=== PATIENT | male | born 1960 | race Caucasian/White ===

== ENCOUNTER 2017-02-02 09:14 | Emergency (ER) | payer OTHER ==
[2017-02-02 09:19] VITALS: BP 165/78; PULSE 77; RESP 20; TEMP 98.1
[2017-02-02] MEDS ORDERED: CIPROFLOXACIN HCL 500 MG TAB PO STA (09:43)
--- NOTE | 2017-02-02 09:44 | ED ---
General Adult HPI - General Chief complaint: Wound/Laceration Stated complaint: Stepped on nail left foot/diabetic Time Seen by Provider: 02/02/17 09:22 Source: patient, RN notes reviewed Mode of arrival: ambulatory Limitations: no limitations - History of Present Illness Initial comments: Patient 56-year-old male significant past medical history for diabetes, who presents emergency room today with a chief complaint of puncture wound to left foot 2 weeks. He does admit that he had his boots on stepped on a nail through states he was able pull it out himself. He states it's been 2 weeks to having some pains nose some local redness to the top of his foot. He did go to [facility] and advised to come here the emergency room. He states is not been on any antibiotics. He states that 2 weeks ago he followed up did have x- rays which were negative. Patient denies any other complaints or symptoms. - Related Data Home Medications Medication Instructions Recorded Confirmed Insulin Aspart [NovoLOG] See Protocol SQ PC-TID PRN 02/25/16 02/25/16 Insulin Glargine [Lantus] 40 unit SQ HS 02/25/16 02/25/16 Previous Rx's Medication Instructions Recorded Ciprofloxacin HCl [Cipro] 500 mg PO Q12HR #6 tablet 02/25/16 Ciprofloxacin HCl [Cipro] 500 mg PO Q12HR #20 day 02/02/17 Allergies Allergy/AdvReac Type Severity Reaction Status Date / Time Penicillins Allergy Unknown Verified 02/02/17 09:19 Childhood Review of Systems ROS Statement: Those systems with pertinent positive or pertinent negative responses have been documented in the HPI. ROS Other: All systems not noted in ROS Statement are negative. Past Medical History Past Medical History: Diabetes Mellitus History of Any Multi-Drug Resistant Organisms: None Reported Past Surgical History: Back Surgery Additional Past Surgical History / Comment(s): x2 hand surgeries Past Psychological History: No Psychological Hx Reported Smoking Status: Current every day smoker Past Alcohol Use History: Occasional Past Drug Use History: None Reported General Exam - General Exam Comments Initial Comments: General: The patient is awake and alert, in no distress, and does not appear acutely ill. Neck: The neck is supple, there is no tenderness or JVD. Cardiovascular: There is a regular rate and rhythm. No murmur, rub or gallop is appreciated. Respiratory: Lungs are clear to auscultation, respirations are non-labored, breath sounds are equal. No wheezes, stridor, rales, or rhonchi. Musculoskeletal: Full range motion. Sensation intact with pulses equal bilaterally 2+ prescribed by/5. Neurological: A&O x 3. CN II-XII intact, There are no obvious motor or sensory deficits. Coordination appears grossly intact. Speech is normal. Skin: She does have some mild faint redness to the dorsal aspect between the digits 2 through 4. There is a puncture wound appreciated all of the foot. There is no redness swelling locally. Psychiatric: Normal mood and affect. Limitations: no limitations Course Vital Signs 02/02/17 09:17 Temperature 98.1 F Pulse Rate 77 Respiratory 20 Rate Blood Pressure 165/78 O2 Sat by Pulse 99 Oximetry Medical Decision Making - Medical Decision Making Patient's tetanus is up-to-date. A be started on antibiotics here in emergency room. Symptoms of return and need for admission were discussed with patient. Patient states understanding. Disposition Clinical Impression: Puncture wound Disposition: HOME SELF-CARE Condition: Good Instructions: Puncture Wound (ED) Additional Instructions: Please use medication as discussed. Please follow-up with family doctor in the next 2 days of symptoms have not improved. Please return to emergency room if the symptoms increase or worsen or for any other concerns. Prescriptions: Ciprofloxacin HCl [Cipro] 500 mg PO Q12HR #20 day Referrals: Joseph Jacobsen DO [Primary Care Provider] - 1-2 days Time of Disposition: 09:42
== END 2017-02-02 09:57 | disposition home or self-care (01) ==
LOC: EC 09:14
DX: S91.332A Puncture wound without foreign body, left foot, initial encounter (principal); E11.9 Type 2 diabetes mellitus without complications; F17.200 Nicotine dependence, unspecified, uncomplicated; Z79.4 Long term (current) use of insulin; Z88.0 Allergy status to penicillin; W45.0XXA Nail entering through skin, initial encounter
CPT/HCPCS: 99283

== ENCOUNTER 2017-03-30 11:05 | Inpatient (IN) | payer OTHER ==
[2017-03-30] MEDS ORDERED: NITROGLYCERIN SL TABS 0.4 MG TAB SUBLINGUAL STA ×3 (11:25)
[2017-03-30] MEDS ORDERED: ASPIRIN 81 MG PO STA (11:25)
[2017-03-30 11:26] LABS: Glucose,Whole Blood 138 mg/dL (75-99)
--- NOTE | 2017-03-30 11:28 | ED ---
General Adult HPI - General Chief complaint: Chest Pain Stated complaint: Chest Pain Time Seen by Provider: 03/30/17 11:22 Source: patient, family, RN notes reviewed Mode of arrival: wheelchair Limitations: no limitations - History of Present Illness Initial comments: Patient is a pleasant 56-year-old male presenting to the emergency Department with chest discomfort. Onset of symptoms was a couple hours ago prior to arrival. Discomfort feels like pressure and tightness in the chest. No radiation. Patient earlier felt a little bit short of breath and nauseated and was sweaty. Symptoms were severe however now are moderate 5/10. Patient did have similar symptoms a week ago that just lasted for a couple minutes however was not seen by at that time. - Related Data Home Medications Medication Instructions Recorded Confirmed Insulin Glargine [Lantus] 35 unit SQ DAILY 02/25/16 03/30/17 Insulin Aspart [NovoLOG] See Protocol SQ AC-TID 03/30/17 03/30/17 Allergies Allergy/AdvReac Type Severity Reaction Status Date / Time Penicillins Allergy Unknown Verified 03/30/17 11:51 Childhood Review of Systems ROS Statement: Those systems with pertinent positive or pertinent negative responses have been documented in the HPI. ROS Other: All systems not noted in ROS Statement are negative. Constitutional: Denies: fever Eyes: Denies: eye pain ENT: Denies: ear pain Respiratory: Denies: cough Cardiovascular: Reports: chest pain Endocrine: Denies: fatigue Gastrointestinal: Denies: abdominal pain Genitourinary: Denies: dysuria Musculoskeletal: Denies: back pain Skin: Denies: rash Neurological: Denies: weakness Past Medical History Past Medical History: Diabetes Mellitus History of Any Multi-Drug Resistant Organisms: None Reported Past Surgical History: Back Surgery, Orthopedic Surgery Additional Past Surgical History / Comment(s): x2 hand surgeries Past Psychological History: No Psychological Hx Reported Smoking Status: Current every day smoker Past Alcohol Use History: Occasional Past Drug Use History: None Reported General Exam Limitations: no limitations General appearance: alert, in no apparent distress Head exam: Present: atraumatic Eye exam: Present: normal appearance, PERRL ENT exam: Present: normal oropharynx Neck exam: Present: normal inspection Respiratory exam: Present: normal lung sounds bilaterally. Absent: chest wall tenderness Cardiovascular Exam: Present: regular rate, normal rhythm Expanded Peripheral pulses: 2+: Radial (R), Radial (L), Dorsalis Pedis (R), Dorsalis Pedis (L) GI/Abdominal exam: Present: soft. Absent: tenderness Extremities exam: Present: normal inspection. Absent: pedal edema, calf tenderness Neurological exam: Present: alert Psychiatric exam: Present: normal affect, normal mood Skin exam: Present: normal color Course Vital Signs 03/30/17 03/30/17 03/30/17 11:08 11:41 11:46 Temperature 97.0 F L Pulse Rate 70 64 66 Respiratory 16 20 20 Rate Blood Pressure 142/83 147/83 128/74 O2 Sat by Pulse 99 99 99 Oximetry 03/30/17 03/30/17 03/30/17 11:52 11:56 12:12 Temperature Pulse Rate 67 66 58 L Respiratory 20 20 18 Rate Blood Pressure 133/76 135/72 149/77 O2 Sat by Pulse 100 99 100 Oximetry EKG Findings - EKG Comments: EKG Findings:: Atrial rhythm at 67. IA 156. QRS 86. QT 422. QTC 445. Normal axis. Normal QRS. T wave inversion with some ST depression leads V3 through V6. No old EKG available. Medical Decision Making - Medical Decision Making Patient does have somewhat elevated troponin. Patient reexamined and resting comfortably in bed. Patient was updated. Patient has arty been started on heparin secondary to symptoms and EKG changes. Case was discussed in detail with Dr. Heart, who will admit for Dr. Mckeon. Case was also discussed with practitioner angie, who will consult with Dr. Colón. - Lab Data Result diagrams: 03/30/17 11:20 03/30/17 11:20 Lab Results 03/30/17 03/30/17 03/30/17 Range/Units 11:20 11:20 11:20 WBC 7.2 (3.8-10.6) k/uL RBC 4.76 (4.30-5.90) m/uL Hgb 14.7 (13.0-17.5) gm/dL Hct 44.6 (39.0-53.0) % MCV 93.7 (80.0-100.0) fL MCH 30.9 (25.0-35.0) pg MCHC 33.0 (31.0-37.0) g/dL RDW 15.7 H (11.5-15.5) % Plt Count 194 (150-450) k/uL Neutrophils % 60 % Lymphocytes % 27 % Monocytes % 8 % Eosinophils % 4 % Basophils % 1 % Neutrophils # 4.3 (1.3-7.7) k/uL Lymphocytes # 1.9 (1.0-4.8) k/uL Monocytes # 0.6 (0-1.0) k/uL Eosinophils # 0.3 (0-0.7) k/uL Basophils # 0.1 (0-0.2) k/uL PT (9.0-12.0) sec INR (<1.2) APTT (22.0-30.0) sec D-Dimer (<0.60) mg/L FEU Sodium 134 L (137-145) mmol/L Potassium 4.4 (3.5-5.1) mmol/L Chloride 101 (98-107) mmol/L Carbon Dioxide 24 (22-30) mmol/L Anion Gap 9 mmol/L BUN 9 (9-20) mg/dL Creatinine 0.65 L (0.66-1.25) mg/dL Est GFR (MDRD) Af Amer >60 (>60 ml/min/1.73 sqM) Est GFR (MDRD) Non-Af >60 (>60 ml/min/1.73 sqM) Glucose 146 H (74-99) mg/dL POC Glucose (mg/dL) (75-99) mg/dL POC Glu Technical Business Analyst ID Calcium 9.2 (8.4-10.2) mg/dL Magnesium 2.0 (1.6-2.3) mg/dL Total Bilirubin 0.4 (0.2-1.3) mg/dL AST 28 (17-59) U/L ALT 27 (21-72) U/L Alkaline Phosphatase 49 (38-126) U/L Total Creatine Kinase 241 H (55-170) U/L CK-MB (CK-2) 2.1 (0.0-2.4) ng/mL CK-MB (CK-2) Rel Index 0.9 Troponin I 0.108 H* (0.000-0.034) ng/mL Total Protein 7.3 (6.3-8.2) g/dL Albumin 4.3 (3.5-5.0) g/dL 03/30/17 03/30/17 Range/Units 11:20 11:22 WBC (3.8-10.6) k/uL RBC (4.30-5.90) m/uL Hgb (13.0-17.5) gm/dL Hct (39.0-53.0) % MCV (80.0-100.0) fL MCH (25.0-35.0) pg MCHC (31.0-37.0) g/dL RDW (11.5-15.5) % Plt Count (150-450) k/uL Neutrophils % % Lymphocytes % % Monocytes % % Eosinophils % % Basophils % % Neutrophils # (1.3-7.7) k/uL Lymphocytes # (1.0-4.8) k/uL Monocytes # (0-1.0) k/uL Eosinophils # (0-0.7) k/uL Basophils # (0-0.2) k/uL PT 10.6 (9.0-12.0) sec INR 1.1 (<1.2) APTT 27.9 (22.0-30.0) sec D-Dimer 0.34 (<0.60) mg/L FEU Sodium (137-145) mmol/L Potassium (3.5-5.1) mmol/L Chloride (98-107) mmol/L Carbon Dioxide (22-30) mmol/L Anion Gap mmol/L BUN (9-20) mg/dL Creatinine (0.66-1.25) mg/dL Est GFR (MDRD) Af Amer (>60 ml/min/1.73 sqM) Est GFR (MDRD) Non-Af (>60 ml/min/1.73 sqM) Glucose (74-99) mg/dL POC Glucose (mg/dL) 138 H (75-99) mg/dL POC Glu Technical Business Analyst ID Carlos Dejesus Calcium (8.4-10.2) mg/dL Magnesium (1.6-2.3) mg/dL Total Bilirubin (0.2-1.3) mg/dL AST (17-59) U/L ALT (21-72) U/L Alkaline Phosphatase (38-126) U/L Total Creatine Kinase (55-170) U/L CK-MB (CK-2) (0.0-2.4) ng/mL CK-MB (CK-2) Rel Index Troponin I (0.000-0.034) ng/mL Total Protein (6.3-8.2) g/dL Albumin (3.5-5.0) g/dL - Radiology Data Radiology results: image reviewed (Chest x-ray shows chronic changes. Nodular density right peripheral) Critical Care Time Critical Care Time: Yes Total Critical Care Time: 36 Disposition Clinical Impression: NSTEMI (non-ST elevated myocardial infarction) Disposition: ADMITTED IP TO THIS HOSP Condition: Serious Referrals: Joseph Jacobsen DO [Primary Care Provider] - 1-2 days Decision Time: 12:58
--- NOTE | 2017-03-30 11:51 | XR ---
EXAMINATION TYPE: XR chest 2V DATE OF EXAM: 03/30/2017 COMPARISON: None HISTORY: 56-year-old male with chest pain TECHNIQUE: PA and lateral views FINDINGS: The cardiomediastinal silhouette, aorta, and pulmonary vasculature are within normal limits. Mild int erstitial prominence has a chronic appearance. Nodular density peripheral right lower lung likely nip ple shadow. Otherwise, lungs and pleural spaces are clear. IMPRESSION: Chronic appearing changes, possible bronchitis or chronic asthma. Nodular density at the peripheral r ight lower lung likely nipple shadow. Recommend 4-6 week follow-up with nipple markers to reassess.
[2017-03-30] MEDS ORDERED: HEPARIN SODIUM,PORCINE 5,000 UNIT/ML 1 ML VIAL IV ONE (11:54)
[2017-03-30 11:55] LABS: Basophils # (A) 0.1 k/uL (0-0.2); Basophils % (A) 1 %; CH 31.2; CHCM 33.5; Eosinophils # (A) 0.3 k/uL (0-0.7); Eosinophils % (A) 4 %; HCT 44.6 % (39.0-53.0); HDW 2.36; HGB 14.7 gm/dL (13.0-17.5); Luc # (Auto) 0.09; Luc % (Auto) 1; Lymphocytes # (A) 1.9 k/uL (1.0-4.8); Lymphocytes % (A) 27 %; MCH 30.9 pg (25.0-35.0); MCV 93.7 fL (80.0-100.0); Monocytes # (A) 0.6 k/uL (0-1.0); Monocytes % (A) 8 %; Neutrophils # (A) 4.3 k/uL (1.3-7.7); Neutrophils % (A) 60 %; RBC 4.76 m/uL (4.30-5.90); RDW 15.7 % (11.5-15.5); WBC 7.2 k/uL (3.8-10.6); WBC (Perox) 7.31
[2017-03-30] MEDS ORDERED: SODIUM CHLORIDE 0.9% 500 ML IV SCH (12:00)
[2017-03-30 12:09] LABS: ALT 27 U/L (21-72); AST 28 U/L (17-59); Alkaline Phosphatase 49 U/L (38-126); Anion Gap 9 mmol/L; Blood Urea Nitrogen 9 mg/dL (9-20); Calcium 9.2 mg/dL (8.4-10.2); Carbon Dioxide 24 mmol/L (22-30); Chloride 101 mmol/L (98-107); Glucose 146 mg/dL (74-99); Non-African American GFR(MDRD) >60 (>60 ml/min/1.73 sqM); Potassium 4.4 mmol/L (3.5-5.1); Sodium 134 mmol/L (137-145); Total Bilirubin 0.4 mg/dL (0.2-1.3); Total Protein 7.3 g/dL (6.3-8.2)
[2017-03-30] MEDS: HEPARIN SODIUM,PORCINE/D5W PMX 25,000 UNIT in DEXTROSE/WATER 1 500ML.BAG IV SCH (12:14)
[2017-03-30 12:32] LABS: INR 1.1 (<1.2); Partial Thromboplastin Time 27.9 sec (22.0-30.0); Prothrombin Time 10.6 sec (9.0-12.0)
[2017-03-30 12:34] LABS: Creatine Kinase MB 2.1 ng/mL (0.0-2.4)
[2017-03-30 12:41] LABS: Troponin I 0.108 ng/mL (0.000-0.034)
[2017-03-30] MEDS ORDERED: NITROGLYCERIN SL TABS 0.4 MG TAB SUBLINGUAL PRN (12:58)
[2017-03-30] MEDS ORDERED: NITROGLYCERIN OINT 1 INCH/GM PACKET TOPICAL SCH (13:00)
--- NOTE | 2017-03-30 13:22 | P.CRDCN ---
History of Present Illness Consult date: 03/30/17 Chief complaint: chest pain History of present illness: This is a pleasant 56-year-old gentleman who is diabetic for the last 30 years and a smoker as well presented to the emergency room complaining of chest discomfort. He had an episode of chest discomfort last week but he did not seek any medical attention at that point. This morning he was in his usual state of health until earlier today when he started experiencing chest discomfort, as a pressure/burning sensation in the mid of the chest, without any radiation to the arm or neck or shoulders but it was associated with shortness of breath as well as a sweating. The discomfort lasted for about half an hour until the patient arrived to the emergency room and as a matter of fact he still have a very mild chest discomfort at this point. 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 The first set of cardiac enzyme came in to be slightly abnormal but the EKG showed extensive ST and T wave abnormalities in the anterolateral leads quite concerning for ischemia. The chest x-ray did not show any acute abnormalities. The rest of the blood work came in to be unremarkable. Past Medical History Past Medical History: Diabetes Mellitus History of Any Multi-Drug Resistant Organisms: None Reported Past Surgical History: Back Surgery, Orthopedic Surgery Additional Past Surgical History / Comment(s): x2 hand surgeries Past Psychological History: No Psychological Hx Reported Smoking Status: Current every day smoker Past Alcohol Use History: Occasional Past Drug Use History: None Reported Medications and Allergies Home Medications Medication Instructions Recorded Confirmed Type Insulin Glargine [Lantus] 35 unit SQ DAILY 02/25/16 03/30/17 History Insulin Aspart [NovoLOG] See Protocol SQ AC-TID 03/30/17 03/30/17 History Allergies Allergy/AdvReac Type Severity Reaction Status Date / Time Penicillins Allergy Unknown Verified 03/30/17 11:51 Childhood Physical Exam Vitals: Vital Signs Temp Pulse Resp BP Pulse Ox 03/30/17 12:12 58 L 18 149/77 100 03/30/17 11:56 66 20 135/72 99 03/30/17 11:52 67 20 133/76 100 03/30/17 11:46 66 20 128/74 99 03/30/17 11:41 64 20 147/83 99 03/30/17 11:08 97.0 F L 70 16 142/83 99 Intake and Output 03/29/17 03/30/17 03/30/17 22:59 06:59 14:59 Other: Weight 70.307 kg Patient Weight 03/31/17 06:59 Weight 70.307 kg - Constitutional General appearance: no acute distress - Respiratory Respiratory: bilateral: CTA - Cardiovascular Rhythm: regular Heart sounds: normal: S1, S2 Results 03/30/17 11:20 03/30/17 11:20 Cardiac Enzymes 03/30/17 03/30/17 Range/Units 11:20 11:20 AST 28 (17-59) U/L CK-MB (CK-2) 2.1 (0.0-2.4) ng/mL Troponin I 0.108 H* (0.000-0.034) ng/mL Coagulation 03/30/17 Range/Units 11:20 PT 10.6 (9.0-12.0) sec APTT 27.9 (22.0-30.0) sec CBC 03/30/17 Range/Units 11:20 WBC 7.2 (3.8-10.6) k/uL RBC 4.76 (4.30-5.90) m/uL Hgb 14.7 (13.0-17.5) gm/dL Hct 44.6 (39.0-53.0) % Plt Count 194 (150-450) k/uL Comprehensive Metabolic Panel 03/30/17 Range/Units 11:20 Sodium 134 L (137-145) mmol/L Potassium 4.4 (3.5-5.1) mmol/L Chloride 101 (98-107) mmol/L Carbon Dioxide 24 (22-30) mmol/L BUN 9 (9-20) mg/dL Creatinine 0.65 L (0.66-1.25) mg/dL Glucose 146 H (74-99) mg/dL Calcium 9.2 (8.4-10.2) mg/dL AST 28 (17-59) U/L ALT 27 (21-72) U/L Alkaline Phosphatase 49 (38-126) U/L Total Protein 7.3 (6.3-8.2) g/dL Albumin 4.3 (3.5-5.0) g/dL Current Medications Generic Name Dose Route Start Last Admin Trade Name Freq PRN Reason Stop Dose Admin Aspirin 325 mg 03/31/17 09:00 Aspirin PO DAILY [facility] Heparin Sodium (Porcine) 0 unit 03/30/17 11:54 Heparin IV PER PROTOCOL PRN Low PTT Protocol Heparin Sodium/Dextrose 25,000 500 mls @ 16.87 mls/hr 03/30/17 12:00 12:14 unit/ IV Solution IV 12 units/kg/hr .Q24H JOSHUA 16.87 mls/hr Protocol Administration 12 UNITS/KG/HR Sodium Chloride 500 mls @ 20 mls/hr 03/30/17 12:00 03/30/17 12:16 Saline 0.9% IV 20 mls/hr .Q24H JOSHUA Administration Nitroglycerin 1 inch 03/30/17 13:00 Nitro-Bid Oint TOPICAL Q6HR [facility] Nitroglycerin 0.4 mg 03/30/17 12:58 Nitrostat SUBLINGUAL Q5M PRN Chest Pain Intake and Output 03/29/17 03/30/17 03/30/17 22:59 06:59 14:59 Other: Weight 70.307 kg Patient Weight 03/31/17 06:59 Weight 70.307 kg 03/30/17 11:20 03/30/17 11:20 Assessment and Plan Assessment: This is a pleasant 56-year-old gentleman who is diabetic and smoker and with family history of coronary artery disease who presented to the emergency room was chest discomfort and ruled in for acute non-STEMI with abnormal cardiac enzymes and abnormal EKG as well. I recommended proceeding with a heart catheterization. I discussed the procedure in details with him in the room as well as with his . I will continue the aspirin and heparin for now. Further recommendation to follow the heart catheterization.
[2017-03-30] MEDS: NITROGLYCERIN-D5W PMX 50 MG in DEXTROSE/WATER 1 250ML.BAG IV SCH (14:47)
[2017-03-30 16:38] LABS: Glucose,Whole Blood 130 mg/dL (75-99)
[2017-03-30] MEDS: INSULIN LISPRO (humaLOG) 300 UNIT/3 ML VIAL SQ SCH ×2 (16:55→21:20)
[2017-03-30 18:25] LABS: Creatine Kinase MB 1.9 ng/mL (0.0-2.4)
[2017-03-30 18:28] LABS: Troponin I 0.131 ng/mL (0.000-0.034)
[2017-03-30 20:50] LABS: Glucose,Whole Blood 194 mg/dL (75-99)
[2017-03-30] MEDS: HEPARIN SODIUM,PORCINE 5,000 UNIT/ML 1 ML VIAL IV PRN (21:21)
--- NOTE | 2017-03-30 23:55 | P.HPIM ---
History of Present Illness H&P Date: 03/30/17 Chief Complaint: Chest pain Patient is a 56-year-old male with a history of diabetes type 1 and family history of coronary disease in his father presented to ER with complaints of chest pain. Pain is mainly retrosternal associated with nausea and vomiting and diaphoresis. Pain is mainly pressure-like sensation. Denied any radiation to the neck shoulder or to the back. Also short of breath and chest pain lasted for about 30-40 minutes. Patient had similar pain about a week back but he did not seek medical attention at the time. Patient says that pain improved with nitro tablets in the ER. Chest x-ray showed no acute abnormality EKG showed normal sinus rhythm with ST depression in the anterolateral leads Review of Systems Constitutional: Patient denies any fever or chills . No generalized weakness or weight loss. Abdomen: Patient denied nausea vomiting and diarrhea and abdominal pain. Cardiovascular: Patient denies any chest pain or short of breath no palpitations. Respiratory: patient denied any cough is from production. No shortness of breath Neurologic: Patient denied any numbness or tingling headache. Musculoskeletal: Patient denies any complaints of joint swelling or deformity. Skin: Negative Psychiatric: Negative Endocrine: No heat or cold intolerance. No recent weight gain. Genitourinary: No dysuria or hematuria. All other 14 point ROS negative except the above Past Medical History Past Medical History: Diabetes Mellitus Additional Past Medical History / Comment(s): IDDM type II, gammaglobulinemia as infant. History of Any Multi-Drug Resistant Organisms: None Reported Past Surgical History: Back Surgery, Orthopedic Surgery Additional Past Surgical History / Comment(s): L5-S1 back surgery, bilateral hand trigger finger repairs. Past Anesthesia/Blood Transfusion Reactions: No Reported Reaction Smoking Status: Current every day smoker - Past Family History Father Family Medical History: Myocardial Infarction (MA) Additional Family Medical History / Comment(s): Father has had 5 MIs with the first one happening at the age of 55yrs. Mother Additional Family Medical History / Comment(s): Hypoglycemia. Medications and Allergies Home Medications Medication Instructions Recorded Confirmed Type Insulin Glargine [Lantus] 35 unit SQ DAILY 02/25/16 03/30/17 History Insulin Aspart [NovoLOG] See Protocol SQ AC-TID 03/30/17 03/30/17 History Allergies Allergy/AdvReac Type Severity Reaction Status Date / Time Penicillins Allergy Unknown Verified 03/30/17 11:51 Childhood Physical Exam Vitals: Vital Signs Temp Pulse Resp BP Pulse Ox 03/30/17 14:18 60 18 136/77 99 03/30/17 13:57 97.9 F 64 18 162/100 100 03/30/17 12:12 58 L 18 149/77 100 03/30/17 11:56 66 20 135/72 99 03/30/17 11:52 67 20 133/76 100 03/30/17 11:46 66 20 128/74 99 03/30/17 11:41 64 20 147/83 99 03/30/17 11:08 97.0 F L 70 16 142/83 99 Intake and Output 03/30/17 03/30/17 03/30/17 06:59 14:59 22:59 Intake Total 222 Output Total 300 Balance -300 222 Intake: Oral 222 Output: Urine 300 Other: Weight 70.307 kg Patient Weight 03/31/17 06:59 Weight 70.307 kg PHYSICAL EXAMINATION: Patient is lying in the bed comfortably, no acute distress, awake alert and oriented.. HEENT: Normocephalic. Neck is supple. Pupils reactive. Nostrils clear. Oral cavity is moist. Ears reveal no drainage. Neck reveals no JVD, carotid bruits, or thyromegaly. CHEST EXAMINATION: Trachea is central. Symmetrical expansion. Lung herron clear to auscultation and percussion. CARDIAC: Normal S1, S2 with no gallops. No murmurs ABDOMEN: Soft. Bowel sounds normal. No organomegaly. No abdominal bruits. Extremities: reveal no edema. No clubbing or cyanosis Neurologically awake, alert, oriented x3 with well-coordinated movements. No focal deficits noted Skin: No rash or skin lesions. Psychiatric: Operative. Nonsuicidal Musculoskeletal: No joint swelling or deformity. Normal range of motion. Results CBC & Chem 7: 03/30/17 11:20 03/30/17 11:20 Labs: Abnormal Lab Results - Last 24 Hours (Table) 03/30/17 03/30/17 03/30/17 Range/Units 11:20 11:20 11:20 RDW 15.7 H (11.5-15.5) % APTT (22.0-30.0) sec Sodium 134 L (137-145) mmol/L Creatinine 0.65 L (0.66-1.25) mg/dL Glucose 146 H (74-99) mg/dL POC Glucose (mg/dL) (75-99) mg/dL Total Creatine Kinase 241 H (55-170) U/L Troponin I 0.108 H* (0.000-0.034) ng/mL 03/30/17 03/30/17 03/30/17 Range/Units 11:22 16:26 17:37 RDW (11.5-15.5) % APTT (22.0-30.0) sec Sodium (137-145) mmol/L Creatinine (0.66-1.25) mg/dL Glucose (74-99) mg/dL POC Glucose (mg/dL) 138 H 130 H (75-99) mg/dL Total Creatine Kinase 188 H (55-170) U/L Troponin I 0.131 H* (0.000-0.034) ng/mL 03/30/17 03/30/17 Range/Units 17:37 20:49 RDW (11.5-15.5) % APTT 37.0 H (22.0-30.0) sec Sodium (137-145) mmol/L Creatinine (0.66-1.25) mg/dL Glucose (74-99) mg/dL POC Glucose (mg/dL) 194 H (75-99) mg/dL Total Creatine Kinase (55-170) U/L Troponin I (0.000-0.034) ng/mL Thrombosis Risk Factor Assmnt - Choose All That Apply Any of the Below Risk Factors Present?: Yes Each Factor Represents 1 point: Age 41-60 years Other Risk Factors: No Other congenital or acquired thrombophilia - If yes, enter type in comment: No Thrombosis Risk Factor Assessment Total Risk Factor Score: 1 Thrombosis Risk Factor Assessment Level: Low Risk Assessment and Plan Assessment: 1 chest pain due to NSTEMI with elevated troponin level #2 diabetes type 1 #3 every day smoker #4 family history of significant coronary artery disease Plan: Patient will continue on telemetry monitoring. Continue the serial troponin trending. Continue the heparin IV. Possible cardiac catheterization by cardiology. We will continue the current management and blood sugar control. Counseled for smoking cessation. Further recommendations based on the clinical course. Prognosis is guarded. Time with Patient: Greater than 30
[2017-03-31 00:31] LABS: Creatine Kinase MB 1.8 ng/mL (0.0-2.4)
[2017-03-31 00:39] LABS: Troponin I 0.099 ng/mL (0.000-0.034)
[2017-03-31 04:53] LABS: Basophils % (A) 0 %; CH 30.8; CHCM 32.9; Eosinophils # (A) 0.4 k/uL (0-0.7); Eosinophils % (A) 6 %; HCT 44.8 % (39.0-53.0); HDW 2.33; HGB 14.8 gm/dL (13.0-17.5); Luc # (Auto) 0.11; Luc % (Auto) 1; Lymphocytes # (A) 1.9 k/uL (1.0-4.8); Lymphocytes % (A) 25 %; MCH 31.2 pg (25.0-35.0); MCHC 33.1 g/dL (31.0-37.0); MCV 94.3 fL (80.0-100.0); Mean Platelet Volume 8.1; Monocytes # (A) 0.6 k/uL (0-1.0); Monocytes % (A) 8 %; Neutrophils # (A) 4.6 k/uL (1.3-7.7); Neutrophils % (A) 60 %; RBC 4.75 m/uL (4.30-5.90); RDW 15.3 % (11.5-15.5); WBC 7.7 k/uL (3.8-10.6); WBC (Perox) 7.65
[2017-03-31 05:06] LABS: Cholesterol 169 mg/dL (<200); HDL Cholesterol 70 mg/dL (40-60)
[2017-03-31 05:50] LABS: Glucose,Whole Blood 148 mg/dL (75-99)
[2017-03-31] MEDS: INSULIN LISPRO (humaLOG) 300 UNIT/3 ML VIAL SQ SCH ×2 (06:22→14:46)
[2017-03-31] MEDS: ASPIRIN 325 MG TAB PO SCH (06:22)
[2017-03-31] MEDS ORDERED: IV FLUID CONTINUATION 950 ML IV ONE (08:45)
[2017-03-31] MEDS ORDERED: MIDAZOLAM 2 MG/2 ML VIAL IV ONE ×4 (09:13→12:24)
[2017-03-31] MEDS ORDERED: LIDOCAINE 2% INJ 20 MG/ML SQ ONE ×2 (09:24→12:31)
[2017-03-31] MEDS: VERAPAMIL SYRINGE (5 MG/10 ML) INTRAARTER ONE ×2 (09:25→09:33)
[2017-03-31] MEDS ORDERED: HEPARIN SODIUM 1,000 UN/ML (10ML VL) IV ONE (09:29)
[2017-03-31] MEDS ORDERED: IOHEXOL 350 MG/ML 125ML BOTTLE INJ ONE (09:33)
[2017-03-31] MEDS ORDERED: RX INFO: IV CONTRAST WAS GIVEN 1 EACH MISC MISCELLANE PRN (09:50)
[2017-03-31] MEDS ORDERED: SODIUM CHLORIDE 0.9% 1,000 ML IV SCH (10:00)
[2017-03-31 10:33] LABS: Glucose,Whole Blood 110 mg/dL (75-99)
[2017-03-31] MEDS ORDERED: MD COMMUNICATION TO PHARMACY 1 EACH MISC PO ONE ×4 (10:36)
--- NOTE | 2017-03-31 10:56 | CC ---
CARDIAC CATHETERIZATION REPORT DATE OF SERVICE: 03/31/2017 PERFORMING PHYSICIAN: Ronald Colón MD, Frame Table Operator. PROCEDURE PERFORMED: Selective right and left coronary angiogram. INDICATION: This is a pleasant 56-year-old gentleman who is diabetic and a smoker who presented to the emergency room with a chest discomfort and was ruled in for acute non-STEMI. The heart catheterization was recommended. APPROACH: Right radial artery. COMPLICATION: None. LEVEL OF SEDATION: Moderate with sedation length of 16 minutes. PROCEDURE DESCRIPTION: After obtaining an informed consent, the patient was brought to the [facility]. The right radial artery was cannulated using micropuncture technique, the micropuncture wire passed easily, then I placed a 6-Danish sheath in the right radial artery and subsequently I did selective right and left coronary angiogram using JR4 and JL3.5 catheters. The procedure was completed without any complication. SELECTIVE CORONARY ANGIOGRAM: 1. The right coronary artery is a large caliber vessel and it is a dominant vessel. The RCA in the proximal to midportion in that long tubular lesion appeared to be diseased up to about 70%. The RCA in the mid to distal portion appeared to have mild disease only and distally bifurcates into PDA and PLV branches both have mild disease only. The RCA gives collateral to the LAD. 2. The left main has distal lesion, appeared to be in the range of 90% to 95% with possible thrombus. The left main bifurcates into the left circumflex and left anterior descending artery. 3. The proximal left circumflex appeared to have mild disease only. The mid left circumflex is chronically occluded in the midportion just after the bifurcation of the first obtuse marginal branch which is a moderate caliber vessel with mild diffuse disease only. 4. The left anterior descending artery: The proximal LAD appears to have intermediate disease only. It gives rise into a small diagonal branch. The mid LAD appeared to have mild disease only and the LAD distally appeared to be angiographically normal. CONCLUSION: 1. Heavily calcified right and left coronary system. 2. Severe disease involving the proximal to mid left anterior descending artery in a long tubular lesion. 3. Critical distal left main disease. 4. Chronic total occlusion of the mid left circumflex. 5. Mild disease involving the left anterior descending artery. POSTPROCEDURE MANAGEMENT: 1. Consult surgeon for the evaluation of coronary artery bypass grafting as soon as possible. 2. Restart the patient back on heparin drip and nitro drip. 3. Follow up with the echocardiogram. 4. Follow up with the patient. GERMAN / IJN: [id number] /
--- NOTE | 2017-03-31 11:16 | P.GSCN ---
History of Present Illness Consult date: 03/31/17 Reason for Consult: Severe symptomatic triple-vessel coronary artery disease with left main disease , recommendations for surgical revascularization. Requesting physician: Ronald Colón History of present illness: This 56-year-old gentleman with a past medical history of diabetes, tobacco dependence, and family history of coronary artery disease with myocardial infarction at an early age presented to the emergency department yesterday with complaints of retrosternal chest pain which was associated with nausea, vomiting , and diaphoresis and was without radiation or shortness of breath. His chest pain did improve with nitroglycerin. Apparently he had a similar episode about a week ago but chose not to report to the emergency room. His EKG in the emergency room demonstrated ST changes in the anterior lateral leads. His chest x-ray did not demonstrate any acute process. He was admitted to [address] [place] [address] and was taken for heart catheterization this morning which demonstrated left main disease with 95% stenosis, right coronary artery with 70 % stenosis, circumflex artery with 100% stenosis, proximal LAD with 50% stenosis as well as the mid LAD with 20% stenosis. Of note he has a clot in the left main per Dr. Colón. Echocardiogram was completed demonstrating an ejection fraction of 30-35% and no significant valvular disorders. Dr. Dawkins was consulted for surgical recommendations regarding revascularization. Review of Systems 14 point review systems was completed and was negative except as noted. - Cardiovascular Reports as per HPI, Reports chest pain - Gastrointestinal Reports nausea, Reports vomiting Past Medical History Past Medical History: Chest Pain / Angina, Diabetes Mellitus Additional Past Medical History / Comment(s): IDDM type II, gammaglobulinemia as infant. History of Any Multi-Drug Resistant Organisms: None Reported Past Surgical History: Back Surgery, Orthopedic Surgery Additional Past Surgical History / Comment(s): L5-S1 back surgery, bilateral hand trigger finger repairs. Past Anesthesia/Blood Transfusion Reactions: No Reported Reaction Past Psychological History: No Psychological Hx Reported Smoking Status: Current every day smoker Past Alcohol Use History: Occasional Past Drug Use History: None Reported - Past Family History Father Family Medical History: Coronary Artery Disease (CAD), Myocardial Infarction ([place] ) Additional Family Medical History / Comment(s): Father has had 5 MIs with the first one happening at the age of 55yrs. Mother Additional Family Medical History / Comment(s): Hypoglycemia. There is coronary artery disease on the mother's family but not in the patient's mother Medications and Allergies Home Medications Medication Instructions Recorded Confirmed Type Insulin Glargine [Lantus] 35 unit SQ DAILY 02/25/16 03/30/17 History Insulin Aspart [NovoLOG] See Protocol SQ AC-TID 03/30/17 03/30/17 History Allergies Allergy/AdvReac Type Severity Reaction Status Date / Time Penicillins Allergy Unknown Verified 03/30/17 11:51 Childhood Surgical - Exam Vital Signs Temp Pulse Resp BP Pulse Ox 97.0 F L 70 16 142/83 99 03/30/17 11:08 03/30/17 11:08 03/30/17 11:08 03/30/17 11:08 03/30/17 11:08 - General well developed, well nourished, no distress, no pain - Eyes PERRL, normal ocular movement - ENT no hearing loss - Neck no masses, no bruits, trachea midline - Respiratory Lungs sounds diminished bilaterally. Respirations even, nonlabored. Currently on room air with oxygen saturation 95%. - Cardiovascular S1, S2 present. Regular rate and rhythm, normal sinus rhythm on telemetry. Palpable radial, DP, PT pulses bilaterally. No edema present. No varicosities noted to bilateral lower extremities. - Abdomen Abdomen: soft, non tender, bowel sounds - Genitourinary Deferred - Rectum Deferred - Integumentary Right radial heart catheterization site with T band present. no rash, no growths - Neurologic normal coordination, normal sensation - Psychiatric oriented to time, oriented to person, oriented to place, speech is normal, memory intact Results - Labs 03/31/17 04:13 03/30/17 11:20 Abnormal Lab Results - Last 24 Hours (Table) 03/30/17 03/30/17 03/30/17 Range/Units 11:20 11:20 11:20 RDW 15.7 H (11.5-15.5) % APTT (22.0-30.0) sec Sodium 134 L (137-145) mmol/L Creatinine 0.65 L (0.66-1.25) mg/dL Glucose 146 H (74-99) mg/dL POC Glucose (mg/dL) (75-99) mg/dL Total Creatine Kinase 241 H (55-170) U/L Troponin I 0.108 H* (0.000-0.034) ng/mL HDL Cholesterol (40-60) mg/dL 03/30/17 03/30/17 03/30/17 Range/Units 11:22 16:26 17:37 RDW (11.5-15.5) % APTT (22.0-30.0) sec Sodium (137-145) mmol/L Creatinine (0.66-1.25) mg/dL Glucose (74-99) mg/dL POC Glucose (mg/dL) 138 H 130 H (75-99) mg/dL Total Creatine Kinase 188 H (55-170) U/L Troponin I 0.131 H* (0.000-0.034) ng/mL HDL Cholesterol (40-60) mg/dL 03/30/17 03/30/17 03/30/17 Range/Units 17:37 20:49 23:25 RDW (11.5-15.5) % APTT 37.0 H (22.0-30.0) sec Sodium (137-145) mmol/L Creatinine (0.66-1.25) mg/dL Glucose (74-99) mg/dL POC Glucose (mg/dL) 194 H (75-99) mg/dL Total Creatine Kinase (55-170) U/L Troponin I 0.099 H* (0.000-0.034) ng/mL HDL Cholesterol (40-60) mg/dL 03/31/17 03/31/17 03/31/17 Range/Units 04:13 04:13 05:48 RDW (11.5-15.5) % APTT 40.1 H (22.0-30.0) sec Sodium (137-145) mmol/L Creatinine (0.66-1.25) mg/dL Glucose (74-99) mg/dL POC Glucose (mg/dL) 148 H (75-99) mg/dL Total Creatine Kinase (55-170) U/L Troponin I (0.000-0.034) ng/mL HDL Cholesterol 70 H (40-60) mg/dL 03/31/17 Range/Units 10:30 RDW (11.5-15.5) % APTT (22.0-30.0) sec Sodium (137-145) mmol/L Creatinine (0.66-1.25) mg/dL Glucose (74-99) mg/dL POC Glucose (mg/dL) 110 H (75-99) mg/dL Total Creatine Kinase (55-170) U/L Troponin I (0.000-0.034) ng/mL HDL Cholesterol (40-60) mg/dL Diabetes panel 03/30/17 03/31/17 Range/Units 11:20 04:13 Sodium 134 L (137-145) mmol/L Potassium 4.4 (3.5-5.1) mmol/L Chloride 101 (98-107) mmol/L Carbon Dioxide 24 (22-30) mmol/L BUN 9 (9-20) mg/dL Creatinine 0.65 L (0.66-1.25) mg/dL Glucose 146 H (74-99) mg/dL Calcium 9.2 (8.4-10.2) mg/dL AST 28 (17-59) U/L ALT 27 (21-72) U/L Alkaline Phosphatase 49 (38-126) U/L Total Protein 7.3 (6.3-8.2) g/dL Albumin 4.3 (3.5-5.0) g/dL Triglycerides 75 (<150) mg/dL HDL Cholesterol 70 H (40-60) mg/dL Calcium panel 03/30/17 Range/Units 11:20 Calcium 9.2 (8.4-10.2) mg/dL Albumin 4.3 (3.5-5.0) g/dL Pituitary panel 03/30/17 Range/Units 11:20 Sodium 134 L (137-145) mmol/L Potassium 4.4 (3.5-5.1) mmol/L Chloride 101 (98-107) mmol/L Carbon Dioxide 24 (22-30) mmol/L BUN 9 (9-20) mg/dL Creatinine 0.65 L (0.66-1.25) mg/dL Glucose 146 H (74-99) mg/dL Calcium 9.2 (8.4-10.2) mg/dL Adrenal panel 03/30/17 Range/Units 11:20 Sodium 134 L (137-145) mmol/L Potassium 4.4 (3.5-5.1) mmol/L Chloride 101 (98-107) mmol/L Carbon Dioxide 24 (22-30) mmol/L BUN 9 (9-20) mg/dL Creatinine 0.65 L (0.66-1.25) mg/dL Glucose 146 H (74-99) mg/dL Calcium 9.2 (8.4-10.2) mg/dL Total Bilirubin 0.4 (0.2-1.3) mg/dL AST 28 (17-59) U/L ALT 27 (21-72) U/L Alkaline Phosphatase 49 (38-126) U/L Total Protein 7.3 (6.3-8.2) g/dL Albumin 4.3 (3.5-5.0) g/dL - Imaging Chest x-ray: report reviewed, image reviewed EKG: image reviewed Assessment and Plan (1) Tobacco dependence Current Visit: Yes Status: Chronic Code(s): F17.200 - NICOTINE DEPENDENCE, UNSPECIFIED, UNCOMPLICATED SNOMED Code(s): 65336627 (2) Insulin dependent diabetes mellitus Current Visit: Yes Status: Chronic Code(s): E11.9 - TYPE 2 DIABETES MELLITUS WITHOUT COMPLICATIONS; Z79.4 - 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) USE OF INSULIN SNOMED Code(s): 14189470 (3) Family history of early CAD Current Visit: Yes Status: Chronic Code(s): Z82.49 - FAMILY HX OF ISCHEM HEART DIS AND OTH DIS OF THE CIRC SYS SNOMED Code(s): 741293638 (4) Hypoglycemia associated with type 2 diabetes mellitus Current Visit: Yes Status: Chronic Code(s): E11.649 - TYPE 2 DIABETES MELLITUS WITH HYPOGLYCEMIA WITHOUT COMA SNOMED Code(s): 123656457 (5) NSTEMI (non-ST elevated myocardial infarction) Current Visit: Yes Status: Acute Code(s): I21.4 - NON-ST ELEVATION (NSTEMI) MYOCARDIAL INFARCTION SNOMED Code(s): 550471342 Plan: The patient was seen and examined at the bedside. Chart/diagnostics were reviewed. Preoperative teaching was initiated with the patient and family. Preoperative testing was ordered. Extensive discussion was had with the patient and family regarding open-heart surgery, what that entailed, and they are agreeable to surgery. Case was discussed with Dr. Dawkins. Patient is to have intra-aortic balloon pump placed. Patient is currently asymptomatic, denies any chest pain, currently on IV nitroglycerin. Recommend maximizing patient on aspirin, statin, beta nikolas therapy. Further recommendations to follow regarding timing of surgical revascularization. Thank you Dr. Colón for this consult. We look forward to working with you in the care of your patients. Time with Patient: Greater than 30
[2017-03-31] MEDS ORDERED: IV FLUID CONTINUATION 1,000 ML IV ONE (12:02)
[2017-03-31] MEDS: HEPARIN SODIUM,PORCINE/D5W PMX 25,000 UNIT in DEXTROSE/WATER 1 500ML.BAG IV SCH ×2 (12:17→15:20)
[2017-03-31 12:21] LABS: Appearance,Urine Clear (Clear); Bilirubin,Urine Negative (Negative); Glucose,Urine (UA) Negative (Negative); Ketones,Urine 1+ (Negative); Leukocyte Esterase,Urine Negative (Negative); Nitrite,Urine Negative (Negative); PH, Urine 7.5 (5.0-8.0); Protein,Urine Negative (Negative); Specific Gravity,Urine 1.011 (1.001-1.035); UA Billing (MACRO vs. MICRO) CHEM; Urobilinogen,Urine <2.0 mg/dL (<2.0)
--- NOTE | 2017-03-31 12:28 | P.CNPUL ---
History of Present Illness Consult date: 03/31/17 Requesting physician: Greg Heart Reason for consult: other (Ventilator/critical care management) Chief complaint: Chest pain History of present illness: This is a very pleasant 56-year-old gentleman who follows with Dr. Jacobsen as his primary care physician. He has a history of insulin-dependent diabetes mellitus, chronic and ongoing tobacco dependence. No pulmonary history. No inhalers at home. He does have a family history of coronary artery disease with his father having 5 myocardial infarction suffered first one at age 55. The patient had presented here yesterday to the emergency room with complaints of chest pain. He described this as a pressure/burning sensation in the middle of his chest without any significant radiation. He did have shortness of breath and some diaphoresis. It lasted approximately half hour prior to his arrival to the emergency room. He had a similar episode about a week ago but did not seek any attention at that time. His EKG revealed extensive ST and T-wave abnormalities in the anterolateral leads. He ruled in for an acute non-ST segment elevation myocardial infarction. Today he had undergone cardiac catheterization with Dr. Colón and was found to have heavily calcified right and left coronary systems. There was severe disease involving the proximal to mid LAD and a long tubular lesion. 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 The patient will be receiving a balloon pump insertion. Recommendations for urgent coronary artery bypass grafting have been made. We are consulted for critical care management. The patient is seen in the intensive care unit. He is awake and alert in no acute distress. He is maintaining good O2 saturations in the mid 90s on room air. Chest x-ray revealed chronic changes but no acute cardiopulmonary process. There is a nodular density in the peripheral right lower lung most likely representing a nipple shadow. He's been hemodynamically stable. He has been maintained on a heparin drip. He is also on nitroglycerin at 5 mcg/m. He has a 0.9 normal saline at 100 mL per hour. His been initiated on aspirin statins and beta blockers. No leukocytosis. Hemoglobin 14.8. Platelet count 183,000. Troponin 0.099. Review of Systems 14 point review of systems was conducted. All negative other than as mentioned in the HPI, that mainly being complaints of chest pain. Past Medical History Past Medical History: Chest Pain / Angina, Diabetes Mellitus Additional Past Medical History / Comment(s): IDDM type II, gammaglobulinemia as . History of Any Multi-Drug Resistant Organisms: None Reported Past Surgical History: Back Surgery, Orthopedic Surgery Additional Past Surgical History / Comment(s): L5-S1 back surgery, bilateral hand trigger finger repairs. Past Anesthesia/Blood Transfusion Reactions: No Reported Reaction Past Psychological History: No Psychological Hx Reported Smoking Status: Current every day smoker Past Alcohol Use History: Occasional Past Drug Use History: None Reported - Past Family History Father Family Medical History: Coronary Artery Disease (CAD), Myocardial Infarction ([place] ) Additional Family Medical History / Comment(s): Father has had 5 MIs with the first one happening at the age of 55yrs. Mother Additional Family Medical History / Comment(s): Hypoglycemia. There is coronary artery disease on the mother's family but not in the patient's mother Medications and Allergies Home Medications Medication Instructions Recorded Confirmed Type Insulin Glargine [Lantus] 35 unit SQ DAILY 02/25/16 03/30/17 History Insulin Aspart [NovoLOG] See Protocol SQ AC-TID 03/30/17 03/30/17 History Allergies Allergy/AdvReac Type Severity Reaction Status Date / Time Penicillins Allergy Unknown Verified 03/30/17 11:51 Childhood Physical Exam Vitals: Vital Signs Temp Pulse Pulse Resp BP BP Pulse Ox 03/31/17 11:30 64 18 140/80 95 03/31/17 11:15 62 18 132/75 95 03/31/17 11:05 62 18 132/75 95 03/31/17 11:00 64 16 145/81 95 03/31/17 10:45 65 21 145/81 95 03/31/17 10:35 64 12 145/81 95 03/31/17 10:30 69 03/31/17 10:20 97.7 F 65 18 145/81 95 03/31/17 10:05 65 16 130/69 95 03/31/17 09:50 64 16 138/73 97 03/31/17 07:41 97.7 F 64 16 136/73 95 03/31/17 05:35 96.7 F L 69 18 119/60 95 03/31/17 04:00 96.7 F L 69 18 119/60 95 03/31/17 00:00 63 18 126/71 98 03/30/17 20:00 97.0 F L 60 18 145/78 98 03/30/17 14:18 60 18 136/77 99 03/30/17 13:57 97.9 F 64 18 162/100 100 03/30/17 12:12 58 L 18 149/77 100 Intake and Output 03/30/17 03/31/17 03/31/17 22:59 06:59 14:59 Intake Total 372.987 340.8 150 Balance 372.987 340.8 150 Intake: IV 340.8 150 Heparin Sodium,Porcine/ 168.8 D5w Pmx 25,000 unit In Dextrose/Water 1 500ml. bag @ 12 UNITS/KG/HR 16. 87 mls/hr IV .Q24H [facility] Rx #:[id number] Nitroglycerin-D5w Pmx 50 12 mg In Dextrose/Water 1 250ml.bag @ 5 MCG/MIN 1.5 mls/hr IV .Q24H [facility] Rx#: [id number] Sodium Chloride 0.9% 500 160 ml @ 20 mls/hr IV .Q24H [facility] Rx#:[id number] Intake, IV Titration 150.987 Amount Heparin Sodium,Porcine/ 150.987 D5w Pmx 25,000 unit In Dextrose/Water 1 500ml. bag @ 12 UNITS/KG/HR 16. 87 mls/hr IV .Q24H [facility] Rx #:[id number] Oral 222 Other: Voiding Method Urinal Urinal Urinal # Voids 0 Weight 70.4 kg GENERAL EXAM: Alert, currently comfortable in no apparent distress. HEAD: Normocephalic. EYES: Normal reaction of pupils, equal size. NOSE: Clear with pink turbinates. THROAT: No erythema or exudates. NECK: No masses, no JVD. CHEST: No chest wall deformity. LUNGS: Equal air entry with no crackles, wheeze, rhonchi or dullness. CVS: S1 and S2 normal with no audible murmur, regular rhythm. ABDOMEN: No hepatosplenomegaly, normal bowel sounds, no guarding or rigidity. SPINE: No scoliosis or deformity SKIN: No rashes CENTRAL NERVOUS SYSTEM: No focal deficits, tone is normal in all 4 extremities. EXTREMITIES: There is no peripheral edema. No clubbing, no cyanosis. Peripheral pulses are intact. Results - Laboratory Findings CBC and BMP: 03/31/17 04:13 03/30/17 11:20 PT/INR, D-dimer PT 10.6 sec (9.0-12.0) 03/30/17 11:20 INR 1.1 (<1.2) 03/30/17 11:20 D-Dimer 0.34 mg/L FEU (<0.60) 03/30/17 11:20 Abnormal lab findings: Abnormal Labs 03/30/17 03/30/17 03/30/17 11:20 11:20 11:20 RDW 15.7 H APTT Sodium 134 L Creatinine 0.65 L Glucose 146 H POC Glucose (mg/dL) Total Creatine Kinase 241 H Troponin I 0.108 H* HDL Cholesterol 03/30/17 03/30/17 03/30/17 11:22 16:26 17:37 RDW APTT Sodium Creatinine Glucose POC Glucose (mg/dL) 138 H 130 H Total Creatine Kinase 188 H Troponin I 0.131 H* HDL Cholesterol 03/30/17 03/30/17 03/30/17 17:37 20:49 23:25 RDW APTT 37.0 H Sodium Creatinine Glucose POC Glucose (mg/dL) 194 H Total Creatine Kinase Troponin I 0.099 H* HDL Cholesterol 03/31/17 03/31/17 03/31/17 04:13 04:13 05:48 RDW APTT 40.1 H Sodium Creatinine Glucose POC Glucose (mg/dL) 148 H Total Creatine Kinase Troponin I HDL Cholesterol 70 H 03/31/17 10:30 RDW APTT Sodium Creatinine Glucose POC Glucose (mg/dL) 110 H Total Creatine Kinase Troponin I HDL Cholesterol - Diagnostic Findings Chest x-ray: image reviewed Assessment and Plan Assessment: Impression: #1 Chest pain in a patient found to have an acute non-ST segment myocardial infarction. #2 Significant coronary artery disease with heavily calcified right and left coronary systems. 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 The patient is currently on heparin and nitro drips. Intra- aortic balloon pump to be placed. Urgent coronary artery bypass grafting recommended. #3 Insulin-dependent diabetes mellitus. #4 Chronic and ongoing tobacco dependence. Plan: The patient was seen and evaluated by Dr. Mcgee. His chest x-ray and labs were reviewed. The patient does have significant ongoing tobacco dependence. Will await bedside spirometry to evaluate his FEV1 value. In the interim we will initiate bronchodilators. He is educated regarding the importance of complete smoking cessation. A NicoDerm patch will he offered. He'll be educated regarding the use of the incentive spirometer and importance of cough and deep breathing exercises. We will monitor him closely here in the intensive care unit. The plan is for surgical intervention either later today or tomorrow morning. Time with Patient: Greater than 30
--- NOTE | 2017-03-31 12:50 | US ---
EXAMINATION TYPE: US carotid duplex BILAT DATE OF EXAM: 03/31/2017 COMPARISON: NONE CLINICAL HISTORY: preop cabg. EXAM MEASUREMENTS: RIGHT: Peak Systolic Velocity (PSV) cm/sec ----- Right CCA: 123.1 ----- Right ICA: 95.6 ----- Right ECA: 97.7 ICA/CCA ratio: 0.8 RIGHT: End Diastole cm/sec ----- Right CCA: 32.0 ----- Right ICA: 29.9 ----- Right ECA: 10.8 LEFT: Peak Systolic Velocity (PSV) cm/sec ----- Left CCA: 71.5 ----- Left ICA: 77.1 ----- Left ECA: 111.1 ICA/CCA ratio: 1.1 LEFT: End Diastole cm/sec ----- Left CCA: 21.2 ----- Left ICA: 27.8 ----- Left ECA: 16.7 VERTEBRALS (direction of flow): Right Vertebral: Antegrade Left Vertebral: Antegrade Rhythm: Arrhythmia Mild to moderate plaque, no significant velocity elevations. IMPRESSION: No hemodynamically significant stenosis within either carotid arterial system.
[2017-03-31 13:08] LABS: INR 1.1 (<1.2); Partial Thromboplastin Time 40.9 sec (22.0-30.0); Prothrombin Time 11.1 sec (9.0-12.0)
[2017-03-31 13:09] LABS: ALT 29 U/L (21-72); AST 21 U/L (17-59); Alkaline Phosphatase 47 U/L (38-126); Anion Gap 7 mmol/L; Blood Urea Nitrogen 6 mg/dL (9-20); Calcium 8.4 mg/dL (8.4-10.2); Carbon Dioxide 22 mmol/L (22-30); Chloride 106 mmol/L (98-107); Glucose 121 mg/dL (74-99); Non-African American GFR(MDRD) >60 (>60 ml/min/1.73 sqM); Potassium 4.2 mmol/L (3.5-5.1); Sodium 135 mmol/L (137-145); Total Bilirubin 0.6 mg/dL (0.2-1.3); Total Protein 6.4 g/dL (6.3-8.2)
--- NOTE | 2017-03-31 13:18 | ECHOF ---
Referral Reason:chest pain MEASUREMENTS -------- HEIGHT: 172.7 cm WEIGHT: 6.8 kg BP: IVSd: 1.1 cm (0.6 - 1.1) LVIDd: 5.4 cm (3.9 - 5.3) LVPWd: 1.2 cm (0.6 - 1.1) IVSs: 1.3 cm LVIDs: 4.5 cm LVPWs: 1.3 cm LA Diam: 3.6 cm (2.7 - 3.8) LAESV Index (A-L): 84.10 ml/m Ao Diam: 3.1 cm (2.0 - 3.7) AV Cusp: 1.7 cm (1.5 - 2.6) LA Diam: 3.9 cm (2.7 - 3.8) MV EXCURSION: 22.616 mm (> 18.000) MV EF SLOPE: 68 mm/s (70 - 150) EPSS: 2.1 cm MV E Felix: 0.88 m/s MV DecT: 207 ms MV A Felix: 0.52 m/s MV E/A Ratio: 1.70 RAP: 5.00 mmHg RVSP: 14.63 mmHg FINDINGS -------- Sinus rhythm. This was a technically adequate study. The left ventricular size is normal. There is mild concentric left ventricular hypertrophy. Overa ll left ventricular systolic function is moderate-severely impaired with, an EF between 30 - 35 %. Mid anterior LV wall motion is hypokinetic. Mid lateral LV wall motion is hypokinetic. Apical a nterior LV wall motion is hypokinetic. Apical lateral LV wall motion is hypokinetic. Apical sep milka LV wall motion is hypokinetic. Anterseptal Hypokinesis Septal Hypokinesis [place] Hypokinesis . The right ventricular wall thickness is normal measuring < 5mm. LA is severely dilated >40 ml/m2 The right atrium is normal in size. RA appears enlarged. The aortic valve is trileaflet, and appears structurally normal. No aortic stenosis or regurgitation. The mitral valve is normal. Mild mitral regurgitation is present. Mild tricuspid regurgitation present. There is no evidence of pulmonary hypertension. The right v entricular systolic pressure, as measured by Doppler, is 14.63mmHg. There is no pulmonic regurgitation present. The aortic root size is normal. There is no pericardial effusion. CONCLUSIONS -------- 1. Sinus rhythm. 2. There is mild concentric left ventricular hypertrophy. 3. Overall left ventricular systolic function is moderate-severely impaired with, an EF between 30 - 35 %. 4. Mid anterior LV wall motion is hypokinetic. 5. Mid lateral LV wall motion is hypokinetic. 6. Apical anterior LV wall motion is hypokinetic. 7. Apical lateral LV wall motion is hypokinetic. 8. Apical septum LV wall motion is hypokinetic. 9. Anterseptal Hypokinesis 10. Septal Hypokinesis 11. [place] Hypokinesis. 12. LA is severely dilated >40 ml/m2 13. The aortic valve is trileaflet, and appears structurally normal. No aortic stenosis or regurgitat ion. 14. Mild mitral regurgitation is present. 15. Mild tricuspid regurgitation present. 16. There is no evidence of pulmonary hypertension. 17. There is no pulmonic regurgitation present. 18. The aortic root size is normal. 19. There is no pericardial effusion. ROLE PLAYER: Brittney Lanza RDCS
[2017-03-31] MEDS ORDERED: METOPROLOL TARTRATE 12.5 MG TAB PO STA (13:53)
--- NOTE | 2017-03-31 14:02 | ECG ---
ELECTROCARDIOGRAPH REPORT DATE OF SERVICE: 03/31/2017 PERFORMING PHYSICIAN: Ronald Colón MD, Case Coordinator. PROCEDURE PERFORMED: Successful placement of intra-aortic balloon pump. INDICATION: This is a pleasant 56-year-old gentleman who is diabetic and smoker who presented to the hospital with chest discomfort and underwent heart catheterization which revealed critical distal left main disease. The patient is scheduled to be seen by a surgeon later on today for the evaluation of coronary artery bypass grafting. We recommended proceeding with the balloon pump until the patient had the surgery. COMPLICATION: None. LEVEL OF SEDATION: Moderate with sedation length of 12 minutes. PROCEDURE DESCRIPTION: After obtaining an informed consent, the patient was brought to the Cardiac Carburetor Repairer. The right common femoral artery was cannulated using micropuncture technique, the micropuncture wire passed easily. Then I placed the balloon pump sheath over the wire. Subsequently I did advance the balloon pump through the sheath all the way to the distal left subclavian. Everything was performed under fluoroscopy guidance. The balloon pump was connected and placed at 1:1 ratio. The procedure was completed without any complication. POSTPROCEDURE MANAGEMENT: 1. Heparin IV. 2. Waiting for the patient to be seen and evaluated by the Cardiothoracic Surgeon. MMODL / IJN: [id number] /
[2017-03-31] MEDS: MUPIROCIN 2% OINT 22 GM TUBE NASAL SCH ×2 (14:45→22:04)
[2017-03-31] MEDS ORDERED: SODIUM BICARB 8.4% 50 ML SYR (1 MEQ/ML) IV ONE (15:20)
[2017-03-31] MEDS: NITROGLYCERIN-D5W PMX 50 MG in DEXTROSE/WATER 1 250ML.BAG IV SCH (15:49)
[2017-03-31] MEDS ORDERED: HYDROmorphone 1 MG/ML 1 ML SYRINGE IVP PRN (16:31)
[2017-03-31] MEDS: HYDROmorphone 1 MG/ML 1 ML SYRINGE IVP PRN ×2 (17:05→21:00)
[2017-03-31 17:09] LABS: Glucose,Whole Blood 118 mg/dL (75-99)
[2017-03-31] MEDS: INSULIN ASPART 100 UNIT/ML 1 ML 10 ML VIAL SQ SCH ×2 (17:25→22:04)
[2017-03-31] MEDS ORDERED: ATORVASTATIN 80 MG TAB PO SCH (21:00)
[2017-03-31 21:08] LABS: Glucose,Whole Blood 178 mg/dL (75-99)
[2017-03-31] MEDS: METOPROLOL TARTRATE 12.5 MG TAB PO SCH (22:05)
[2017-03-31] MEDS: HEPARIN SODIUM,PORCINE 5,000 UNIT/ML 1 ML VIAL IV PRN (22:14)
--- NOTE | 2017-04-01 00:17 | P.PN ---
Subjective Progress Note Date: 03/31/17 Principal diagnosis: NSTEMI Patient is a 56-year-old male with a history of diabetes type 1 and family history of coronary disease in his father presented to ER with complaints of chest pain. Pain is mainly retrosternal associated with nausea and vomiting and diaphoresis. Pain is mainly pressure-like sensation. Denied any radiation to the neck shoulder or to the back. Also short of breath and chest pain lasted for about 30-40 minutes. Patient had similar pain about a week back but he did not seek medical attention at the time. Patient says that pain improved with nitro tablets in the ER. Chest x-ray showed no acute abnormality EKG showed normal sinus rhythm with ST depression in the anterolateral leads 03/31/2017 Patient underwent cardiac catheterization showed severe coronary artery disease involving proximal and mid LAD. There is critical distal left main disease. Patient was placed on intra-aortic balloon pump and is awaiting CT surgery recommendations. Currently patient is awake oriented and denied any complaints of chest pain. No nausea vomiting or abdominal pain. Patient is encouraged with incentive spirometry. Chest x-ray revealed chronic changes but no acute cardiopulmonary process. Current medications reviewed. Objective - Vital Signs Vital signs: Vital Signs Temp 97.9 F 03/31/17 20:00 Pulse 61 03/31/17 21:00 Resp 16 03/31/17 21:00 BP 138/64 03/31/17 21:00 Pulse Ox 94 L 03/31/17 21:00 Intake & Output 03/31/17 03/31/17 04/01/17 06:59 18:59 06:59 Intake Total 532.789 9107.063 310.5 Output Total 1062 316 Balance 491.787 631.063 -5.5 Weight 70.4 kg 70.4 kg Intake: IV 340.8 1066.5 310.5 Heparin Sodium,Porcine/ 168.8 D5w Pmx 25,000 unit In Dextrose/Water 1 500ml. bag @ 12 UNITS/KG/HR 16. 87 mls/hr IV .Q24H [facility] Rx #:[id number] Nitroglycerin-D5w Pmx 50 4.5 4.5 mg In Dextrose/Water 1 250ml.bag @ 5 MCG/MIN 1.5 mls/hr IV .Q24H [facility] Rx#: [id number] Nitroglycerin-D5w Pmx 50 12 6.0 mg In Dextrose/Water 1 250ml.bag @ 5 MCG/MIN 1.5 mls/hr IV .Q24H [facility] Rx#: [id number] Sodium Chloride 0.9% 1, 300 300 000 ml @ 100 mls/hr IV . Q10H [facility] Rx#:[id number] Sodium Chloride 0.9% 500 160 400 ml @ 20 mls/hr IV .Q24H [facility] Rx#:[id number] pressure bag - heparin 6 6 Intake, IV Titration 150.987 386.563 Amount Heparin Sodium,Porcine/ 150.987 349.013 D5w Pmx 25,000 unit In Dextrose/Water 1 500ml. bag @ 12 UNITS/KG/HR 16. 87 mls/hr IV .Q24H [facility] Rx #:[id number] Nitroglycerin-D5w Pmx 50 37.55 mg In Dextrose/Water 1 250ml.bag @ 5 MCG/MIN 1.5 mls/hr IV .Q24H [facility] Rx#: [id number] Oral 240 Output: Urine 1062 316 Other: Voiding Method Urinal Indwelling Catheter Indwelling Catheter # Voids 0 - Exam PHYSICAL EXAMINATION: Patient is lying in the bed comfortably, no acute distress, awake alert and oriented.. HEENT: Normocephalic. Neck is supple. Pupils reactive. Nostrils clear. Oral cavity is moist. Ears reveal no drainage. Neck reveals no JVD, carotid bruits, or thyromegaly. CHEST EXAMINATION: Trachea is central. Symmetrical expansion. Lung herron clear to auscultation and percussion. CARDIAC: Normal S1, S2 with no gallops. No murmurs ABDOMEN: Soft. Bowel sounds normal. No organomegaly. No abdominal bruits. Extremities: reveal no edema. No clubbing or cyanosis Neurologically awake, alert, oriented x3 with well-coordinated movements. No focal deficits noted Skin: No rash or skin lesions. Psychiatric: Operative. Nonsuicidal Musculoskeletal: No joint swelling or deformity. Normal range of motion. - Labs CBC & Chem 7: 03/31/17 04:13 03/31/17 12:35 Labs: Abnormal Lab Results - Last 24 Hours (Table) 03/30/17 03/31/17 03/31/17 Range/Units 23:25 04:13 04:13 APTT 40.1 H (22.0-30.0) sec Sodium (137-145) mmol/L BUN (9-20) mg/dL Creatinine (0.66-1.25) mg/dL Glucose (74-99) mg/dL POC Glucose (mg/dL) (75-99) mg/dL Troponin I 0.099 H* (0.000-0.034) ng/mL HDL Cholesterol 70 H (40-60) mg/dL Urine Ketones (Negative) Crossmatch 03/31/17 03/31/17 03/31/17 Range/Units 05:48 10:30 11:30 APTT (22.0-30.0) sec Sodium (137-145) mmol/L BUN (9-20) mg/dL Creatinine (0.66-1.25) mg/dL Glucose (74-99) mg/dL POC Glucose (mg/dL) 148 H 110 H (75-99) mg/dL Troponin I (0.000-0.034) ng/mL HDL Cholesterol (40-60) mg/dL Urine Ketones 1+ H (Negative) Crossmatch 03/31/17 03/31/17 03/31/17 Range/Units 12:35 12:35 12:35 APTT 40.9 H (22.0-30.0) sec Sodium 135 L (137-145) mmol/L BUN 6 L (9-20) mg/dL Creatinine 0.60 L (0.66-1.25) mg/dL Glucose 121 H (74-99) mg/dL POC Glucose (mg/dL) (75-99) mg/dL Troponin I (0.000-0.034) ng/mL HDL Cholesterol (40-60) mg/dL Urine Ketones (Negative) Crossmatch See Detail 03/31/17 03/31/17 Range/Units 17:06 21:05 APTT (22.0-30.0) sec Sodium (137-145) mmol/L BUN (9-20) mg/dL Creatinine (0.66-1.25) mg/dL Glucose (74-99) mg/dL POC Glucose (mg/dL) 118 H 178 H (75-99) mg/dL Troponin I (0.000-0.034) ng/mL HDL Cholesterol (40-60) mg/dL Urine Ketones (Negative) Crossmatch Microbiology - Last 24 Hours (Table) 03/31/17 11:30 Urine Culture - Preliminary Urine,Catheterized Assessment and Plan Assessment: 1 chest pain due to NSTEMI with elevated troponin level #2 severe coronary artery disease status post cardiac catheter patient today. currently placed on intra-aortic balloon pump #2 diabetes type 1 #3 every day smoker #4 family history of significant coronary artery disease Plan: Patient will continue on telemetry monitoring. Continue the heparin IV. cardiac catheterization by cardiology. Patient was placed on intra-aortic balloon pump. CT surgery was consulted. We will continue the current management and blood sugar control. Counseled for smoking cessation. Further recommendations based on the clinical course. Prognosis is guarded.
[2017-04-01] MEDS: HYDROmorphone 1 MG/ML 1 ML SYRINGE IVP PRN ×2 (00:54→09:52)
[2017-04-01] MEDS ORDERED: ONDANSETRON 4 MG/2 ML VIAL ONE (04:03)
[2017-04-01] MEDS ORDERED: ONDANSETRON 4 MG/2 ML VIAL IVP PRN (04:13)
[2017-04-01] MEDS ORDERED: CALCIUM CHLORIDE 100 MG/ML 10 ML SYRINGE IVP ONE (05:00)
[2017-04-01] MEDS ORDERED: PHENYLEPHRINE 40 MG in SODIUM CHLORIDE 0.9% 250 ML IV ONE (05:00)
[2017-04-01] MEDS ORDERED: SOD BICARB PERFUSION NR ×3 (05:00)
[2017-04-01] MEDS ORDERED: HEPARIN SODIUM,PORCINE 5,000 UNIT in SODIUM CHLORIDE 0.9% 500 ML IV ONE (05:00)
[2017-04-01] MEDS ORDERED: ceFAZolin IN SWFI 2 GM/20 ML SYRINGE IVP ONE (05:00)
[2017-04-01] MEDS ORDERED: HEPARIN SODIUM 1,000 UN/ML (10ML VL) IV ONE (05:00)
[2017-04-01] MEDS ORDERED: ALBUMIN HUMAN 25% 50 ML in EMPTY BAG 1 BAG IVPB ONE (05:00)
[2017-04-01] MEDS ORDERED: NITROGLYCERIN-D5W PMX 50 MG in DEXTROSE/WATER 1 250ML.BAG IV ONE (05:00)
[2017-04-01] MEDS ORDERED: MANNITOL 25% 12.5 GM/50 ML VIAL IV ONE ×2 (05:00)
[2017-04-01] MEDS ORDERED: METOPROLOL TARTRATE 12.5 MG TAB PO ONE (05:00)
[2017-04-01] MEDS ORDERED: INSULIN REGULAR 100 UNIT in SODIUM CHLORIDE 0.9% 100 ML IV ONE (05:00)
[2017-04-01] MEDS ORDERED: CHLORHEXIDINE GLUCONATE 15 ML CUP MUCOUS MEM ONE (05:00)
[2017-04-01] MEDS ORDERED: PROPOFOL 1,000 MG/100 ML VIAL IV ONE (05:00)
[2017-04-01] MEDS ORDERED: TRANEXAMIC ACID 2,000 MG in SODIUM CHLORIDE 0.9% 180 ML IV ONE (05:00)
[2017-04-01] MEDS ORDERED: ALBUMIN HUMAN 5% 500 ML in EMPTY BAG 1 BAG IVPB ONE ×6 (05:00)
[2017-04-01] MEDS ORDERED: ceFAZolin 1,000 MG in SODIUM CHLORIDE 0.9% IRRIGATIO 1,000 ML IRRIGATION ONE (05:00)
[2017-04-01] MEDS ORDERED: PROTAMINE SULFATE 10 MG/ML 25 ML VIAL IV ONE (05:00)
[2017-04-01] MEDS ORDERED: PAPAVERINE 360 MG in SODIUM CHLORIDE 0.9% 90 ML IV ONE (05:00)
[2017-04-01] MEDS ORDERED: NITROGLYCERIN-D5W PMX 25 MG/250 ML BTL IV ONE (05:00)
[2017-04-01] MEDS ORDERED: ASPIRIN 325 MG TAB PO ONE (05:00)
[2017-04-01] MEDS ORDERED: CLEVIDIPINE BUTYRATE 25 MG in EMPTY BAG 1 BAG IV ONE (05:00)
[2017-04-01] MEDS ORDERED: MAGNESIUM SULFATE SYG 4.06 MEQ/ML SYRINGE IV ONE (05:00)
[2017-04-01] MEDS ORDERED: ATORVASTATIN 10 MG TAB PO ONE (05:00)
[2017-04-01] MEDS ORDERED: PROTAMINE SULFATE 250 MG in EMPTY BAG 1 BAG IV ONE (05:00)
[2017-04-01] MEDS ORDERED: ceFAZolin 2,000 MG in SODIUM CHLORIDE 0.9% 30 ML IVPB ONE (05:00)
[2017-04-01] MEDS ORDERED: [UNRECOGNIZED DRUG - OTHER] PERFUSION NR ×3 (05:00)
[2017-04-01] MEDS ORDERED: PHENYLEPHRINE-0.9% NACL SYG 1 MG/10 ML SYRINGE IV ONE ×4 (05:00)
[2017-04-01] MEDS ORDERED: NOREPINEPHRIN 4 MG-0.9% NS PMX 4 MG/250 ML ML IV SCH (05:00)
[2017-04-01 05:35] LABS: Basophils % (A) 0 %; CH 31.2; Eosinophils # (A) 0.2 k/uL (0-0.7); Eosinophils % (A) 2 %; HCT 43.8 % (39.0-53.0); HDW 2.34; HGB 13.6 gm/dL (13.0-17.5); Luc # (Auto) 0.05; Luc % (Auto) 1; Lymphocytes # (A) 0.9 k/uL (1.0-4.8); Lymphocytes % (A) 11 %; MCH 30.6 pg (25.0-35.0); MCHC 31.1 g/dL (31.0-37.0); MCV 98.3 fL (80.0-100.0); Mean Platelet Volume 7.9; Monocytes # (A) 0.5 k/uL (0-1.0); Monocytes % (A) 6 %; Neutrophils # (A) 7.1 k/uL (1.3-7.7); Neutrophils % (A) 80 %; RBC 4.46 m/uL (4.30-5.90); RDW 15.5 % (11.5-15.5); WBC 8.8 k/uL (3.8-10.6); WBC (Perox) 9.14
[2017-04-01 06:12] LABS: ALT 30 U/L (21-72); AST 16 U/L (17-59); Alkaline Phosphatase 51 U/L (38-126); Anion Gap 11 mmol/L; Blood Urea Nitrogen 8 mg/dL (9-20); Calcium 8.5 mg/dL (8.4-10.2); Carbon Dioxide 19 mmol/L (22-30); Chloride 101 mmol/L (98-107); Glucose 261 mg/dL (74-99); Magnesium 1.7 mg/dL (1.6-2.3); Non-African American GFR(MDRD) >60 (>60 ml/min/1.73 sqM); Phosphorus 3.7 mg/dL (2.5-4.5); Potassium 4.8 mmol/L (3.5-5.1); Sodium 131 mmol/L (137-145); Total Bilirubin 0.7 mg/dL (0.2-1.3); Total Protein 6.2 g/dL (6.3-8.2)
[2017-04-01 07:17] LABS: Glucose,Whole Blood 241 mg/dL (75-99)
[2017-04-01] MEDS: INSULIN ASPART 100 UNIT/ML 1 ML 10 ML VIAL SQ SCH ×2 (07:20→19:27)
[2017-04-01] MEDS: MAGNESIUM SULFATE-D5W PMX 1 GM in DEXTROSE/WATER 1 100ML.BAG IVPB SCH ×2 (08:00→09:23)
--- NOTE | 2017-04-01 09:27 | XR ---
EXAMINATION TYPE: XR chest 1V portable DATE OF EXAM: 04/01/2017 COMPARISON: Prior chest x-ray 03/30/2017 HISTORY: Preop, intra-aortic balloon pump placement TECHNIQUE: frontal view of the chest is obtained on 2 images. FINDINGS: Intra-aortic balloon pump marker is at the level of the transverse aorta at approximately T5 level. There is no evident pneumothorax or pleural effusion. Cardiac mediastinal silhouette, pulmo nary vascularity and maribell within normal limits. There are overlying cardiac leads. IMPRESSION: Balloon pump as described.
[2017-04-01] MEDS ORDERED: HYDROmorphone 1 MG/ML 1 ML SYRINGE IVP STA (09:48)
[2017-04-01] MEDS ORDERED: TRANEXAMIC ACID 1,000 MG/10 ML VIAL ONE (12:57)
[2017-04-01] MEDS ORDERED: POTASSIUM CHLORIDE OPEN HEART 20 MEQ/50 ML BAG IVPB ONE (12:57)
[2017-04-01] MEDS ORDERED: HEPARIN SODIUM,PORCINE 10,000 UNIT/ML 1 ML VIAL ONE (12:57)
[2017-04-01] MEDS ORDERED: fentaNYL (PF) 50 MCG/ML 50 ML VIAL ONE (12:57)
[2017-04-01] MEDS ORDERED: SODIUM CHLORIDE 0.9% IRRIG 1,000 ML BTL IRRIGATION ONE (12:57)
[2017-04-01] MEDS ORDERED: ePHEDrine SULFATE/0.9% NACL/PF 50 MG/5 ML SYRINGE IV ONE (12:57)
[2017-04-01] MEDS ORDERED: HEPARIN SODIUM,PORCINE 5,000 UNIT/ML 1 ML VIAL ONE (12:57)
[2017-04-01] MEDS ORDERED: SODIUM BICARB 8.4% 50 ML SYR (1 MEQ/ML) ONE (12:57)
[2017-04-01] MEDS ORDERED: MIDAZOLAM 2 MG/2 ML VIAL ONE (12:57)
[2017-04-01] MEDS ORDERED: PROTAMINE SULFATE 10 MG/ML 5 ML VIAL IV ONE (12:57)
[2017-04-01] MEDS ORDERED: PHENYLEPHRINE-0.9% NACL SYG 1 MG/10 ML SYRINGE ONE (12:57)
[2017-04-01] MEDS ORDERED: fentaNYL (PF) 50 MCG/ML 2 ML AMP ONE (12:57)
[2017-04-01] MEDS ORDERED: SODIUM CHLORIDE 0.9% 250 ML BAG ONE (12:57)
[2017-04-01] MEDS ORDERED: VECURONIUM 10 MG VIAL IV ONE (12:57)
[2017-04-01] MEDS ORDERED: PROPOFOL 10 MG/ML 20 ML VIAL IV ONE (12:57)
[2017-04-01] MEDS ORDERED: MAGNESIUM SULFATE 4 MEQ/ML 2 ML VIAL ONE (12:57)
[2017-04-01] MEDS ORDERED: ELECTROLYTE-R (PH 7.4) 1,000 ML IV.SOLN IV ONE (12:57)
[2017-04-01] MEDS ORDERED: DILTIAZEM 125 MG in SODIUM CHLORIDE 0.9% 100 ML IV SCH ×2 (13:15→14:15)
[2017-04-01 13:53] LABS: Glucose,Whole Blood 247 mg/dL (75-99)
[2017-04-01] MEDS ORDERED: SODIUM BICARB 8.4% 50 ML SYR (1 MEQ/ML) IV ONE ×4 (14:00)
[2017-04-01 14:49] LABS: Glucose,Whole Blood 263 mg/dL (75-99)
--- NOTE | 2017-04-01 14:52 | P.PN ---
Subjective Progress Note Date: 04/01/17 Principal diagnosis: Acute non-ST segment myocardial infarction. This is a very pleasant 56-year-old gentleman who follows with Dr. Jacobsen as his primary care physician. He has a history of insulin-dependent diabetes mellitus, chronic and ongoing tobacco dependence. No pulmonary history. No inhalers at home. He does have a family history of coronary artery disease with his father having 5 myocardial infarction suffered first one at age 55. The patient had presented here yesterday to the emergency room with complaints of chest pain. He described this as a pressure/burning sensation in the middle of his chest without any significant radiation. He did have shortness of breath and some diaphoresis. It lasted approximately half hour prior to his arrival to the emergency room. He had a similar episode about a week ago but did not seek any attention at that time. His EKG revealed extensive ST and T-wave abnormalities in the anterolateral leads. He ruled in for an acute non-ST segment elevation myocardial infarction. Today he had undergone cardiac catheterization with Dr. Colón and was found to have heavily calcified right and left coronary systems. There was severe disease involving the proximal to mid LAD and a long tubular lesion. 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 The patient will be receiving a balloon pump insertion. Recommendations for urgent coronary artery bypass grafting have been made. We are consulted for critical care management. The patient is seen in the intensive care unit. He is awake and alert in no acute distress. He is maintaining good O2 saturations in the mid 90s on room air. Chest x-ray revealed chronic changes but no acute cardiopulmonary process. There is a nodular density in the peripheral right lower lung most likely representing a nipple shadow. He's been hemodynamically stable. He has been maintained on a heparin drip. He is also on nitroglycerin at 5 mcg/m. He has a 0.9 normal saline at 100 mL per hour. His been initiated on aspirin statins and beta blockers. No leukocytosis. Hemoglobin 14.8. Platelet count 183,000. Troponin 0.099. Reevaluated today on 04/01/2017, patient is doing well, no major issues overnight , intra-aortic pump remains in place, patient is scheduled to have myocardial revascularization around noontime today. No major issues and no major symptoms overnight. Presently the patient remains asymptomatic. He is hemodynamically stable. All his meds and labs were reviewed. X-ray was also reviewed. Objective - Vital Signs Vital signs: Vital Signs Temp 98.3 F 04/01/17 09:00 Pulse 62 04/01/17 10:00 Resp 11 L 04/01/17 10:00 BP 111/54 04/01/17 10:00 Pulse Ox 97 04/01/17 10:00 Intake & Output 03/31/17 04/01/17 04/01/17 18:59 06:59 18:59 Intake Total 8217.694 1210.818 618.0 Output Total 1062 1646 610 Balance 631.063 -190.182 8.0 Weight 70.4 kg 74.2 kg Intake: IV 1066.5 1251.0 418.0 Nitroglycerin-D5w Pmx 50 4.5 18.0 6.0 mg In Dextrose/Water 1 250ml.bag @ 5 MCG/MIN 1.5 mls/hr IV .Q24H [facility] Rx#: [id number] Nitroglycerin-D5w Pmx 50 6.0 mg In Dextrose/Water 1 250ml.bag @ 5 MCG/MIN 1.5 mls/hr IV .Q24H [facility] Rx#: [id number] Sodium Chloride 0.9% 1, 300 1200 400 000 ml @ 100 mls/hr IV . Q10H [facility] Rx#:[id number] Sodium Chloride 0.9% 500 400 ml @ 20 mls/hr IV .Q24H [facility] Rx#:[id number] pressure bag - heparin 6 33 12 Intake, IV Titration 386.563 144.818 200 Amount Heparin Sodium,Porcine/ 349.013 144.818 D5w Pmx 25,000 unit In Dextrose/Water 1 500ml. bag @ 12 UNITS/KG/HR 16. 87 mls/hr IV .Q24H [facility] Rx #:[id number] Magnesium Sulfate-D5w Pmx 200 1 gm In Dextrose/Water 1 100ml.bag @ 100 mls/hr IVPB Q1H [facility] Rx#: [id number] Nitroglycerin-D5w Pmx 50 37.55 mg In Dextrose/Water 1 250ml.bag @ 5 MCG/MIN 1.5 mls/hr IV .Q24H [facility] Rx#: [id number] Oral 240 30 Blood Product 30 Output: Urine 1062 1146 610 Emesis 500 Other: Voiding Method Indwelling Catheter Indwelling Catheter Indwelling Catheter # Voids 0 - Exam GENERAL EXAM: Alert, currently comfortable in no apparent distress. HEAD: Normocephalic. EYES: Normal reaction of pupils, equal size. NOSE: Clear with pink turbinates. THROAT: No erythema or exudates. NECK: No masses, no JVD. CHEST: No chest wall deformity. LUNGS: Equal air entry with no crackles, wheeze, rhonchi or dullness. CVS: S1 and S2 normal with no audible murmur, regular rhythm. ABDOMEN: No hepatosplenomegaly, normal bowel sounds, no guarding or rigidity. SPINE: No scoliosis or deformity SKIN: No rashes CENTRAL NERVOUS SYSTEM: No focal deficits, tone is normal in all 4 extremities. EXTREMITIES: There is no peripheral edema. No clubbing, no cyanosis. Peripheral pulses are intact. - Labs CBC & Chem 7: 04/01/17 05:25 04/01/17 05:25 Labs: Abnormal Lab Results - Last 24 Hours (Table) 03/31/17 03/31/17 03/31/17 Range/Units 04:13 12:35 17:06 Lymphocytes # (1.0-4.8) k/uL APTT (22.0-30.0) sec Sodium (137-145) mmol/L Carbon Dioxide (22-30) mmol/L BUN (9-20) mg/dL Glucose (74-99) mg/dL POC Glucose (mg/dL) 118 H (75-99) mg/dL Hemoglobin A1c 7.8 H (4.0-6.0) % AST (17-59) U/L Total Protein (6.3-8.2) g/dL Crossmatch See Detail 03/31/17 03/31/17 04/01/17 Range/Units 21:04 21:05 05:25 Lymphocytes # 0.9 L (1.0-4.8) k/uL APTT 40.0 H (22.0-30.0) sec Sodium (137-145) mmol/L Carbon Dioxide (22-30) mmol/L BUN (9-20) mg/dL Glucose (74-99) mg/dL POC Glucose (mg/dL) 178 H (75-99) mg/dL Hemoglobin A1c (4.0-6.0) % AST (17-59) U/L Total Protein (6.3-8.2) g/dL Crossmatch 04/01/17 04/01/17 04/01/17 Range/Units 05:25 05:25 07:10 Lymphocytes # (1.0-4.8) k/uL APTT 55.8 H (22.0-30.0) sec Sodium 131 L (137-145) mmol/L Carbon Dioxide 19 L (22-30) mmol/L BUN 8 L (9-20) mg/dL Glucose 261 H (74-99) mg/dL POC Glucose (mg/dL) 241 H (75-99) mg/dL Hemoglobin A1c (4.0-6.0) % AST 16 L (17-59) U/L Total Protein 6.2 L (6.3-8.2) g/dL Crossmatch 04/01/17 04/01/17 Range/Units 13:39 14:47 Lymphocytes # (1.0-4.8) k/uL APTT (22.0-30.0) sec Sodium (137-145) mmol/L Carbon Dioxide (22-30) mmol/L BUN (9-20) mg/dL Glucose (74-99) mg/dL POC Glucose (mg/dL) 247 H 263 H (75-99) mg/dL Hemoglobin A1c (4.0-6.0) % AST (17-59) U/L Total Protein (6.3-8.2) g/dL Crossmatch Microbiology - Last 24 Hours (Table) 03/31/17 15:09 Nasal Screen MRSA/MSSA ([facility]) - Preliminary Nasopharyngeal Swab 03/31/17 11:30 Urine Culture - Preliminary Urine,Catheterized Assessment and Plan Plan: 1 Chest pain in a patient found to have an acute non-ST segment myocardial infarction. #2 Significant coronary artery disease with heavily calcified right and left coronary systems. 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 The patient is currently on heparin and nitro drips. Intra- aortic balloon pump to be placed. Urgent coronary artery bypass grafting recommended. #3 Insulin-dependent diabetes mellitus. #4 Chronic and ongoing tobacco dependence. Recommendation: Continue present supportive care measures, patient is to have his myocardial revascularization today around noontime. We'll follow the patient postoperatively. Time with Patient: Less than 30
[2017-04-01 15:29] LABS: Appearance,Urine Cloudy (Clear); Bacteria,Urine Rare /hpf; Bilirubin,Urine Negative (Negative); Glucose,Urine (UA) 4+ (Negative); Leukocyte Esterase,Urine Large (Negative); Mucus,Urine Rare /hpf; Nitrite,Urine Negative (Negative); PH, Urine 5.5 (5.0-8.0); Particle Count 6832; Protein,Urine Trace (Negative); RBC,Urine 20 /hpf (0-5); Specific Gravity,Urine 1.013 (1.001-1.035); Squamous Epithelial Cell,Urine 1 /hpf (0-4); UA Billing (MACRO vs. MICRO) MICRO; Urobilinogen,Urine <2.0 mg/dL (<2.0); WBC,Urine 56 /hpf (0-5)
[2017-04-01 15:41] LABS: Ketones,Urine 3+ (Negative)
[2017-04-01 15:52] LABS: Glucose,Whole Blood 197 mg/dL (75-99)
[2017-04-01 16:27] LABS: Glucose,Whole Blood 174 mg/dL (75-99)
[2017-04-01 17:01] LABS: Glucose,Whole Blood 166 mg/dL (75-99)
[2017-04-01 17:40] LABS: Glucose,Whole Blood 147 mg/dL (75-99)
[2017-04-01] MEDS ORDERED: Magnesium Replacement Protocol 1 EACH MISC MISCELLANE PRN (18:03)
[2017-04-01] MEDS ORDERED: NITROGLYCERIN-D5W PMX 50 MG in DEXTROSE/WATER 1 250ML.BAG IV SCH (18:03)
[2017-04-01] MEDS ORDERED: CLEVIDIPINE BUTYRATE 25 MG in EMPTY BAG 1 BAG IV SCH (18:03)
[2017-04-01] MEDS ORDERED: PROPOFOL 1,000 MG/100 ML VIAL IV SCH (18:03)
[2017-04-01] MEDS ORDERED: Phosphorus Replacement Protoco 1 EACH MISC MISCELLANE PRN (18:03)
[2017-04-01] MEDS ORDERED: Potassium Replacement Protocol 1 EACH MISC MISCELLANE PRN (18:03)
[2017-04-01] MEDS ORDERED: CALCIUM GLUCONATE 2,000 MG in SODIUM CHLORIDE 0.9% 100 ML IVPB PRN (18:03)
[2017-04-01] MEDS ORDERED: BENZOCAINE/MENTHOL LOZENG 1 EACH LOZENGE MUCOUS MEM PRN (18:03)
[2017-04-01] MEDS ORDERED: METOCLOPRAMIDE 5 MG/ML 2 ML VIAL IVP PRN (18:03)
[2017-04-01 18:13] LABS: Glucose,Whole Blood 115 mg/dL (75-99)
--- NOTE | 2017-04-01 18:30 | P.OP ---
Date of Procedure: 04/01/17 Preoperative Diagnosis: coronary artery disease, acute infarction, unstable angina Postoperative Diagnosis: same Procedure(s) Performed: off pump coronary artery bypass grafting 3 with left internal mammary artery graft to LAD, left radial artery graft to obtuse marginal, saphenous vein graft to intermediate coronary artery with endoscopic vein harvest, endoscopic radial artery harvest, epi-aortic ultrasonography, BERNA by anesthesia. Anesthesia: GETA Surgeon: Garfield Cody Medical Lab Specialist #1: Carlos Toribio Medical Lab Specialist #2: Timoteo Vazquez Estimated Blood Loss (ml): 100 IV fluids (ml): 3,000 Urine output (ml): 500 Pathology: none sent Condition: stable Disposition: ICU Indications for Procedure: patient is a 56-year-old gentleman with juvenile-onset diabetes since age 20 presented with severe anginal symptomatology had a minimal troponin bump. He went to the cardiac catheterization lab yesterday morning and was found to have severe left main coronary artery disease. The patient was having unstable anginal symptomatology and the balloon pump was placed which stabilize the situation. Patient was brought to the operating room today for urgent surgical revascularization. Operative Findings: conduit was of good quality. The heart function was good. There was no significant valvular disease. Coronary arteries were diffusely and heavily calcified. Epi-aortic ultrasonography demonstrated fairly diffuse athero- sclerotic disease of the ascending aorta with preoperative around 0.3-0.4 cm in diameter. Description of Procedure: patient was brought to the operating room placed supine on the operating table anesthetized and intubated. [place] catheter been placed in the preop holding area. Anterior torso and lower extremities and left upper extremity were sterilely prepped and draped. Saphenous vein was harvested from the left thigh using endoscopic vein harvest technique. Simultaneously the left radial artery was harvested from the left arm using endoscopic harvest technique. Simultaneously a midline sternotomy was performed a left hemisternum retracted upwards and the left internal mammary artery harvested on a vascularized pedicle. Left pleural space was drained with a 32-Romanian chest tube. Standard sternal retractor was placed and once the radial artery was harvested arm was tucked at the side. Pericardium was opened in the midline with heart was exposed with pericardial sutures. Epi-aortic ultrasonography was performed with findings as noted above. It was felt best not to clamp the ascending aorta. Coronary arteries were diffusely diseased and heavily calcific. There was no appreciable posterior descending coronary artery. There was a large acute marginal branch. The LAD was a large vessel but was diffusely calcified a soft spot was present in the proximal to mid LAD. The intermediate coronary artery was a relatively small vessel but did have a soft spot and was felt to be graftable. The obtuse marginal was a very heavily diseased vessel and it was hoped that we would find a soft spot to grafted. The diagonal coronary artery was a very small and diffusely diseased and heavily calcified vessel and was not felt to be graftable. The patient was systemically heparinized. A CTs were maintained greater than 250 during grafting. FARRELL to the LAD was performed first. The LAD was stabilized and opened at the soft spot. Blood flow was controlled with a 2 mm flow through. Anastomosis between the FARRELL and the LAD was performed with running 8-0 Prolene suture in end to side fashion. Completion anastomosis the flow through was removed effectively probing the proximal distal portion of the anastomosis. Suture was tied with good result and hemostasis and the inflow open. Graft lay well with more than adequate length and no evidence of any kinking or obstruction. LUPIS pedicle was tacked running epicardium with 6-0 silk. Piece of saphenous vein was cut to appropriate length to reach from the ascending aorta to the soft spot on the intermediate coronary artery. Was loaded on passport anastomotic connector and connected to the ascending aorta. Was brought beneath the FARRELL and the intermediate coronary artery was stabilized. The vessel was opened. It would not accept a 1.5 mm probe but did accept a 1.25 mm flow through. Anastomosis of the saphenous vein to the intermediate was performed with running 7-0 Prolene suture. On completion anastomosis the flow through was removed 50 probe the proximal distal portion anastomosis. Suture was tied with good result and hemostasis. Inflow was open. Good hemostasis was again noted and the graft lay well. Next the proximal anastomosis for the radial artery to the OM was performed. Although clamps were placed very proximally on the saphenous vein graft and the saphenous vein graft was opened in linear longitudinal fashion. Proximal anastomosis of the radial off the saphenous vein graft was performed with running 7-0 Prolene suture. On completion anastomosis the bulldog clamps were removed and good flow was noted at the end of the radial. This was controlled with a bulldog clamp. The radial was brought beneath the FARRELL. The obtuse marginal was exposed and stabilized. Proximally there was a somewhat soft spot which was opened. A 1.5 probe didn't go both proximally and distally but did not pass very far. 1.25 mm flow through was used. Anastomosis of the radial artery to the OM was performed with running 7-0 Prolene suture. This was very difficult anastomosis because of calcification in the wall of the vessel. The suture broke several times. Eventually we achieved an excellent anastomosis. Inflow was open and noted to flow well. Graft was of good length. The heart was loaded into and anatomic position. Heparin was reversed with protamine. Good hemostasis obtained throughout. Chest was irrigated with antibiotic solution. The mediastinum was drained with 36-Romanian chest tube. Sternum was closed with 8 sternal wires. Fascia was closed with 0 Ethibond. Subcu tissues and subcuticular layers were closed with layers of Vicryl suture. Dry sterile dressings were applied and the patient was transferred to CCU in stable condition. No inotropes were required no blood transfusions were given.
[2017-04-01 18:58] LABS: Glucose,Whole Blood 99 mg/dL (75-99)
[2017-04-01 19:13] LABS: Basophils % (A) 0 %; CH 31.8; CHCM 33.5; Eosinophils # (A) 0.2 k/uL (0-0.7); Eosinophils % (A) 2 %; HCT 34.1 % (39.0-53.0); HDW 2.41; HGB 11.1 gm/dL (13.0-17.5); Luc # (Auto) 0.06; Luc % (Auto) 1; Lymphocytes # (A) 1.3 k/uL (1.0-4.8); Lymphocytes % (A) 16 %; MCH 31.1 pg (25.0-35.0); MCHC 32.7 g/dL (31.0-37.0); MCV 95.3 fL (80.0-100.0); Mean Platelet Volume 7.7; Monocytes # (A) 0.5 k/uL (0-1.0); Monocytes % (A) 6 %; Neutrophils # (A) 6.2 k/uL (1.3-7.7); Neutrophils % (A) 75 %; RBC 3.58 m/uL (4.30-5.90); RDW 13.9 % (11.5-15.5); WBC 8.2 k/uL (3.8-10.6); WBC (Perox) 8.17
[2017-04-01 19:16] LABS: Ionized Calcium 4.6 mg/dL (4.5-5.3)
[2017-04-01] MEDS: LACTATED RINGERS 1,000 ML IV SCH (19:16)
[2017-04-01] MEDS: NITROGLYCERIN-D5W PMX 50 MG in DEXTROSE/WATER 1 250ML.BAG IV SCH (19:19)
[2017-04-01] MEDS: DILTIAZEM 125 MG in SODIUM CHLORIDE 0.9% 100 ML IV SCH (19:19)
[2017-04-01] MEDS: INSULIN REGULAR 100 UNIT in SODIUM CHLORIDE 0.9% 100 ML IV SCH (19:20)
[2017-04-01 19:22] LABS: INR 1.3 (<1.2); Partial Thromboplastin Time 32.4 sec (22.0-30.0); Prothrombin Time 12.5 sec (9.0-12.0)
[2017-04-01 19:26] LABS: ABG PH 7.31 (7.35-7.45)
[2017-04-01] MEDS: ASPIRIN 325 MG TAB PO SCH (19:26)
[2017-04-01] MEDS: METOPROLOL TARTRATE 12.5 MG TAB PO SCH (19:26)
--- NOTE | 2017-04-01 19:26 | XR ---
EXAMINATION TYPE: XR chest 1V portable DATE OF EXAM: 04/01/2017 COMPARISON: Today HISTORY: Postop cardiac surgery TECHNIQUE: Single frontal view of the chest is obtained. FINDINGS: Right jugular catheter has tip in the main pulmonary artery. Nasogastric tube is present. Endotracheal tube is in good position. There is no sign of a pneumothorax. There is a left chest tube . There is no heart failure. There is some mild atelectasis in the lung herron. IMPRESSION: Mild bilateral subsegmental atelectasis. No heart failure.
[2017-04-01 19:27] LABS: ABG HCO3 24 mmol/L (21-25); ABG PCO2 50 mmHg (35-45); ABG PO2 169 mmHg (83-108); ABG TCO2 26 mmol/L (19-24)
[2017-04-01] MEDS: MUPIROCIN 2% OINT 22 GM TUBE NASAL SCH ×2 (19:27→20:59)
[2017-04-01] MEDS: IPRATROPIUM-ALBUTEROL 3 ML NEB INHALATION SCH ×2 (19:40→23:32)
[2017-04-01 19:42] LABS: Glucose,Whole Blood 89 mg/dL (75-99)
[2017-04-01 19:42] LABS: Glucose,Whole Blood 88 mg/dL (75-99)
[2017-04-01 19:43] LABS: ALT 28 U/L (21-72); AST 15 U/L (17-59); Alkaline Phosphatase 31 U/L (38-126); Anion Gap 7 mmol/L; Blood Urea Nitrogen 9 mg/dL (9-20); Calcium 7.9 mg/dL (8.4-10.2); Carbon Dioxide 24 mmol/L (22-30); Chloride 105 mmol/L (98-107); Glucose 91 mg/dL (74-99); Magnesium 2.2 mg/dL (1.6-2.3); Non-African American GFR(MDRD) >60 (>60 ml/min/1.73 sqM); Potassium 3.9 mmol/L (3.5-5.1); Sodium 136 mmol/L (137-145); Total Bilirubin 0.7 mg/dL (0.2-1.3); Total Protein 5.4 g/dL (6.3-8.2)
[2017-04-01] MEDS: ACETAMINOPHEN IV (For NPO) 1,000 MG in EMPTY BAG 1 BAG IVPB SCH (20:00)
[2017-04-01 20:16] LABS: Glucose,Whole Blood 106 mg/dL (75-99)
[2017-04-01] MEDS ORDERED: POTASSIUM CHLORIDE ORAL LIQUID 40 MEQ/30 ML CUP NG-TUBE SCH (21:00)
[2017-04-01 21:11] LABS: Glucose,Whole Blood 116 mg/dL (75-99)
[2017-04-01 22:15] LABS: Glucose,Whole Blood 121 mg/dL (75-99)
[2017-04-01 22:28] LABS: Basophils % (A) 0 %; CH 30.9; CHCM 32.7; Eosinophils # (A) 0.1 k/uL (0-0.7); Eosinophils % (A) 1 %; HCT 33.4 % (39.0-53.0); HDW 2.36; Luc # (Auto) 0.06; Luc % (Auto) 1; Lymphocytes # (A) 0.7 k/uL (1.0-4.8); Lymphocytes % (A) 6 %; MCH 31.3 pg (25.0-35.0); MCHC 32.9 g/dL (31.0-37.0); Mean Platelet Volume 8.1; Monocytes # (A) 0.7 k/uL (0-1.0); Monocytes % (A) 7 %; Neutrophils # (A) 9.3 k/uL (1.3-7.7); Neutrophils % (A) 85 %; RBC 3.52 m/uL (4.30-5.90); RDW 14.8 % (11.5-15.5); WBC 10.9 k/uL (3.8-10.6); WBC (Perox) 11.52
[2017-04-01 22:32] LABS: Ionized Calcium 4.6 mg/dL (4.5-5.3)
[2017-04-01 22:33] LABS: INR 1.2 (<1.2); Prothrombin Time 11.5 sec (9.0-12.0)
[2017-04-01 22:40] LABS: ALT 30 U/L (21-72); AST 21 U/L (17-59); Alkaline Phosphatase 34 U/L (38-126); Anion Gap 10 mmol/L; Blood Urea Nitrogen 8 mg/dL (9-20); Calcium 8.1 mg/dL (8.4-10.2); Carbon Dioxide 20 mmol/L (22-30); Chloride 104 mmol/L (98-107); Glucose 119 mg/dL (74-99); Magnesium 2.1 mg/dL (1.6-2.3); Non-African American GFR(MDRD) >60 (>60 ml/min/1.73 sqM); Phosphorus 3.4 mg/dL (2.5-4.5); Potassium 4.4 mmol/L (3.5-5.1); Sodium 134 mmol/L (137-145); Total Bilirubin 0.9 mg/dL (0.2-1.3); Total Protein 5.7 g/dL (6.3-8.2)
[2017-04-01] MEDS: MORPHINE SULFATE 10 MG/ML SYRINGE IVP PRN (23:32)
[2017-04-01 23:33] LABS: Glucose,Whole Blood 129 mg/dL (75-99)
--- NOTE | 2017-04-01 23:53 | P.PN ---
Subjective Progress Note Date: 04/01/17 Principal diagnosis: NSTEMI Patient is a 56-year-old male with a history of diabetes type 1 and family history of coronary disease in his father presented to ER with complaints of chest pain. Pain is mainly retrosternal associated with nausea and vomiting and diaphoresis. Pain is mainly pressure-like sensation. Denied any radiation to the neck shoulder or to the back. Also short of breath and chest pain lasted for about 30-40 minutes. Patient had similar pain about a week back but he did not seek medical attention at the time. Patient says that pain improved with nitro tablets in the ER. Chest x-ray showed no acute abnormality EKG showed normal sinus rhythm with ST depression in the anterolateral leads 03/31/2017 Patient underwent cardiac catheterization showed severe coronary artery disease involving proximal and mid LAD. There is critical distal left main disease. Patient was placed on intra-aortic balloon pump and is awaiting CT surgery recommendations. Currently patient is awake oriented and denied any complaints of chest pain. No nausea vomiting or abdominal pain. Patient is encouraged with incentive spirometry. Chest x-ray revealed chronic changes but no acute cardiopulmonary process. 04/01/2017 Patient is currently medically stable. No acute overnight issues. Patient is undergoing triple-vessel coronary artery bypass graft today. Current medications reviewed. Objective - Vital Signs Vital signs: Vital Signs Temp 98.3 F 04/01/17 09:00 Pulse 69 04/01/17 21:30 Resp 22 04/01/17 21:30 BP 100/42 04/01/17 12:20 Pulse Ox 100 04/01/17 21:30 Intake & Output 04/01/17 04/01/17 04/02/17 06:59 18:59 06:59 Intake Total 1455.818 621.0 356.284 Output Total 1646 1510 587 Balance -190.182 -889.0 -230.716 Weight 74.2 kg Intake: IV 1251.0 421.0 333.5 ACETAMINOPHEN IV (For NPO 100 ) 1,000 mg In Empty Bag 1 bag @ 400 mls/hr IVPB Q6H [facility] Rx#:[id number] Chantal 15 CO/CI 70 Diltiazem 125 mg In 15 Sodium Chloride 0.9% 100 ml @ 5 MG/HR 5 mls/hr IV .Q24H [facility] Rx#:[id number] Lactated Ringers 1,000 ml 120 @ 50 mls/hr IV .Q20H [facility] Rx#:[id number] Nitroglycerin-D5w Pmx 50 18.0 6.0 4.5 mg In Dextrose/Water 1 250ml.bag @ 5 MCG/MIN 1.5 mls/hr IV .Q24H [facility] Rx#: [id number] Sodium Chloride 0.9% 1, 1200 400 000 ml @ 100 mls/hr IV . Q10H [facility] Rx#:[id number] pressure bag - heparin 33 12 9 Intake, IV Titration 144.818 200 12.784 Amount Clevidipine Butyrate 25 10.967 mg In Empty Bag 1 bag @ 1 MG/HR 2 mls/hr IV .Q24H [facility] Rx#:[id number] Heparin Sodium,Porcine/ 144.818 D5w Pmx 25,000 unit In Dextrose/Water 1 500ml. bag @ 12 UNITS/KG/HR 16. 87 mls/hr IV .Q24H [facility] Rx #:[id number] Insulin Regular 100 unit 1.817 In Sodium Chloride 0.9% 100 ml @ Per Protocol IV .Q0M [facility] Rx#:[id number] Magnesium Sulfate-D5w Pmx 200 1 gm In Dextrose/Water 1 100ml.bag @ 100 mls/hr IVPB Q1H [facility] Rx#: [id number] Oral 30 Blood Product 30 Other 10 Output: Chest Tube Drainage 240 Chest Tube 240 Drainage 0 Left Arm 0 Urine 1146 1010 347 Emesis 500 Estimated Blood Loss 500 Other: Voiding Method Indwelling Catheter Indwelling Catheter Indwelling Catheter ABP, PAP, CO, CI - Last Documented Arterial Blood Pressure 109/42 Pulmonary Artery Pressure 32/15 Cardiac Output 8.9 Cardiac Index 4.7 - Exam PHYSICAL EXAMINATION: Patient is lying in the bed comfortably, no acute distress, awake alert and oriented.. HEENT: Normocephalic. Neck is supple. Pupils reactive. Nostrils clear. Oral cavity is moist. Ears reveal no drainage. Neck reveals no JVD, carotid bruits, or thyromegaly. CHEST EXAMINATION: Trachea is central. Symmetrical expansion. Lung herron clear to auscultation and percussion. CARDIAC: Normal S1, S2 with no gallops. No murmurs ABDOMEN: Soft. Bowel sounds normal. No organomegaly. No abdominal bruits. Extremities: reveal no edema. No clubbing or cyanosis Neurologically awake, alert, oriented x3 with well-coordinated movements. No focal deficits noted Skin: No rash or skin lesions. Psychiatric: Operative. Nonsuicidal Musculoskeletal: No joint swelling or deformity. Normal range of motion. - Labs CBC & Chem 7: 04/01/17 22:10 04/01/17 22:10 Labs: Abnormal Lab Results - Last 24 Hours (Table) 03/31/17 04/01/17 04/01/17 Range/Units 12:35 05:25 05:25 WBC (3.8-10.6) k/uL RBC (4.30-5.90) m/uL Hgb (13.0-17.5) gm/dL Hct (39.0-53.0) % Plt Count (150-450) k/uL Neutrophils # (1.3-7.7) k/uL Lymphocytes # 0.9 L (1.0-4.8) k/uL PT (9.0-12.0) sec INR (<1.2) APTT (22.0-30.0) sec ABG pH (7.35-7.45) ABG pCO2 (35-45) mmHg ABG pO2 (83-108) mmHg ABG Total CO2 (19-24) mmol/L ABG O2 Saturation (94-97) % Sodium 131 L (137-145) mmol/L Carbon Dioxide 19 L (22-30) mmol/L BUN 8 L (9-20) mg/dL Creatinine (0.66-1.25) mg/dL Glucose 261 H (74-99) mg/dL POC Glucose (mg/dL) (75-99) mg/dL Calcium (8.4-10.2) mg/dL AST 16 L (17-59) U/L Alkaline Phosphatase (38-126) U/L Total Protein 6.2 L (6.3-8.2) g/dL Urine Protein (Negative) Urine Glucose (UA) (Negative) Urine Ketones (Negative) Urine Blood (Negative) Ur Leukocyte Esterase (Negative) Urine RBC (0-5) /hpf Urine WBC (0-5) /hpf Urine WBC Clumps (None) /hpf Urine Bacteria (None) /hpf Urine Mucus (None) /hpf Crossmatch See Detail 04/01/17 04/01/17 04/01/17 Range/Units 05:25 07:10 13:39 WBC (3.8-10.6) k/uL RBC (4.30-5.90) m/uL Hgb (13.0-17.5) gm/dL Hct (39.0-53.0) % Plt Count (150-450) k/uL Neutrophils # (1.3-7.7) k/uL Lymphocytes # (1.0-4.8) k/uL PT (9.0-12.0) sec INR (<1.2) APTT 55.8 H (22.0-30.0) sec ABG pH (7.35-7.45) ABG pCO2 (35-45) mmHg ABG pO2 (83-108) mmHg ABG Total CO2 (19-24) mmol/L ABG O2 Saturation (94-97) % Sodium (137-145) mmol/L Carbon Dioxide (22-30) mmol/L BUN (9-20) mg/dL Creatinine (0.66-1.25) mg/dL Glucose (74-99) mg/dL POC Glucose (mg/dL) 241 H 247 H (75-99) mg/dL Calcium (8.4-10.2) mg/dL AST (17-59) U/L Alkaline Phosphatase (38-126) U/L Total Protein (6.3-8.2) g/dL Urine Protein (Negative) Urine Glucose (UA) (Negative) Urine Ketones (Negative) Urine Blood (Negative) Ur Leukocyte Esterase (Negative) Urine RBC (0-5) /hpf Urine WBC (0-5) /hpf Urine WBC Clumps (None) /hpf Urine Bacteria (None) /hpf Urine Mucus (None) /hpf Crossmatch 04/01/17 04/01/17 04/01/17 Range/Units 13:45 14:47 15:38 WBC (3.8-10.6) k/uL RBC (4.30-5.90) m/uL Hgb (13.0-17.5) gm/dL Hct (39.0-53.0) % Plt Count (150-450) k/uL Neutrophils # (1.3-7.7) k/uL Lymphocytes # (1.0-4.8) k/uL PT (9.0-12.0) sec INR (<1.2) APTT (22.0-30.0) sec ABG pH (7.35-7.45) ABG pCO2 (35-45) mmHg ABG pO2 (83-108) mmHg ABG Total CO2 (19-24) mmol/L ABG O2 Saturation (94-97) % Sodium (137-145) mmol/L Carbon Dioxide (22-30) mmol/L BUN (9-20) mg/dL Creatinine (0.66-1.25) mg/dL Glucose (74-99) mg/dL POC Glucose (mg/dL) 263 H 197 H (75-99) mg/dL Calcium (8.4-10.2) mg/dL AST (17-59) U/L Alkaline Phosphatase (38-126) U/L Total Protein (6.3-8.2) g/dL Urine Protein Trace H (Negative) Urine Glucose (UA) 4+ H (Negative) Urine Ketones 3+ H (Negative) Urine Blood Moderate H (Negative) Ur Leukocyte Esterase Large H (Negative) Urine RBC 20 H (0-5) /hpf Urine WBC 56 H (0-5) /hpf Urine WBC Clumps Few H (None) /hpf Urine Bacteria Rare H (None) /hpf Urine Mucus Rare H (None) /hpf Crossmatch 04/01/17 04/01/17 04/01/17 Range/Units 16:13 16:35 17:14 WBC (3.8-10.6) k/uL RBC (4.30-5.90) m/uL Hgb (13.0-17.5) gm/dL Hct (39.0-53.0) % Plt Count (150-450) k/uL Neutrophils # (1.3-7.7) k/uL Lymphocytes # (1.0-4.8) k/uL PT (9.0-12.0) sec INR (<1.2) APTT (22.0-30.0) sec ABG pH (7.35-7.45) ABG pCO2 (35-45) mmHg ABG pO2 (83-108) mmHg ABG Total CO2 (19-24) mmol/L ABG O2 Saturation (94-97) % Sodium (137-145) mmol/L Carbon Dioxide (22-30) mmol/L BUN (9-20) mg/dL Creatinine (0.66-1.25) mg/dL Glucose (74-99) mg/dL POC Glucose (mg/dL) 174 H 166 H 147 H (75-99) mg/dL Calcium (8.4-10.2) mg/dL AST (17-59) U/L Alkaline Phosphatase (38-126) U/L Total Protein (6.3-8.2) g/dL Urine Protein (Negative) Urine Glucose (UA) (Negative) Urine Ketones (Negative) Urine Blood (Negative) Ur Leukocyte Esterase (Negative) Urine RBC (0-5) /hpf Urine WBC (0-5) /hpf Urine WBC Clumps (None) /hpf Urine Bacteria (None) /hpf Urine Mucus (None) /hpf Crossmatch 04/01/17 04/01/17 04/01/17 Range/Units 18:09 19:00 19:00 WBC (3.8-10.6) k/uL RBC 3.58 L (4.30-5.90) m/uL Hgb 11.1 L (13.0-17.5) gm/dL Hct 34.1 L (39.0-53.0) % Plt Count 114 L (150-450) k/uL Neutrophils # (1.3-7.7) k/uL Lymphocytes # (1.0-4.8) k/uL PT (9.0-12.0) sec INR (<1.2) APTT (22.0-30.0) sec ABG pH (7.35-7.45) ABG pCO2 (35-45) mmHg ABG pO2 (83-108) mmHg ABG Total CO2 (19-24) mmol/L ABG O2 Saturation (94-97) % Sodium 136 L (137-145) mmol/L Carbon Dioxide (22-30) mmol/L BUN (9-20) mg/dL Creatinine 0.50 L (0.66-1.25) mg/dL Glucose (74-99) mg/dL POC Glucose (mg/dL) 115 H (75-99) mg/dL Calcium 7.9 L (8.4-10.2) mg/dL AST 15 L (17-59) U/L Alkaline Phosphatase 31 L (38-126) U/L Total Protein 5.4 L (6.3-8.2) g/dL Urine Protein (Negative) Urine Glucose (UA) (Negative) Urine Ketones (Negative) Urine Blood (Negative) Ur Leukocyte Esterase (Negative) Urine RBC (0-5) /hpf Urine WBC (0-5) /hpf Urine WBC Clumps (None) /hpf Urine Bacteria (None) /hpf Urine Mucus (None) /hpf Crossmatch 04/01/17 04/01/17 04/01/17 Range/Units 19:00 19:24 20:15 WBC (3.8-10.6) k/uL RBC (4.30-5.90) m/uL Hgb (13.0-17.5) gm/dL Hct (39.0-53.0) % Plt Count (150-450) k/uL Neutrophils # (1.3-7.7) k/uL Lymphocytes # (1.0-4.8) k/uL PT 12.5 H (9.0-12.0) sec INR 1.3 H (<1.2) APTT 32.4 H (22.0-30.0) sec ABG pH 7.31 L (7.35-7.45) ABG pCO2 50 H (35-45) mmHg ABG pO2 169 H (83-108) mmHg ABG Total CO2 26 H (19-24) mmol/L ABG O2 Saturation 99.0 H (94-97) % Sodium (137-145) mmol/L Carbon Dioxide (22-30) mmol/L BUN (9-20) mg/dL Creatinine (0.66-1.25) mg/dL Glucose (74-99) mg/dL POC Glucose (mg/dL) 106 H (75-99) mg/dL Calcium (8.4-10.2) mg/dL AST (17-59) U/L Alkaline Phosphatase (38-126) U/L Total Protein (6.3-8.2) g/dL Urine Protein (Negative) Urine Glucose (UA) (Negative) Urine Ketones (Negative) Urine Blood (Negative) Ur Leukocyte Esterase (Negative) Urine RBC (0-5) /hpf Urine WBC (0-5) /hpf Urine WBC Clumps (None) /hpf Urine Bacteria (None) /hpf Urine Mucus (None) /hpf Crossmatch 04/01/17 04/01/17 04/01/17 Range/Units 21:08 22:10 22:13 WBC 10.9 H (3.8-10.6) k/uL RBC 3.52 L (4.30-5.90) m/uL Hgb 11.0 L (13.0-17.5) gm/dL Hct 33.4 L (39.0-53.0) % Plt Count 119 L (150-450) k/uL Neutrophils # 9.3 H (1.3-7.7) k/uL Lymphocytes # 0.7 L (1.0-4.8) k/uL PT (9.0-12.0) sec INR (<1.2) APTT (22.0-30.0) sec ABG pH (7.35-7.45) ABG pCO2 (35-45) mmHg ABG pO2 (83-108) mmHg ABG Total CO2 (19-24) mmol/L ABG O2 Saturation (94-97) % Sodium (137-145) mmol/L Carbon Dioxide (22-30) mmol/L BUN (9-20) mg/dL Creatinine (0.66-1.25) mg/dL Glucose (74-99) mg/dL POC Glucose (mg/dL) 116 H 121 H (75-99) mg/dL Calcium (8.4-10.2) mg/dL AST (17-59) U/L Alkaline Phosphatase (38-126) U/L Total Protein (6.3-8.2) g/dL Urine Protein (Negative) Urine Glucose (UA) (Negative) Urine Ketones (Negative) Urine Blood (Negative) Ur Leukocyte Esterase (Negative) Urine RBC (0-5) /hpf Urine WBC (0-5) /hpf Urine WBC Clumps (None) /hpf Urine Bacteria (None) /hpf Urine Mucus (None) /hpf Crossmatch Microbiology - Last 24 Hours (Table) 03/31/17 11:30 Urine Culture - Final Urine,Catheterized 04/01/17 13:45 Anaerobic Culture - Preliminary Penis 04/01/17 13:45 Wound Culture - Preliminary Penis 03/31/17 15:09 Nasal Screen MRSA/MSSA ([facility]) - Preliminary Nasopharyngeal Swab Assessment and Plan Assessment: 1 chest pain due to NSTEMI with elevated troponin level #2 severe coronary artery disease status post cardiac catheterization. currently placed on intra-aortic balloon pump. CABG today #2 diabetes type 1 #3 every day smoker #4 family history of significant coronary artery disease Plan: Patient will continue on telemetry monitoring. Coronary artery bypass graft today Patient was placed on intra-aortic balloon pump. CT surgery is following. We will continue the current management and blood sugar control. Counseled for smoking cessation. Further recommendations based on the clinical course. Prognosis is guarded.
[2017-04-02 00:12] LABS: ABG Base Excess -4.8 mmol/L; ABG HCO3 19 mmol/L (21-25); ABG PCO2 33 mmHg (35-45); ABG PH 7.38 (7.35-7.45); ABG PO2 95 mmHg (83-108); ABG TCO2 20 mmol/L (19-24)
[2017-04-02 00:21] LABS: Glucose,Whole Blood 89 mg/dL (75-99)
[2017-04-02] MEDS: ceFAZolin IN SWFI 2 GM/20 ML SYRINGE IVP SCH ×3 (00:21→15:09)
[2017-04-02] MEDS: HEPARIN SODIUM,PORCINE 5,000 UNIT/ML 1 ML VIAL SQ SCH ×4 (00:40→23:11)
[2017-04-02] MEDS: ACETAMINOPHEN IV (For NPO) 1,000 MG in EMPTY BAG 1 BAG IVPB SCH ×4 (01:16→18:29)
[2017-04-02 01:25] LABS: Glucose,Whole Blood 127 mg/dL (75-99)
[2017-04-02 01:37] LABS: CH 31.8; CHCM 32.6; HCT 33.6 % (39.0-53.0); HDW 2.42; HGB 10.5 gm/dL (13.0-17.5); MCH 30.8 pg (25.0-35.0); MCHC 31.4 g/dL (31.0-37.0); MCV 98.1 fL (80.0-100.0); Mean Platelet Volume 7.6; RBC 3.42 m/uL (4.30-5.90); WBC 10.8 k/uL (3.8-10.6)
[2017-04-02 01:43] LABS: INR 1.2 (<1.2); Partial Thromboplastin Time 33.3 sec (22.0-30.0); Prothrombin Time 11.6 sec (9.0-12.0)
[2017-04-02 01:47] LABS: ALT 30 U/L (21-72); AST 23 U/L (17-59); Alkaline Phosphatase 38 U/L (38-126); Anion Gap 9 mmol/L; Blood Urea Nitrogen 8 mg/dL (9-20); Calcium 8.2 mg/dL (8.4-10.2); Carbon Dioxide 21 mmol/L (22-30); Chloride 104 mmol/L (98-107); Glucose 145 mg/dL (74-99); Magnesium 1.9 mg/dL (1.6-2.3); Non-African American GFR(MDRD) >60 (>60 ml/min/1.73 sqM); Potassium 4.5 mmol/L (3.5-5.1); Sodium 134 mmol/L (137-145); Total Bilirubin 0.7 mg/dL (0.2-1.3); Total Protein 5.2 g/dL (6.3-8.2)
[2017-04-02 01:49] LABS: Ionized Calcium 4.7 mg/dL (4.5-5.3)
[2017-04-02] MEDS: MORPHINE SULFATE 10 MG/ML SYRINGE IVP PRN (02:18)
[2017-04-02] MEDS: MAGNESIUM SULFATE-D5W PMX 1 GM in DEXTROSE/WATER 1 100ML.BAG IVPB SCH ×2 (03:06→04:55)
[2017-04-02 03:16] LABS: Glucose,Whole Blood 172 mg/dL (75-99)
[2017-04-02] MEDS: ALBUMIN HUMAN 5% 250 ML in EMPTY BAG 1 BAG IVPB PRN ×2 (03:36→17:03)
[2017-04-02 04:15] LABS: Glucose,Whole Blood 193 mg/dL (75-99)
[2017-04-02 05:20] LABS: Basophils % (A) 0 %; CH 31.5; CHCM 32.5; Eosinophils # (A) 0.1 k/uL (0-0.7); Eosinophils % (A) 1 %; HCT 32.4 % (39.0-53.0); HDW 2.37; HGB 10.5 gm/dL (13.0-17.5); Luc # (Auto) 0.07; Luc % (Auto) 1; Lymphocytes # (A) 0.6 k/uL (1.0-4.8); Lymphocytes % (A) 6 %; MCH 31.7 pg (25.0-35.0); MCHC 32.6 g/dL (31.0-37.0); MCV 97.5 fL (80.0-100.0); Mean Platelet Volume 7.5; Monocytes # (A) 0.7 k/uL (0-1.0); Monocytes % (A) 7 %; Neutrophils # (A) 9.3 k/uL (1.3-7.7); Neutrophils % (A) 86 %; RBC 3.32 m/uL (4.30-5.90); WBC 10.8 k/uL (3.8-10.6); WBC (Perox) 11.57
[2017-04-02 05:20] LABS: Glucose,Whole Blood 189 mg/dL (75-99)
[2017-04-02 05:24] LABS: INR 1.2 (<1.2); Prothrombin Time 11.9 sec (9.0-12.0)
[2017-04-02 05:33] LABS: Ionized Calcium 4.7 mg/dL (4.5-5.3)
[2017-04-02 05:40] LABS: ALT 27 U/L (21-72); AST 24 U/L (17-59); Alkaline Phosphatase 31 U/L (38-126); Anion Gap 8 mmol/L; Blood Urea Nitrogen 7 mg/dL (9-20); Carbon Dioxide 23 mmol/L (22-30); Chloride 104 mmol/L (98-107); Glucose 186 mg/dL (74-99); Non-African American GFR(MDRD) >60 (>60 ml/min/1.73 sqM); Potassium 4.3 mmol/L (3.5-5.1); Sodium 135 mmol/L (137-145); Total Bilirubin 0.6 mg/dL (0.2-1.3); Total Protein 5.4 g/dL (6.3-8.2)
[2017-04-02 06:29] LABS: Glucose,Whole Blood 151 mg/dL (75-99)
[2017-04-02 07:09] LABS: Glucose,Whole Blood 171 mg/dL (75-99)
--- NOTE | 2017-04-02 08:10 | P.PN ---
Subjective Progress Note Date: 04/02/17 Principal diagnosis: Severe symptomatic triple-vessel coronary artery disease with left main disease , non-STEMI. History of insulin-dependent diabetes mellitus with hemoglobin A1c 7.8%. Current tobacco dependence. Family history of premature coronary artery disease. POD #1 urgent off-pump coronary artery bypass grafting 3 with left internal mammary artery graft to LAD, left radial artery graft to obtuse marginal, reverse saphenous vein graft to intermediate coronary artery with endoscopic vein harvest, endoscopic radial artery harvest, epi-aortic ultrasonography, intraoperative transesophageal echocardiogram by anesthesia. Patient is currently laying flat in bed in no acute distress. He was successfully extubated this morning. Intra-aortic balloon pump remains. Complains of some incisional pain but states that it is controlled with current medications. No complaints at this time. Objective - Vital Signs Vital signs: Vital Signs Temp 98.3 F 04/01/17 09:00 Pulse 68 04/02/17 07:00 Resp 16 04/02/17 07:00 BP 94/50 04/02/17 06:30 Pulse Ox 98 04/02/17 07:00 Intake & Output 04/01/17 04/02/17 04/02/17 18:59 06:59 18:59 Intake Total 621.0 1657.142 192.55 Output Total 1510 1797 108 Balance -889.0 -139.858 84.55 Weight 76.5 kg Intake: IV 421.0 1508.0 159.5 ACETAMINOPHEN IV (For NPO 200 100 ) 1,000 mg In Empty Bag 1 bag @ 400 mls/hr IVPB Q6H [facility] Rx#:[id number] Albumin Human 5% 250 ml 250 In Empty Bag 1 bag @ 250 mls/hr IVPB Q1HR PRN Rx#: [id number] Chantal 24 CO/CI 160 Diltiazem 125 mg In 60 5 Sodium Chloride 0.9% 100 ml @ 5 MG/HR 5 mls/hr IV .Q24H [facility] Rx#:[id number] Lactated Ringers 1,000 ml 560 50 @ 50 mls/hr IV .Q20H [facility] Rx#:[id number] Magnesium Sulfate-D5w Pmx 200 1 gm In Dextrose/Water 1 100ml.bag @ 100 mls/hr IVPB Q1H [facility] Rx#: [id number] Nitroglycerin-D5w Pmx 50 6.0 18.0 1.5 mg In Dextrose/Water 1 250ml.bag @ 5 MCG/MIN 1.5 mls/hr IV .Q24H [facility] Rx#: [id number] Sodium Chloride 0.9% 1, 400 000 ml @ 100 mls/hr IV . Q10H [facility] Rx#:[id number] pressure bag - heparin 12 36 3 Intake, IV Titration 200 109.142 3.05 Amount Clevidipine Butyrate 25 24.800 mg In Empty Bag 1 bag @ 1 MG/HR 2 mls/hr IV .Q24H [facility] Rx#:[id number] Insulin Regular 100 unit 14.360 3.05 In Sodium Chloride 0.9% 100 ml @ Per Protocol IV .Q0M [facility] Rx#:[id number] Magnesium Sulfate-D5w Pmx 200 1 gm In Dextrose/Water 1 100ml.bag @ 100 mls/hr IVPB Q1H [facility] Rx#: [id number] Propofol 1,000 mg In 100 69.982 ml @ Titrate IV .Q0M [facility] Rx#:[id number] Oral 30 30 Other 10 Output: Chest Tube Drainage 570 70 Chest Tube 570 70 Gastric Drainage 200 Drainage 20 Left Arm 20 Urine 1010 1007 38 Estimated Blood Loss 500 Other: Voiding Method Indwelling Catheter Indwelling Catheter ABP, PAP, CO, CI - Last Documented Arterial Blood Pressure 113/43 Pulmonary Artery Pressure 24/18 Cardiac Output 8.4 Cardiac Index 4.5 - Constitutional General appearance: Present: cooperative, no acute distress - Respiratory Details: Lungs sounds diminished bilaterally. Respirations even, nonlabored. Currently on 2 L nasal cannula with oxygen saturations 97%. Able to achieve 1500 mL on his incentive spirometer. Left/mediastinal chest tube to -20 cm wall suction, 290 mL serosanguineous drainage overnight, 650 mL since surgery. No air leak present. Chest x-ray reviewed, stable. - Cardiovascular Details: S1, S2 present. Regular rate and rhythm, normal sinus rhythm on telemetry. Sternum stable. Palpable right radial, bilateral DP, PT pulses. Left hand has good color, excellent cap refill, full range of motion, no numbness or tingling. - Gastrointestinal Gastrointestinal Comment(s): Abdomen soft, nontender, nondistended. Hypoactive bowel sounds present 4 quadrants. Tolerating clear liquid diet. - Genitourinary Genitourinary Comment(s): Cade present draining clear, yellow urine. Output 30-95 mL/h overnight. - Integumentary Integumentary Comment(s): Anterior chest incision well approximated and covered with dry intact dressing. Left radial artery harvest site well approximated, SHOAIB drain present with minimal serosanguineous drainage. - Neurologic Neurologic: Present: CNII-XII intact - Musculoskeletal Musculoskeletal: Present: strength equal bilaterally - Psychiatric Psychiatric: Present: A&O x's 3, appropriate affect, intact judgment & insight - Allied health notes Allied health notes reviewed: nursing - Labs CBC & Chem 7: 04/02/17 05:05 04/02/17 05:05 Labs: Abnormal Lab Results - Last 24 Hours (Table) 03/31/17 04/01/17 04/01/17 Range/Units 12:35 13:39 13:45 WBC (3.8-10.6) k/uL RBC (4.30-5.90) m/uL Hgb (13.0-17.5) gm/dL Hct (39.0-53.0) % Plt Count (150-450) k/uL Neutrophils # (1.3-7.7) k/uL Lymphocytes # (1.0-4.8) k/uL PT (9.0-12.0) sec INR (<1.2) APTT (22.0-30.0) sec ABG pH (7.35-7.45) ABG pCO2 (35-45) mmHg ABG pO2 (83-108) mmHg ABG HCO3 (21-25) mmol/L ABG Total CO2 (19-24) mmol/L ABG O2 Saturation (94-97) % Sodium (137-145) mmol/L Carbon Dioxide (22-30) mmol/L BUN (9-20) mg/dL Creatinine (0.66-1.25) mg/dL Glucose (74-99) mg/dL POC Glucose (mg/dL) 247 H (75-99) mg/dL Calcium (8.4-10.2) mg/dL AST (17-59) U/L Alkaline Phosphatase (38-126) U/L Total Protein (6.3-8.2) g/dL Albumin (3.5-5.0) g/dL Urine Protein Trace H (Negative) Urine Glucose (UA) 4+ H (Negative) Urine Ketones 3+ H (Negative) Urine Blood Moderate H (Negative) Ur Leukocyte Esterase Large H (Negative) Urine RBC 20 H (0-5) /hpf Urine WBC 56 H (0-5) /hpf Urine WBC Clumps Few H (None) /hpf Urine Bacteria Rare H (None) /hpf Urine Mucus Rare H (None) /hpf Crossmatch See Detail 04/01/17 04/01/17 04/01/17 Range/Units 14:47 15:38 16:13 WBC (3.8-10.6) k/uL RBC (4.30-5.90) m/uL Hgb (13.0-17.5) gm/dL Hct (39.0-53.0) % Plt Count (150-450) k/uL Neutrophils # (1.3-7.7) k/uL Lymphocytes # (1.0-4.8) k/uL PT (9.0-12.0) sec INR (<1.2) APTT (22.0-30.0) sec ABG pH (7.35-7.45) ABG pCO2 (35-45) mmHg ABG pO2 (83-108) mmHg ABG HCO3 (21-25) mmol/L ABG Total CO2 (19-24) mmol/L ABG O2 Saturation (94-97) % Sodium (137-145) mmol/L Carbon Dioxide (22-30) mmol/L BUN (9-20) mg/dL Creatinine (0.66-1.25) mg/dL Glucose (74-99) mg/dL POC Glucose (mg/dL) 263 H 197 H 174 H (75-99) mg/dL Calcium (8.4-10.2) mg/dL AST (17-59) U/L Alkaline Phosphatase (38-126) U/L Total Protein (6.3-8.2) g/dL Albumin (3.5-5.0) g/dL Urine Protein (Negative) Urine Glucose (UA) (Negative) Urine Ketones (Negative) Urine Blood (Negative) Ur Leukocyte Esterase (Negative) Urine RBC (0-5) /hpf Urine WBC (0-5) /hpf Urine WBC Clumps (None) /hpf Urine Bacteria (None) /hpf Urine Mucus (None) /hpf Crossmatch 04/01/17 04/01/17 04/01/17 Range/Units 16:35 17:14 18:09 WBC (3.8-10.6) k/uL RBC (4.30-5.90) m/uL Hgb (13.0-17.5) gm/dL Hct (39.0-53.0) % Plt Count (150-450) k/uL Neutrophils # (1.3-7.7) k/uL Lymphocytes # (1.0-4.8) k/uL PT (9.0-12.0) sec INR (<1.2) APTT (22.0-30.0) sec ABG pH (7.35-7.45) ABG pCO2 (35-45) mmHg ABG pO2 (83-108) mmHg ABG HCO3 (21-25) mmol/L ABG Total CO2 (19-24) mmol/L ABG O2 Saturation (94-97) % Sodium (137-145) mmol/L Carbon Dioxide (22-30) mmol/L BUN (9-20) mg/dL Creatinine (0.66-1.25) mg/dL Glucose (74-99) mg/dL POC Glucose (mg/dL) 166 H 147 H 115 H (75-99) mg/dL Calcium (8.4-10.2) mg/dL AST (17-59) U/L Alkaline Phosphatase (38-126) U/L Total Protein (6.3-8.2) g/dL Albumin (3.5-5.0) g/dL Urine Protein (Negative) Urine Glucose (UA) (Negative) Urine Ketones (Negative) Urine Blood (Negative) Ur Leukocyte Esterase (Negative) Urine RBC (0-5) /hpf Urine WBC (0-5) /hpf Urine WBC Clumps (None) /hpf Urine Bacteria (None) /hpf Urine Mucus (None) /hpf Crossmatch 04/01/17 04/01/17 04/01/17 Range/Units 19:00 19:00 19:00 WBC (3.8-10.6) k/uL RBC 3.58 L (4.30-5.90) m/uL Hgb 11.1 L (13.0-17.5) gm/dL Hct 34.1 L (39.0-53.0) % Plt Count 114 L (150-450) k/uL Neutrophils # (1.3-7.7) k/uL Lymphocytes # (1.0-4.8) k/uL PT 12.5 H (9.0-12.0) sec INR 1.3 H (<1.2) APTT 32.4 H (22.0-30.0) sec ABG pH (7.35-7.45) ABG pCO2 (35-45) mmHg ABG pO2 (83-108) mmHg ABG HCO3 (21-25) mmol/L ABG Total CO2 (19-24) mmol/L ABG O2 Saturation (94-97) % Sodium 136 L (137-145) mmol/L Carbon Dioxide (22-30) mmol/L BUN (9-20) mg/dL Creatinine 0.50 L (0.66-1.25) mg/dL Glucose (74-99) mg/dL POC Glucose (mg/dL) (75-99) mg/dL Calcium 7.9 L (8.4-10.2) mg/dL AST 15 L (17-59) U/L Alkaline Phosphatase 31 L (38-126) U/L Total Protein 5.4 L (6.3-8.2) g/dL Albumin (3.5-5.0) g/dL Urine Protein (Negative) Urine Glucose (UA) (Negative) Urine Ketones (Negative) Urine Blood (Negative) Ur Leukocyte Esterase (Negative) Urine RBC (0-5) /hpf Urine WBC (0-5) /hpf Urine WBC Clumps (None) /hpf Urine Bacteria (None) /hpf Urine Mucus (None) /hpf Crossmatch 04/01/17 04/01/17 04/01/17 Range/Units 19:24 20:15 21:08 WBC (3.8-10.6) k/uL RBC (4.30-5.90) m/uL Hgb (13.0-17.5) gm/dL Hct (39.0-53.0) % Plt Count (150-450) k/uL Neutrophils # (1.3-7.7) k/uL Lymphocytes # (1.0-4.8) k/uL PT (9.0-12.0) sec INR (<1.2) APTT (22.0-30.0) sec ABG pH 7.31 L (7.35-7.45) ABG pCO2 50 H (35-45) mmHg ABG pO2 169 H (83-108) mmHg ABG HCO3 (21-25) mmol/L ABG Total CO2 26 H (19-24) mmol/L ABG O2 Saturation 99.0 H (94-97) % Sodium (137-145) mmol/L Carbon Dioxide (22-30) mmol/L BUN (9-20) mg/dL Creatinine (0.66-1.25) mg/dL Glucose (74-99) mg/dL POC Glucose (mg/dL) 106 H 116 H (75-99) mg/dL Calcium (8.4-10.2) mg/dL AST (17-59) U/L Alkaline Phosphatase (38-126) U/L Total Protein (6.3-8.2) g/dL Albumin (3.5-5.0) g/dL Urine Protein (Negative) Urine Glucose (UA) (Negative) Urine Ketones (Negative) Urine Blood (Negative) Ur Leukocyte Esterase (Negative) Urine RBC (0-5) /hpf Urine WBC (0-5) /hpf Urine WBC Clumps (None) /hpf Urine Bacteria (None) /hpf Urine Mucus (None) /hpf Crossmatch 04/01/17 04/01/17 04/01/17 Range/Units 22:10 22:10 22:10 WBC 10.9 H (3.8-10.6) k/uL RBC 3.52 L (4.30-5.90) m/uL Hgb 11.0 L (13.0-17.5) gm/dL Hct 33.4 L (39.0-53.0) % Plt Count 119 L (150-450) k/uL Neutrophils # 9.3 H (1.3-7.7) k/uL Lymphocytes # 0.7 L (1.0-4.8) k/uL PT (9.0-12.0) sec INR 1.2 H (<1.2) APTT 36.0 H (22.0-30.0) sec ABG pH (7.35-7.45) ABG pCO2 (35-45) mmHg ABG pO2 (83-108) mmHg ABG HCO3 (21-25) mmol/L ABG Total CO2 (19-24) mmol/L ABG O2 Saturation (94-97) % Sodium 134 L (137-145) mmol/L Carbon Dioxide 20 L (22-30) mmol/L BUN 8 L (9-20) mg/dL Creatinine 0.54 L (0.66-1.25) mg/dL Glucose 119 H (74-99) mg/dL POC Glucose (mg/dL) (75-99) mg/dL Calcium 8.1 L (8.4-10.2) mg/dL AST (17-59) U/L Alkaline Phosphatase 34 L (38-126) U/L Total Protein 5.7 L (6.3-8.2) g/dL Albumin (3.5-5.0) g/dL Urine Protein (Negative) Urine Glucose (UA) (Negative) Urine Ketones (Negative) Urine Blood (Negative) Ur Leukocyte Esterase (Negative) Urine RBC (0-5) /hpf Urine WBC (0-5) /hpf Urine WBC Clumps (None) /hpf Urine Bacteria (None) /hpf Urine Mucus (None) /hpf Crossmatch 04/01/17 04/01/17 04/02/17 Range/Units 22:13 23:21 00:05 WBC (3.8-10.6) k/uL RBC (4.30-5.90) m/uL Hgb (13.0-17.5) gm/dL Hct (39.0-53.0) % Plt Count (150-450) k/uL Neutrophils # (1.3-7.7) k/uL Lymphocytes # (1.0-4.8) k/uL PT (9.0-12.0) sec INR (<1.2) APTT (22.0-30.0) sec ABG pH (7.35-7.45) ABG pCO2 33 L (35-45) mmHg ABG pO2 (83-108) mmHg ABG HCO3 19 L (21-25) mmol/L ABG Total CO2 (19-24) mmol/L ABG O2 Saturation (94-97) % Sodium (137-145) mmol/L Carbon Dioxide (22-30) mmol/L BUN (9-20) mg/dL Creatinine (0.66-1.25) mg/dL Glucose (74-99) mg/dL POC Glucose (mg/dL) 121 H 129 H (75-99) mg/dL Calcium (8.4-10.2) mg/dL AST (17-59) U/L Alkaline Phosphatase (38-126) U/L Total Protein (6.3-8.2) g/dL Albumin (3.5-5.0) g/dL Urine Protein (Negative) Urine Glucose (UA) (Negative) Urine Ketones (Negative) Urine Blood (Negative) Ur Leukocyte Esterase (Negative) Urine RBC (0-5) /hpf Urine WBC (0-5) /hpf Urine WBC Clumps (None) /hpf Urine Bacteria (None) /hpf Urine Mucus (None) /hpf Crossmatch 04/02/17 04/02/17 04/02/17 Range/Units 01:21 01:25 01:25 WBC 10.8 H (3.8-10.6) k/uL RBC 3.42 L (4.30-5.90) m/uL Hgb 10.5 L (13.0-17.5) gm/dL Hct 33.6 L (39.0-53.0) % Plt Count 129 L (150-450) k/uL Neutrophils # (1.3-7.7) k/uL Lymphocytes # (1.0-4.8) k/uL PT (9.0-12.0) sec INR 1.2 H (<1.2) APTT 33.3 H (22.0-30.0) sec ABG pH (7.35-7.45) ABG pCO2 (35-45) mmHg ABG pO2 (83-108) mmHg ABG HCO3 (21-25) mmol/L ABG Total CO2 (19-24) mmol/L ABG O2 Saturation (94-97) % Sodium (137-145) mmol/L Carbon Dioxide (22-30) mmol/L BUN (9-20) mg/dL Creatinine (0.66-1.25) mg/dL Glucose (74-99) mg/dL POC Glucose (mg/dL) 127 H (75-99) mg/dL Calcium (8.4-10.2) mg/dL AST (17-59) U/L Alkaline Phosphatase (38-126) U/L Total Protein (6.3-8.2) g/dL Albumin (3.5-5.0) g/dL Urine Protein (Negative) Urine Glucose (UA) (Negative) Urine Ketones (Negative) Urine Blood (Negative) Ur Leukocyte Esterase (Negative) Urine RBC (0-5) /hpf Urine WBC (0-5) /hpf Urine WBC Clumps (None) /hpf Urine Bacteria (None) /hpf Urine Mucus (None) /hpf Crossmatch 04/02/17 04/02/17 04/02/17 Range/Units 01:25 03:12 04:13 WBC (3.8-10.6) k/uL RBC (4.30-5.90) m/uL Hgb (13.0-17.5) gm/dL Hct (39.0-53.0) % Plt Count (150-450) k/uL Neutrophils # (1.3-7.7) k/uL Lymphocytes # (1.0-4.8) k/uL PT (9.0-12.0) sec INR (<1.2) APTT (22.0-30.0) sec ABG pH (7.35-7.45) ABG pCO2 (35-45) mmHg ABG pO2 (83-108) mmHg ABG HCO3 (21-25) mmol/L ABG Total CO2 (19-24) mmol/L ABG O2 Saturation (94-97) % Sodium 134 L (137-145) mmol/L Carbon Dioxide 21 L (22-30) mmol/L BUN 8 L (9-20) mg/dL Creatinine 0.50 L (0.66-1.25) mg/dL Glucose 145 H (74-99) mg/dL POC Glucose (mg/dL) 172 H 193 H (75-99) mg/dL Calcium 8.2 L (8.4-10.2) mg/dL AST (17-59) U/L Alkaline Phosphatase (38-126) U/L Total Protein 5.2 L (6.3-8.2) g/dL Albumin 3.4 L (3.5-5.0) g/dL Urine Protein (Negative) Urine Glucose (UA) (Negative) Urine Ketones (Negative) Urine Blood (Negative) Ur Leukocyte Esterase (Negative) Urine RBC (0-5) /hpf Urine WBC (0-5) /hpf Urine WBC Clumps (None) /hpf Urine Bacteria (None) /hpf Urine Mucus (None) /hpf Crossmatch 04/02/17 04/02/17 04/02/17 Range/Units 05:05 05:05 05:05 WBC 10.8 H (3.8-10.6) k/uL RBC 3.32 L (4.30-5.90) m/uL Hgb 10.5 L (13.0-17.5) gm/dL Hct 32.4 L (39.0-53.0) % Plt Count 114 L (150-450) k/uL Neutrophils # 9.3 H (1.3-7.7) k/uL Lymphocytes # 0.6 L (1.0-4.8) k/uL PT (9.0-12.0) sec INR 1.2 H (<1.2) APTT (22.0-30.0) sec ABG pH (7.35-7.45) ABG pCO2 (35-45) mmHg ABG pO2 (83-108) mmHg ABG HCO3 (21-25) mmol/L ABG Total CO2 (19-24) mmol/L ABG O2 Saturation (94-97) % Sodium 135 L (137-145) mmol/L Carbon Dioxide (22-30) mmol/L BUN 7 L (9-20) mg/dL Creatinine 0.58 L (0.66-1.25) mg/dL Glucose 186 H (74-99) mg/dL POC Glucose (mg/dL) (75-99) mg/dL Calcium 8.0 L (8.4-10.2) mg/dL AST (17-59) U/L Alkaline Phosphatase 31 L (38-126) U/L Total Protein 5.4 L (6.3-8.2) g/dL Albumin 3.4 L (3.5-5.0) g/dL Urine Protein (Negative) Urine Glucose (UA) (Negative) Urine Ketones (Negative) Urine Blood (Negative) Ur Leukocyte Esterase (Negative) Urine RBC (0-5) /hpf Urine WBC (0-5) /hpf Urine WBC Clumps (None) /hpf Urine Bacteria (None) /hpf Urine Mucus (None) /hpf Crossmatch 04/02/17 04/02/17 04/02/17 Range/Units 05:08 06:06 07:08 WBC (3.8-10.6) k/uL RBC (4.30-5.90) m/uL Hgb (13.0-17.5) gm/dL Hct (39.0-53.0) % Plt Count (150-450) k/uL Neutrophils # (1.3-7.7) k/uL Lymphocytes # (1.0-4.8) k/uL PT (9.0-12.0) sec INR (<1.2) APTT (22.0-30.0) sec ABG pH (7.35-7.45) ABG pCO2 (35-45) mmHg ABG pO2 (83-108) mmHg ABG HCO3 (21-25) mmol/L ABG Total CO2 (19-24) mmol/L ABG O2 Saturation (94-97) % Sodium (137-145) mmol/L Carbon Dioxide (22-30) mmol/L BUN (9-20) mg/dL Creatinine (0.66-1.25) mg/dL Glucose (74-99) mg/dL POC Glucose (mg/dL) 189 H 151 H 171 H (75-99) mg/dL Calcium (8.4-10.2) mg/dL AST (17-59) U/L Alkaline Phosphatase (38-126) U/L Total Protein (6.3-8.2) g/dL Albumin (3.5-5.0) g/dL Urine Protein (Negative) Urine Glucose (UA) (Negative) Urine Ketones (Negative) Urine Blood (Negative) Ur Leukocyte Esterase (Negative) Urine RBC (0-5) /hpf Urine WBC (0-5) /hpf Urine WBC Clumps (None) /hpf Urine Bacteria (None) /hpf Urine Mucus (None) /hpf Crossmatch Microbiology - Last 24 Hours (Table) 04/01/17 13:45 Gram Stain - Preliminary Penis Wound Culture - Preliminary 03/31/17 11:30 Urine Culture - Final Urine,Catheterized 04/01/17 13:45 Anaerobic Culture - Preliminary Penis - Imaging and Cardiology Chest x-ray: image reviewed EKG reviewed. Assessment and Plan (1) Tobacco dependence Current Visit: Yes Status: Chronic Code(s): F17.200 - NICOTINE DEPENDENCE, UNSPECIFIED, UNCOMPLICATED SNOMED Code(s): 43518423 (2) Insulin dependent diabetes mellitus Current Visit: Yes Status: Chronic Code(s): E11.9 - TYPE 2 DIABETES MELLITUS WITHOUT COMPLICATIONS; Z79.4 - USP (CURRENT) USE OF INSULIN SNOMED Code(s): 42920404 (3) Family history of early CAD Current Visit: Yes Status: Chronic Code(s): Z82.49 - FAMILY HX OF ISCHEM HEART DIS AND OTH DIS OF THE CIRC SYS SNOMED Code(s): 766079839 (4) Hypoglycemia associated with type 2 diabetes mellitus Current Visit: Yes Status: Chronic Code(s): E11.649 - TYPE 2 DIABETES MELLITUS WITH HYPOGLYCEMIA WITHOUT COMA SNOMED Code(s): 769895693 (5) NSTEMI (non-ST elevated myocardial infarction) Current Visit: Yes Status: Acute Code(s): I21.4 - NON-ST ELEVATION (NSTEMI) MYOCARDIAL INFARCTION SNOMED Code(s): 270989534 Plan: 1. Continue aspirin, statin, Plavix, heparin subcu, beta nikolas. Will maximize beta nikolas therapy as tolerated. 2. Discontinue IV nitroglycerin. 3. Will start oral Cardizem. Discontinue IV Cardizem after second oral dose given. 4. Intra-aortic balloon pump placed to 1:2 timing. Will discontinue this morning. 5. Wean O2 as tolerated. Encourage incentive spirometry use. Encourage smoking cessation. 6. Discontinue [place]-Anselmo catheter. Connect Cordis to continuous CVP monitoring. 7. Will increase activity and allow patient to get up to the chair 6 hours after intra-aortic balloon pump discontinued and hemostasis achieved. PT/OT ordered. 8. GI/DVT prophylaxis. 9. Insulin/diabetic management per primary care services. 10. Will monitor daily labs, chest x-rays. 11. More recommendations patient progresses. Time with Patient: Greater than 30
[2017-04-02 08:15] LABS: Glucose,Whole Blood 130 mg/dL (75-99)
[2017-04-02] MEDS: METOPROLOL TARTRATE 12.5 MG TAB PO SCH (08:22)
[2017-04-02] MEDS: DILTIAZEM ORAL 30 MG TAB PO SCH ×4 (08:22→21:00)
[2017-04-02] MEDS: ASPIRIN 325 MG TAB PO SCH (08:23)
[2017-04-02] MEDS: ATORVASTATIN 80 MG TAB PO SCH (08:23)
[2017-04-02] MEDS: KETOROLAC 30 MG/ML 1 ML VIAL IVP SCH ×4 (08:24→23:11)
[2017-04-02] MEDS: MUPIROCIN 2% OINT 22 GM TUBE NASAL SCH ×2 (08:24→21:00)
[2017-04-02] MEDS ORDERED: CLOPIDOGREL 75 MG TAB PO SCH (09:00)
[2017-04-02] MEDS ORDERED: PANTOPRAZOLE 40 MG/10 ML VIAL IVP SCH (09:00)
[2017-04-02 09:08] LABS: Glucose,Whole Blood 137 mg/dL (75-99)
--- NOTE | 2017-04-02 09:12 | XR ---
EXAMINATION TYPE: XR chest 1V portable DATE OF EXAM: 04/02/2017 COMPARISON: Prior chest x-ray 04/01/2017 HISTORY: Postop cardiac surgery TECHNIQUE: Single frontal view of the chest is obtained. FINDINGS: Intra-aortic balloon pump is stable, endotracheal and NG tube have been removed. Patient i s post median sternotomy. Left-sided chest tube, right jugular central venous sheath and coaxial [place] -Anselmo catheter, overlying cardiac leads are present. Suspect a median sternal drain is in place. No e vident pneumothorax or sizable effusion. Heart remains enlarged. Interstitium is mildly increased, so me basilar airspace disease may be present on the right, there is overlying artifact. IMPRESSION: Interval extubation. There may be component of volume overload, atelectasis, follow-up r ecommended.
--- NOTE | 2017-04-02 09:29 | P.PCN ---
Date of Procedure: 04/02/17 Preoperative Diagnosis: Severe symptomatic coronary artery disease with left main disease, NSTEMI, placement of right femoral intra-aortic balloon pump. Postoperative Diagnosis: Severe symptomatic coronary artery disease with left main disease, NSTEMI, placement of right femoral intra-aortic balloon pump. Procedure(s) Performed: Removal of intra-aortic balloon pump. Anesthesia: none Condition: stable Disposition: no change Indications for Procedure: This 56 year old gentleman was found to have severe symptomatic coronary artery disease with left main disease and NSTEMI. 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 Colón. He went for urgent coronary artery bypass surgery yesterday and has done well. This morning he was hemodynamically stable and was no longer in need of intra-aortic balloon pump assistance. Removal of the device was recommended. The risks, benefits, and alternatives to this procedure were discussed with the patient. All Questions were answered. Consent was obtained. Description of Procedure: The right groin was examined. There was no evidence of hematoma. The balloon pump was turned off. The pre-existing sheath and balloon were removed en destiney and the artery was allowed to bleed for several beats. Direct manual pressure was held over the site for 30 minutes. There was no residual bleeding or hematoma noted. The groin itself was soft. The right lower extremity appears warm and well perfused. There were no immediate complications. The patient remained hemodynamically stable and tolerated the procedure well.
[2017-04-02 10:04] LABS: Glucose,Whole Blood 125 mg/dL (75-99)
[2017-04-02] MEDS ORDERED: CLOPIDOGREL 75 MG TAB PO STA ×2 (10:43→12:35)
--- NOTE | 2017-04-02 10:47 | P.PN ---
Subjective Progress Note Date: 04/02/17 Principal diagnosis: CAD status post CABG This is a pleasant 56-year-old gentleman with a past medical history significant for diabetes as well as significant history of smoking presented to the emergency room complaining of chest discomfort for the last week. He was ruled in for acute non-ST elevation myocardial infarction. Subsequently he underwent heart catheterization which revealed heavily calcified right and left coronary system with severe triple-vessel CAD. The patient underwent CABG 3 with FARRELL to LAD, SVG to intermediate, and left radial artery to OM. This is postop day #1. The patient was extubated. Hemodynamically he continues to be stable. Currently he is on Cardizem IV for the radial artery bypass. The side that he is on dual antiplatelet along with a statin and beta nikolas. He continues to be in normal sinus mechanism. He is making marginal amount of urine. The platelets are on the low side. Objective - Vital Signs Vital signs: Vital Signs Temp 98.3 F 04/01/17 09:00 Pulse 65 04/02/17 10:30 Resp 19 04/02/17 10:30 BP 112/63 04/02/17 10:30 Pulse Ox 93 L 04/02/17 10:30 Intake & Output 04/01/17 04/02/17 04/02/17 18:59 06:59 18:59 Intake Total 621.0 1657.142 795.217 Output Total 1510 1797 240 Balance -889.0 -139.858 555.217 Weight 76.5 kg Intake: IV 421.0 1508.0 756.5 ACETAMINOPHEN IV (For NPO 200 500 ) 1,000 mg In Empty Bag 1 bag @ 400 mls/hr IVPB Q6H [facility] Rx#:[id number] Albumin Human 5% 250 ml 250 In Empty Bag 1 bag @ 250 mls/hr IVPB Q1HR PRN Rx#: [id number] Sunset 24 CO/CI 160 20 Diltiazem 125 mg In 60 20 Sodium Chloride 0.9% 100 ml @ 5 MG/HR 5 mls/hr IV .Q24H [facility] Rx#:[id number] Lactated Ringers 1,000 ml 560 200 @ 20 mls/hr IV .Q24H [facility] Rx#:[id number] Magnesium Sulfate-D5w Pmx 200 1 gm In Dextrose/Water 1 100ml.bag @ 100 mls/hr IVPB Q1H [facility] Rx#: [id number] Nitroglycerin-D5w Pmx 50 6.0 18.0 1.5 mg In Dextrose/Water 1 250ml.bag @ 5 MCG/MIN 1.5 mls/hr IV .Q24H ONE Rx#: [id number] Sodium Chloride 0.9% 1, 400 000 ml @ 100 mls/hr IV . Q10H [facility] Rx#:[id number] pressure bag - heparin 12 36 15 Intake, IV Titration 200 109.142 8.717 Amount Clevidipine Butyrate 25 24.800 mg In Empty Bag 1 bag @ 1 MG/HR 2 mls/hr IV .Q24H [facility] Rx#:[id number] Insulin Regular 100 unit 14.360 8.717 In Sodium Chloride 0.9% 100 ml @ Per Protocol IV .Q0M [facility] Rx#:[id number] Magnesium Sulfate-D5w Pmx 200 1 gm In Dextrose/Water 1 100ml.bag @ 100 mls/hr IVPB Q1H [facility] Rx#: [id number] Propofol 1,000 mg In 100 69.982 ml @ Titrate IV .Q0M [facility] Rx#:[id number] Oral 30 30 Other 10 Output: Chest Tube Drainage 570 150 Chest Tube 570 150 Gastric Drainage 200 Drainage 20 0 Left Arm 20 0 Urine 1010 1007 90 Estimated Blood Loss 500 Other: Voiding Method Indwelling Catheter Indwelling Catheter Indwelling Catheter ABP, PAP, CO, CI - Last Documented Arterial Blood Pressure 113/43 Pulmonary Artery Pressure 29/21 Cardiac Output 6.6 Cardiac Index 3.5 - Constitutional General appearance: Present: no acute distress - Respiratory Respiratory: bilateral: CTA - Cardiovascular Rhythm: regular Heart sounds: normal: S1, S2 - Labs CBC & Chem 7: 04/02/17 05:05 04/02/17 05:05 Labs: Abnormal Lab Results - Last 24 Hours (Table) 03/31/17 04/01/17 04/01/17 Range/Units 12:35 13:39 13:45 WBC (3.8-10.6) k/uL RBC (4.30-5.90) m/uL Hgb (13.0-17.5) gm/dL Hct (39.0-53.0) % Plt Count (150-450) k/uL Neutrophils # (1.3-7.7) k/uL Lymphocytes # (1.0-4.8) k/uL PT (9.0-12.0) sec INR (<1.2) APTT (22.0-30.0) sec ABG pH (7.35-7.45) ABG pCO2 (35-45) mmHg ABG pO2 (83-108) mmHg ABG HCO3 (21-25) mmol/L ABG Total CO2 (19-24) mmol/L ABG O2 Saturation (94-97) % Sodium (137-145) mmol/L Carbon Dioxide (22-30) mmol/L BUN (9-20) mg/dL Creatinine (0.66-1.25) mg/dL Glucose (74-99) mg/dL POC Glucose (mg/dL) 247 H (75-99) mg/dL Calcium (8.4-10.2) mg/dL AST (17-59) U/L Alkaline Phosphatase (38-126) U/L Total Protein (6.3-8.2) g/dL Albumin (3.5-5.0) g/dL Urine Protein Trace H (Negative) Urine Glucose (UA) 4+ H (Negative) Urine Ketones 3+ H (Negative) Urine Blood Moderate H (Negative) Ur Leukocyte Esterase Large H (Negative) Urine RBC 20 H (0-5) /hpf Urine WBC 56 H (0-5) /hpf Urine WBC Clumps Few H (None) /hpf Urine Bacteria Rare H (None) /hpf Urine Mucus Rare H (None) /hpf Crossmatch See Detail 04/01/17 04/01/17 04/01/17 Range/Units 14:47 15:38 16:13 WBC (3.8-10.6) k/uL RBC (4.30-5.90) m/uL Hgb (13.0-17.5) gm/dL Hct (39.0-53.0) % Plt Count (150-450) k/uL Neutrophils # (1.3-7.7) k/uL Lymphocytes # (1.0-4.8) k/uL PT (9.0-12.0) sec INR (<1.2) APTT (22.0-30.0) sec ABG pH (7.35-7.45) ABG pCO2 (35-45) mmHg ABG pO2 (83-108) mmHg ABG HCO3 (21-25) mmol/L ABG Total CO2 (19-24) mmol/L ABG O2 Saturation (94-97) % Sodium (137-145) mmol/L Carbon Dioxide (22-30) mmol/L BUN (9-20) mg/dL Creatinine (0.66-1.25) mg/dL Glucose (74-99) mg/dL POC Glucose (mg/dL) 263 H 197 H 174 H (75-99) mg/dL Calcium (8.4-10.2) mg/dL AST (17-59) U/L Alkaline Phosphatase (38-126) U/L Total Protein (6.3-8.2) g/dL Albumin (3.5-5.0) g/dL Urine Protein (Negative) Urine Glucose (UA) (Negative) Urine Ketones (Negative) Urine Blood (Negative) Ur Leukocyte Esterase (Negative) Urine RBC (0-5) /hpf Urine WBC (0-5) /hpf Urine WBC Clumps (None) /hpf Urine Bacteria (None) /hpf Urine Mucus (None) /hpf Crossmatch 04/01/17 04/01/17 04/01/17 Range/Units 16:35 17:14 18:09 WBC (3.8-10.6) k/uL RBC (4.30-5.90) m/uL Hgb (13.0-17.5) gm/dL Hct (39.0-53.0) % Plt Count (150-450) k/uL Neutrophils # (1.3-7.7) k/uL Lymphocytes # (1.0-4.8) k/uL PT (9.0-12.0) sec INR (<1.2) APTT (22.0-30.0) sec ABG pH (7.35-7.45) ABG pCO2 (35-45) mmHg ABG pO2 (83-108) mmHg ABG HCO3 (21-25) mmol/L ABG Total CO2 (19-24) mmol/L ABG O2 Saturation (94-97) % Sodium (137-145) mmol/L Carbon Dioxide (22-30) mmol/L BUN (9-20) mg/dL Creatinine (0.66-1.25) mg/dL Glucose (74-99) mg/dL POC Glucose (mg/dL) 166 H 147 H 115 H (75-99) mg/dL Calcium (8.4-10.2) mg/dL AST (17-59) U/L Alkaline Phosphatase (38-126) U/L Total Protein (6.3-8.2) g/dL Albumin (3.5-5.0) g/dL Urine Protein (Negative) Urine Glucose (UA) (Negative) Urine Ketones (Negative) Urine Blood (Negative) Ur Leukocyte Esterase (Negative) Urine RBC (0-5) /hpf Urine WBC (0-5) /hpf Urine WBC Clumps (None) /hpf Urine Bacteria (None) /hpf Urine Mucus (None) /hpf Crossmatch 04/01/17 04/01/17 04/01/17 Range/Units 19:00 19:00 19:00 WBC (3.8-10.6) k/uL RBC 3.58 L (4.30-5.90) m/uL Hgb 11.1 L (13.0-17.5) gm/dL Hct 34.1 L (39.0-53.0) % Plt Count 114 L (150-450) k/uL Neutrophils # (1.3-7.7) k/uL Lymphocytes # (1.0-4.8) k/uL PT 12.5 H (9.0-12.0) sec INR 1.3 H (<1.2) APTT 32.4 H (22.0-30.0) sec ABG pH (7.35-7.45) ABG pCO2 (35-45) mmHg ABG pO2 (83-108) mmHg ABG HCO3 (21-25) mmol/L ABG Total CO2 (19-24) mmol/L ABG O2 Saturation (94-97) % Sodium 136 L (137-145) mmol/L Carbon Dioxide (22-30) mmol/L BUN (9-20) mg/dL Creatinine 0.50 L (0.66-1.25) mg/dL Glucose (74-99) mg/dL POC Glucose (mg/dL) (75-99) mg/dL Calcium 7.9 L (8.4-10.2) mg/dL AST 15 L (17-59) U/L Alkaline Phosphatase 31 L (38-126) U/L Total Protein 5.4 L (6.3-8.2) g/dL Albumin (3.5-5.0) g/dL Urine Protein (Negative) Urine Glucose (UA) (Negative) Urine Ketones (Negative) Urine Blood (Negative) Ur Leukocyte Esterase (Negative) Urine RBC (0-5) /hpf Urine WBC (0-5) /hpf Urine WBC Clumps (None) /hpf Urine Bacteria (None) /hpf Urine Mucus (None) /hpf Crossmatch 04/01/17 04/01/17 04/01/17 Range/Units 19:24 20:15 21:08 WBC (3.8-10.6) k/uL RBC (4.30-5.90) m/uL Hgb (13.0-17.5) gm/dL Hct (39.0-53.0) % Plt Count (150-450) k/uL Neutrophils # (1.3-7.7) k/uL Lymphocytes # (1.0-4.8) k/uL PT (9.0-12.0) sec INR (<1.2) APTT (22.0-30.0) sec ABG pH 7.31 L (7.35-7.45) ABG pCO2 50 H (35-45) mmHg ABG pO2 169 H (83-108) mmHg ABG HCO3 (21-25) mmol/L ABG Total CO2 26 H (19-24) mmol/L ABG O2 Saturation 99.0 H (94-97) % Sodium (137-145) mmol/L Carbon Dioxide (22-30) mmol/L BUN (9-20) mg/dL Creatinine (0.66-1.25) mg/dL Glucose (74-99) mg/dL POC Glucose (mg/dL) 106 H 116 H (75-99) mg/dL Calcium (8.4-10.2) mg/dL AST (17-59) U/L Alkaline Phosphatase (38-126) U/L Total Protein (6.3-8.2) g/dL Albumin (3.5-5.0) g/dL Urine Protein (Negative) Urine Glucose (UA) (Negative) Urine Ketones (Negative) Urine Blood (Negative) Ur Leukocyte Esterase (Negative) Urine RBC (0-5) /hpf Urine WBC (0-5) /hpf Urine WBC Clumps (None) /hpf Urine Bacteria (None) /hpf Urine Mucus (None) /hpf Crossmatch 04/01/17 04/01/17 04/01/17 Range/Units 22:10 22:10 22:10 WBC 10.9 H (3.8-10.6) k/uL RBC 3.52 L (4.30-5.90) m/uL Hgb 11.0 L (13.0-17.5) gm/dL Hct 33.4 L (39.0-53.0) % Plt Count 119 L (150-450) k/uL Neutrophils # 9.3 H (1.3-7.7) k/uL Lymphocytes # 0.7 L (1.0-4.8) k/uL PT (9.0-12.0) sec INR 1.2 H (<1.2) APTT 36.0 H (22.0-30.0) sec ABG pH (7.35-7.45) ABG pCO2 (35-45) mmHg ABG pO2 (83-108) mmHg ABG HCO3 (21-25) mmol/L ABG Total CO2 (19-24) mmol/L ABG O2 Saturation (94-97) % Sodium 134 L (137-145) mmol/L Carbon Dioxide 20 L (22-30) mmol/L BUN 8 L (9-20) mg/dL Creatinine 0.54 L (0.66-1.25) mg/dL Glucose 119 H (74-99) mg/dL POC Glucose (mg/dL) (75-99) mg/dL Calcium 8.1 L (8.4-10.2) mg/dL AST (17-59) U/L Alkaline Phosphatase 34 L (38-126) U/L Total Protein 5.7 L (6.3-8.2) g/dL Albumin (3.5-5.0) g/dL Urine Protein (Negative) Urine Glucose (UA) (Negative) Urine Ketones (Negative) Urine Blood (Negative) Ur Leukocyte Esterase (Negative) Urine RBC (0-5) /hpf Urine WBC (0-5) /hpf Urine WBC Clumps (None) /hpf Urine Bacteria (None) /hpf Urine Mucus (None) /hpf Crossmatch 04/01/17 04/01/17 04/02/17 Range/Units 22:13 23:21 00:05 WBC (3.8-10.6) k/uL RBC (4.30-5.90) m/uL Hgb (13.0-17.5) gm/dL Hct (39.0-53.0) % Plt Count (150-450) k/uL Neutrophils # (1.3-7.7) k/uL Lymphocytes # (1.0-4.8) k/uL PT (9.0-12.0) sec INR (<1.2) APTT (22.0-30.0) sec ABG pH (7.35-7.45) ABG pCO2 33 L (35-45) mmHg ABG pO2 (83-108) mmHg ABG HCO3 19 L (21-25) mmol/L ABG Total CO2 (19-24) mmol/L ABG O2 Saturation (94-97) % Sodium (137-145) mmol/L Carbon Dioxide (22-30) mmol/L BUN (9-20) mg/dL Creatinine (0.66-1.25) mg/dL Glucose (74-99) mg/dL POC Glucose (mg/dL) 121 H 129 H (75-99) mg/dL Calcium (8.4-10.2) mg/dL AST (17-59) U/L Alkaline Phosphatase (38-126) U/L Total Protein (6.3-8.2) g/dL Albumin (3.5-5.0) g/dL Urine Protein (Negative) Urine Glucose (UA) (Negative) Urine Ketones (Negative) Urine Blood (Negative) Ur Leukocyte Esterase (Negative) Urine RBC (0-5) /hpf Urine WBC (0-5) /hpf Urine WBC Clumps (None) /hpf Urine Bacteria (None) /hpf Urine Mucus (None) /hpf Crossmatch 04/02/17 04/02/17 04/02/17 Range/Units 01:21 01:25 01:25 WBC 10.8 H (3.8-10.6) k/uL RBC 3.42 L (4.30-5.90) m/uL Hgb 10.5 L (13.0-17.5) gm/dL Hct 33.6 L (39.0-53.0) % Plt Count 129 L (150-450) k/uL Neutrophils # (1.3-7.7) k/uL Lymphocytes # (1.0-4.8) k/uL PT (9.0-12.0) sec INR 1.2 H (<1.2) APTT 33.3 H (22.0-30.0) sec ABG pH (7.35-7.45) ABG pCO2 (35-45) mmHg ABG pO2 (83-108) mmHg ABG HCO3 (21-25) mmol/L ABG Total CO2 (19-24) mmol/L ABG O2 Saturation (94-97) % Sodium (137-145) mmol/L Carbon Dioxide (22-30) mmol/L BUN (9-20) mg/dL Creatinine (0.66-1.25) mg/dL Glucose (74-99) mg/dL POC Glucose (mg/dL) 127 H (75-99) mg/dL Calcium (8.4-10.2) mg/dL AST (17-59) U/L Alkaline Phosphatase (38-126) U/L Total Protein (6.3-8.2) g/dL Albumin (3.5-5.0) g/dL Urine Protein (Negative) Urine Glucose (UA) (Negative) Urine Ketones (Negative) Urine Blood (Negative) Ur Leukocyte Esterase (Negative) Urine RBC (0-5) /hpf Urine WBC (0-5) /hpf Urine WBC Clumps (None) /hpf Urine Bacteria (None) /hpf Urine Mucus (None) /hpf Crossmatch 04/02/17 04/02/17 04/02/17 Range/Units 01:25 03:12 04:13 WBC (3.8-10.6) k/uL RBC (4.30-5.90) m/uL Hgb (13.0-17.5) gm/dL Hct (39.0-53.0) % Plt Count (150-450) k/uL Neutrophils # (1.3-7.7) k/uL Lymphocytes # (1.0-4.8) k/uL PT (9.0-12.0) sec INR (<1.2) APTT (22.0-30.0) sec ABG pH (7.35-7.45) ABG pCO2 (35-45) mmHg ABG pO2 (83-108) mmHg ABG HCO3 (21-25) mmol/L ABG Total CO2 (19-24) mmol/L ABG O2 Saturation (94-97) % Sodium 134 L (137-145) mmol/L Carbon Dioxide 21 L (22-30) mmol/L BUN 8 L (9-20) mg/dL Creatinine 0.50 L (0.66-1.25) mg/dL Glucose 145 H (74-99) mg/dL POC Glucose (mg/dL) 172 H 193 H (75-99) mg/dL Calcium 8.2 L (8.4-10.2) mg/dL AST (17-59) U/L Alkaline Phosphatase (38-126) U/L Total Protein 5.2 L (6.3-8.2) g/dL Albumin 3.4 L (3.5-5.0) g/dL Urine Protein (Negative) Urine Glucose (UA) (Negative) Urine Ketones (Negative) Urine Blood (Negative) Ur Leukocyte Esterase (Negative) Urine RBC (0-5) /hpf Urine WBC (0-5) /hpf Urine WBC Clumps (None) /hpf Urine Bacteria (None) /hpf Urine Mucus (None) /hpf Crossmatch 04/02/17 04/02/17 04/02/17 Range/Units 05:05 05:05 05:05 WBC 10.8 H (3.8-10.6) k/uL RBC 3.32 L (4.30-5.90) m/uL Hgb 10.5 L (13.0-17.5) gm/dL Hct 32.4 L (39.0-53.0) % Plt Count 114 L (150-450) k/uL Neutrophils # 9.3 H (1.3-7.7) k/uL Lymphocytes # 0.6 L (1.0-4.8) k/uL PT (9.0-12.0) sec INR 1.2 H (<1.2) APTT (22.0-30.0) sec ABG pH (7.35-7.45) ABG pCO2 (35-45) mmHg ABG pO2 (83-108) mmHg ABG HCO3 (21-25) mmol/L ABG Total CO2 (19-24) mmol/L ABG O2 Saturation (94-97) % Sodium 135 L (137-145) mmol/L Carbon Dioxide (22-30) mmol/L BUN 7 L (9-20) mg/dL Creatinine 0.58 L (0.66-1.25) mg/dL Glucose 186 H (74-99) mg/dL POC Glucose (mg/dL) (75-99) mg/dL Calcium 8.0 L (8.4-10.2) mg/dL AST (17-59) U/L Alkaline Phosphatase 31 L (38-126) U/L Total Protein 5.4 L (6.3-8.2) g/dL Albumin 3.4 L (3.5-5.0) g/dL Urine Protein (Negative) Urine Glucose (UA) (Negative) Urine Ketones (Negative) Urine Blood (Negative) Ur Leukocyte Esterase (Negative) Urine RBC (0-5) /hpf Urine WBC (0-5) /hpf Urine WBC Clumps (None) /hpf Urine Bacteria (None) /hpf Urine Mucus (None) /hpf Crossmatch 04/02/17 04/02/17 04/02/17 Range/Units 05:08 06:06 07:08 WBC (3.8-10.6) k/uL RBC (4.30-5.90) m/uL Hgb (13.0-17.5) gm/dL Hct (39.0-53.0) % Plt Count (150-450) k/uL Neutrophils # (1.3-7.7) k/uL Lymphocytes # (1.0-4.8) k/uL PT (9.0-12.0) sec INR (<1.2) APTT (22.0-30.0) sec ABG pH (7.35-7.45) ABG pCO2 (35-45) mmHg ABG pO2 (83-108) mmHg ABG HCO3 (21-25) mmol/L ABG Total CO2 (19-24) mmol/L ABG O2 Saturation (94-97) % Sodium (137-145) mmol/L Carbon Dioxide (22-30) mmol/L BUN (9-20) mg/dL Creatinine (0.66-1.25) mg/dL Glucose (74-99) mg/dL POC Glucose (mg/dL) 189 H 151 H 171 H (75-99) mg/dL Calcium (8.4-10.2) mg/dL AST (17-59) U/L Alkaline Phosphatase (38-126) U/L Total Protein (6.3-8.2) g/dL Albumin (3.5-5.0) g/dL Urine Protein (Negative) Urine Glucose (UA) (Negative) Urine Ketones (Negative) Urine Blood (Negative) Ur Leukocyte Esterase (Negative) Urine RBC (0-5) /hpf Urine WBC (0-5) /hpf Urine WBC Clumps (None) /hpf Urine Bacteria (None) /hpf Urine Mucus (None) /hpf Crossmatch 04/02/17 04/02/17 04/02/17 Range/Units 08:05 09:07 10:02 WBC (3.8-10.6) k/uL RBC (4.30-5.90) m/uL Hgb (13.0-17.5) gm/dL Hct (39.0-53.0) % Plt Count (150-450) k/uL Neutrophils # (1.3-7.7) k/uL Lymphocytes # (1.0-4.8) k/uL PT (9.0-12.0) sec INR (<1.2) APTT (22.0-30.0) sec ABG pH (7.35-7.45) ABG pCO2 (35-45) mmHg ABG pO2 (83-108) mmHg ABG HCO3 (21-25) mmol/L ABG Total CO2 (19-24) mmol/L ABG O2 Saturation (94-97) % Sodium (137-145) mmol/L Carbon Dioxide (22-30) mmol/L BUN (9-20) mg/dL Creatinine (0.66-1.25) mg/dL Glucose (74-99) mg/dL POC Glucose (mg/dL) 130 H 137 H 125 H (75-99) mg/dL Calcium (8.4-10.2) mg/dL AST (17-59) U/L Alkaline Phosphatase (38-126) U/L Total Protein (6.3-8.2) g/dL Albumin (3.5-5.0) g/dL Urine Protein (Negative) Urine Glucose (UA) (Negative) Urine Ketones (Negative) Urine Blood (Negative) Ur Leukocyte Esterase (Negative) Urine RBC (0-5) /hpf Urine WBC (0-5) /hpf Urine WBC Clumps (None) /hpf Urine Bacteria (None) /hpf Urine Mucus (None) /hpf Crossmatch Microbiology - Last 24 Hours (Table) 04/01/17 13:45 Gram Stain - Preliminary Penis Wound Culture - Preliminary 03/31/17 11:30 Urine Culture - Final Urine,Catheterized 04/01/17 13:45 Anaerobic Culture - Preliminary Penis Assessment and Plan Assessment: This is a pleasant 56-year-old gentleman who is diabetic and smoker and with family history of coronary artery disease who presented to the emergency room was chest discomfort and ruled in for acute non-STEMI with abnormal cardiac enzymes and abnormal EKG as well. The heart catheterization revealed calcified right and left coronary systems with severe triple-vessel CAD. The patient underwent CABG 3 as described above. I would continue the current medical treatment which included dual antiplatelet therapy and statin. Continue beta nikolas. Follow-up with the patient.
[2017-04-02 11:07] LABS: Glucose,Whole Blood 111 mg/dL (75-99)
[2017-04-02] MEDS: INSULIN ASPART 100 UNIT/ML 1 ML 10 ML VIAL SQ SCH (11:41)
[2017-04-02 12:02] LABS: Glucose,Whole Blood 123 mg/dL (75-99)
--- NOTE | 2017-04-02 12:31 | P.PN ---
Subjective Progress Note Date: 04/02/17 Principal diagnosis: Acute non-ST segment myocardial infarction. Status post CABG This is a very pleasant 56-year-old gentleman who follows with Dr. Jacobsen as his primary care physician. He has a history of insulin-dependent diabetes mellitus, chronic and ongoing tobacco dependence. No pulmonary history. No inhalers at home. He does have a family history of coronary artery disease with his father having 5 myocardial infarction suffered first one at age 55. The patient had presented here yesterday to the emergency room with complaints of chest pain. He described this as a pressure/burning sensation in the middle of his chest without any significant radiation. He did have shortness of breath and some diaphoresis. It lasted approximately half hour prior to his arrival to the emergency room. He had a similar episode about a week ago but did not seek any attention at that time. His EKG revealed extensive ST and T-wave abnormalities in the anterolateral leads. He ruled in for an acute non-ST segment elevation myocardial infarction. Today he had undergone cardiac catheterization with Dr. Colón and was found to have heavily calcified right and left coronary systems. There was severe disease involving the proximal to mid LAD and a long tubular lesion. 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 The patient will be receiving a balloon pump insertion. Recommendations for urgent coronary artery bypass grafting have been made. We are consulted for critical care management. The patient is seen in the intensive care unit. He is awake and alert in no acute distress. He is maintaining good O2 saturations in the mid 90s on room air. Chest x-ray revealed chronic changes but no acute cardiopulmonary process. There is a nodular density in the peripheral right lower lung most likely representing a nipple shadow. He's been hemodynamically stable. He has been maintained on a heparin drip. He is also on nitroglycerin at 5 mcg/m. He has a 0.9 normal saline at 100 mL per hour. His been initiated on aspirin statins and beta blockers. No leukocytosis. Hemoglobin 14.8. Platelet count 183,000. Troponin 0.099. Reevaluated today on 04/01/2017, patient is doing well, no major issues overnight , intra-aortic pump remains in place, patient is scheduled to have myocardial revascularization around noontime today. No major issues and no major symptoms overnight. Presently the patient remains asymptomatic. He is hemodynamically stable. All his meds and labs were reviewed. X-ray was also reviewed. Reevaluated today on 04/02/2017, patient underwent myocardial revascularization yesterday, extubated around 1 AM this morning, tolerated the extubation well, presently in no form of respiratory distress. His intra-aortic balloon pump was removed patient presented initially with severe symptomatic coronary artery disease with left main disease and non-ST elevation myocardial infarction. Chest x-ray is suggestive of mild component of volume overload and atelectasis. Objective - Vital Signs Vital signs: Vital Signs Temp 98.2 F 04/02/17 12:00 Pulse 64 04/02/17 12:00 Resp 17 04/02/17 12:00 BP 111/56 04/02/17 12:00 Pulse Ox 92 L 04/02/17 12:00 Intake & Output 04/01/17 04/02/17 04/02/17 18:59 06:59 18:59 Intake Total 621.0 9783.005 0024.750 Output Total 1510 1797 510 Balance -889.0 -139.858 496.750 Weight 76.5 kg Intake: IV 421.0 1508.0 872.5 ACETAMINOPHEN IV (For NPO 200 500 ) 1,000 mg In Empty Bag 1 bag @ 400 mls/hr IVPB Q6H [facility] Rx#:[id number] Albumin Human 5% 250 ml 250 In Empty Bag 1 bag @ 250 mls/hr IVPB Q1HR PRN Rx#: [id number] Chantal 24 CO/CI 160 20 Diltiazem 125 mg In 60 30 Sodium Chloride 0.9% 100 ml @ 5 MG/HR 5 mls/hr IV .Q24H [facility] Rx#:[id number] Lactated Ringers 1,000 ml 560 300 @ 20 mls/hr IV .Q24H [facility] Rx#:[id number] Magnesium Sulfate-D5w Pmx 200 1 gm In Dextrose/Water 1 100ml.bag @ 100 mls/hr IVPB Q1H [facility] Rx#: [id number] Nitroglycerin-D5w Pmx 50 6.0 18.0 1.5 mg In Dextrose/Water 1 250ml.bag @ 5 MCG/MIN 1.5 mls/hr IV .Q24H ONE Rx#: [id number] Sodium Chloride 0.9% 1, 400 000 ml @ 100 mls/hr IV . Q10H [facility] Rx#:[id number] pressure bag - heparin 12 36 21 Intake, IV Titration 200 109.142 104.250 Amount Clevidipine Butyrate 25 24.800 mg In Empty Bag 1 bag @ 1 MG/HR 2 mls/hr IV .Q24H [facility] Rx#:[id number] Diltiazem 125 mg In 85.5 Sodium Chloride 0.9% 100 ml @ 5 MG/HR 5 mls/hr IV .Q24H [facility] Rx#:[id number] Insulin Regular 100 unit 14.360 18.750 In Sodium Chloride 0.9% 100 ml @ Per Protocol IV .Q0M [facility] Rx#:[id number] Magnesium Sulfate-D5w Pmx 200 1 gm In Dextrose/Water 1 100ml.bag @ 100 mls/hr IVPB Q1H [facility] Rx#: [id number] Propofol 1,000 mg In 100 69.982 ml @ Titrate IV .Q0M [facility] Rx#:[id number] Oral 30 30 Other 10 Output: Chest Tube Drainage 570 300 Chest Tube 570 300 Gastric Drainage 200 Drainage 20 0 Left Arm 20 0 Urine 1010 1007 210 Estimated Blood Loss 500 Other: Voiding Method Indwelling Catheter Indwelling Catheter Indwelling Catheter ABP, PAP, CO, CI - Last Documented Arterial Blood Pressure 113/43 Pulmonary Artery Pressure 29/21 Cardiac Output 6.6 Cardiac Index 3.5 - Exam GENERAL EXAM: Alert, currently comfortable in no apparent distress. HEAD: Normocephalic. EYES: Normal reaction of pupils, equal size. NOSE: Clear with pink turbinates. THROAT: No erythema or exudates. NECK: No masses, no JVD. CHEST: No chest wall deformity. LUNGS: Equal air entry with no crackles, wheeze, rhonchi or dullness. CVS: S1 and S2 normal with no audible murmur, regular rhythm. ABDOMEN: No hepatosplenomegaly, normal bowel sounds, no guarding or rigidity. SPINE: No scoliosis or deformity SKIN: No rashes CENTRAL NERVOUS SYSTEM: No focal deficits, tone is normal in all 4 extremities. EXTREMITIES: There is no peripheral edema. No clubbing, no cyanosis. Peripheral pulses are intact. - Labs CBC & Chem 7: 04/02/17 05:05 04/02/17 05:05 Labs: Abnormal Lab Results - Last 24 Hours (Table) 03/31/17 04/01/17 04/01/17 Range/Units 12:35 13:39 13:45 WBC (3.8-10.6) k/uL RBC (4.30-5.90) m/uL Hgb (13.0-17.5) gm/dL Hct (39.0-53.0) % Plt Count (150-450) k/uL Neutrophils # (1.3-7.7) k/uL Lymphocytes # (1.0-4.8) k/uL PT (9.0-12.0) sec INR (<1.2) APTT (22.0-30.0) sec ABG pH (7.35-7.45) ABG pCO2 (35-45) mmHg ABG pO2 (83-108) mmHg ABG HCO3 (21-25) mmol/L ABG Total CO2 (19-24) mmol/L ABG O2 Saturation (94-97) % Sodium (137-145) mmol/L Carbon Dioxide (22-30) mmol/L BUN (9-20) mg/dL Creatinine (0.66-1.25) mg/dL Glucose (74-99) mg/dL POC Glucose (mg/dL) 247 H (75-99) mg/dL Calcium (8.4-10.2) mg/dL AST (17-59) U/L Alkaline Phosphatase (38-126) U/L Total Protein (6.3-8.2) g/dL Albumin (3.5-5.0) g/dL Urine Protein Trace H (Negative) Urine Glucose (UA) 4+ H (Negative) Urine Ketones 3+ H (Negative) Urine Blood Moderate H (Negative) Ur Leukocyte Esterase Large H (Negative) Urine RBC 20 H (0-5) /hpf Urine WBC 56 H (0-5) /hpf Urine WBC Clumps Few H (None) /hpf Urine Bacteria Rare H (None) /hpf Urine Mucus Rare H (None) /hpf Crossmatch See Detail 04/01/17 04/01/17 04/01/17 Range/Units 14:47 15:38 16:13 WBC (3.8-10.6) k/uL RBC (4.30-5.90) m/uL Hgb (13.0-17.5) gm/dL Hct (39.0-53.0) % Plt Count (150-450) k/uL Neutrophils # (1.3-7.7) k/uL Lymphocytes # (1.0-4.8) k/uL PT (9.0-12.0) sec INR (<1.2) APTT (22.0-30.0) sec ABG pH (7.35-7.45) ABG pCO2 (35-45) mmHg ABG pO2 (83-108) mmHg ABG HCO3 (21-25) mmol/L ABG Total CO2 (19-24) mmol/L ABG O2 Saturation (94-97) % Sodium (137-145) mmol/L Carbon Dioxide (22-30) mmol/L BUN (9-20) mg/dL Creatinine (0.66-1.25) mg/dL Glucose (74-99) mg/dL POC Glucose (mg/dL) 263 H 197 H 174 H (75-99) mg/dL Calcium (8.4-10.2) mg/dL AST (17-59) U/L Alkaline Phosphatase (38-126) U/L Total Protein (6.3-8.2) g/dL Albumin (3.5-5.0) g/dL Urine Protein (Negative) Urine Glucose (UA) (Negative) Urine Ketones (Negative) Urine Blood (Negative) Ur Leukocyte Esterase (Negative) Urine RBC (0-5) /hpf Urine WBC (0-5) /hpf Urine WBC Clumps (None) /hpf Urine Bacteria (None) /hpf Urine Mucus (None) /hpf Crossmatch 04/01/17 04/01/17 04/01/17 Range/Units 16:35 17:14 18:09 WBC (3.8-10.6) k/uL RBC (4.30-5.90) m/uL Hgb (13.0-17.5) gm/dL Hct (39.0-53.0) % Plt Count (150-450) k/uL Neutrophils # (1.3-7.7) k/uL Lymphocytes # (1.0-4.8) k/uL PT (9.0-12.0) sec INR (<1.2) APTT (22.0-30.0) sec ABG pH (7.35-7.45) ABG pCO2 (35-45) mmHg ABG pO2 (83-108) mmHg ABG HCO3 (21-25) mmol/L ABG Total CO2 (19-24) mmol/L ABG O2 Saturation (94-97) % Sodium (137-145) mmol/L Carbon Dioxide (22-30) mmol/L BUN (9-20) mg/dL Creatinine (0.66-1.25) mg/dL Glucose (74-99) mg/dL POC Glucose (mg/dL) 166 H 147 H 115 H (75-99) mg/dL Calcium (8.4-10.2) mg/dL AST (17-59) U/L Alkaline Phosphatase (38-126) U/L Total Protein (6.3-8.2) g/dL Albumin (3.5-5.0) g/dL Urine Protein (Negative) Urine Glucose (UA) (Negative) Urine Ketones (Negative) Urine Blood (Negative) Ur Leukocyte Esterase (Negative) Urine RBC (0-5) /hpf Urine WBC (0-5) /hpf Urine WBC Clumps (None) /hpf Urine Bacteria (None) /hpf Urine Mucus (None) /hpf Crossmatch 04/01/17 04/01/17 04/01/17 Range/Units 19:00 19:00 19:00 WBC (3.8-10.6) k/uL RBC 3.58 L (4.30-5.90) m/uL Hgb 11.1 L (13.0-17.5) gm/dL Hct 34.1 L (39.0-53.0) % Plt Count 114 L (150-450) k/uL Neutrophils # (1.3-7.7) k/uL Lymphocytes # (1.0-4.8) k/uL PT 12.5 H (9.0-12.0) sec INR 1.3 H (<1.2) APTT 32.4 H (22.0-30.0) sec ABG pH (7.35-7.45) ABG pCO2 (35-45) mmHg ABG pO2 (83-108) mmHg ABG HCO3 (21-25) mmol/L ABG Total CO2 (19-24) mmol/L ABG O2 Saturation (94-97) % Sodium 136 L (137-145) mmol/L Carbon Dioxide (22-30) mmol/L BUN (9-20) mg/dL Creatinine 0.50 L (0.66-1.25) mg/dL Glucose (74-99) mg/dL POC Glucose (mg/dL) (75-99) mg/dL Calcium 7.9 L (8.4-10.2) mg/dL AST 15 L (17-59) U/L Alkaline Phosphatase 31 L (38-126) U/L Total Protein 5.4 L (6.3-8.2) g/dL Albumin (3.5-5.0) g/dL Urine Protein (Negative) Urine Glucose (UA) (Negative) Urine Ketones (Negative) Urine Blood (Negative) Ur Leukocyte Esterase (Negative) Urine RBC (0-5) /hpf Urine WBC (0-5) /hpf Urine WBC Clumps (None) /hpf Urine Bacteria (None) /hpf Urine Mucus (None) /hpf Crossmatch 04/01/17 04/01/17 04/01/17 Range/Units 19:24 20:15 21:08 WBC (3.8-10.6) k/uL RBC (4.30-5.90) m/uL Hgb (13.0-17.5) gm/dL Hct (39.0-53.0) % Plt Count (150-450) k/uL Neutrophils # (1.3-7.7) k/uL Lymphocytes # (1.0-4.8) k/uL PT (9.0-12.0) sec INR (<1.2) APTT (22.0-30.0) sec ABG pH 7.31 L (7.35-7.45) ABG pCO2 50 H (35-45) mmHg ABG pO2 169 H (83-108) mmHg ABG HCO3 (21-25) mmol/L ABG Total CO2 26 H (19-24) mmol/L ABG O2 Saturation 99.0 H (94-97) % Sodium (137-145) mmol/L Carbon Dioxide (22-30) mmol/L BUN (9-20) mg/dL Creatinine (0.66-1.25) mg/dL Glucose (74-99) mg/dL POC Glucose (mg/dL) 106 H 116 H (75-99) mg/dL Calcium (8.4-10.2) mg/dL AST (17-59) U/L Alkaline Phosphatase (38-126) U/L Total Protein (6.3-8.2) g/dL Albumin (3.5-5.0) g/dL Urine Protein (Negative) Urine Glucose (UA) (Negative) Urine Ketones (Negative) Urine Blood (Negative) Ur Leukocyte Esterase (Negative) Urine RBC (0-5) /hpf Urine WBC (0-5) /hpf Urine WBC Clumps (None) /hpf Urine Bacteria (None) /hpf Urine Mucus (None) /hpf Crossmatch 04/01/17 04/01/17 04/01/17 Range/Units 22:10 22:10 22:10 WBC 10.9 H (3.8-10.6) k/uL RBC 3.52 L (4.30-5.90) m/uL Hgb 11.0 L (13.0-17.5) gm/dL Hct 33.4 L (39.0-53.0) % Plt Count 119 L (150-450) k/uL Neutrophils # 9.3 H (1.3-7.7) k/uL Lymphocytes # 0.7 L (1.0-4.8) k/uL PT (9.0-12.0) sec INR 1.2 H (<1.2) APTT 36.0 H (22.0-30.0) sec ABG pH (7.35-7.45) ABG pCO2 (35-45) mmHg ABG pO2 (83-108) mmHg ABG HCO3 (21-25) mmol/L ABG Total CO2 (19-24) mmol/L ABG O2 Saturation (94-97) % Sodium 134 L (137-145) mmol/L Carbon Dioxide 20 L (22-30) mmol/L BUN 8 L (9-20) mg/dL Creatinine 0.54 L (0.66-1.25) mg/dL Glucose 119 H (74-99) mg/dL POC Glucose (mg/dL) (75-99) mg/dL Calcium 8.1 L (8.4-10.2) mg/dL AST (17-59) U/L Alkaline Phosphatase 34 L (38-126) U/L Total Protein 5.7 L (6.3-8.2) g/dL Albumin (3.5-5.0) g/dL Urine Protein (Negative) Urine Glucose (UA) (Negative) Urine Ketones (Negative) Urine Blood (Negative) Ur Leukocyte Esterase (Negative) Urine RBC (0-5) /hpf Urine WBC (0-5) /hpf Urine WBC Clumps (None) /hpf Urine Bacteria (None) /hpf Urine Mucus (None) /hpf Crossmatch 04/01/17 04/01/17 04/02/17 Range/Units 22:13 23:21 00:05 WBC (3.8-10.6) k/uL RBC (4.30-5.90) m/uL Hgb (13.0-17.5) gm/dL Hct (39.0-53.0) % Plt Count (150-450) k/uL Neutrophils # (1.3-7.7) k/uL Lymphocytes # (1.0-4.8) k/uL PT (9.0-12.0) sec INR (<1.2) APTT (22.0-30.0) sec ABG pH (7.35-7.45) ABG pCO2 33 L (35-45) mmHg ABG pO2 (83-108) mmHg ABG HCO3 19 L (21-25) mmol/L ABG Total CO2 (19-24) mmol/L ABG O2 Saturation (94-97) % Sodium (137-145) mmol/L Carbon Dioxide (22-30) mmol/L BUN (9-20) mg/dL Creatinine (0.66-1.25) mg/dL Glucose (74-99) mg/dL POC Glucose (mg/dL) 121 H 129 H (75-99) mg/dL Calcium (8.4-10.2) mg/dL AST (17-59) U/L Alkaline Phosphatase (38-126) U/L Total Protein (6.3-8.2) g/dL Albumin (3.5-5.0) g/dL Urine Protein (Negative) Urine Glucose (UA) (Negative) Urine Ketones (Negative) Urine Blood (Negative) Ur Leukocyte Esterase (Negative) Urine RBC (0-5) /hpf Urine WBC (0-5) /hpf Urine WBC Clumps (None) /hpf Urine Bacteria (None) /hpf Urine Mucus (None) /hpf Crossmatch 04/02/17 04/02/17 04/02/17 Range/Units 01:21 01:25 01:25 WBC 10.8 H (3.8-10.6) k/uL RBC 3.42 L (4.30-5.90) m/uL Hgb 10.5 L (13.0-17.5) gm/dL Hct 33.6 L (39.0-53.0) % Plt Count 129 L (150-450) k/uL Neutrophils # (1.3-7.7) k/uL Lymphocytes # (1.0-4.8) k/uL PT (9.0-12.0) sec INR 1.2 H (<1.2) APTT 33.3 H (22.0-30.0) sec ABG pH (7.35-7.45) ABG pCO2 (35-45) mmHg ABG pO2 (83-108) mmHg ABG HCO3 (21-25) mmol/L ABG Total CO2 (19-24) mmol/L ABG O2 Saturation (94-97) % Sodium (137-145) mmol/L Carbon Dioxide (22-30) mmol/L BUN (9-20) mg/dL Creatinine (0.66-1.25) mg/dL Glucose (74-99) mg/dL POC Glucose (mg/dL) 127 H (75-99) mg/dL Calcium (8.4-10.2) mg/dL AST (17-59) U/L Alkaline Phosphatase (38-126) U/L Total Protein (6.3-8.2) g/dL Albumin (3.5-5.0) g/dL Urine Protein (Negative) Urine Glucose (UA) (Negative) Urine Ketones (Negative) Urine Blood (Negative) Ur Leukocyte Esterase (Negative) Urine RBC (0-5) /hpf Urine WBC (0-5) /hpf Urine WBC Clumps (None) /hpf Urine Bacteria (None) /hpf Urine Mucus (None) /hpf Crossmatch 04/02/17 04/02/17 04/02/17 Range/Units 01:25 03:12 04:13 WBC (3.8-10.6) k/uL RBC (4.30-5.90) m/uL Hgb (13.0-17.5) gm/dL Hct (39.0-53.0) % Plt Count (150-450) k/uL Neutrophils # (1.3-7.7) k/uL Lymphocytes # (1.0-4.8) k/uL PT (9.0-12.0) sec INR (<1.2) APTT (22.0-30.0) sec ABG pH (7.35-7.45) ABG pCO2 (35-45) mmHg ABG pO2 (83-108) mmHg ABG HCO3 (21-25) mmol/L ABG Total CO2 (19-24) mmol/L ABG O2 Saturation (94-97) % Sodium 134 L (137-145) mmol/L Carbon Dioxide 21 L (22-30) mmol/L BUN 8 L (9-20) mg/dL Creatinine 0.50 L (0.66-1.25) mg/dL Glucose 145 H (74-99) mg/dL POC Glucose (mg/dL) 172 H 193 H (75-99) mg/dL Calcium 8.2 L (8.4-10.2) mg/dL AST (17-59) U/L Alkaline Phosphatase (38-126) U/L Total Protein 5.2 L (6.3-8.2) g/dL Albumin 3.4 L (3.5-5.0) g/dL Urine Protein (Negative) Urine Glucose (UA) (Negative) Urine Ketones (Negative) Urine Blood (Negative) Ur Leukocyte Esterase (Negative) Urine RBC (0-5) /hpf Urine WBC (0-5) /hpf Urine WBC Clumps (None) /hpf Urine Bacteria (None) /hpf Urine Mucus (None) /hpf Crossmatch 04/02/17 04/02/17 04/02/17 Range/Units 05:05 05:05 05:05 WBC 10.8 H (3.8-10.6) k/uL RBC 3.32 L (4.30-5.90) m/uL Hgb 10.5 L (13.0-17.5) gm/dL Hct 32.4 L (39.0-53.0) % Plt Count 114 L (150-450) k/uL Neutrophils # 9.3 H (1.3-7.7) k/uL Lymphocytes # 0.6 L (1.0-4.8) k/uL PT (9.0-12.0) sec INR 1.2 H (<1.2) APTT (22.0-30.0) sec ABG pH (7.35-7.45) ABG pCO2 (35-45) mmHg ABG pO2 (83-108) mmHg ABG HCO3 (21-25) mmol/L ABG Total CO2 (19-24) mmol/L ABG O2 Saturation (94-97) % Sodium 135 L (137-145) mmol/L Carbon Dioxide (22-30) mmol/L BUN 7 L (9-20) mg/dL Creatinine 0.58 L (0.66-1.25) mg/dL Glucose 186 H (74-99) mg/dL POC Glucose (mg/dL) (75-99) mg/dL Calcium 8.0 L (8.4-10.2) mg/dL AST (17-59) U/L Alkaline Phosphatase 31 L (38-126) U/L Total Protein 5.4 L (6.3-8.2) g/dL Albumin 3.4 L (3.5-5.0) g/dL Urine Protein (Negative) Urine Glucose (UA) (Negative) Urine Ketones (Negative) Urine Blood (Negative) Ur Leukocyte Esterase (Negative) Urine RBC (0-5) /hpf Urine WBC (0-5) /hpf Urine WBC Clumps (None) /hpf Urine Bacteria (None) /hpf Urine Mucus (None) /hpf Crossmatch 04/02/17 04/02/17 04/02/17 Range/Units 05:08 06:06 07:08 WBC (3.8-10.6) k/uL RBC (4.30-5.90) m/uL Hgb (13.0-17.5) gm/dL Hct (39.0-53.0) % Plt Count (150-450) k/uL Neutrophils # (1.3-7.7) k/uL Lymphocytes # (1.0-4.8) k/uL PT (9.0-12.0) sec INR (<1.2) APTT (22.0-30.0) sec ABG pH (7.35-7.45) ABG pCO2 (35-45) mmHg ABG pO2 (83-108) mmHg ABG HCO3 (21-25) mmol/L ABG Total CO2 (19-24) mmol/L ABG O2 Saturation (94-97) % Sodium (137-145) mmol/L Carbon Dioxide (22-30) mmol/L BUN (9-20) mg/dL Creatinine (0.66-1.25) mg/dL Glucose (74-99) mg/dL POC Glucose (mg/dL) 189 H 151 H 171 H (75-99) mg/dL Calcium (8.4-10.2) mg/dL AST (17-59) U/L Alkaline Phosphatase (38-126) U/L Total Protein (6.3-8.2) g/dL Albumin (3.5-5.0) g/dL Urine Protein (Negative) Urine Glucose (UA) (Negative) Urine Ketones (Negative) Urine Blood (Negative) Ur Leukocyte Esterase (Negative) Urine RBC (0-5) /hpf Urine WBC (0-5) /hpf Urine WBC Clumps (None) /hpf Urine Bacteria (None) /hpf Urine Mucus (None) /hpf Crossmatch 04/02/17 04/02/17 04/02/17 Range/Units 08:05 09:07 10:02 WBC (3.8-10.6) k/uL RBC (4.30-5.90) m/uL Hgb (13.0-17.5) gm/dL Hct (39.0-53.0) % Plt Count (150-450) k/uL Neutrophils # (1.3-7.7) k/uL Lymphocytes # (1.0-4.8) k/uL PT (9.0-12.0) sec INR (<1.2) APTT (22.0-30.0) sec ABG pH (7.35-7.45) ABG pCO2 (35-45) mmHg ABG pO2 (83-108) mmHg ABG HCO3 (21-25) mmol/L ABG Total CO2 (19-24) mmol/L ABG O2 Saturation (94-97) % Sodium (137-145) mmol/L Carbon Dioxide (22-30) mmol/L BUN (9-20) mg/dL Creatinine (0.66-1.25) mg/dL Glucose (74-99) mg/dL POC Glucose (mg/dL) 130 H 137 H 125 H (75-99) mg/dL Calcium (8.4-10.2) mg/dL AST (17-59) U/L Alkaline Phosphatase (38-126) U/L Total Protein (6.3-8.2) g/dL Albumin (3.5-5.0) g/dL Urine Protein (Negative) Urine Glucose (UA) (Negative) Urine Ketones (Negative) Urine Blood (Negative) Ur Leukocyte Esterase (Negative) Urine RBC (0-5) /hpf Urine WBC (0-5) /hpf Urine WBC Clumps (None) /hpf Urine Bacteria (None) /hpf Urine Mucus (None) /hpf Crossmatch 04/02/17 04/02/17 Range/Units 11:06 12:00 WBC (3.8-10.6) k/uL RBC (4.30-5.90) m/uL Hgb (13.0-17.5) gm/dL Hct (39.0-53.0) % Plt Count (150-450) k/uL Neutrophils # (1.3-7.7) k/uL Lymphocytes # (1.0-4.8) k/uL PT (9.0-12.0) sec INR (<1.2) APTT (22.0-30.0) sec ABG pH (7.35-7.45) ABG pCO2 (35-45) mmHg ABG pO2 (83-108) mmHg ABG HCO3 (21-25) mmol/L ABG Total CO2 (19-24) mmol/L ABG O2 Saturation (94-97) % Sodium (137-145) mmol/L Carbon Dioxide (22-30) mmol/L BUN (9-20) mg/dL Creatinine (0.66-1.25) mg/dL Glucose (74-99) mg/dL POC Glucose (mg/dL) 111 H 123 H (75-99) mg/dL Calcium (8.4-10.2) mg/dL AST (17-59) U/L Alkaline Phosphatase (38-126) U/L Total Protein (6.3-8.2) g/dL Albumin (3.5-5.0) g/dL Urine Protein (Negative) Urine Glucose (UA) (Negative) Urine Ketones (Negative) Urine Blood (Negative) Ur Leukocyte Esterase (Negative) Urine RBC (0-5) /hpf Urine WBC (0-5) /hpf Urine WBC Clumps (None) /hpf Urine Bacteria (None) /hpf Urine Mucus (None) /hpf Crossmatch Microbiology - Last 24 Hours (Table) 03/31/17 15:09 Nasal Screen MRSA/MSSA (ELIZA) - Final Nasopharyngeal Swab 04/01/17 13:45 Gram Stain - Preliminary Penis Wound Culture - Preliminary 03/31/17 11:30 Urine Culture - Final Urine,Catheterized 04/01/17 13:45 Anaerobic Culture - Preliminary Penis Assessment and Plan Plan: 1 status post CABG, postoperative day #1, patient presented with left main coronary artery disease and non-ST elevation myocardial infarction. #2 Significant coronary artery disease with heavily calcified right and left coronary systems. 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 Status post CABG #3 Insulin-dependent diabetes mellitus. #4 Chronic and ongoing tobacco dependence. Recommendation: Continue present supportive care measures, patient was extubated uneventfully, he is hemodynamically stable, pulmonary status is unremarkable, continue incentive spirometry, continue supportive care measures. Time with Patient: Less than 30
[2017-04-02 12:59] LABS: Glucose,Whole Blood 132 mg/dL (75-99)
[2017-04-02 14:06] LABS: Glucose,Whole Blood 166 mg/dL (75-99)
[2017-04-02] MEDS: INSULIN REGULAR 100 UNIT in SODIUM CHLORIDE 0.9% 100 ML IV SCH (14:06)
[2017-04-02 14:58] LABS: Glucose,Whole Blood 167 mg/dL (75-99)
[2017-04-02 15:26] LABS: ABG Base Excess -8.4 mmol/L; ABG HCO3 16 mmol/L (21-25); ABG Hematocrit 41 % (34.0-46.0); ABG Oxygen Saturation 99.1 % (94-97); ABG PCO2 33 mmHg (35-45); ABG PH 7.32 (7.35-7.45); ABG PO2 143 mmHg (83-108); ABG TCO2 17 mmol/L (19-24)
[2017-04-02 15:27] LABS: ABG HCO3 21 mmol/L (21-25); ABG Hematocrit 42 % (34.0-46.0); ABG Oxygen Saturation 96.7 % (94-97); ABG PCO2 45 mmHg (35-45); ABG PH 7.29 (7.35-7.45); ABG PO2 98 mmHg (83-108); ABG TCO2 22 mmol/L (19-24)
[2017-04-02 15:28] LABS: ABG Base Excess -4.8 mmol/L; ABG HCO3 19 mmol/L (21-25); ABG Hematocrit 35 % (34.0-46.0); ABG Oxygen Saturation 98.3 % (94-97); ABG PCO2 35 mmHg (35-45); ABG PH 7.36 (7.35-7.45); ABG PO2 113 mmHg (83-108); ABG TCO2 20 mmol/L (19-24)
[2017-04-02 15:29] LABS: ABG Base Excess -2.5 mmol/L; ABG HCO3 21 mmol/L (21-25); ABG Hematocrit 34 % (34.0-46.0); ABG PCO2 35 mmHg (35-45); ABG PO2 81 mmHg (83-108); ABG TCO2 22 mmol/L (19-24)
[2017-04-02 15:30] LABS: ABG Base Excess -2.1 mmol/L; ABG HCO3 22 mmol/L (21-25); ABG Hematocrit 34 % (34.0-46.0); ABG PCO2 37 mmHg (35-45); ABG PH 7.39 (7.35-7.45); ABG PO2 90 mmHg (83-108); ABG TCO2 23 mmol/L (19-24)
[2017-04-02 15:31] LABS: ABG Base Excess -2.1 mmol/L; ABG HCO3 22 mmol/L (21-25); ABG Hematocrit 32 % (34.0-46.0); ABG Oxygen Saturation 97.8 % (94-97); ABG PCO2 37 mmHg (35-45); ABG PH 7.39 (7.35-7.45); ABG PO2 102 mmHg (83-108); ABG TCO2 23 mmol/L (19-24)
[2017-04-02 15:31] LABS: ABG PCO2 38 mmHg (35-45); ABG PH 7.39 (7.35-7.45); ABG PO2 115 mmHg (83-108)
[2017-04-02 15:32] LABS: ABG Base Excess -1.7 mmol/L; ABG HCO3 23 mmol/L (21-25); ABG Hematocrit 32 % (34.0-46.0); ABG Oxygen Saturation 98.5 % (94-97); ABG TCO2 24 mmol/L (19-24)
[2017-04-02] MEDS: ONDANSETRON 4 MG/2 ML VIAL IVP PRN (16:02)
[2017-04-02 16:16] LABS: Glucose,Whole Blood 150 mg/dL (75-99)
[2017-04-02] MEDS ORDERED: BISACODYL 10 MG SUPP RECTAL PRN (16:35)
[2017-04-02] MEDS ORDERED: IPRATROPIUM-ALBUTEROL 3 ML NEB INHALATION PRN (16:36)
[2017-04-02] MEDS ORDERED: MAGNESIUM HYDROXIDE 2,400 MG/10 ML CUP PO PRN (16:36)
[2017-04-02 17:25] LABS: Glucose,Whole Blood 70 mg/dL (75-99)
[2017-04-02 17:47] LABS: Glucose,Whole Blood 75 mg/dL (75-99)
[2017-04-02 18:09] LABS: Glucose,Whole Blood 184 mg/dL (75-99)
[2017-04-02] MEDS: DILTIAZEM 125 MG in SODIUM CHLORIDE 0.9% 100 ML IV SCH (18:19)
[2017-04-02] MEDS: LACTATED RINGERS 1,000 ML IV SCH (18:44)
[2017-04-02 18:58] LABS: Glucose,Whole Blood 130 mg/dL (75-99)
[2017-04-02] MEDS ORDERED: FUROSEMIDE 10 MG/ML 2 ML VIAL IV ONE (19:25)
[2017-04-02 20:09] LABS: Glucose,Whole Blood 124 mg/dL (75-99)
[2017-04-02] MEDS: SENNOSIDES-DOCUSATE SODIUM 1 EACH TAB PO SCH (20:22)
[2017-04-02 21:10] LABS: Glucose,Whole Blood 110 mg/dL (75-99)
[2017-04-02 22:06] LABS: Glucose,Whole Blood 141 mg/dL (75-99)
--- NOTE | 2017-04-02 22:58 | P.PN ---
Subjective Progress Note Date: 04/02/17 Principal diagnosis: NSTEMI Patient is a 56-year-old male with a history of diabetes type 1 and family history of coronary disease in his father presented to ER with complaints of chest pain. Pain is mainly retrosternal associated with nausea and vomiting and diaphoresis. Pain is mainly pressure-like sensation. Denied any radiation to the neck shoulder or to the back. Also short of breath and chest pain lasted for about 30-40 minutes. Patient had similar pain about a week back but he did not seek medical attention at the time. Patient says that pain improved with nitro tablets in the ER. Chest x-ray showed no acute abnormality EKG showed normal sinus rhythm with ST depression in the anterolateral leads 03/31/2017 Patient underwent cardiac catheterization showed severe coronary artery disease involving proximal and mid LAD. There is critical distal left main disease. Patient was placed on intra-aortic balloon pump and is awaiting CT surgery recommendations. Currently patient is awake oriented and denied any complaints of chest pain. No nausea vomiting or abdominal pain. Patient is encouraged with incentive spirometry. Chest x-ray revealed chronic changes but no acute cardiopulmonary process. 04/01/2017 Patient is currently medically stable. No acute overnight issues. Patient is undergoing triple-vessel coronary artery bypass graft today. 04/02/2017 Postoperatively patient was intubated and was successfully extubated this morning. No complaints of chest and patient does have soreness. Chest x-ray shows slight volume overload. Otherwise no fever no chills. Current medications reviewed. Objective - Vital Signs Vital signs: Vital Signs Temp 98.5 F 04/02/17 20:00 Pulse 64 04/02/17 21:00 Resp 14 04/02/17 21:00 BP 113/59 04/02/17 21:00 Pulse Ox 95 04/02/17 21:00 Intake & Output 04/02/17 04/02/17 04/03/17 06:59 18:59 06:59 Intake Total 7856.079 0567.925 107.125 Output Total 1797 808 530 Balance -980.848 6889.925 -422.875 Weight 76.5 kg Intake: IV 1508.0 1840.5 99 ACETAMINOPHEN IV (For NPO 200 900 ) 1,000 mg In Empty Bag 1 bag @ 400 mls/hr IVPB Q6H [facility] Rx#:[id number] Albumin Human 5% 250 ml 250 250 In Empty Bag 1 bag @ 250 mls/hr IVPB Q1HR PRN Rx#: [id number] Chantal 24 CO/CI 160 20 Diltiazem 125 mg In 60 30 Sodium Chloride 0.9% 100 ml @ 5 MG/HR 5 mls/hr IV .Q24H [facility] Rx#:[id number] Lactated Ringers 1,000 ml 560 600 90 @ 20 mls/hr IV .Q24H [facility] Rx#:[id number] Magnesium Sulfate-D5w Pmx 200 1 gm In Dextrose/Water 1 100ml.bag @ 100 mls/hr IVPB Q1H [facility] Rx#: [id number] Nitroglycerin-D5w Pmx 50 18.0 1.5 mg In Dextrose/Water 1 250ml.bag @ 5 MCG/MIN 1.5 mls/hr IV .Q24H [facility] Rx#: [id number] Pressure Bag 36 39 9 Intake, IV Titration 109.142 130.425 8.125 Amount Clevidipine Butyrate 25 24.800 mg In Empty Bag 1 bag @ 1 MG/HR 2 mls/hr IV .Q24H [facility] Rx#:[id number] Diltiazem 125 mg In 85.5 Sodium Chloride 0.9% 100 ml @ 5 MG/HR 5 mls/hr IV .Q24H [facility] Rx#:[id number] Insulin Regular 100 unit 14.360 44.925 8.125 In Sodium Chloride 0.9% 100 ml @ Per Protocol IV .Q0M [facility] Rx#:[id number] Propofol 1,000 mg In 100 69.982 ml @ Titrate IV .Q0M [facility] Rx#:[id number] Oral 30 1210 Other 10 Output: Chest Tube Drainage 570 480 330 Chest Tube 570 480 330 Gastric Drainage 200 Drainage 20 0 0 Left Arm 20 0 0 Urine 1007 328 200 Other: Voiding Method Indwelling Catheter Indwelling Catheter Indwelling Catheter # Emeses 1 ABP, PAP, CO, CI - Last Documented Arterial Blood Pressure 113/43 Pulmonary Artery Pressure 29/21 Cardiac Output 6.6 Cardiac Index 3.5 - Exam PHYSICAL EXAMINATION: Patient is lying in the bed comfortably, no acute distress, awake alert and oriented.. HEENT: Normocephalic. Neck is supple. Pupils reactive. Nostrils clear. Oral cavity is moist. Ears reveal no drainage. Neck reveals no JVD, carotid bruits, or thyromegaly. CHEST EXAMINATION: Trachea is central. Symmetrical expansion. Bilateral minimal rhonchi. No wheezing CARDIAC: Normal S1, S2 with no gallops. No murmurs . Sternal wound is bandaged. And chest tubes 2 ABDOMEN: Soft. Bowel sounds normal. No organomegaly. No abdominal bruits. Extremities: reveal no edema. No clubbing or cyanosis Neurologically awake, alert, oriented x3 with well-coordinated movements. No focal deficits noted Skin: No rash or skin lesions. Psychiatric: Operative. Nonsuicidal Musculoskeletal: No joint swelling or deformity. Normal range of motion. - Labs CBC & Chem 7: 04/02/17 05:05 04/02/17 05:05 Labs: Abnormal Lab Results - Last 24 Hours (Table) 03/31/17 04/01/17 04/01/17 Range/Units 12:35 14:39 15:48 WBC (3.8-10.6) k/uL RBC (4.30-5.90) m/uL Hgb (13.0-17.5) gm/dL Hct (39.0-53.0) % Plt Count (150-450) k/uL Neutrophils # (1.3-7.7) k/uL Lymphocytes # (1.0-4.8) k/uL INR (<1.2) APTT (22.0-30.0) sec ABG pH 7.32 L 7.29 L (7.35-7.45) ABG pCO2 33 L (35-45) mmHg ABG pO2 143 H (83-108) mmHg ABG HCO3 16 L (21-25) mmol/L ABG Total CO2 17 L (19-24) mmol/L ABG O2 Saturation 99.1 H (94-97) % ABG Hematocrit (34.0-46.0) % ABG Sodium 132 L 134 L (135-146) mmol/L ABG Potassium 4.8 H (3.4-4.5) mmol/L Sodium (137-145) mmol/L Carbon Dioxide (22-30) mmol/L BUN (9-20) mg/dL Creatinine (0.66-1.25) mg/dL Glucose (74-99) mg/dL POC Glucose (mg/dL) (75-99) mg/dL Calcium (8.4-10.2) mg/dL Alkaline Phosphatase (38-126) U/L Total Protein (6.3-8.2) g/dL Albumin (3.5-5.0) g/dL Arterial Blood Potassium 4.8 H (3.4-4.5) mmol/L Crossmatch See Detail 04/01/17 04/01/17 04/01/17 Range/Units 16:37 17:12 18:13 WBC (3.8-10.6) k/uL RBC (4.30-5.90) m/uL Hgb (13.0-17.5) gm/dL Hct (39.0-53.0) % Plt Count (150-450) k/uL Neutrophils # (1.3-7.7) k/uL Lymphocytes # (1.0-4.8) k/uL INR (<1.2) APTT (22.0-30.0) sec ABG pH (7.35-7.45) ABG pCO2 (35-45) mmHg ABG pO2 113 H 81 L (83-108) mmHg ABG HCO3 19 L (21-25) mmol/L ABG Total CO2 (19-24) mmol/L ABG O2 Saturation 98.3 H 97.8 H (94-97) % ABG Hematocrit 32 L (34.0-46.0) % ABG Sodium (135-146) mmol/L ABG Potassium (3.4-4.5) mmol/L Sodium (137-145) mmol/L Carbon Dioxide (22-30) mmol/L BUN (9-20) mg/dL Creatinine (0.66-1.25) mg/dL Glucose (74-99) mg/dL POC Glucose (mg/dL) (75-99) mg/dL Calcium (8.4-10.2) mg/dL Alkaline Phosphatase (38-126) U/L Total Protein (6.3-8.2) g/dL Albumin (3.5-5.0) g/dL Arterial Blood Potassium (3.4-4.5) mmol/L Crossmatch 04/01/17 04/01/17 04/01/17 Range/Units 19:08 22:10 22:10 WBC 10.9 H (3.8-10.6) k/uL RBC 3.52 L (4.30-5.90) m/uL Hgb 11.0 L (13.0-17.5) gm/dL Hct 33.4 L (39.0-53.0) % Plt Count 119 L (150-450) k/uL Neutrophils # 9.3 H (1.3-7.7) k/uL Lymphocytes # 0.7 L (1.0-4.8) k/uL INR 1.2 H (<1.2) APTT 36.0 H (22.0-30.0) sec ABG pH (7.35-7.45) ABG pCO2 (35-45) mmHg ABG pO2 115 H (83-108) mmHg ABG HCO3 (21-25) mmol/L ABG Total CO2 (19-24) mmol/L ABG O2 Saturation 98.5 H (94-97) % ABG Hematocrit 32 L (34.0-46.0) % ABG Sodium (135-146) mmol/L ABG Potassium (3.4-4.5) mmol/L Sodium (137-145) mmol/L Carbon Dioxide (22-30) mmol/L BUN (9-20) mg/dL Creatinine (0.66-1.25) mg/dL Glucose (74-99) mg/dL POC Glucose (mg/dL) (75-99) mg/dL Calcium (8.4-10.2) mg/dL Alkaline Phosphatase (38-126) U/L Total Protein (6.3-8.2) g/dL Albumin (3.5-5.0) g/dL Arterial Blood Potassium (3.4-4.5) mmol/L Crossmatch 04/01/17 04/01/17 04/01/17 Range/Units 22:10 22:13 23:21 WBC (3.8-10.6) k/uL RBC (4.30-5.90) m/uL Hgb (13.0-17.5) gm/dL Hct (39.0-53.0) % Plt Count (150-450) k/uL Neutrophils # (1.3-7.7) k/uL Lymphocytes # (1.0-4.8) k/uL INR (<1.2) APTT (22.0-30.0) sec ABG pH (7.35-7.45) ABG pCO2 (35-45) mmHg ABG pO2 (83-108) mmHg ABG HCO3 (21-25) mmol/L ABG Total CO2 (19-24) mmol/L ABG O2 Saturation (94-97) % ABG Hematocrit (34.0-46.0) % ABG Sodium (135-146) mmol/L ABG Potassium (3.4-4.5) mmol/L Sodium 134 L (137-145) mmol/L Carbon Dioxide 20 L (22-30) mmol/L BUN 8 L (9-20) mg/dL Creatinine 0.54 L (0.66-1.25) mg/dL Glucose 119 H (74-99) mg/dL POC Glucose (mg/dL) 121 H 129 H (75-99) mg/dL Calcium 8.1 L (8.4-10.2) mg/dL Alkaline Phosphatase 34 L (38-126) U/L Total Protein 5.7 L (6.3-8.2) g/dL Albumin (3.5-5.0) g/dL Arterial Blood Potassium (3.4-4.5) mmol/L Crossmatch 04/02/17 04/02/17 04/02/17 Range/Units 00:05 01:21 01:25 WBC 10.8 H (3.8-10.6) k/uL RBC 3.42 L (4.30-5.90) m/uL Hgb 10.5 L (13.0-17.5) gm/dL Hct 33.6 L (39.0-53.0) % Plt Count 129 L (150-450) k/uL Neutrophils # (1.3-7.7) k/uL Lymphocytes # (1.0-4.8) k/uL INR (<1.2) APTT (22.0-30.0) sec ABG pH (7.35-7.45) ABG pCO2 33 L (35-45) mmHg ABG pO2 (83-108) mmHg ABG HCO3 19 L (21-25) mmol/L ABG Total CO2 (19-24) mmol/L ABG O2 Saturation (94-97) % ABG Hematocrit (34.0-46.0) % ABG Sodium (135-146) mmol/L ABG Potassium (3.4-4.5) mmol/L Sodium (137-145) mmol/L Carbon Dioxide (22-30) mmol/L BUN (9-20) mg/dL Creatinine (0.66-1.25) mg/dL Glucose (74-99) mg/dL POC Glucose (mg/dL) 127 H (75-99) mg/dL Calcium (8.4-10.2) mg/dL Alkaline Phosphatase (38-126) U/L Total Protein (6.3-8.2) g/dL Albumin (3.5-5.0) g/dL Arterial Blood Potassium (3.4-4.5) mmol/L Crossmatch 04/02/17 04/02/17 04/02/17 Range/Units 01:25 01:25 03:12 WBC (3.8-10.6) k/uL RBC (4.30-5.90) m/uL Hgb (13.0-17.5) gm/dL Hct (39.0-53.0) % Plt Count (150-450) k/uL Neutrophils # (1.3-7.7) k/uL Lymphocytes # (1.0-4.8) k/uL INR 1.2 H (<1.2) APTT 33.3 H (22.0-30.0) sec ABG pH (7.35-7.45) ABG pCO2 (35-45) mmHg ABG pO2 (83-108) mmHg ABG HCO3 (21-25) mmol/L ABG Total CO2 (19-24) mmol/L ABG O2 Saturation (94-97) % ABG Hematocrit (34.0-46.0) % ABG Sodium (135-146) mmol/L ABG Potassium (3.4-4.5) mmol/L Sodium 134 L (137-145) mmol/L Carbon Dioxide 21 L (22-30) mmol/L BUN 8 L (9-20) mg/dL Creatinine 0.50 L (0.66-1.25) mg/dL Glucose 145 H (74-99) mg/dL POC Glucose (mg/dL) 172 H (75-99) mg/dL Calcium 8.2 L (8.4-10.2) mg/dL Alkaline Phosphatase (38-126) U/L Total Protein 5.2 L (6.3-8.2) g/dL Albumin 3.4 L (3.5-5.0) g/dL Arterial Blood Potassium (3.4-4.5) mmol/L Crossmatch 04/02/17 04/02/17 04/02/17 Range/Units 04:13 05:05 05:05 WBC 10.8 H (3.8-10.6) k/uL RBC 3.32 L (4.30-5.90) m/uL Hgb 10.5 L (13.0-17.5) gm/dL Hct 32.4 L (39.0-53.0) % Plt Count 114 L (150-450) k/uL Neutrophils # 9.3 H (1.3-7.7) k/uL Lymphocytes # 0.6 L (1.0-4.8) k/uL INR (<1.2) APTT (22.0-30.0) sec ABG pH (7.35-7.45) ABG pCO2 (35-45) mmHg ABG pO2 (83-108) mmHg ABG HCO3 (21-25) mmol/L ABG Total CO2 (19-24) mmol/L ABG O2 Saturation (94-97) % ABG Hematocrit (34.0-46.0) % ABG Sodium (135-146) mmol/L ABG Potassium (3.4-4.5) mmol/L Sodium 135 L (137-145) mmol/L Carbon Dioxide (22-30) mmol/L BUN 7 L (9-20) mg/dL Creatinine 0.58 L (0.66-1.25) mg/dL Glucose 186 H (74-99) mg/dL POC Glucose (mg/dL) 193 H (75-99) mg/dL Calcium 8.0 L (8.4-10.2) mg/dL Alkaline Phosphatase 31 L (38-126) U/L Total Protein 5.4 L (6.3-8.2) g/dL Albumin 3.4 L (3.5-5.0) g/dL Arterial Blood Potassium (3.4-4.5) mmol/L Crossmatch 04/02/17 04/02/1717 Range/Units 05:05 05:08 06:06 WBC (3.8-10.6) k/uL RBC (4.30-5.90) m/uL Hgb (13.0-17.5) gm/dL Hct (39.0-53.0) % Plt Count (150-450) k/uL Neutrophils # (1.3-7.7) k/uL Lymphocytes # (1.0-4.8) k/uL INR 1.2 H (<1.2) APTT (22.0-30.0) sec ABG pH (7.35-7.45) ABG pCO2 (35-45) mmHg ABG pO2 (83-108) mmHg ABG HCO3 (21-25) mmol/L ABG Total CO2 (19-24) mmol/L ABG O2 Saturation (94-97) % ABG Hematocrit (34.0-46.0) % ABG Sodium (135-146) mmol/L ABG Potassium (3.4-4.5) mmol/L Sodium (137-145) mmol/L Carbon Dioxide (22-30) mmol/L BUN (9-20) mg/dL Creatinine (0.66-1.25) mg/dL Glucose (74-99) mg/dL POC Glucose (mg/dL) 189 H 151 H (75-99) mg/dL Calcium (8.4-10.2) mg/dL Alkaline Phosphatase (38-126) U/L Total Protein (6.3-8.2) g/dL Albumin (3.5-5.0) g/dL Arterial Blood Potassium (3.4-4.5) mmol/L Crossmatch 04/02/17 04/02/17 04/02/17 Range/Units 07:08 08:05 09:07 WBC (3.8-10.6) k/uL RBC (4.30-5.90) m/uL Hgb (13.0-17.5) gm/dL Hct (39.0-53.0) % Plt Count (150-450) k/uL Neutrophils # (1.3-7.7) k/uL Lymphocytes # (1.0-4.8) k/uL INR (<1.2) APTT (22.0-30.0) sec ABG pH (7.35-7.45) ABG pCO2 (35-45) mmHg ABG pO2 (83-108) mmHg ABG HCO3 (21-25) mmol/L ABG Total CO2 (19-24) mmol/L ABG O2 Saturation (94-97) % ABG Hematocrit (34.0-46.0) % ABG Sodium (135-146) mmol/L ABG Potassium (3.4-4.5) mmol/L Sodium (137-145) mmol/L Carbon Dioxide (22-30) mmol/L BUN (9-20) mg/dL Creatinine (0.66-1.25) mg/dL Glucose (74-99) mg/dL POC Glucose (mg/dL) 171 H 130 H 137 H (75-99) mg/dL Calcium (8.4-10.2) mg/dL Alkaline Phosphatase (38-126) U/L Total Protein (6.3-8.2) g/dL Albumin (3.5-5.0) g/dL Arterial Blood Potassium (3.4-4.5) mmol/L Crossmatch 04/02/17 04/02/17 04/02/17 Range/Units 10:02 11:06 12:00 WBC (3.8-10.6) k/uL RBC (4.30-5.90) m/uL Hgb (13.0-17.5) gm/dL Hct (39.0-53.0) % Plt Count (150-450) k/uL Neutrophils # (1.3-7.7) k/uL Lymphocytes # (1.0-4.8) k/uL INR (<1.2) APTT (22.0-30.0) sec ABG pH (7.35-7.45) ABG pCO2 (35-45) mmHg ABG pO2 (83-108) mmHg ABG HCO3 (21-25) mmol/L ABG Total CO2 (19-24) mmol/L ABG O2 Saturation (94-97) % ABG Hematocrit (34.0-46.0) % ABG Sodium (135-146) mmol/L ABG Potassium (3.4-4.5) mmol/L Sodium (137-145) mmol/L Carbon Dioxide (22-30) mmol/L BUN (9-20) mg/dL Creatinine (0.66-1.25) mg/dL Glucose (74-99) mg/dL POC Glucose (mg/dL) 125 H 111 H 123 H (75-99) mg/dL Calcium (8.4-10.2) mg/dL Alkaline Phosphatase (38-126) U/L Total Protein (6.3-8.2) g/dL Albumin (3.5-5.0) g/dL Arterial Blood Potassium (3.4-4.5) mmol/L Crossmatch 04/02/17 04/02/17 04/02/17 Range/Units 12:58 14:05 14:56 WBC (3.8-10.6) k/uL RBC (4.30-5.90) m/uL Hgb (13.0-17.5) gm/dL Hct (39.0-53.0) % Plt Count (150-450) k/uL Neutrophils # (1.3-7.7) k/uL Lymphocytes # (1.0-4.8) k/uL INR (<1.2) APTT (22.0-30.0) sec ABG pH (7.35-7.45) ABG pCO2 (35-45) mmHg ABG pO2 (83-108) mmHg ABG HCO3 (21-25) mmol/L ABG Total CO2 (19-24) mmol/L ABG O2 Saturation (94-97) % ABG Hematocrit (34.0-46.0) % ABG Sodium (135-146) mmol/L ABG Potassium (3.4-4.5) mmol/L Sodium (137-145) mmol/L Carbon Dioxide (22-30) mmol/L BUN (9-20) mg/dL Creatinine (0.66-1.25) mg/dL Glucose (74-99) mg/dL POC Glucose (mg/dL) 132 H 166 H 167 H (75-99) mg/dL Calcium (8.4-10.2) mg/dL Alkaline Phosphatase (38-126) U/L Total Protein (6.3-8.2) g/dL Albumin (3.5-5.0) g/dL Arterial Blood Potassium (3.4-4.5) mmol/L Crossmatch 04/02/17 04/02/17 04/02/17 Range/Units 16:15 17:18 18:07 WBC (3.8-10.6) k/uL RBC (4.30-5.90) m/uL Hgb (13.0-17.5) gm/dL Hct (39.0-53.0) % Plt Count (150-450) k/uL Neutrophils # (1.3-7.7) k/uL Lymphocytes # (1.0-4.8) k/uL INR (<1.2) APTT (22.0-30.0) sec ABG pH (7.35-7.45) ABG pCO2 (35-45) mmHg ABG pO2 (83-108) mmHg ABG HCO3 (21-25) mmol/L ABG Total CO2 (19-24) mmol/L ABG O2 Saturation (94-97) % ABG Hematocrit (34.0-46.0) % ABG Sodium (135-146) mmol/L ABG Potassium (3.4-4.5) mmol/L Sodium (137-145) mmol/L Carbon Dioxide (22-30) mmol/L BUN (9-20) mg/dL Creatinine (0.66-1.25) mg/dL Glucose (74-99) mg/dL POC Glucose (mg/dL) 150 H 70 L 184 H (75-99) mg/dL Calcium (8.4-10.2) mg/dL Alkaline Phosphatase (38-126) U/L Total Protein (6.3-8.2) g/dL Albumin (3.5-5.0) g/dL Arterial Blood Potassium (3.4-4.5) mmol/L Crossmatch 04/02/17 04/02/17 04/02/17 Range/Units 18:56 20:08 21:07 WBC (3.8-10.6) k/uL RBC (4.30-5.90) m/uL Hgb (13.0-17.5) gm/dL Hct (39.0-53.0) % Plt Count (150-450) k/uL Neutrophils # (1.3-7.7) k/uL Lymphocytes # (1.0-4.8) k/uL INR (<1.2) APTT (22.0-30.0) sec ABG pH (7.35-7.45) ABG pCO2 (35-45) mmHg ABG pO2 (83-108) mmHg ABG HCO3 (21-25) mmol/L ABG Total CO2 (19-24) mmol/L ABG O2 Saturation (94-97) % ABG Hematocrit (34.0-46.0) % ABG Sodium (135-146) mmol/L ABG Potassium (3.4-4.5) mmol/L Sodium (137-145) mmol/L Carbon Dioxide (22-30) mmol/L BUN (9-20) mg/dL Creatinine (0.66-1.25) mg/dL Glucose (74-99) mg/dL POC Glucose (mg/dL) 130 H 124 H 110 H (75-99) mg/dL Calcium (8.4-10.2) mg/dL Alkaline Phosphatase (38-126) U/L Total Protein (6.3-8.2) g/dL Albumin (3.5-5.0) g/dL Arterial Blood Potassium (3.4-4.5) mmol/L Crossmatch Microbiology - Last 24 Hours (Table) 03/31/17 15:09 Nasal Screen MRSA/MSSA (ELIZA) - Final Nasopharyngeal Swab 04/01/17 13:45 Gram Stain - Preliminary Penis Wound Culture - Preliminary 03/31/17 11:30 Urine Culture - Final Urine,Catheterized 04/01/17 13:45 Anaerobic Culture - Preliminary Penis Assessment and Plan Assessment: 1 chest pain due to NSTEMI with elevated troponin level on admission #2 severe coronary artery disease status post cardiac catheterization. was on intra-aortic balloon pump. Status post CABG on 04/01/2017 #2 diabetes type 1 #3 every day smoker #4 family history of significant coronary artery disease Plan: Patient will continue on telemetry monitoring. intra-aortic balloon pump was removed.. CT surgery and pulmonary is following. We will continue the current management and blood sugar control. Counseled for smoking cessation. Further recommendations based on the clinical course. X-rays incentive spirometry. Monitor urine output and follow closely
[2017-04-02 23:06] LABS: Glucose,Whole Blood 122 mg/dL (75-99)
[2017-04-02] MEDS ORDERED: HYDROcodone/APAP 5-325MG 1 EACH TAB PO PRN (23:59)
[2017-04-03 00:07] LABS: Glucose,Whole Blood 101 mg/dL (75-99)
[2017-04-03 01:15] LABS: Glucose,Whole Blood 110 mg/dL (75-99)
[2017-04-03 02:10] LABS: Glucose,Whole Blood 139 mg/dL (75-99)
[2017-04-03 03:05] LABS: Glucose,Whole Blood 158 mg/dL (75-99)
[2017-04-03] MEDS: ONDANSETRON 4 MG/2 ML VIAL IVP PRN (03:14)
[2017-04-03 04:01] LABS: Glucose,Whole Blood 134 mg/dL (75-99)
[2017-04-03 04:47] LABS: Ionized Calcium 4.9 mg/dL (4.5-5.3)
[2017-04-03 04:53] LABS: Basophils % (A) 0 %; CH 31.7; CHCM 32.9; Eosinophils # (A) 0.1 k/uL (0-0.7); Eosinophils % (A) 1 %; HCT 30.9 % (39.0-53.0); HDW 2.38; Luc # (Auto) 0.08; Luc % (Auto) 1; Lymphocytes # (A) 0.9 k/uL (1.0-4.8); Lymphocytes % (A) 10 %; MCH 31.3 pg (25.0-35.0); MCHC 32.3 g/dL (31.0-37.0); MCV 96.9 fL (80.0-100.0); Mean Platelet Volume 8.1; Monocytes # (A) 0.7 k/uL (0-1.0); Monocytes % (A) 8 %; Neutrophils % (A) 80 %; RBC 3.19 m/uL (4.30-5.90); RDW 14.1 % (11.5-15.5); WBC 8.7 k/uL (3.8-10.6); WBC (Perox) 8.98
[2017-04-03 04:56] LABS: ALT 27 U/L (21-72); AST 28 U/L (17-59); Alkaline Phosphatase 41 U/L (38-126); Anion Gap 5 mmol/L; Blood Urea Nitrogen 12 mg/dL (9-20); Calcium 8.2 mg/dL (8.4-10.2); Carbon Dioxide 25 mmol/L (22-30); Chloride 102 mmol/L (98-107); Glucose 116 mg/dL (74-99); Non-African American GFR(MDRD) >60 (>60 ml/min/1.73 sqM); Potassium 4.1 mmol/L (3.5-5.1); Sodium 132 mmol/L (137-145); Total Bilirubin 0.4 mg/dL (0.2-1.3); Total Protein 5.1 g/dL (6.3-8.2)
[2017-04-03 05:06] LABS: Glucose,Whole Blood 111 mg/dL (75-99)
[2017-04-03 05:49] LABS: Manual Review Performed
[2017-04-03 06:21] LABS: Glucose,Whole Blood 129 mg/dL (75-99)
--- NOTE | 2017-04-03 06:41 | XR ---
EXAMINATION TYPE: XR chest 1V portable DATE OF EXAM: 04/03/2017 HISTORY: Post Operative Cardiac Surgery. REFERENCE: Previous study dated 04/02/2017. FINDINGS: There has been a midline sternotomy. The patient's intra-aortic balloon pump has been remov ed. The patient [place] catheter is been removed. A right internal jugular sheath remains in place. A left pleural drain is present. I do not see evidence of pneumothorax. There is some right basilar airspace disease. The lungs are otherwise clear. Pleural spaces are clear . Heart is mildly prominent. IMPRESSION: 1. POSTOPERATIVE CHANGE. 2. MILD CARDIOMEGALY. 3. MILD, RIGHT-SIDED AIRSPACE DISEASE.
[2017-04-03 07:09] LABS: Glucose,Whole Blood 163 mg/dL (75-99)
[2017-04-03] MEDS: KETOROLAC 30 MG/ML 1 ML VIAL IVP SCH ×3 (07:21→17:20)
[2017-04-03] MEDS: METOPROLOL TARTRATE 12.5 MG TAB PO SCH ×3 (07:23→21:10)
[2017-04-03 07:58] LABS: Glucose,Whole Blood 156 mg/dL (75-99)
[2017-04-03] MEDS: PANTOPRAZOLE 40 MG TABLET PO SCH (08:14)
[2017-04-03] MEDS: ASPIRIN 325 MG TAB PO SCH (08:15)
[2017-04-03] MEDS: HEPARIN SODIUM,PORCINE 5,000 UNIT/ML 1 ML VIAL SQ SCH ×2 (08:15→17:28)
[2017-04-03] MEDS: ATORVASTATIN 80 MG TAB PO SCH (08:15)
[2017-04-03] MEDS: MUPIROCIN 2% OINT 22 GM TUBE NASAL SCH ×2 (08:16→21:10)
[2017-04-03] MEDS ORDERED: CLOPIDOGREL 75 MG TAB PO ONE (09:00)
[2017-04-03] MEDS: DILTIAZEM ORAL 30 MG TAB PO SCH ×4 (09:04→21:12)
[2017-04-03] MEDS ORDERED: FUROSEMIDE 10 MG/ML 2 ML VIAL IV ONE (09:22)
[2017-04-03 09:28] LABS: Glucose,Whole Blood 192 mg/dL (75-99)
--- NOTE | 2017-04-03 09:46 | P.PN ---
Subjective Progress Note Date: 04/03/17 Principal diagnosis: Severe symptomatic triple-vessel coronary artery disease with left main disease , non-STEMI. History of insulin-dependent diabetes mellitus with hemoglobin A1c 7.8%. Current tobacco dependence. Family history of premature coronary artery disease. POD #2 urgent off-pump coronary artery bypass grafting 3 with left internal mammary artery graft to LAD, left radial artery graft to obtuse marginal, a reverse greater saphenous vein graft to intermediate coronary artery with endoscopic vein harvest of his right thigh greater saphenous vein, endoscopic left radial artery harvest, epi-aortic ultrasonography, intraoperative transesophageal echocardiogram by anesthesia. Patient is currently sitting up to the bedside chair in no acute distress. Denies complaints of pain at this time. Rates his pain 0 out of 10 on the pain scale. Objective - Vital Signs Vital signs: Vital Signs Temp 97.7 F 04/03/17 08:00 Pulse 68 04/03/17 09:00 Resp 16 04/03/17 09:00 BP 115/56 04/03/17 09:00 Pulse Ox 94 L 04/03/17 09:00 Intake & Output 04/02/17 04/03/17 04/03/17 18:59 06:59 18:59 Intake Total 3180.925 804.500 79.416 Output Total 808 1245 115 Balance 2372.925 -440.500 -35.584 Weight 78.4 kg Intake: IV 1840.5 306 72 ACETAMINOPHEN IV (For NPO 900 ) 1,000 mg In Empty Bag 1 bag @ 400 mls/hr IVPB Q6H JOS[facility] Rx#:[id number] Albumin Human 5% 250 ml 250 In Empty Bag 1 bag @ 250 mls/hr IVPB Q1HR PRN Rx#: [id number] CO/CI 20 Diltiazem 125 mg In 30 Sodium Chloride 0.9% 100 ml @ 5 MG/HR 5 mls/hr IV .Q24H JOS[facility]UA Rx#:[id number] Lactated Ringers 1,000 ml 600 270 60 @ 20 mls/hr IV .Q24H JOS[facility]UA Rx#:[id number] Nitroglycerin-D5w Pmx 50 1.5 mg In Dextrose/Water 1 250ml.bag @ 5 MCG/MIN 1.5 mls/hr IV .Q24H ONE Rx#: [id number] Pressure Bag 39 36 12 Intake, IV Titration 130.425 24.500 7.416 Amount Diltiazem 125 mg In 85.5 Sodium Chloride 0.9% 100 ml @ 5 MG/HR 5 mls/hr IV .Q24H JOS[facility]UA Rx#:[id number] Insulin Regular 100 unit 44.925 24.500 7.416 In Sodium Chloride 0.9% 100 ml @ Per Protocol IV .Q0M JOS[facility]UA Rx#:[id number] Oral 1210 474 Output: Chest Tube Drainage 480 550 30 Chest Tube 480 550 30 Drainage 0 15 0 Left Arm 0 15 0 Urine 328 680 85 Other: Voiding Method Indwelling Catheter Indwelling Catheter Indwelling Catheter # Emeses 1 0 ABP, PAP, CO, CI - Last Documented Arterial Blood Pressure 113/43 Pulmonary Artery Pressure 29/21 Cardiac Output 6.6 Cardiac Index 3.5 - Constitutional General appearance: Present: cooperative, no acute distress, thin - EENT Eyes: Present: PERRLA ENT: Present: hard of hearing - Neck Details: No JVD, no lymphadenopathy. Right IJ Cordis is in place, current CVP pressure is 7. - Respiratory Details: Lung sounds are essentially clear throughout, diminished but his bilateral bases. Respirations are symmetrical and nonlabored. Oxygen saturation are 98% on room air. He is achieving 2000 mL on his incentive spirometry. Mediastinal and left pleural chest tubes remain in place to low continuous wall suction -20 cm H2O. They are evacuating thin serosanguineous drainage, 215 mL output in the last 8 hours, 950 mL output in the last 24 hours. No air leak present. - Cardiovascular Details: Regular rhythm and rate. S1 and S2 present, negative for S3, gallop or murmur. Bedside telemetry showing normal sinus rhythm heart rate 71. Sternum is stable. Heart hugger is in place and he is demonstrating appropriate use of his heart hugger. Left hand warm to touch, positive ulnar pulse palpable. Knee -high TITA hose and sequential compression devices in place to his bilateral lower extremities. - Gastrointestinal Gastrointestinal Comment(s): Abdomen is soft, nontender and nondistended. Active bowel sounds to all 4 abdominal quadrants. He is tolerating oral intake. Passing flatus. - Genitourinary Genitourinary Comment(s): Adequate urine output, Cade catheter for accurate I&O. Clear yellow urine. - Integumentary Integumentary Comment(s): Midline sternal incision clean dry and well approximated. No drainage noted. Dressing is dry and intact. Left leg EVH site clean dry and approximated. Dermabond dressing clean dry and intact. Left radial artery endoscopic harvesting site clean dry and intact. No drainage noted. SHOAIB drain in place evacuating thin serosanguineous drainage with 15 mL output in the last 24 hours. - Neurologic Neurologic Comment(s): No focal deficits. Neurologic: Present: CNII-XII intact - Musculoskeletal Musculoskeletal: Present: gait normal, strength equal bilaterally - Psychiatric Psychiatric: Present: A&O x's 3, appropriate affect, intact judgment & insight - Allied health notes Allied health notes reviewed: nursing - Labs CBC & Chem 7: 04/03/17 04:20 04/03/17 04:20 Labs: Abnormal Lab Results - Last 24 Hours (Table) 04/01/17 04/01/17 04/01/17 Range/Units 14:39 15:48 16:37 RBC (4.30-5.90) m/uL Hgb (13.0-17.5) gm/dL Hct (39.0-53.0) % Plt Count (150-450) k/uL Lymphocytes # (1.0-4.8) k/uL ABG pH 7.32 L 7.29 L (7.35-7.45) ABG pCO2 33 L (35-45) mmHg ABG pO2 143 H 113 H (83-108) mmHg ABG HCO3 16 L 19 L (21-25) mmol/L ABG Total CO2 17 L (19-24) mmol/L ABG O2 Saturation 99.1 H 98.3 H (94-97) % ABG Hematocrit (34.0-46.0) % ABG Sodium 132 L 134 L (135-146) mmol/L ABG Potassium 4.8 H (3.4-4.5) mmol/L Sodium (137-145) mmol/L Creatinine (0.66-1.25) mg/dL Glucose (74-99) mg/dL POC Glucose (mg/dL) (75-99) mg/dL Calcium (8.4-10.2) mg/dL Total Protein (6.3-8.2) g/dL Albumin (3.5-5.0) g/dL Arterial Blood Potassium 4.8 H (3.4-4.5) mmol/L 04/01/17 04/01/17 04/01/17 Range/Units 17:12 18:13 19:08 RBC (4.30-5.90) m/uL Hgb (13.0-17.5) gm/dL Hct (39.0-53.0) % Plt Count (150-450) k/uL Lymphocytes # (1.0-4.8) k/uL ABG pH (7.35-7.45) ABG pCO2 (35-45) mmHg ABG pO2 81 L 115 H (83-108) mmHg ABG HCO3 (21-25) mmol/L ABG Total CO2 (19-24) mmol/L ABG O2 Saturation 97.8 H 98.5 H (94-97) % ABG Hematocrit 32 L 32 L (34.0-46.0) % ABG Sodium (135-146) mmol/L ABG Potassium (3.4-4.5) mmol/L Sodium (137-145) mmol/L Creatinine (0.66-1.25) mg/dL Glucose (74-99) mg/dL POC Glucose (mg/dL) (75-99) mg/dL Calcium (8.4-10.2) mg/dL Total Protein (6.3-8.2) g/dL Albumin (3.5-5.0) g/dL Arterial Blood Potassium (3.4-4.5) mmol/L 04/02/17 04/02/17 04/02/17 Range/Units 10:02 11:06 12:00 RBC (4.30-5.90) m/uL Hgb (13.0-17.5) gm/dL Hct (39.0-53.0) % Plt Count (150-450) k/uL Lymphocytes # (1.0-4.8) k/uL ABG pH (7.35-7.45) ABG pCO2 (35-45) mmHg ABG pO2 (83-108) mmHg ABG HCO3 (21-25) mmol/L ABG Total CO2 (19-24) mmol/L ABG O2 Saturation (94-97) % ABG Hematocrit (34.0-46.0) % ABG Sodium (135-146) mmol/L ABG Potassium (3.4-4.5) mmol/L Sodium (137-145) mmol/L Creatinine (0.66-1.25) mg/dL Glucose (74-99) mg/dL POC Glucose (mg/dL) 125 H 111 H 123 H (75-99) mg/dL Calcium (8.4-10.2) mg/dL Total Protein (6.3-8.2) g/dL Albumin (3.5-5.0) g/dL Arterial Blood Potassium (3.4-4.5) mmol/L 04/02/17 04/02/17 04/02/17 Range/Units 12:58 14:05 14:56 RBC (4.30-5.90) m/uL Hgb (13.0-17.5) gm/dL Hct (39.0-53.0) % Plt Count (150-450) k/uL Lymphocytes # (1.0-4.8) k/uL ABG pH (7.35-7.45) ABG pCO2 (35-45) mmHg ABG pO2 (83-108) mmHg ABG HCO3 (21-25) mmol/L ABG Total CO2 (19-24) mmol/L ABG O2 Saturation (94-97) % ABG Hematocrit (34.0-46.0) % ABG Sodium (135-146) mmol/L ABG Potassium (3.4-4.5) mmol/L Sodium (137-145) mmol/L Creatinine (0.66-1.25) mg/dL Glucose (74-99) mg/dL POC Glucose (mg/dL) 132 H 166 H 167 H (75-99) mg/dL Calcium (8.4-10.2) mg/dL Total Protein (6.3-8.2) g/dL Albumin (3.5-5.0) g/dL Arterial Blood Potassium (3.4-4.5) mmol/L 04/02/17 04/02/17 04/02/17 Range/Units 16:15 17:18 18:07 RBC (4.30-5.90) m/uL Hgb (13.0-17.5) gm/dL Hct (39.0-53.0) % Plt Count (150-450) k/uL Lymphocytes # (1.0-4.8) k/uL ABG pH (7.35-7.45) ABG pCO2 (35-45) mmHg ABG pO2 (83-108) mmHg ABG HCO3 (21-25) mmol/L ABG Total CO2 (19-24) mmol/L ABG O2 Saturation (94-97) % ABG Hematocrit (34.0-46.0) % ABG Sodium (135-146) mmol/L ABG Potassium (3.4-4.5) mmol/L Sodium (137-145) mmol/L Creatinine (0.66-1.25) mg/dL Glucose (74-99) mg/dL POC Glucose (mg/dL) 150 H 70 L 184 H (75-99) mg/dL Calcium (8.4-10.2) mg/dL Total Protein (6.3-8.2) g/dL Albumin (3.5-5.0) g/dL Arterial Blood Potassium (3.4-4.5) mmol/L 04/02/17 04/02/17 04/02/17 Range/Units 18:56 20:08 21:07 RBC (4.30-5.90) m/uL Hgb (13.0-17.5) gm/dL Hct (39.0-53.0) % Plt Count (150-450) k/uL Lymphocytes # (1.0-4.8) k/uL ABG pH (7.35-7.45) ABG pCO2 (35-45) mmHg ABG pO2 (83-108) mmHg ABG HCO3 (21-25) mmol/L ABG Total CO2 (19-24) mmol/L ABG O2 Saturation (94-97) % ABG Hematocrit (34.0-46.0) % ABG Sodium (135-146) mmol/L ABG Potassium (3.4-4.5) mmol/L Sodium (137-145) mmol/L Creatinine (0.66-1.25) mg/dL Glucose (74-99) mg/dL POC Glucose (mg/dL) 130 H 124 H 110 H (75-99) mg/dL Calcium (8.4-10.2) mg/dL Total Protein (6.3-8.2) g/dL Albumin (3.5-5.0) g/dL Arterial Blood Potassium (3.4-4.5) mmol/L 04/02/17 04/02/17 04/03/17 Range/Units 22:05 23:03 00:05 RBC (4.30-5.90) m/uL Hgb (13.0-17.5) gm/dL Hct (39.0-53.0) % Plt Count (150-450) k/uL Lymphocytes # (1.0-4.8) k/uL ABG pH (7.35-7.45) ABG pCO2 (35-45) mmHg ABG pO2 (83-108) mmHg ABG HCO3 (21-25) mmol/L ABG Total CO2 (19-24) mmol/L ABG O2 Saturation (94-97) % ABG Hematocrit (34.0-46.0) % ABG Sodium (135-146) mmol/L ABG Potassium (3.4-4.5) mmol/L Sodium (137-145) mmol/L Creatinine (0.66-1.25) mg/dL Glucose (74-99) mg/dL POC Glucose (mg/dL) 141 H 122 H 101 H (75-99) mg/dL Calcium (8.4-10.2) mg/dL Total Protein (6.3-8.2) g/dL Albumin (3.5-5.0) g/dL Arterial Blood Potassium (3.4-4.5) mmol/L 04/03/17 04/03/17 04/03/17 Range/Units 01:12 02:07 03:02 RBC (4.30-5.90) m/uL Hgb (13.0-17.5) gm/dL Hct (39.0-53.0) % Plt Count (150-450) k/uL Lymphocytes # (1.0-4.8) k/uL ABG pH (7.35-7.45) ABG pCO2 (35-45) mmHg ABG pO2 (83-108) mmHg ABG HCO3 (21-25) mmol/L ABG Total CO2 (19-24) mmol/L ABG O2 Saturation (94-97) % ABG Hematocrit (34.0-46.0) % ABG Sodium (135-146) mmol/L ABG Potassium (3.4-4.5) mmol/L Sodium (137-145) mmol/L Creatinine (0.66-1.25) mg/dL Glucose (74-99) mg/dL POC Glucose (mg/dL) 110 H 139 H 158 H (75-99) mg/dL Calcium (8.4-10.2) mg/dL Total Protein (6.3-8.2) g/dL Albumin (3.5-5.0) g/dL Arterial Blood Potassium (3.4-4.5) mmol/L 04/03/17 04/03/17 04/03/17 Range/Units 03:59 04:20 04:20 RBC 3.19 L (4.30-5.90) m/uL Hgb 10.0 L (13.0-17.5) gm/dL Hct 30.9 L (39.0-53.0) % Plt Count 96 L (150-450) k/uL Lymphocytes # 0.9 L (1.0-4.8) k/uL ABG pH (7.35-7.45) ABG pCO2 (35-45) mmHg ABG pO2 (83-108) mmHg ABG HCO3 (21-25) mmol/L ABG Total CO2 (19-24) mmol/L ABG O2 Saturation (94-97) % ABG Hematocrit (34.0-46.0) % ABG Sodium (135-146) mmol/L ABG Potassium (3.4-4.5) mmol/L Sodium 132 L (137-145) mmol/L Creatinine 0.63 L (0.66-1.25) mg/dL Glucose 116 H (74-99) mg/dL POC Glucose (mg/dL) 134 H (75-99) mg/dL Calcium 8.2 L (8.4-10.2) mg/dL Total Protein 5.1 L (6.3-8.2) g/dL Albumin 2.9 L (3.5-5.0) g/dL Arterial Blood Potassium (3.4-4.5) mmol/L 04/03/17 04/03/17 04/03/17 Range/Units 05:02 06:18 07:05 RBC (4.30-5.90) m/uL Hgb (13.0-17.5) gm/dL Hct (39.0-53.0) % Plt Count (150-450) k/uL Lymphocytes # (1.0-4.8) k/uL ABG pH (7.35-7.45) ABG pCO2 (35-45) mmHg ABG pO2 (83-108) mmHg ABG HCO3 (21-25) mmol/L ABG Total CO2 (19-24) mmol/L ABG O2 Saturation (94-97) % ABG Hematocrit (34.0-46.0) % ABG Sodium (135-146) mmol/L ABG Potassium (3.4-4.5) mmol/L Sodium (137-145) mmol/L Creatinine (0.66-1.25) mg/dL Glucose (74-99) mg/dL POC Glucose (mg/dL) 111 H 129 H 163 H (75-99) mg/dL Calcium (8.4-10.2) mg/dL Total Protein (6.3-8.2) g/dL Albumin (3.5-5.0) g/dL Arterial Blood Potassium (3.4-4.5) mmol/L 04/03/17 04/03/17 Range/Units 07:57 09:27 RBC (4.30-5.90) m/uL Hgb (13.0-17.5) gm/dL Hct (39.0-53.0) % Plt Count (150-450) k/uL Lymphocytes # (1.0-4.8) k/uL ABG pH (7.35-7.45) ABG pCO2 (35-45) mmHg ABG pO2 (83-108) mmHg ABG HCO3 (21-25) mmol/L ABG Total CO2 (19-24) mmol/L ABG O2 Saturation (94-97) % ABG Hematocrit (34.0-46.0) % ABG Sodium (135-146) mmol/L ABG Potassium (3.4-4.5) mmol/L Sodium (137-145) mmol/L Creatinine (0.66-1.25) mg/dL Glucose (74-99) mg/dL POC Glucose (mg/dL) 156 H 192 H (75-99) mg/dL Calcium (8.4-10.2) mg/dL Total Protein (6.3-8.2) g/dL Albumin (3.5-5.0) g/dL Arterial Blood Potassium (3.4-4.5) mmol/L Microbiology - Last 24 Hours (Table) 03/31/17 15:09 Nasal Screen MRSA/MSSA (ELIZA) - Final Nasopharyngeal Swab 04/01/17 13:45 Gram Stain - Preliminary Penis Wound Culture - Preliminary - Imaging and Cardiology Chest x-ray: report reviewed, image reviewed Assessment and Plan (1) NSTEMI (non-ST elevated myocardial infarction) Current Visit: Yes Status: Acute Code(s): I21.4 - NON-ST ELEVATION (NSTEMI) MYOCARDIAL INFARCTION SNOMED Code(s): 202763388 (2) Family history of early CAD Current Visit: Yes Status: Chronic Code(s): Z82.49 - FAMILY HX OF ISCHEM HEART DIS AND OTH DIS OF THE CIRC SYS SNOMED Code(s): 576052926 (3) Insulin dependent diabetes mellitus Current Visit: Yes Status: Chronic Code(s): E11.9 - TYPE 2 DIABETES MELLITUS WITHOUT COMPLICATIONS; Z79.4 - SENIOR CARE (CURRENT) USE OF INSULIN SNOMED Code(s): 05774577 (4) Tobacco dependence Current Visit: Yes Status: Chronic Code(s): F17.200 - NICOTINE DEPENDENCE, UNSPECIFIED, UNCOMPLICATED SNOMED Code(s): 41044884 Plan: 1. Continue aspirin, statin, Plavix, heparin subcu, beta nikolas. Will maximize beta nikolas therapy as tolerated. 2. Lasix 20 mg IV 1 today. 3. Continue oral Cardizem. 4. We will remove his mediastinal chest tube this a.m, his right IJ Cordis, Cade catheter and left arm SHOAIB drain. 5. Wean O2 as tolerated. Encourage incentive spirometry use every hour while awake. Discussed the importance of smoking cessation. 6. We will transfer the patient to [address] [place] [id number] for further monitoring and rehabilitation. 7. Increase activity as tolerated. Cardiac rehab and PT/OT following. 8. GI/DVT prophylaxis. 9. Insulin/diabetic management per primary care services. 10. Will monitor daily labs, chest x-rays. 11. More recommendations patient progresses. Time with Patient: Greater than 30
[2017-04-03] MEDS: INSULN ASP PRT/INSULIN ASPART 100 UNIT/ML 10 ML VIAL SQ SCH (10:06)
--- NOTE | 2017-04-03 11:15 | P.PN ---
Subjective Progress Note Date: 04/03/17 Principal diagnosis: Acute non-ST segment myocardial infarction. Status post CABG This is a very pleasant 56-year-old gentleman who follows with Dr. Jacobsen as his primary care physician. He has a history of insulin-dependent diabetes mellitus, chronic and ongoing tobacco dependence. No pulmonary history. No inhalers at home. He does have a family history of coronary artery disease with his father having 5 myocardial infarction suffered first one at age 55. The patient had presented here yesterday to the emergency room with complaints of chest pain. He described this as a pressure/burning sensation in the middle of his chest without any significant radiation. He did have shortness of breath and some diaphoresis. It lasted approximately half hour prior to his arrival to the emergency room. He had a similar episode about a week ago but did not seek any attention at that time. His EKG revealed extensive ST and T-wave abnormalities in the anterolateral leads. He ruled in for an acute non-ST segment elevation myocardial infarction. Today he had undergone cardiac catheterization with Dr. Colón and was found to have heavily calcified right and left coronary systems. There was severe disease involving the proximal to mid LAD and a long tubular lesion. 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 The patient will be receiving a balloon pump insertion. Recommendations for urgent coronary artery bypass grafting have been made. We are consulted for critical care management. The patient is seen in the intensive care unit. He is awake and alert in no acute distress. He is maintaining good O2 saturations in the mid 90s on room air. Chest x-ray revealed chronic changes but no acute cardiopulmonary process. There is a nodular density in the peripheral right lower lung most likely representing a nipple shadow. He's been hemodynamically stable. He has been maintained on a heparin drip. He is also on nitroglycerin at 5 mcg/m. He has a 0.9 normal saline at 100 mL per hour. His been initiated on aspirin statins and beta blockers. No leukocytosis. Hemoglobin 14.8. Platelet count 183,000. Troponin 0.099. Reevaluated today on 04/01/2017, patient is doing well, no major issues overnight , intra-aortic pump remains in place, patient is scheduled to have myocardial revascularization around noontime today. No major issues and no major symptoms overnight. Presently the patient remains asymptomatic. He is hemodynamically stable. All his meds and labs were reviewed. X-ray was also reviewed. Reevaluated today on 04/02/2017, patient underwent myocardial revascularization yesterday, extubated around 1 AM this morning, tolerated the extubation well, presently in no form of respiratory distress. His intra-aortic balloon pump was removed patient presented initially with severe symptomatic coronary artery disease with left main disease and non-ST elevation myocardial infarction. Chest x-ray is suggestive of mild component of volume overload and atelectasis. Reevaluated today on 04/03/2017, patient presented with symptomatic triple- vessel coronary artery disease and non-ST elevation myocardial infarction, he is postoperative day #2 had urgent off-pump coronary artery bypass grafting 3 with FARRELL to LAD, left radial artery graft to obtuse marginal and reverse greater saphenous vein graft to intermediate coronary artery with endoscopic vein harvest of the right thigh greater saphenous vein. Also had endoscopic left radial artery harvest. Patient is doing well today, relatively asymptomatic, labs and chest x-ray are reassuring. Doing great with incentive spirometry. CBC showed a hemoglobin of 10. Basic metabolic profile is relatively normal. Objective - Vital Signs Vital signs: Vital Signs Temp 97.7 F 04/03/17 08:00 Pulse 66 04/03/17 10:00 Resp 12 04/03/17 10:00 BP 100/58 04/03/17 10:00 Pulse Ox 97 04/03/17 10:00 Intake & Output 04/02/17 04/03/17 04/03/17 18:59 06:59 18:59 Intake Total 3180.925 804.500 319.416 Output Total 808 1245 430 Balance 2372.925 -440.500 -110.584 Weight 78.4 kg Intake: IV 1840.5 306 72 ACETAMINOPHEN IV (For NPO 900 ) 1,000 mg In Empty Bag 1 bag @ 400 mls/hr IVPB Q6H [facility] Rx#:[id number] Albumin Human 5% 250 ml 250 In Empty Bag 1 bag @ 250 mls/hr IVPB Q1HR PRN Rx#: [id number] CO/CI 20 Diltiazem 125 mg In 30 Sodium Chloride 0.9% 100 ml @ 5 MG/HR 5 mls/hr IV .Q24H [facility] Rx#:[id number] Lactated Ringers 1,000 ml 600 270 60 @ 20 mls/hr IV .Q24H [facility] Rx#:[id number] Nitroglycerin-D5w Pmx 50 1.5 mg In Dextrose/Water 1 250ml.bag @ 5 MCG/MIN 1.5 mls/hr IV .Q24H [facility] Rx#: [id number] Pressure Bag 39 36 12 Intake, IV Titration 130.425 24.500 7.416 Amount Diltiazem 125 mg In 85.5 Sodium Chloride 0.9% 100 ml @ 5 MG/HR 5 mls/hr IV .Q24H [facility] Rx#:[id number] Insulin Regular 100 unit 44.925 24.500 7.416 In Sodium Chloride 0.9% 100 ml @ Per Protocol IV .Q0M [facility] Rx#:[id number] Oral 1210 474 240 Output: Chest Tube Drainage 480 550 50 Chest Tube 480 550 50 Drainage 0 15 0 Left Arm 0 15 0 Urine 328 680 380 Other: Voiding Method Indwelling Catheter Indwelling Catheter Indwelling Catheter # Emeses 1 0 ABP, PAP, CO, CI - Last Documented Arterial Blood Pressure 113/43 Pulmonary Artery Pressure 29/21 Cardiac Output 6.6 Cardiac Index 3.5 - Exam GENERAL EXAM: Alert, currently comfortable in no apparent distress. HEAD: Normocephalic. EYES: Normal reaction of pupils, equal size. NOSE: Clear with pink turbinates. THROAT: No erythema or exudates. NECK: No masses, no JVD. CHEST: No chest wall deformity. LUNGS: Equal air entry with no crackles, wheeze, rhonchi or dullness. CVS: S1 and S2 normal with no audible murmur, regular rhythm. ABDOMEN: No hepatosplenomegaly, normal bowel sounds, no guarding or rigidity. SPINE: No scoliosis or deformity SKIN: No rashes CENTRAL NERVOUS SYSTEM: No focal deficits, tone is normal in all 4 extremities. EXTREMITIES: There is no peripheral edema. No clubbing, no cyanosis. Peripheral pulses are intact. - Labs CBC & Chem 7: 04/03/17 04:20 04/03/17 04:20 Labs: Abnormal Lab Results - Last 24 Hours (Table) 04/01/17 04/01/17 04/01/17 Range/Units 14:39 15:48 16:37 RBC (4.30-5.90) m/uL Hgb (13.0-17.5) gm/dL Hct (39.0-53.0) % Plt Count (150-450) k/uL Lymphocytes # (1.0-4.8) k/uL ABG pH 7.32 L 7.29 L (7.35-7.45) ABG pCO2 33 L (35-45) mmHg ABG pO2 143 H 113 H (83-108) mmHg ABG HCO3 16 L 19 L (21-25) mmol/L ABG Total CO2 17 L (19-24) mmol/L ABG O2 Saturation 99.1 H 98.3 H (94-97) % ABG Hematocrit (34.0-46.0) % ABG Sodium 132 L 134 L (135-146) mmol/L ABG Potassium 4.8 H (3.4-4.5) mmol/L Sodium (137-145) mmol/L Creatinine (0.66-1.25) mg/dL Glucose (74-99) mg/dL POC Glucose (mg/dL) (75-99) mg/dL Calcium (8.4-10.2) mg/dL Total Protein (6.3-8.2) g/dL Albumin (3.5-5.0) g/dL Arterial Blood Potassium 4.8 H (3.4-4.5) mmol/L 04/01/17 04/01/17 04/01/17 Range/Units 17:12 18:13 19:08 RBC (4.30-5.90) m/uL Hgb (13.0-17.5) gm/dL Hct (39.0-53.0) % Plt Count (150-450) k/uL Lymphocytes # (1.0-4.8) k/uL ABG pH (7.35-7.45) ABG pCO2 (35-45) mmHg ABG pO2 81 L 115 H (83-108) mmHg ABG HCO3 (21-25) mmol/L ABG Total CO2 (19-24) mmol/L ABG O2 Saturation 97.8 H 98.5 H (94-97) % ABG Hematocrit 32 L 32 L (34.0-46.0) % ABG Sodium (135-146) mmol/L ABG Potassium (3.4-4.5) mmol/L Sodium (137-145) mmol/L Creatinine (0.66-1.25) mg/dL Glucose (74-99) mg/dL POC Glucose (mg/dL) (75-99) mg/dL Calcium (8.4-10.2) mg/dL Total Protein (6.3-8.2) g/dL Albumin (3.5-5.0) g/dL Arterial Blood Potassium (3.4-4.5) mmol/L 04/02/17 04/02/17 04/02/17 Range/Units 12:00 12:58 14:05 RBC (4.30-5.90) m/uL Hgb (13.0-17.5) gm/dL Hct (39.0-53.0) % Plt Count (150-450) k/uL Lymphocytes # (1.0-4.8) k/uL ABG pH (7.35-7.45) ABG pCO2 (35-45) mmHg ABG pO2 (83-108) mmHg ABG HCO3 (21-25) mmol/L ABG Total CO2 (19-24) mmol/L ABG O2 Saturation (94-97) % ABG Hematocrit (34.0-46.0) % ABG Sodium (135-146) mmol/L ABG Potassium (3.4-4.5) mmol/L Sodium (137-145) mmol/L Creatinine (0.66-1.25) mg/dL Glucose (74-99) mg/dL POC Glucose (mg/dL) 123 H 132 H 166 H (75-99) mg/dL Calcium (8.4-10.2) mg/dL Total Protein (6.3-8.2) g/dL Albumin (3.5-5.0) g/dL Arterial Blood Potassium (3.4-4.5) mmol/L 04/02/17 04/02/17 04/02/17 Range/Units 14:56 16:15 17:18 RBC (4.30-5.90) m/uL Hgb (13.0-17.5) gm/dL Hct (39.0-53.0) % Plt Count (150-450) k/uL Lymphocytes # (1.0-4.8) k/uL ABG pH (7.35-7.45) ABG pCO2 (35-45) mmHg ABG pO2 (83-108) mmHg ABG HCO3 (21-25) mmol/L ABG Total CO2 (19-24) mmol/L ABG O2 Saturation (94-97) % ABG Hematocrit (34.0-46.0) % ABG Sodium (135-146) mmol/L ABG Potassium (3.4-4.5) mmol/L Sodium (137-145) mmol/L Creatinine (0.66-1.25) mg/dL Glucose (74-99) mg/dL POC Glucose (mg/dL) 167 H 150 H 70 L (75-99) mg/dL Calcium (8.4-10.2) mg/dL Total Protein (6.3-8.2) g/dL Albumin (3.5-5.0) g/dL Arterial Blood Potassium (3.4-4.5) mmol/L 04/02/17 04/02/17 04/02/17 Range/Units 18:07 18:56 20:08 RBC (4.30-5.90) m/uL Hgb (13.0-17.5) gm/dL Hct (39.0-53.0) % Plt Count (150-450) k/uL Lymphocytes # (1.0-4.8) k/uL ABG pH (7.35-7.45) ABG pCO2 (35-45) mmHg ABG pO2 (83-108) mmHg ABG HCO3 (21-25) mmol/L ABG Total CO2 (19-24) mmol/L ABG O2 Saturation (94-97) % ABG Hematocrit (34.0-46.0) % ABG Sodium (135-146) mmol/L ABG Potassium (3.4-4.5) mmol/L Sodium (137-145) mmol/L Creatinine (0.66-1.25) mg/dL Glucose (74-99) mg/dL POC Glucose (mg/dL) 184 H 130 H 124 H (75-99) mg/dL Calcium (8.4-10.2) mg/dL Total Protein (6.3-8.2) g/dL Albumin (3.5-5.0) g/dL Arterial Blood Potassium (3.4-4.5) mmol/L 04/02/17 04/02/17 04/02/17 Range/Units 21:07 22:05 23:03 RBC (4.30-5.90) m/uL Hgb (13.0-17.5) gm/dL Hct (39.0-53.0) % Plt Count (150-450) k/uL Lymphocytes # (1.0-4.8) k/uL ABG pH (7.35-7.45) ABG pCO2 (35-45) mmHg ABG pO2 (83-108) mmHg ABG HCO3 (21-25) mmol/L ABG Total CO2 (19-24) mmol/L ABG O2 Saturation (94-97) % ABG Hematocrit (34.0-46.0) % ABG Sodium (135-146) mmol/L ABG Potassium (3.4-4.5) mmol/L Sodium (137-145) mmol/L Creatinine (0.66-1.25) mg/dL Glucose (74-99) mg/dL POC Glucose (mg/dL) 110 H 141 H 122 H (75-99) mg/dL Calcium (8.4-10.2) mg/dL Total Protein (6.3-8.2) g/dL Albumin (3.5-5.0) g/dL Arterial Blood Potassium (3.4-4.5) mmol/L 04/03/17 04/03/17 04/03/17 Range/Units 00:05 01:12 02:07 RBC (4.30-5.90) m/uL Hgb (13.0-17.5) gm/dL Hct (39.0-53.0) % Plt Count (150-450) k/uL Lymphocytes # (1.0-4.8) k/uL ABG pH (7.35-7.45) ABG pCO2 (35-45) mmHg ABG pO2 (83-108) mmHg ABG HCO3 (21-25) mmol/L ABG Total CO2 (19-24) mmol/L ABG O2 Saturation (94-97) % ABG Hematocrit (34.0-46.0) % ABG Sodium (135-146) mmol/L ABG Potassium (3.4-4.5) mmol/L Sodium (137-145) mmol/L Creatinine (0.66-1.25) mg/dL Glucose (74-99) mg/dL POC Glucose (mg/dL) 101 H 110 H 139 H (75-99) mg/dL Calcium (8.4-10.2) mg/dL Total Protein (6.3-8.2) g/dL Albumin (3.5-5.0) g/dL Arterial Blood Potassium (3.4-4.5) mmol/L 04/03/17 04/03/17 04/03/17 Range/Units 03:02 03:59 04:20 RBC (4.30-5.90) m/uL Hgb (13.0-17.5) gm/dL Hct (39.0-53.0) % Plt Count (150-450) k/uL Lymphocytes # (1.0-4.8) k/uL ABG pH (7.35-7.45) ABG pCO2 (35-45) mmHg ABG pO2 (83-108) mmHg ABG HCO3 (21-25) mmol/L ABG Total CO2 (19-24) mmol/L ABG O2 Saturation (94-97) % ABG Hematocrit (34.0-46.0) % ABG Sodium (135-146) mmol/L ABG Potassium (3.4-4.5) mmol/L Sodium 132 L (137-145) mmol/L Creatinine 0.63 L (0.66-1.25) mg/dL Glucose 116 H (74-99) mg/dL POC Glucose (mg/dL) 158 H 134 H (75-99) mg/dL Calcium 8.2 L (8.4-10.2) mg/dL Total Protein 5.1 L (6.3-8.2) g/dL Albumin 2.9 L (3.5-5.0) g/dL Arterial Blood Potassium (3.4-4.5) mmol/L 04/03/17 04/03/17 04/03/17 Range/Units 04:20 05:02 06:18 RBC 3.19 L (4.30-5.90) m/uL Hgb 10.0 L (13.0-17.5) gm/dL Hct 30.9 L (39.0-53.0) % Plt Count 96 L (150-450) k/uL Lymphocytes # 0.9 L (1.0-4.8) k/uL ABG pH (7.35-7.45) ABG pCO2 (35-45) mmHg ABG pO2 (83-108) mmHg ABG HCO3 (21-25) mmol/L ABG Total CO2 (19-24) mmol/L ABG O2 Saturation (94-97) % ABG Hematocrit (34.0-46.0) % ABG Sodium (135-146) mmol/L ABG Potassium (3.4-4.5) mmol/L Sodium (137-145) mmol/L Creatinine (0.66-1.25) mg/dL Glucose (74-99) mg/dL POC Glucose (mg/dL) 111 H 129 H (75-99) mg/dL Calcium (8.4-10.2) mg/dL Total Protein (6.3-8.2) g/dL Albumin (3.5-5.0) g/dL Arterial Blood Potassium (3.4-4.5) mmol/L 04/03/17 04/03/17 04/03/17 Range/Units 07:05 07:57 09:27 RBC (4.30-5.90) m/uL Hgb (13.0-17.5) gm/dL Hct (39.0-53.0) % Plt Count (150-450) k/uL Lymphocytes # (1.0-4.8) k/uL ABG pH (7.35-7.45) ABG pCO2 (35-45) mmHg ABG pO2 (83-108) mmHg ABG HCO3 (21-25) mmol/L ABG Total CO2 (19-24) mmol/L ABG O2 Saturation (94-97) % ABG Hematocrit (34.0-46.0) % ABG Sodium (135-146) mmol/L ABG Potassium (3.4-4.5) mmol/L Sodium (137-145) mmol/L Creatinine (0.66-1.25) mg/dL Glucose (74-99) mg/dL POC Glucose (mg/dL) 163 H 156 H 192 H (75-99) mg/dL Calcium (8.4-10.2) mg/dL Total Protein (6.3-8.2) g/dL Albumin (3.5-5.0) g/dL Arterial Blood Potassium (3.4-4.5) mmol/L Microbiology - Last 24 Hours (Table) 03/31/17 15:09 Nasal Screen MRSA/MSSA (ELIZA) - Final Nasopharyngeal Swab 04/01/17 13:45 Gram Stain - Preliminary Penis Wound Culture - Preliminary Assessment and Plan Plan: 1 status post CABG, postoperative day #2, patient presented with left main coronary artery disease and non-ST elevation myocardial infarction. #2 Significant coronary artery disease with heavily calcified right and left coronary systems. 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 Status post CABG #3 Insulin-dependent diabetes mellitus. #4 Chronic and ongoing tobacco dependence. Recommendation: Continue present supportive care measures, continue incentive spirometry, early ambulation, possible discharge planning early next week. Time with Patient: Less than 30
[2017-04-03 12:10] LABS: Glucose,Whole Blood 182 mg/dL (75-99)
[2017-04-03] MEDS: INSULIN ASPART 100 UNIT/ML 1 ML 10 ML VIAL SQ SCH ×4 (12:23→21:12)
--- NOTE | 2017-04-03 13:14 | PN ---
PROGRESS NOTE Mr. Olsen is status post bypass surgery. He is doing well, recovering nicely. Remains in sinus rhythm. Hemodynamically stable. S1, S2 heard normally. Lungs reveal improved air entry. Abdomen and lower extremity exam is unchanged. Plan is to continue incentive spirometry and pulmonary toilet. He is also on Cardizem because of her radial artery conduit. MMODL / IJN: [id number] /
[2017-04-03 17:38] LABS: Glucose,Whole Blood 178 mg/dL (75-99)
[2017-04-03 21:07] LABS: Glucose,Whole Blood 197 mg/dL (75-99)
[2017-04-03] MEDS: INSULIN NPH 300 UNIT/3 ML VIAL SQ SCH (21:12)
[2017-04-03] MEDS: SENNOSIDES-DOCUSATE SODIUM 1 EACH TAB PO SCH (21:18)
[2017-04-03] MEDS: HYDROcodone/APAP 5-325MG 1 EACH TAB PO PRN (21:22)
--- NOTE | 2017-04-03 22:35 | P.PN ---
Subjective Progress Note Date: 04/03/17 Principal diagnosis: NSTEMI Patient is a 56-year-old male with a history of diabetes type 1 and family history of coronary disease in his father presented to ER with complaints of chest pain. Pain is mainly retrosternal associated with nausea and vomiting and diaphoresis. Pain is mainly pressure-like sensation. Denied any radiation to the neck shoulder or to the back. Also short of breath and chest pain lasted for about 30-40 minutes. Patient had similar pain about a week back but he did not seek medical attention at the time. Patient says that pain improved with nitro tablets in the ER. Chest x-ray showed no acute abnormality EKG showed normal sinus rhythm with ST depression in the anterolateral leads 03/31/2017 Patient underwent cardiac catheterization showed severe coronary artery disease involving proximal and mid LAD. There is critical distal left main disease. Patient was placed on intra-aortic balloon pump and is awaiting CT surgery recommendations. Currently patient is awake oriented and denied any complaints of chest pain. No nausea vomiting or abdominal pain. Patient is encouraged with incentive spirometry. Chest x-ray revealed chronic changes but no acute cardiopulmonary process. 04/01/2017 Patient is currently medically stable. No acute overnight issues. Patient is undergoing triple-vessel coronary artery bypass graft today. 04/02/2017 Postoperatively patient was intubated and was successfully extubated this morning. No complaints of chest and patient does have soreness. Chest x-ray shows slight volume overload. Otherwise no fever no chills. 04/03/2017 Patient is improving clinically. Chest x-ray stable findings with improvement. No fever no chills. Continued on incentive spirometry. Patient is hemodynamically stable. Patient is being transferred to telemetry unit. Current medications reviewed. Objective - Vital Signs Vital signs: Vital Signs Temp 97.3 F L 04/03/17 20:00 Pulse 73 04/03/17 20:00 Resp 18 04/03/17 20:00 BP 136/69 04/03/17 20:00 Pulse Ox 92 L 04/03/17 20:00 Intake & Output 04/03/17 04/03/17 04/04/17 06:59 18:59 06:59 Intake Total 804.500 659.416 Output Total 1245 905 Balance -440.500 -245.584 Weight 78.4 kg Intake: IV 306 72 Lactated Ringers 1,000 ml 270 60 @ 20 mls/hr IV .Q24H [facility] Rx#:[id number] Pressure Bag 36 12 Intake, IV Titration 24.500 7.416 Amount Insulin Regular 100 unit 24.500 7.416 In Sodium Chloride 0.9% 100 ml @ Per Protocol IV .Q0M [facility] Rx#:[id number] Oral 474 580 Output: Chest Tube Drainage 550 50 Chest Tube 550 50 Drainage 15 0 Left Arm 15 0 Urine 680 855 Other: Voiding Method Indwelling Catheter Indwelling Catheter # Emeses 0 ABP, PAP, CO, CI - Last Documented Arterial Blood Pressure 113/43 Pulmonary Artery Pressure 29/21 Cardiac Output 6.6 Cardiac Index 3.5 - Exam PHYSICAL EXAMINATION: Patient is lying in the bed comfortably, no acute distress, awake alert and oriented.. HEENT: Normocephalic. Neck is supple. Pupils reactive. Nostrils clear. Oral cavity is moist. Ears reveal no drainage. Neck reveals no JVD, carotid bruits, or thyromegaly. CHEST EXAMINATION: Trachea is central. Symmetrical expansion. Bilateral minimal rhonchi. No wheezing CARDIAC: Normal S1, S2 with no gallops. No murmurs . Sternal wound is bandaged. ABDOMEN: Soft. Bowel sounds normal. No organomegaly. No abdominal bruits. Extremities: reveal no edema. No clubbing or cyanosis Neurologically awake, alert, oriented x3 with well-coordinated movements. No focal deficits noted Skin: No rash or skin lesions. Psychiatric: Cooperative. Nonsuicidal Musculoskeletal: No joint swelling or deformity. Normal range of motion. - Labs CBC & Chem 7: 04/03/17 04:20 04/03/17 04:20 Labs: Abnormal Lab Results - Last 24 Hours (Table) 04/02/17 04/02/17 04/02/17 Range/Units 21:07 22:05 23:03 RBC (4.30-5.90) m/uL Hgb (13.0-17.5) gm/dL Hct (39.0-53.0) % Plt Count (150-450) k/uL Lymphocytes # (1.0-4.8) k/uL Sodium (137-145) mmol/L Creatinine (0.66-1.25) mg/dL Glucose (74-99) mg/dL POC Glucose (mg/dL) 110 H 141 H 122 H (75-99) mg/dL Calcium (8.4-10.2) mg/dL Total Protein (6.3-8.2) g/dL Albumin (3.5-5.0) g/dL 04/03/17 04/03/17 04/03/17 Range/Units 00:05 01:12 02:07 RBC (4.30-5.90) m/uL Hgb (13.0-17.5) gm/dL Hct (39.0-53.0) % Plt Count (150-450) k/uL Lymphocytes # (1.0-4.8) k/uL Sodium (137-145) mmol/L Creatinine (0.66-1.25) mg/dL Glucose (74-99) mg/dL POC Glucose (mg/dL) 101 H 110 H 139 H (75-99) mg/dL Calcium (8.4-10.2) mg/dL Total Protein (6.3-8.2) g/dL Albumin (3.5-5.0) g/dL 04/03/17 04/03/17 04/03/17 Range/Units 03:02 03:59 04:20 RBC (4.30-5.90) m/uL Hgb (13.0-17.5) gm/dL Hct (39.0-53.0) % Plt Count (150-450) k/uL Lymphocytes # (1.0-4.8) k/uL Sodium 132 L (137-145) mmol/L Creatinine 0.63 L (0.66-1.25) mg/dL Glucose 116 H (74-99) mg/dL POC Glucose (mg/dL) 158 H 134 H (75-99) mg/dL Calcium 8.2 L (8.4-10.2) mg/dL Total Protein 5.1 L (6.3-8.2) g/dL Albumin 2.9 L (3.5-5.0) g/dL 04/03/17 04/03/17 04/03/17 Range/Units 04:20 05:02 06:18 RBC 3.19 L (4.30-5.90) m/uL Hgb 10.0 L (13.0-17.5) gm/dL Hct 30.9 L (39.0-53.0) % Plt Count 96 L (150-450) k/uL Lymphocytes # 0.9 L (1.0-4.8) k/uL Sodium (137-145) mmol/L Creatinine (0.66-1.25) mg/dL Glucose (74-99) mg/dL POC Glucose (mg/dL) 111 H 129 H (75-99) mg/dL Calcium (8.4-10.2) mg/dL Total Protein (6.3-8.2) g/dL Albumin (3.5-5.0) g/dL 04/03/17 04/03/17 04/03/17 Range/Units 07:05 07:57 09:27 RBC (4.30-5.90) m/uL Hgb (13.0-17.5) gm/dL Hct (39.0-53.0) % Plt Count (150-450) k/uL Lymphocytes # (1.0-4.8) k/uL Sodium (137-145) mmol/L Creatinine (0.66-1.25) mg/dL Glucose (74-99) mg/dL POC Glucose (mg/dL) 163 H 156 H 192 H (75-99) mg/dL Calcium (8.4-10.2) mg/dL Total Protein (6.3-8.2) g/dL Albumin (3.5-5.0) g/dL 04/03/17 04/03/17 Range/Units 12:08 17:26 RBC (4.30-5.90) m/uL Hgb (13.0-17.5) gm/dL Hct (39.0-53.0) % Plt Count (150-450) k/uL Lymphocytes # (1.0-4.8) k/uL Sodium (137-145) mmol/L Creatinine (0.66-1.25) mg/dL Glucose (74-99) mg/dL POC Glucose (mg/dL) 182 H 178 H (75-99) mg/dL Calcium (8.4-10.2) mg/dL Total Protein (6.3-8.2) g/dL Albumin (3.5-5.0) g/dL Microbiology - Last 24 Hours (Table) 04/01/17 13:45 Anaerobic Culture - Preliminary Penis 04/01/17 13:45 Gram Stain - Preliminary Penis Wound Culture - Preliminary Assessment and Plan Assessment: 1 chest pain due to NSTEMI with elevated troponin level on admission #2 severe coronary artery disease status post cardiac catheterization. was on intra-aortic balloon pump. Status post CABG on 04/01/2017 #2 diabetes type 1 #3 every day smoker #4 family history of significant coronary artery disease Plan: Patient will continue on telemetry monitoring. intra-aortic balloon pump was removed.. CT surgery and pulmonary is following. We will continue the current management and blood sugar control. Counseled for smoking cessation. Further recommendations based on the clinical course. Encouraged incentive spirometry. Monitor urine output and follow closely
[2017-04-04] MEDS: KETOROLAC 30 MG/ML 1 ML VIAL IVP SCH ×5 (00:25→23:17)
[2017-04-04] MEDS: HEPARIN SODIUM,PORCINE 5,000 UNIT/ML 1 ML VIAL SQ SCH ×4 (00:25→23:17)
[2017-04-04 02:10] LABS: Glucose,Whole Blood 136 mg/dL (75-99)
[2017-04-04] MEDS: INSULIN ASPART 100 UNIT/ML 1 ML 10 ML VIAL SQ SCH ×6 (02:28→21:45)
[2017-04-04 06:06] LABS: Glucose,Whole Blood 140 mg/dL (75-99)
[2017-04-04 06:17] LABS: Basophils % (A) 0 %; CHCM 32.3; Eosinophils # (A) 0.1 k/uL (0-0.7); Eosinophils % (A) 2 %; HCT 31.6 % (39.0-53.0); HDW 2.25; HGB 10.2 gm/dL (13.0-17.5); Luc # (Auto) 0.14; Luc % (Auto) 2; Lymphocytes # (A) 0.9 k/uL (1.0-4.8); Lymphocytes % (A) 13 %; MCH 31.3 pg (25.0-35.0); MCHC 32.4 g/dL (31.0-37.0); MCV 96.8 fL (80.0-100.0); Monocytes # (A) 0.7 k/uL (0-1.0); Monocytes % (A) 10 %; Neutrophils # (A) 5.3 k/uL (1.3-7.7); Neutrophils % (A) 73 %; RBC 3.27 m/uL (4.30-5.90); RDW 14.7 % (11.5-15.5); WBC 7.2 k/uL (3.8-10.6); WBC (Perox) 7.69
[2017-04-04 06:26] LABS: ALT 38 U/L (21-72); AST 24 U/L (17-59); Alkaline Phosphatase 45 U/L (38-126); Anion Gap 6 mmol/L; Blood Urea Nitrogen 11 mg/dL (9-20); Calcium 8.3 mg/dL (8.4-10.2); Carbon Dioxide 25 mmol/L (22-30); Chloride 97 mmol/L (98-107); Glucose 137 mg/dL (74-99); Magnesium 1.6 mg/dL (1.6-2.3); Non-African American GFR(MDRD) >60 (>60 ml/min/1.73 sqM); Sodium 128 mmol/L (137-145); Total Bilirubin 0.6 mg/dL (0.2-1.3)
[2017-04-04] MEDS: ONDANSETRON 4 MG/2 ML VIAL IVP PRN (06:42)
[2017-04-04] MEDS: PANTOPRAZOLE 40 MG TABLET PO SCH (06:47)
[2017-04-04] MEDS ORDERED: BISACODYL 5 MG TABLET.DR PO PRN (06:49)
--- NOTE | 2017-04-04 06:58 | XR ---
EXAMINATION TYPE: XR chest 1V portable DATE OF EXAM: 04/04/2017 HISTORY: Postop CABG. REFERENCE: Previous study dated 04/03/2017. FINDINGS: There has been a midline sternotomy. There is a left pleural drain in place. No definite pneumothorax is seen. The heart is mildly enlarged. The lungs are clear. Pleural spaces are clear. IMPRESSION: MILD CARDIOMEGALY.
[2017-04-04] MEDS: MUPIROCIN 2% OINT 22 GM TUBE NASAL SCH ×2 (08:25→21:19)
[2017-04-04] MEDS: METOPROLOL TARTRATE 12.5 MG TAB PO SCH ×2 (08:25→21:19)
[2017-04-04] MEDS: ASPIRIN 325 MG TAB PO SCH (08:25)
[2017-04-04] MEDS: CLOPIDOGREL 75 MG TAB PO SCH (08:25)
[2017-04-04] MEDS: DILTIAZEM ORAL 30 MG TAB PO SCH ×4 (08:25→21:21)
[2017-04-04] MEDS: ATORVASTATIN 80 MG TAB PO SCH (08:25)
[2017-04-04] MEDS ORDERED: SODIUM CHLORIDE 0.9% 1,000 ML IV SCH (09:00)
[2017-04-04] MEDS: MAGNESIUM SULFATE-D5W PMX 1 GM in DEXTROSE/WATER 1 100ML.BAG IVPB SCH ×2 (09:15→10:22)
--- NOTE | 2017-04-04 09:36 | P.PN ---
<Timoteo Vazquez - Last Filed: 04/04/17 09:24> Subjective Progress Note Date: 04/04/17 Principal diagnosis: Severe symptomatic triple-vessel coronary artery disease with left main disease , non-STEMI. History of insulin-dependent diabetes mellitus with hemoglobin A1c 7.8%. Current tobacco dependence. Family history of premature coronary artery disease. POD #3 urgent off-pump coronary artery bypass grafting 3 with left internal mammary artery graft to LAD, left radial artery graft to obtuse marginal, a reverse greater saphenous vein graft to intermediate coronary artery with endoscopic vein harvest of his right thigh greater saphenous vein, endoscopic left radial artery harvest, epi-aortic ultrasonography, intraoperative transesophageal echocardiogram by anesthesia. Patient is currently lying in bed with his head elevated in no acute distress. Denies complaints of pain at this time. Rates his pain 0 out of 10 on the pain scale. He is complaining of constipation this a.m. He reports that he could not tolerate his breakfast this morning due to his constipation. Objective - Vital Signs Vital signs: Vital Signs Temp 97.0 F L 04/04/17 04:00 Pulse 70 04/04/17 04:00 Resp 18 04/04/17 04:00 BP 133/63 04/04/17 04:00 Pulse Ox 92 L 04/04/17 04:00 Intake & Output 04/03/17 04/04/17 04/04/17 18:59 06:59 18:59 Intake Total 659.416 240 Output Total 905 5 400 Balance -245.584 -5 -160 Weight 77.2 kg Intake: IV 72 Lactated Ringers 1,000 ml 60 @ 20 mls/hr IV .Q24H [facility] Rx#:[id number] Pressure Bag 12 Intake, IV Titration 7.416 Amount Insulin Regular 100 unit 7.416 In Sodium Chloride 0.9% 100 ml @ Per Protocol IV .Q0M JOSHUA Rx#:[id number] Oral 580 240 Output: Chest Tube Drainage 50 400 Chest Tube 50 400 Drainage 0 5 Left Arm 0 5 Urine 855 Other: Voiding Method Indwelling Catheter Toilet # Voids 1 # Emeses 0 ABP, PAP, CO, CI - Last Documented Arterial Blood Pressure 113/43 Pulmonary Artery Pressure 29/21 Cardiac Output 6.6 Cardiac Index 3.5 - Constitutional General appearance: Present: cooperative, no acute distress, thin - EENT Eyes: Present: PERRLA ENT: Present: hearing grossly normal - Neck Details: No JVD, no lymphadenopathy. - Respiratory Details: Lung sounds are essentially clear to his upper lobes, diminished to his bilateral bases. Respirations are symmetrical and nonlabored. Oxygen saturation are 96% on room air. He is achieving 2250 mL on his incentive spirometry. Left pleural chest tube remains to low continuous wall suction -20 cm H2O. No airleak. It is draining thin serosanguineous drainage. 510 mL output in the last 24 hours. - Cardiovascular Details: Regular rhythm and rate. S1 and S2 present, negative for S3, gallop or murmur. Remote telemetry showing normal sinus rhythm heart rate 77. Sternum is stable. Heart hugger is in place and he is demonstrating appropriate use. Knee -high TITA hose and sequential compression devices in place to his bilateral lower extremities. Left hand warm to touch, positive palpable ulnar pulse. No edema present. - Gastrointestinal Gastrointestinal Comment(s): Abdomen is soft, nontender and nondistended. Hypoactive bowel sounds to all 4 abdominal quadrants. No bowel movement since surgery. Tolerating oral intake. - Genitourinary Genitourinary Comment(s): Adequate urine output. Clear yellow urine. - Integumentary Integumentary Comment(s): Midline sternal incision clean dry and well approximated. No drainage noted. Dermabond dressing intact. Gauze dressing clean dry and intact. Left leg EVH site clean dry and approximated. Dermabond dressing clean and dry. Left radial artery endoscopic harvesting sites clean dry and intact. No drainage noted. - Neurologic Neurologic Comment(s): No focal deficits. Neurologic: Present: CNII-XII intact - Musculoskeletal Musculoskeletal: Present: gait normal, strength equal bilaterally - Psychiatric Psychiatric: Present: A&O x's 3, appropriate affect, intact judgment & insight - Allied health notes Allied health notes reviewed: nursing - Labs CBC & Chem 7: 04/04/17 05:43 04/04/17 05:43 Labs: Abnormal Lab Results - Last 24 Hours (Table) 04/03/17 04/03/17 04/03/17 Range/Units 09:27 12:08 17:26 RBC (4.30-5.90) m/uL Hgb (13.0-17.5) gm/dL Hct (39.0-53.0) % Plt Count (150-450) k/uL Lymphocytes # (1.0-4.8) k/uL Sodium (137-145) mmol/L Chloride (98-107) mmol/L Glucose (74-99) mg/dL POC Glucose (mg/dL) 192 H 182 H 178 H (75-99) mg/dL Calcium (8.4-10.2) mg/dL Total Protein (6.3-8.2) g/dL Albumin (3.5-5.0) g/dL 04/03/17 04/04/17 04/04/17 Range/Units 21:02 01:58 05:43 RBC 3.27 L (4.30-5.90) m/uL Hgb 10.2 L (13.0-17.5) gm/dL Hct 31.6 L (39.0-53.0) % Plt Count 94 L (150-450) k/uL Lymphocytes # 0.9 L (1.0-4.8) k/uL Sodium (137-145) mmol/L Chloride (98-107) mmol/L Glucose (74-99) mg/dL POC Glucose (mg/dL) 197 H 136 H (75-99) mg/dL Calcium (8.4-10.2) mg/dL Total Protein (6.3-8.2) g/dL Albumin (3.5-5.0) g/dL 04/04/17 04/04/17 Range/Units 05:43 06:04 RBC (4.30-5.90) m/uL Hgb (13.0-17.5) gm/dL Hct (39.0-53.0) % Plt Count (150-450) k/uL Lymphocytes # (1.0-4.8) k/uL Sodium 128 L (137-145) mmol/L Chloride 97 L (98-107) mmol/L Glucose 137 H (74-99) mg/dL POC Glucose (mg/dL) 140 H (75-99) mg/dL Calcium 8.3 L (8.4-10.2) mg/dL Total Protein 5.0 L (6.3-8.2) g/dL Albumin 2.9 L (3.5-5.0) g/dL Microbiology - Last 24 Hours (Table) 04/01/17 13:45 Anaerobic Culture - Preliminary Penis 04/01/17 13:45 Gram Stain - Preliminary Penis Wound Culture - Preliminary - Imaging and Cardiology Chest x-ray: report reviewed, image reviewed Assessment and Plan (1) NSTEMI (non-ST elevated myocardial infarction) Current Visit: Yes Status: Acute Code(s): I21.4 - NON-ST ELEVATION (NSTEMI) MYOCARDIAL INFARCTION SNOMED Code(s): 986902795 (2) Family history of early CAD Current Visit: Yes Status: Chronic Code(s): Z82.49 - FAMILY HX OF ISCHEM HEART DIS AND OTH DIS OF THE CIRC SYS SNOMED Code(s): 698254480 (3) Insulin dependent diabetes mellitus Current Visit: Yes Status: Chronic Code(s): E11.9 - TYPE 2 DIABETES MELLITUS WITHOUT COMPLICATIONS; Z79.4 - YOUTH PROGRAM DIRECTOR (CURRENT) USE OF INSULIN SNOMED Code(s): 08710570 (4) Tobacco dependence Current Visit: Yes Status: Chronic Code(s): F17.200 - NICOTINE DEPENDENCE, UNSPECIFIED, UNCOMPLICATED SNOMED Code(s): 35162949 Plan: 1. Continue aspirin, statin, Plavix, heparin subcu, beta nikolas. Will maximize beta nikolas therapy as tolerated. 2. The patient will be placed on a 1500 mL fluid restriction per 24 hours due to his hyponatremia sodium count 128. 3. Continue oral Cardizem to prevent radial artery spasm. 4. His left pleural chest tube remained in place at this time to low continuous wall suction -20 cm H2O. 5. Wean O2 as tolerated. Encourage incentive spirometry use every hour while awake. Discussed and reinforced the importance of smoking cessation. 6. Dulcolax suppository 1 today for his complaints of constipation. 7. Increase activity as tolerated. Cardiac rehab and PT/OT following. 8. GI/DVT prophylaxis. 9. Insulin/diabetic management per primary care services. 10. Will monitor daily labs, chest x-rays. 11. More recommendations patient progresses. Time with Patient: Greater than 30 <Garfield Cody - Last Filed: 04/04/17 12:57> Objective - Vital Signs Vital signs: Vital Signs Temp 97.0 F L 04/04/17 12:00 Pulse 73 04/04/17 12:00 Resp 18 04/04/17 12:00 BP 140/72 04/04/17 12:00 Pulse Ox 95 04/04/17 12:00 Intake & Output 04/03/17 04/04/17 04/04/17 18:59 06:59 18:59 Intake Total 659.416 480 Output Total 905 5 460 Balance -245.584 -5 20 Weight 77.2 kg Intake: IV 72 Lactated Ringers 1,000 ml 60 @ 20 mls/hr IV .Q24H [facility] Rx#:[id number] Pressure Bag 12 Intake, IV Titration 7.416 Amount Insulin Regular 100 unit 7.416 In Sodium Chloride 0.9% 100 ml @ Per Protocol IV .Q0M [facility] Rx#:[id number] Oral 580 480 Output: Chest Tube Drainage 50 460 Chest Tube 50 460 Drainage 0 5 Left Arm 0 5 Urine 855 Other: Voiding Method Indwelling Catheter Toilet # Voids 1 # Emeses 0 ABP, PAP, CO, CI - Last Documented Arterial Blood Pressure 113/43 Pulmonary Artery Pressure 29/21 Cardiac Output 6.6 Cardiac Index 3.5 - Labs CBC & Chem 7: 04/04/17 05:43 04/04/17 05:43 Labs: Abnormal Lab Results - Last 24 Hours (Table) 04/03/17 04/03/17 04/04/17 Range/Units 17:26 21:02 01:58 RBC (4.30-5.90) m/uL Hgb (13.0-17.5) gm/dL Hct (39.0-53.0) % Plt Count (150-450) k/uL Lymphocytes # (1.0-4.8) k/uL Sodium (137-145) mmol/L Chloride (98-107) mmol/L Glucose (74-99) mg/dL POC Glucose (mg/dL) 178 H 197 H 136 H (75-99) mg/dL Calcium (8.4-10.2) mg/dL Total Protein (6.3-8.2) g/dL Albumin (3.5-5.0) g/dL 04/04/17 04/04/17 04/04/17 Range/Units 05:43 05:43 06:04 RBC 3.27 L (4.30-5.90) m/uL Hgb 10.2 L (13.0-17.5) gm/dL Hct 31.6 L (39.0-53.0) % Plt Count 94 L (150-450) k/uL Lymphocytes # 0.9 L (1.0-4.8) k/uL Sodium 128 L (137-145) mmol/L Chloride 97 L (98-107) mmol/L Glucose 137 H (74-99) mg/dL POC Glucose (mg/dL) 140 H (75-99) mg/dL Calcium 8.3 L (8.4-10.2) mg/dL Total Protein 5.0 L (6.3-8.2) g/dL Albumin 2.9 L (3.5-5.0) g/dL 04/04/17 Range/Units 11:49 RBC (4.30-5.90) m/uL Hgb (13.0-17.5) gm/dL Hct (39.0-53.0) % Plt Count (150-450) k/uL Lymphocytes # (1.0-4.8) k/uL Sodium (137-145) mmol/L Chloride (98-107) mmol/L Glucose (74-99) mg/dL POC Glucose (mg/dL) 302 H (75-99) mg/dL Calcium (8.4-10.2) mg/dL Total Protein (6.3-8.2) g/dL Albumin (3.5-5.0) g/dL Microbiology - Last 24 Hours (Table) 04/01/17 13:45 Gram Stain - Final Penis Wound Culture - Final 04/01/17 13:45 Anaerobic Culture - Preliminary Penis Assessment and Plan Assessment: Hemodynamically stable POD3 S/P CABG. Na 128 secondary free H2o overload. Fluid restrict, D/C IVF.
[2017-04-04] MEDS ORDERED: LACTULOSE 20 GM/30 ML CUP PO PRN (10:14)
--- NOTE | 2017-04-04 10:37 | P.PN ---
Subjective Progress Note Date: 04/04/17 Principal diagnosis: Acute non-ST segment myocardial infarction. Status post CABG This is a very pleasant 56-year-old gentleman who follows with Dr. Jacobsen as his primary care physician. He has a history of insulin-dependent diabetes mellitus, chronic and ongoing tobacco dependence. No pulmonary history. No inhalers at home. He does have a family history of coronary artery disease with his father having 5 myocardial infarction suffered first one at age 55. The patient had presented here yesterday to the emergency room with complaints of chest pain. He described this as a pressure/burning sensation in the middle of his chest without any significant radiation. He did have shortness of breath and some diaphoresis. It lasted approximately half hour prior to his arrival to the emergency room. He had a similar episode about a week ago but did not seek any attention at that time. His EKG revealed extensive ST and T-wave abnormalities in the anterolateral leads. He ruled in for an acute non-ST segment elevation myocardial infarction. Today he had undergone cardiac catheterization with Dr. Colón and was found to have heavily calcified right and left coronary systems. There was severe disease involving the proximal to mid LAD and a long tubular lesion. 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 The patient will be receiving a balloon pump insertion. Recommendations for urgent coronary artery bypass grafting have been made. We are consulted for critical care management. The patient is seen in the intensive care unit. He is awake and alert in no acute distress. He is maintaining good O2 saturations in the mid 90s on room air. Chest x-ray revealed chronic changes but no acute cardiopulmonary process. There is a nodular density in the peripheral right lower lung most likely representing a nipple shadow. He's been hemodynamically stable. He has been maintained on a heparin drip. He is also on nitroglycerin at 5 mcg/m. He has a 0.9 normal saline at 100 mL per hour. His been initiated on aspirin statins and beta blockers. No leukocytosis. Hemoglobin 14.8. Platelet count 183,000. Troponin 0.099. Reevaluated today on 04/01/2017, patient is doing well, no major issues overnight , intra-aortic pump remains in place, patient is scheduled to have myocardial revascularization around noontime today. No major issues and no major symptoms overnight. Presently the patient remains asymptomatic. He is hemodynamically stable. All his meds and labs were reviewed. X-ray was also reviewed. Reevaluated today on 04/02/2017, patient underwent myocardial revascularization yesterday, extubated around 1 AM this morning, tolerated the extubation well, presently in no form of respiratory distress. His intra-aortic balloon pump was removed patient presented initially with severe symptomatic coronary artery disease with left main disease and non-ST elevation myocardial infarction. Chest x-ray is suggestive of mild component of volume overload and atelectasis. Reevaluated today on 04/03/2017, patient presented with symptomatic triple- vessel coronary artery disease and non-ST elevation myocardial infarction, he is postoperative day #2 had urgent off-pump coronary artery bypass grafting 3 with FARRELL to LAD, left radial artery graft to obtuse marginal and reverse greater saphenous vein graft to intermediate coronary artery with endoscopic vein harvest of the right thigh greater saphenous vein. Also had endoscopic left radial artery harvest. Patient is doing well today, relatively asymptomatic, labs and chest x-ray are reassuring. Doing great with incentive spirometry. CBC showed a hemoglobin of 10. Basic metabolic profile is relatively normal. Reevaluated today on 03/2017, patient is doing well, his sodium is a bit slow, and clinically the patient seems to be dehydrated, hence I recommended placing the patient on 0.9 normal saline at 75 mL per hour for the next 24 hours and have his sodium rechecked. Patient apparently is presently on fluid restrictions, and he received 1 dose of Lasix yesterday. At any rate I think his sodium will come back up with hydration only. Patient is postoperative day #3, he had urgent off pump coronary artery bypass grafting 3. Chest x-ray is reassuring. Clinically the patient is doing well and relatively asymptomatic. No shortness of breath no cough no wheezing. Objective - Vital Signs Vital signs: Vital Signs Temp 97.2 F L 04/04/17 08:00 Pulse 71 04/04/17 08:00 Resp 18 04/04/17 08:00 BP 160/77 04/04/17 08:00 Pulse Ox 94 L 04/04/17 08:00 Intake & Output 04/03/17 04/04/17 04/04/17 18:59 06:59 18:59 Intake Total 659.416 240 Output Total 905 5 400 Balance -245.584 -5 -160 Weight 77.2 kg Intake: IV 72 Lactated Ringers 1,000 ml 60 @ 20 mls/hr IV .Q24H [facility] Rx#:[id number] Pressure Bag 12 Intake, IV Titration 7.416 Amount Insulin Regular 100 unit 7.416 In Sodium Chloride 0.9% 100 ml @ Per Protocol IV .Q0M [facility] Rx#:[id number] Oral 580 240 Output: Chest Tube Drainage 50 400 Chest Tube 50 400 Drainage 0 5 Left Arm 0 5 Urine 855 Other: Voiding Method Indwelling Catheter Toilet # Voids 1 # Emeses 0 ABP, PAP, CO, CI - Last Documented Arterial Blood Pressure 113/43 Pulmonary Artery Pressure 29/21 Cardiac Output 6.6 Cardiac Index 3.5 - Exam GENERAL EXAM: Alert, currently comfortable in no apparent distress. HEAD: Normocephalic. EYES: Normal reaction of pupils, equal size. NOSE: Clear with pink turbinates. THROAT: No erythema or exudates. NECK: No masses, no JVD. CHEST: No chest wall deformity. Left-sided chest tube is noted. LUNGS: Equal air entry with no crackles, wheeze, rhonchi or dullness. CVS: S1 and S2 normal with no audible murmur, regular rhythm. ABDOMEN: No hepatosplenomegaly, normal bowel sounds, no guarding or rigidity. SPINE: No scoliosis or deformity SKIN: No rashes CENTRAL NERVOUS SYSTEM: No focal deficits, tone is normal in all 4 extremities. EXTREMITIES: There is no peripheral edema. No clubbing, no cyanosis. Peripheral pulses are intact. - Labs CBC & Chem 7: 04/04/17 05:43 04/04/17 05:43 Labs: Abnormal Lab Results - Last 24 Hours (Table) 04/03/17 04/03/17 04/03/17 Range/Units 12:08 17:26 21:02 RBC (4.30-5.90) m/uL Hgb (13.0-17.5) gm/dL Hct (39.0-53.0) % Plt Count (150-450) k/uL Lymphocytes # (1.0-4.8) k/uL Sodium (137-145) mmol/L Chloride (98-107) mmol/L Glucose (74-99) mg/dL POC Glucose (mg/dL) 182 H 178 H 197 H (75-99) mg/dL Calcium (8.4-10.2) mg/dL Total Protein (6.3-8.2) g/dL Albumin (3.5-5.0) g/dL 04/04/17 04/04/17 04/04/17 Range/Units 01:58 05:43 05:43 RBC 3.27 L (4.30-5.90) m/uL Hgb 10.2 L (13.0-17.5) gm/dL Hct 31.6 L (39.0-53.0) % Plt Count 94 L (150-450) k/uL Lymphocytes # 0.9 L (1.0-4.8) k/uL Sodium 128 L (137-145) mmol/L Chloride 97 L (98-107) mmol/L Glucose 137 H (74-99) mg/dL POC Glucose (mg/dL) 136 H (75-99) mg/dL Calcium 8.3 L (8.4-10.2) mg/dL Total Protein 5.0 L (6.3-8.2) g/dL Albumin 2.9 L (3.5-5.0) g/dL 04/04/17 Range/Units 06:04 RBC (4.30-5.90) m/uL Hgb (13.0-17.5) gm/dL Hct (39.0-53.0) % Plt Count (150-450) k/uL Lymphocytes # (1.0-4.8) k/uL Sodium (137-145) mmol/L Chloride (98-107) mmol/L Glucose (74-99) mg/dL POC Glucose (mg/dL) 140 H (75-99) mg/dL Calcium (8.4-10.2) mg/dL Total Protein (6.3-8.2) g/dL Albumin (3.5-5.0) g/dL Microbiology - Last 24 Hours (Table) 04/01/17 13:45 Anaerobic Culture - Preliminary Penis 04/01/17 13:45 Gram Stain - Preliminary Penis Wound Culture - Preliminary Assessment and Plan Plan: 1 status post CABG, postoperative day #3, patient presented with left main coronary artery disease and non-ST elevation myocardial infarction. #2 Significant coronary artery disease with heavily calcified right and left coronary systems. 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 Status post CABG #3 Insulin-dependent diabetes mellitus. #4 Chronic and ongoing tobacco dependence. #5 acute hypovolemic hyponatremia should improve with hydration slowly with 0.9 normal saline at 75 mL per hour. Recommendation: Continue present supportive care measures, continue incentive spirometry, early ambulation, possible discharge planning early next week. Time with Patient: Less than 30
[2017-04-04 11:55] LABS: Glucose,Whole Blood 302 mg/dL (75-99)
[2017-04-04] MEDS: INSULN ASP PRT/INSULIN ASPART 100 UNIT/ML 10 ML VIAL SQ SCH (11:57)
--- NOTE | 2017-04-04 12:47 | PN ---
PROGRESS NOTE This gentleman is status post aorta coronary bypass surgery, doing very well, recovering nicely, remains in sinus rhythm. Using incentive spirometer well. VITAL SIGNS: Stable S1, S2 heard normally. Lungs are clear. Abdomen and lower extremity exam unchanged. Plan is to continue current medications. Incentive spirometry. Increase activity and hopefully discharge the next 48 hours. MMODL / IJN: [id number] /
[2017-04-04 16:54] LABS: Glucose,Whole Blood 206 mg/dL (75-99)
[2017-04-04] MEDS: SENNOSIDES-DOCUSATE SODIUM 1 EACH TAB PO SCH (21:19)
[2017-04-04] MEDS: HYDROcodone/APAP 5-325MG 1 EACH TAB PO PRN (21:22)
[2017-04-04 21:31] LABS: Glucose,Whole Blood 164 mg/dL (75-99)
[2017-04-04] MEDS: INSULIN NPH 300 UNIT/3 ML VIAL SQ SCH (21:45)
--- NOTE | 2017-04-04 22:15 | P.PN ---
Subjective Progress Note Date: 04/04/17 Principal diagnosis: NSTEMI Patient is a 56-year-old male with a history of diabetes type 1 and family history of coronary disease in his father presented to ER with complaints of chest pain. Pain is mainly retrosternal associated with nausea and vomiting and diaphoresis. Pain is mainly pressure-like sensation. Denied any radiation to the neck shoulder or to the back. Also short of breath and chest pain lasted for about 30-40 minutes. Patient had similar pain about a week back but he did not seek medical attention at the time. Patient says that pain improved with nitro tablets in the ER. Chest x-ray showed no acute abnormality EKG showed normal sinus rhythm with ST depression in the anterolateral leads 03/31/2017 Patient underwent cardiac catheterization showed severe coronary artery disease involving proximal and mid LAD. There is critical distal left main disease. Patient was placed on intra-aortic balloon pump and is awaiting CT surgery recommendations. Currently patient is awake oriented and denied any complaints of chest pain. No nausea vomiting or abdominal pain. Patient is encouraged with incentive spirometry. Chest x-ray revealed chronic changes but no acute cardiopulmonary process. 04/01/2017 Patient is currently medically stable. No acute overnight issues. Patient is undergoing triple-vessel coronary artery bypass graft today. 04/02/2017 Postoperatively patient was intubated and was successfully extubated this morning. No complaints of chest and patient does have soreness. Chest x-ray shows slight volume overload. Otherwise no fever no chills. 04/03/2017 Patient is improving clinically. Chest x-ray stable findings with improvement. No fever no chills. Continued on incentive spirometry. Patient is hemodynamically stable. Patient is being transferred to telemetry unit. 04/04/2017 Patient is currently ambulating in the hallway. denied any chest pain or shortness of breath. No fever no chills. No acute overnight issues. Current medications reviewed. Objective - Vital Signs Vital signs: Vital Signs Temp 97.4 F L 04/04/17 15:49 Pulse 70 04/04/17 15:49 Resp 18 04/04/17 15:49 BP 154/72 04/04/17 15:49 Pulse Ox 95 04/04/17 15:49 Intake & Output 04/04/17 04/04/17 04/05/17 06:59 18:59 06:59 Intake Total 702 Output Total 5 510 Balance -5 192 Weight 77.2 kg Intake: Oral 702 Output: Chest Tube Drainage 510 Chest Tube 510 Drainage 5 Left Arm 5 Other: Voiding Method Toilet # Voids 1 # Bowel Movements 2 ABP, PAP, CO, CI - Last Documented Arterial Blood Pressure 113/43 Pulmonary Artery Pressure 29/21 Cardiac Output 6.6 Cardiac Index 3.5 - Exam PHYSICAL EXAMINATION: Patient is lying in the bed comfortably, no acute distress, awake alert and oriented.. HEENT: Normocephalic. Neck is supple. Pupils reactive. Nostrils clear. Oral cavity is moist. Ears reveal no drainage. Neck reveals no JVD, carotid bruits, or thyromegaly. CHEST EXAMINATION: Trachea is central. Symmetrical expansion. Bilateral minimal rhonchi. No wheezing CARDIAC: Normal S1, S2 with no gallops. No murmurs . Sternal wound is bandaged. ABDOMEN: Soft. Bowel sounds normal. No organomegaly. No abdominal bruits. Extremities: reveal no edema. No clubbing or cyanosis Neurologically awake, alert, oriented x3 with well-coordinated movements. No focal deficits noted Skin: No rash or skin lesions. Psychiatric: Cooperative. Nonsuicidal Musculoskeletal: No joint swelling or deformity. Normal range of motion. - Labs CBC & Chem 7: 04/04/17 05:43 04/04/17 05:43 Labs: Abnormal Lab Results - Last 24 Hours (Table) 04/03/17 04/04/17 04/04/17 Range/Units 21:02 01:58 05:43 RBC 3.27 L (4.30-5.90) m/uL Hgb 10.2 L (13.0-17.5) gm/dL Hct 31.6 L (39.0-53.0) % Plt Count 94 L (150-450) k/uL Lymphocytes # 0.9 L (1.0-4.8) k/uL Sodium (137-145) mmol/L Chloride (98-107) mmol/L Glucose (74-99) mg/dL POC Glucose (mg/dL) 197 H 136 H (75-99) mg/dL Calcium (8.4-10.2) mg/dL Total Protein (6.3-8.2) g/dL Albumin (3.5-5.0) g/dL 04/04/17 04/04/1704/04/17 Range/Units 05:43 06:04 11:49 RBC (4.30-5.90) m/uL Hgb (13.0-17.5) gm/dL Hct (39.0-53.0) % Plt Count (150-450) k/uL Lymphocytes # (1.0-4.8) k/uL Sodium 128 L (137-145) mmol/L Chloride 97 L (98-107) mmol/L Glucose 137 H (74-99) mg/dL POC Glucose (mg/dL) 140 H 302 H (75-99) mg/dL Calcium 8.3 L (8.4-10.2) mg/dL Total Protein 5.0 L (6.3-8.2) g/dL Albumin 2.9 L (3.5-5.0) g/dL 04/04/17 Range/Units 16:40 RBC (4.30-5.90) m/uL Hgb (13.0-17.5) gm/dL Hct (39.0-53.0) % Plt Count (150-450) k/uL Lymphocytes # (1.0-4.8) k/uL Sodium (137-145) mmol/L Chloride (98-107) mmol/L Glucose (74-99) mg/dL POC Glucose (mg/dL) 206 H (75-99) mg/dL Calcium (8.4-10.2) mg/dL Total Protein (6.3-8.2) g/dL Albumin (3.5-5.0) g/dL Microbiology - Last 24 Hours (Table) 04/01/17 13:45 Gram Stain - Final Penis Wound Culture - Final 04/01/17 13:45 Anaerobic Culture - Preliminary Penis Assessment and Plan Assessment: 1 chest pain due to NSTEMI with elevated troponin level on admission #2 severe coronary artery disease status post cardiac catheterization. was on intra-aortic balloon pump. Status post CABG on 04/01/2017 #2 diabetes type 1 Hb A1c 7.8 uncontrolled with hyperglycemia #3 every day smoker #4 family history of significant coronary artery disease Plan: Will change insulin dose to 15 units Levemir daily at bedtime and aspart 4 units 3 times a day before meals along with insulin sliding scale and will adjust accordingly. Patient will continue on telemetry monitoring. Patient is symptomatically much improved now. Ambulating in the hallway. intra-aortic balloon pump was removed.. CT surgery and pulmonary is following. Counseled for smoking cessation. Further recommendations based on the clinical course. Encouraged incentive spirometry. Monitor urine output and follow closely
[2017-04-05 01:51] LABS: Glucose,Whole Blood 197 mg/dL (75-99)
[2017-04-05] MEDS: INSULIN ASPART 100 UNIT/ML 1 ML 10 ML VIAL SQ SCH ×9 (02:42→22:19)
[2017-04-05 06:07] LABS: Glucose,Whole Blood 137 mg/dL (75-99)
[2017-04-05 06:34] LABS: Basophils % (A) 0 %; CH 31.7; CHCM 33.6; Eosinophils # (A) 0.3 k/uL (0-0.7); Eosinophils % (A) 4 %; HDW 2.41; HGB 11.7 gm/dL (13.0-17.5); Luc # (Auto) 0.12; Luc % (Auto) 2; Lymphocytes % (A) 15 %; MCH 30.9 pg (25.0-35.0); MCHC 32.5 g/dL (31.0-37.0); Mean Platelet Volume 7.9; Monocytes # (A) 0.6 k/uL (0-1.0); Monocytes % (A) 10 %; Neutrophils # (A) 4.5 k/uL (1.3-7.7); Neutrophils % (A) 69 %; RBC 3.79 m/uL (4.30-5.90); RDW 13.7 % (11.5-15.5); WBC 6.5 k/uL (3.8-10.6); WBC (Perox) 6.59
[2017-04-05] MEDS: KETOROLAC 30 MG/ML 1 ML VIAL IVP SCH ×4 (06:43→23:52)
[2017-04-05] MEDS: PANTOPRAZOLE 40 MG TABLET PO SCH (06:44)
[2017-04-05 06:49] LABS: ALT 32 U/L (21-72); AST 25 U/L (17-59); Alkaline Phosphatase 51 U/L (38-126); Anion Gap 9 mmol/L; Blood Urea Nitrogen 5 mg/dL (9-20); Calcium 8.3 mg/dL (8.4-10.2); Carbon Dioxide 27 mmol/L (22-30); Chloride 99 mmol/L (98-107); Glucose 117 mg/dL (74-99); Magnesium 1.9 mg/dL (1.6-2.3); Non-African American GFR(MDRD) >60 (>60 ml/min/1.73 sqM); Potassium 3.7 mmol/L (3.5-5.1); Sodium 135 mmol/L (137-145); Total Bilirubin 0.5 mg/dL (0.2-1.3); Total Protein 5.6 g/dL (6.3-8.2)
[2017-04-05] MEDS ORDERED: POTASSIUM CHLORIDE ER 20 MEQ TAB.ER PO SCH (08:00)
[2017-04-05] MEDS: HEPARIN SODIUM,PORCINE 5,000 UNIT/ML 1 ML VIAL SQ SCH ×3 (09:15→23:52)
[2017-04-05] MEDS: ASPIRIN 325 MG TAB PO SCH (09:16)
[2017-04-05] MEDS: METOPROLOL TARTRATE 12.5 MG TAB PO SCH (09:16)
[2017-04-05] MEDS: CLOPIDOGREL 75 MG TAB PO SCH (09:17)
[2017-04-05] MEDS: DILTIAZEM ORAL 30 MG TAB PO SCH ×4 (09:17→21:07)
[2017-04-05] MEDS: ATORVASTATIN 80 MG TAB PO SCH (09:17)
[2017-04-05] MEDS: MAGNESIUM SULFATE-D5W PMX 1 GM in DEXTROSE/WATER 1 100ML.BAG IVPB SCH ×2 (09:24→10:33)
[2017-04-05] MEDS ORDERED: FUROSEMIDE 10 MG/ML 2 ML VIAL IV STA (09:42)
[2017-04-05] MEDS ORDERED: METOPROLOL TARTRATE 12.5 MG TAB PO STA (09:52)
--- NOTE | 2017-04-05 09:57 | XR ---
EXAMINATION TYPE: XR chest 1V portable DATE OF EXAM: 04/05/2017 COMPARISON: 04/04/2017 HISTORY: Postop CABG TECHNIQUE: Single frontal view of the chest is obtained. FINDINGS: Postsurgical change noted with left-sided chest tube. No sizable pneumothorax. Tiny right- sided pleural effusion with basilar subsegmental consolidation noted. No overt failure. Atherosclerot ic change aorta. Linear change left lung base most typical of atelectasis. IMPRESSION: Postsurgical changes with stable right basilar atelectasis or infiltrate and tiny effusi on.
--- NOTE | 2017-04-05 09:59 | P.PN ---
Subjective Progress Note Date: 04/05/17 Principal diagnosis: Severe symptomatic triple-vessel coronary artery disease with left main disease , non-STEMI. History of insulin-dependent diabetes mellitus with hemoglobin A1c 7.8%. Current tobacco dependence. Family history of premature coronary artery disease. POD #3 urgent off-pump coronary artery bypass grafting 3 with left internal mammary artery graft to LAD, left radial artery graft to obtuse marginal, a reverse greater saphenous vein graft to intermediate coronary artery with endoscopic vein harvest of his right thigh greater saphenous vein, endoscopic left radial artery harvest, epi-aortic ultrasonography, intraoperative transesophageal echocardiogram by anesthesia. Patient is currently sitting up to the bedside chair. No acute distress. He denies complaints of pain at this time. Rates his pain 0 out of 10 on the pain scale. He reports that he did have a bowel movement 2 yesterday and feels much better today. He also reports he ambulated in the [facility] hallway 4-5 times yesterday. Objective - Vital Signs Vital signs: Vital Signs Temp 98.1 F 04/05/17 04:00 Pulse 71 04/05/17 04:00 Resp 18 04/05/17 04:00 BP 151/70 04/05/17 04:00 Pulse Ox 98 04/05/17 04:00 Intake & Output 04/04/17 04/05/17 04/05/17 18:59 06:59 18:59 Intake Total 702 Output Total 510 420 Balance 192 -420 Weight 73.3 kg Intake: Oral 702 Output: Chest Tube Drainage 510 120 Chest Tube 510 120 Urine 300 Other: Voiding Method Toilet # Voids 1 1 # Bowel Movements 2 ABP, PAP, CO, CI - Last Documented Arterial Blood Pressure 113/43 Pulmonary Artery Pressure 29/21 Cardiac Output 6.6 Cardiac Index 3.5 - Constitutional General appearance: Present: cooperative, no acute distress, thin - EENT Eyes: Present: PERRLA ENT: Present: hearing grossly normal - Neck Details: No JVD, no lymphadenopathy. - Respiratory Details: Lung sounds are essentially clear throughout, few scattered crackles to his left lower lobe. Respirations are symmetrical and nonlabored. Oxygen saturation are 98% on room air. He is achieving 2000 mL on his incentive spirometry. Left pleural chest tube remains in place to low continuous wall suction -20 cm H2O. No air leak present. It is draining thin serosanguineous drainage, 110 mL output in the last 8 hours, 300 mL output in the last 24 hours. - Cardiovascular Details: Regular rhythm and rate. S1 and S2 present, negative for S3, gallop or murmur. Sternum is stable. Remote telemetry showing normal sinus rhythm heart rate 83. No edema present. Heart hugger is in place and he is demonstrating appropriate use of his heart hugger. Knee-high TITA hose and sequential compression devices in place to his bilateral lower extremities. Left hand is warm to touch, positive palpable all our pulse bilaterally. - Gastrointestinal Gastrointestinal Comment(s): Abdomen is soft, nontender and nondistended. Active bowel sounds all 4 abdominal quadrants. Tolerating oral intake. Bowel movement this a.m. - Genitourinary Genitourinary Comment(s): Urine output adequate. Clear yellow urine. - Integumentary Integumentary Comment(s): Midline sternal incision clean dry and well approximated. Dermabond dressing clean dry and intact. No drainage noted. Mid sternal gauze dressing clean dry and intact. Left arm radial artery endoscopic harvest sites clean dry and well approximated. No drainage noted. Left leg EVH site clean dry and well approximated. Dermabond dressing clean dry and intact. - Neurologic Neurologic Comment(s): No focal deficits. Neurologic: Present: CNII-XII intact - Musculoskeletal Musculoskeletal: Present: gait normal, strength equal bilaterally - Psychiatric Psychiatric: Present: A&O x's 3, appropriate affect, intact judgment & insight - Allied health notes Allied health notes reviewed: nursing - Labs CBC & Chem 7: 04/05/17 06:05 04/05/17 06:05 Labs: Abnormal Lab Results - Last 24 Hours (Table) 04/04/17 04/04/17 04/04/17 Range/Units 05:44 11:49 16:40 RBC (4.30-5.90) m/uL Hgb (13.0-17.5) gm/dL Hct (39.0-53.0) % Sodium (137-145) mmol/L BUN (9-20) mg/dL Glucose (74-99) mg/dL POC Glucose (mg/dL) 302 H 206 H (75-99) mg/dL Hemoglobin A1c 7.5 H (4.0-6.0) % Calcium (8.4-10.2) mg/dL Total Protein (6.3-8.2) g/dL Albumin (3.5-5.0) g/dL 04/04/17 04/05/17 04/05/17 Range/Units 21:29 01:48 06:05 RBC 3.79 L (4.30-5.90) m/uL Hgb 11.7 L (13.0-17.5) gm/dL Hct 36.0 L (39.0-53.0) % Sodium (137-145) mmol/L BUN (9-20) mg/dL Glucose (74-99) mg/dL POC Glucose (mg/dL) 164 H 197 H (75-99) mg/dL Hemoglobin A1c (4.0-6.0) % Calcium (8.4-10.2) mg/dL Total Protein (6.3-8.2) g/dL Albumin (3.5-5.0) g/dL 04/05/17 04/05/17 Range/Units 06:05 06:06 RBC (4.30-5.90) m/uL Hgb (13.0-17.5) gm/dL Hct (39.0-53.0) % Sodium 135 L (137-145) mmol/L BUN 5 L (9-20) mg/dL Glucose 117 H (74-99) mg/dL POC Glucose (mg/dL) 137 H (75-99) mg/dL Hemoglobin A1c (4.0-6.0) % Calcium 8.3 L (8.4-10.2) mg/dL Total Protein 5.6 L (6.3-8.2) g/dL Albumin 3.0 L (3.5-5.0) g/dL Microbiology - Last 24 Hours (Table) 04/01/17 13:45 Gram Stain - Final Penis Wound Culture - Final - Imaging and Cardiology Chest x-ray: image reviewed Assessment and Plan (1) NSTEMI (non-ST elevated myocardial infarction) Current Visit: Yes Status: Acute Code(s): I21.4 - NON-ST ELEVATION (NSTEMI) MYOCARDIAL INFARCTION SNOMED Code(s): 035330652 (2) Family history of early CAD Current Visit: Yes Status: Chronic Code(s): Z82.49 - FAMILY HX OF ISCHEM HEART DIS AND OTH DIS OF [facility] SYS SNOMED Code(s): 722479564 (3) Insulin dependent diabetes mellitus Current Visit: Yes Status: Chronic Code(s): E11.9 - TYPE 2 DIABETES MELLITUS WITHOUT COMPLICATIONS; Z79.4 - FINGER WAVER (CURRENT) USE OF INSULIN SNOMED Code(s): 22467511 (4) Tobacco dependence Current Visit: Yes Status: Chronic Code(s): F17.200 - NICOTINE DEPENDENCE, UNSPECIFIED, UNCOMPLICATED SNOMED Code(s): 23393684 Plan: 1. Continue aspirin, statin, Plavix, heparin subcu, beta nikolas. We will increase metoprolol tartrate to 25 mg by mouth twice a day. 2. Continue 1500 mL fluid restriction per 24 hours. 3. Continue oral Cardizem to prevent radial artery spasm. 4. We will remove his left pleural chest tube today. 5. Wean O2 as tolerated. Encourage incentive spirometry use every hour while awake. Discussed and reinforced the importance of smoking cessation. 6. Discharge planning in place. 7. Increase activity as tolerated. Cardiac rehab and PT/OT following. 8. GI/DVT prophylaxis. 9. Insulin/diabetic management per primary care services. 10. Will monitor daily labs, chest x-rays. 11. We will give Lasix 20 mg IV 1 today. 12. More recommendations patient progresses. Time with Patient: Greater than 30
[2017-04-05] MEDS: METOPROLOL TARTRATE 25 MG TAB PO SCH ×2 (10:12→21:13)
[2017-04-05 12:03] LABS: Glucose,Whole Blood 257 mg/dL (75-99)
[2017-04-05 14:05] VITALS: RESP 18
--- NOTE | 2017-04-05 14:34 | P.PN ---
Subjective Progress Note Date: 04/05/17 Principal diagnosis: Acute non-ST segment myocardial infarction, status post CABG This is a very pleasant 56-year-old gentleman who follows with Dr. Jacobsen as his primary care physician. He has a history of insulin-dependent diabetes mellitus, chronic and ongoing tobacco dependence. No pulmonary history. No inhalers at home. He does have a family history of coronary artery disease with his father having 5 myocardial infarction suffered first one at age 55. The patient had presented here yesterday to the emergency room with complaints of chest pain. He described this as a pressure/burning sensation in the middle of his chest without any significant radiation. He did have shortness of breath and some diaphoresis. It lasted approximately half hour prior to his arrival to the emergency room. He had a similar episode about a week ago but did not seek any attention at that time. His EKG revealed extensive ST and T-wave abnormalities in the anterolateral leads. He ruled in for an acute non-ST segment elevation myocardial infarction. Today he had undergone cardiac catheterization with Dr. Colón and was found to have heavily calcified right and left coronary systems. There was severe disease involving the proximal to mid LAD and a long tubular lesion. 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 The patient will be receiving a balloon pump insertion. Recommendations for urgent coronary artery bypass grafting have been made. We are consulted for critical care management. The patient is seen in the intensive care unit. He is awake and alert in no acute distress. He is maintaining good O2 saturations in the mid 90s on room air. Chest x-ray revealed chronic changes but no acute cardiopulmonary process. There is a nodular density in the peripheral right lower lung most likely representing a nipple shadow. He's been hemodynamically stable. He has been maintained on a heparin drip. He is also on nitroglycerin at 5 mcg/m. He has a 0.9 normal saline at 100 mL per hour. His been initiated on aspirin statins and beta blockers. No leukocytosis. Hemoglobin 14.8. Platelet count 183,000. Troponin 0.099. Reevaluated today on 04/01/2017, patient is doing well, no major issues overnight , intra-aortic pump remains in place, patient is scheduled to have myocardial revascularization around noontime today. No major issues and no major symptoms overnight. Presently the patient remains asymptomatic. He is hemodynamically stable. All his meds and labs were reviewed. X-ray was also reviewed. Reevaluated today on 04/02/2017, patient underwent myocardial revascularization yesterday, extubated around 1 AM this morning, tolerated the extubation well, presently in no form of respiratory distress. His intra-aortic balloon pump was removed patient presented initially with severe symptomatic coronary artery disease with left main disease and non-ST elevation myocardial infarction. Chest x-ray is suggestive of mild component of volume overload and atelectasis. Reevaluated today on 04/03/2017, patient presented with symptomatic triple- vessel coronary artery disease and non-ST elevation myocardial infarction, he is postoperative day #2 had urgent off-pump coronary artery bypass grafting 3 with FARRELL to LAD, left radial artery graft to obtuse marginal and reverse greater saphenous vein graft to intermediate coronary artery with endoscopic vein harvest of the right thigh greater saphenous vein. Also had endoscopic left radial artery harvest. Patient is doing well today, relatively asymptomatic, labs and chest x-ray are reassuring. Doing great with incentive spirometry. CBC showed a hemoglobin of 10. Basic metabolic profile is relatively normal. Reevaluated today on 03/2017, patient is doing well, his sodium is a bit slow, and clinically the patient seems to be dehydrated, hence I recommended placing the patient on 0.9 normal saline at 75 mL per hour for the next 24 hours and have his sodium rechecked. Patient apparently is presently on fluid restrictions, and he received 1 dose of Lasix yesterday. At any rate I think his sodium will come back up with hydration only. Patient is postoperative day #3, he had urgent off pump coronary artery bypass grafting 3. Chest x-ray is reassuring. Clinically the patient is doing well and relatively asymptomatic. No shortness of breath no cough no wheezing. On 04/05/2017 patient is doing very well on the stepdown floor. He is on room air, with O2 sat at 95%. No acute distress, no specific pulmonary complaints. He has been ambulating in the hallway, without any respiratory difficulties. His lung sounds are clear to auscultation, no wheezes, no rhonchi. Midsternal incision is clean dry and intact. He still has a left pleural chest tube with small amount of serosanguineous drainage, which is getting discontinued this afternoon. He has been afebrile. He is compliant with the incentive spirometer. Denies any pain. Chest x-ray from 04/05/2017 shows tiny right- sided pleural effusion with basilar subsegmental consolidation, no evidence of heart failure, and left lung base atelectasis. Objective - Vital Signs Vital signs: Vital Signs Temp 96.6 F L 04/05/17 12:00 Pulse 77 04/05/17 12:00 Resp 18 04/05/17 12:00 BP 145/72 04/05/17 12:00 Pulse Ox 95 04/05/17 12:00 Intake & Output 04/04/17 04/05/17 04/05/17 18:59 06:59 18:59 Intake Total 702 416 Output Total 510 420 Balance 192 -420 416 Weight 73.3 kg Intake: Oral 702 416 Output: Chest Tube Drainage 510 120 Chest Tube 510 120 Urine 300 Other: Voiding Method Toilet # Voids 1 1 1 # Bowel Movements 2 ABP, PAP, CO, CI - Last Documented Arterial Blood Pressure 113/43 Pulmonary Artery Pressure 29/21 Cardiac Output 6.6 Cardiac Index 3.5 - Exam GENERAL EXAM: Alert, currently comfortable in no apparent distress. HEAD: Normocephalic. EYES: Normal reaction of pupils, equal size. NOSE: Clear with pink turbinates. THROAT: No erythema or exudates. NECK: No masses, no JVD. CHEST: No chest wall deformity. Left-sided chest tube is noted. LUNGS: Equal air entry with no crackles, wheeze, rhonchi or dullness. CVS: S1 and S2 normal with no audible murmur, regular rhythm. ABDOMEN: No hepatosplenomegaly, normal bowel sounds, no guarding or rigidity. SPINE: No scoliosis or deformity SKIN: No rashes CENTRAL NERVOUS SYSTEM: No focal deficits, tone is normal in all 4 extremities. EXTREMITIES: There is no peripheral edema. No clubbing, no cyanosis. Peripheral pulses are intact. - Labs CBC & Chem 7: 04/05/17 06:05 04/05/17 06:05 Labs: Abnormal Lab Results - Last 24 Hours (Table) 04/04/17 04/04/17 04/04/17 Range/Units 05:44 16:40 21:29 RBC (4.30-5.90) m/uL Hgb (13.0-17.5) gm/dL Hct (39.0-53.0) % Sodium (137-145) mmol/L BUN (9-20) mg/dL Glucose (74-99) mg/dL POC Glucose (mg/dL) 206 H 164 H (75-99) mg/dL Hemoglobin A1c 7.5 H (4.0-6.0) % Calcium (8.4-10.2) mg/dL Total Protein (6.3-8.2) g/dL Albumin (3.5-5.0) g/dL 04/05/17 04/05/17 04/05/17 Range/Units 01:48 06:05 06:05 RBC 3.79 L (4.30-5.90) m/uL Hgb 11.7 L (13.0-17.5) gm/dL Hct 36.0 L (39.0-53.0) % Sodium 135 L (137-145) mmol/L BUN 5 L (9-20) mg/dL Glucose 117 H (74-99) mg/dL POC Glucose (mg/dL) 197 H (75-99) mg/dL Hemoglobin A1c (4.0-6.0) % Calcium 8.3 L (8.4-10.2) mg/dL Total Protein 5.6 L (6.3-8.2) g/dL Albumin 3.0 L (3.5-5.0) g/dL 04/05/17 04/05/17 Range/Units 06:06 11:45 RBC (4.30-5.90) m/uL Hgb (13.0-17.5) gm/dL Hct (39.0-53.0) % Sodium (137-145) mmol/L BUN (9-20) mg/dL Glucose (74-99) mg/dL POC Glucose (mg/dL) 137 H 257 H (75-99) mg/dL Hemoglobin A1c (4.0-6.0) % Calcium (8.4-10.2) mg/dL Total Protein (6.3-8.2) g/dL Albumin (3.5-5.0) g/dL Microbiology - Last 24 Hours (Table) 04/01/17 13:45 Anaerobic Culture - Final Penis 04/01/17 13:45 Gram Stain - Final Penis Wound Culture - Final Assessment and Plan Plan: Plan: 1 status post CABG, postoperative day #3, patient presented with left main coronary artery disease and non-ST elevation myocardial infarction. #2 Significant coronary artery disease with heavily calcified right and left coronary systems. 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 Status post CABG #3 Insulin-dependent diabetes mellitus. #4 Chronic and ongoing tobacco dependence. #5 acute hypovolemic hyponatremia, improved. Serum sodium is 135 today. Recommendation: Continue incentive spirometry, ambulation, pulmonary toileting. Patient is doing very well. Advised to continue to abstain from smoking, patient will have his left pleural chest tube discontinued today. Anticipate discharge is tomorrow on 04/06/2017. Will follow-up with Dr. Rolon in 1 week I performed a history & physical examination of the patient and discussed their management with my nurse practitioner, Judy Sotelo. I reviewed the nurse practitioner's note and agree with the documented findings and plan of care. Lung sounds are clear. The findings and the impression was discussed with the patient. I attest to the documentation by the nurse practitioner. Time with Patient: Less than 30
[2017-04-05 14:51] VITALS: BMI 24.5
--- NOTE | 2017-04-05 14:54 | P.PN ---
Subjective Progress Note Date: 04/05/17 Principal diagnosis: CABG This is a pleasant 56-year-old gentleman who underwent urgent coronary artery bypass grafting surgery with FARRELL to the LAD, left radial to the obtuse marginal, reverse greater saphenous vein graft to the intermediate coronary artery, he has history of nicotine dependence and family history of premature coronary artery disease as well as insulin-dependent diabetes and hyperlipidemia. Patient was seen and examined on the telemetry unit today, overall feeling well, no complaints. Chest x-ray revealed postsurgical changes with stable right basilar atelectasis. Blood pressure 142/70 with a heart rate in the 70s, 95% on room air. Hemoglobin 11.7, potassium 3.7, BUN 5 and creatinine 0.6. Overall doing well. Objective - Vital Signs Vital signs: Vital Signs Temp 96.6 F L 04/05/17 12:00 Pulse 77 04/05/17 12:00 Resp 18 04/05/17 12:00 BP 145/72 04/05/17 12:00 Pulse Ox 95 04/05/17 12:00 Intake & Output 04/04/17 04/05/17 04/05/17 18:59 06:59 18:59 Intake Total 702 416 Output Total 510 420 Balance 192 -420 416 Weight 73.3 kg Intake: Oral 702 416 Output: Chest Tube Drainage 510 120 Chest Tube 510 120 Urine 300 Other: Voiding Method Toilet # Voids 1 1 1 # Bowel Movements 2 ABP, PAP, CO, CI - Last Documented Arterial Blood Pressure 113/43 Pulmonary Artery Pressure 29/21 Cardiac Output 6.6 Cardiac Index 3.5 - Exam PHYSICAL EXAMINATION: HEENT: Head is atraumatic, normocephalic. Pupils equal, round. Neck is supple. There is no elevated jugular venous pressure. HEART EXAMINATION: Heart S1, S2 normal. No murmur or gallop heard. CHEST EXAMINATION: Lungs are clear with diminished air entry to bilateral bases. No chest wall tenderness is noted on palpation or with deep breathing. ABDOMEN: Soft, nontender. Bowel sounds are heard. No organomegaly noted. EXTREMITIES: 2+ peripheral pulses with no evidence of peripheral edema and no calf tenderness noted. NEUROLOGIC patient is awake, alert and oriented -3. . - Labs CBC & Chem 7: 04/05/17 06:05 04/05/17 06:05 Labs: Abnormal Lab Results - Last 24 Hours (Table) 04/04/17 04/04/17 04/04/17 Range/Units 05:44 16:40 21:29 RBC (4.30-5.90) m/uL Hgb (13.0-17.5) gm/dL Hct (39.0-53.0) % Sodium (137-145) mmol/L BUN (9-20) mg/dL Glucose (74-99) mg/dL POC Glucose (mg/dL) 206 H 164 H (75-99) mg/dL Hemoglobin A1c 7.5 H (4.0-6.0) % Calcium (8.4-10.2) mg/dL Total Protein (6.3-8.2) g/dL Albumin (3.5-5.0) g/dL 04/05/17 04/05/17 04/05/17 Range/Units 01:48 06:05 06:05 RBC 3.79 L (4.30-5.90) m/uL Hgb 11.7 L (13.0-17.5) gm/dL Hct 36.0 L (39.0-53.0) % Sodium 135 L (137-145) mmol/L BUN 5 L (9-20) mg/dL Glucose 117 H (74-99) mg/dL POC Glucose (mg/dL) 197 H (75-99) mg/dL Hemoglobin A1c (4.0-6.0) % Calcium 8.3 L (8.4-10.2) mg/dL Total Protein 5.6 L (6.3-8.2) g/dL Albumin 3.0 L (3.5-5.0) g/dL 04/05/17 04/05/17 Range/Units 06:06 11:45 RBC (4.30-5.90) m/uL Hgb (13.0-17.5) gm/dL Hct (39.0-53.0) % Sodium (137-145) mmol/L BUN (9-20) mg/dL Glucose (74-99) mg/dL POC Glucose (mg/dL) 137 H 257 H (75-99) mg/dL Hemoglobin A1c (4.0-6.0) % Calcium (8.4-10.2) mg/dL Total Protein (6.3-8.2) g/dL Albumin (3.5-5.0) g/dL Microbiology - Last 24 Hours (Table) 04/01/17 13:45 Anaerobic Culture - Final Penis 04/01/17 13:45 Gram Stain - Final Penis Wound Culture - Final Assessment and Plan Plan: Assessment and plan #1 status post urgent coronary artery bypass grafting surgery #2 nicotine dependence #3 diabetes #4 hyperlipidemia Plan We will continue the aspirin, Lipitor, Plavix, Cardizem, insulin, metoprolol tartrate, consider the addition of an ALISHA inhibitor. Patient encouraged on the use of incentive spirometry. DNP note has been reviewed, I agree with a documented findings and plan of care. Patient was seen and examined.
[2017-04-05 16:51] LABS: Glucose,Whole Blood 253 mg/dL (75-99)
[2017-04-05 20:48] LABS: Glucose,Whole Blood 299 mg/dL (75-99)
[2017-04-05] MEDS ORDERED: INSULIN DETEMIR 100 UNIT/ML 10 ML VIAL SQ SCH ×2 (21:00→23:30)
[2017-04-05] MEDS: SENNOSIDES-DOCUSATE SODIUM 1 EACH TAB PO SCH (21:07)
--- NOTE | 2017-04-05 23:05 | P.PN ---
Subjective Progress Note Date: 04/05/17 Principal diagnosis: NSTEMI Patient is a 56-year-old male with a history of diabetes type 1 and family history of coronary disease in his father presented to ER with complaints of chest pain. Pain is mainly retrosternal associated with nausea and vomiting and diaphoresis. Pain is mainly pressure-like sensation. Denied any radiation to the neck shoulder or to the back. Also short of breath and chest pain lasted for about 30-40 minutes. Patient had similar pain about a week back but he did not seek medical attention at the time. Patient says that pain improved with nitro tablets in the ER. Chest x-ray showed no acute abnormality EKG showed normal sinus rhythm with ST depression in the anterolateral leads 03/31/2017 Patient underwent cardiac catheterization showed severe coronary artery disease involving proximal and mid LAD. There is critical distal left main disease. Patient was placed on intra-aortic balloon pump and is awaiting CT surgery recommendations. Currently patient is awake oriented and denied any complaints of chest pain. No nausea vomiting or abdominal pain. Patient is encouraged with incentive spirometry. Chest x-ray revealed chronic changes but no acute cardiopulmonary process. 04/01/2017 Patient is currently medically stable. No acute overnight issues. Patient is undergoing triple-vessel coronary artery bypass graft today. 04/02/2017 Postoperatively patient was intubated and was successfully extubated this morning. No complaints of chest and patient does have soreness. Chest x-ray shows slight volume overload. Otherwise no fever no chills. 04/03/2017 Patient is improving clinically. Chest x-ray stable findings with improvement. No fever no chills. Continued on incentive spirometry. Patient is hemodynamically stable. Patient is being transferred to telemetry unit. 04/04/2017 Patient is currently ambulating in the hallway. denied any chest pain or shortness of breath. No fever no chills. No acute overnight issues. 04/05/2017 Patient denied any chest pain or shortness of breath. Clinically much improved. Otherwise patient is still having hyperglycemia. We will increase Lantus to 20 units daily at bedtime along with aspart 7 units 3 times a day before meals and insulin sliding scale. No nausea vomiting or abdominal pain. No dysuria or hematuria. All other review of systems negative except above Current medications reviewed. Objective - Vital Signs Vital signs: Vital Signs Temp 97.8 F 04/05/17 20:00 Pulse 79 04/05/17 20:00 Resp 18 04/05/17 20:00 BP 132/69 04/05/17 20:00 Pulse Ox 96 04/05/17 20:00 Intake & Output 04/05/17 04/05/17 04/06/17 06:59 18:59 06:59 Intake Total 652 Output Total 420 Balance -420 652 Weight 73.3 kg 73.3 kg Intake: Oral 652 Output: Chest Tube Drainage 120 Chest Tube 120 Urine 300 Other: Voiding Method Toilet Toilet # Voids 1 1 ABP, PAP, CO, CI - Last Documented Arterial Blood Pressure 113/43 Pulmonary Artery Pressure 29/21 Cardiac Output 6.6 Cardiac Index 3.5 - Exam PHYSICAL EXAMINATION: Patient is lying in the bed comfortably, no acute distress, awake alert and oriented.. HEENT: Normocephalic. Neck is supple. Pupils reactive. Nostrils clear. Oral cavity is moist. Ears reveal no drainage. Neck reveals no JVD, carotid bruits, or thyromegaly. CHEST EXAMINATION: Trachea is central. Symmetrical expansion. Bilateral minimal rhonchi. No wheezing CARDIAC: Normal S1, S2 with no gallops. No murmurs . Sternal wound is bandaged. ABDOMEN: Soft. Bowel sounds normal. No organomegaly. No abdominal bruits. Extremities: reveal no edema. No clubbing or cyanosis Neurologically awake, alert, oriented x3 with well-coordinated movements. No focal deficits noted Skin: No rash or skin lesions. Psychiatric: Cooperative. Nonsuicidal Musculoskeletal: No joint swelling or deformity. Normal range of motion. - Labs CBC & Chem 7: 04/05/17 06:05 04/05/17 06:05 Labs: Abnormal Lab Results - Last 24 Hours (Table) 04/04/17 04/05/17 04/05/17 Range/Units 05:44 01:48 06:05 RBC 3.79 L (4.30-5.90) m/uL Hgb 11.7 L (13.0-17.5) gm/dL Hct 36.0 L (39.0-53.0) % Sodium (137-145) mmol/L BUN (9-20) mg/dL Glucose (74-99) mg/dL POC Glucose (mg/dL) 197 H (75-99) mg/dL Hemoglobin A1c 7.5 H (4.0-6.0) % Calcium (8.4-10.2) mg/dL Total Protein (6.3-8.2) g/dL Albumin (3.5-5.0) g/dL 04/05/17 04/05/17 04/05/17 Range/Units 06:05 06:06 11:45 RBC (4.30-5.90) m/uL Hgb (13.0-17.5) gm/dL Hct (39.0-53.0) % Sodium 135 L (137-145) mmol/L BUN 5 L (9-20) mg/dL Glucose 117 H (74-99) mg/dL POC Glucose (mg/dL) 137 H 257 H (75-99) mg/dL Hemoglobin A1c (4.0-6.0) % Calcium 8.3 L (8.4-10.2) mg/dL Total Protein 5.6 L (6.3-8.2) g/dL Albumin 3.0 L (3.5-5.0) g/dL 04/05/17 04/05/17 Range/Units 16:47 20:45 RBC (4.30-5.90) m/uL Hgb (13.0-17.5) gm/dL Hct (39.0-53.0) % Sodium (137-145) mmol/L BUN (9-20) mg/dL Glucose (74-99) mg/dL POC Glucose (mg/dL) 253 H 299 H (75-99) mg/dL Hemoglobin A1c (4.0-6.0) % Calcium (8.4-10.2) mg/dL Total Protein (6.3-8.2) g/dL Albumin (3.5-5.0) g/dL Microbiology - Last 24 Hours (Table) 04/01/17 13:45 Anaerobic Culture - Final Penis Assessment and Plan Assessment: 1 chest pain due to NSTEMI with elevated troponin level on admission #2 severe coronary artery disease status post cardiac catheterization. was on intra-aortic balloon pump. Status post CABG on 04/01/2017 #2 diabetes type 1 Hb A1c 7.8 uncontrolled with hyperglycemia #3 every day smoker #4 family history of significant coronary artery disease Plan: Will change insulin dose to 21 units Levemir daily at bedtime and aspart 7 units 3 times a day before meals along with insulin sliding scale and will adjust accordingly. Patient will continue on telemetry monitoring. Patient is symptomatically much improved now. Ambulating in the hallway. intra-aortic balloon pump was removed.. CT surgery and pulmonary is following. Counseled for smoking cessation. Further recommendations based on the clinical course. Encouraged incentive spirometry. Monitor urine output and follow closely
[2017-04-05 23:59] LABS: Glucose,Whole Blood 182 mg/dL (75-99)
[2017-04-06 02:31] LABS: Glucose,Whole Blood 279 mg/dL (75-99)
[2017-04-06] MEDS: INSULIN ASPART 100 UNIT/ML 1 ML 10 ML VIAL SQ SCH ×4 (02:34→12:04)
[2017-04-06] MEDS: HYDROcodone/APAP 5-325MG 1 EACH TAB PO PRN (04:16)
[2017-04-06 06:06] LABS: Basophils % (A) 1 %; CHCM 33.5; Eosinophils # (A) 0.6 k/uL (0-0.7); Eosinophils % (A) 9 %; HCT 38.2 % (39.0-53.0); HDW 2.36; HGB 12.7 gm/dL (13.0-17.5); Luc % (Auto) 1; Lymphocytes # (A) 1.1 k/uL (1.0-4.8); Lymphocytes % (A) 17 %; MCH 30.9 pg (25.0-35.0); MCHC 33.1 g/dL (31.0-37.0); MCV 93.2 fL (80.0-100.0); Mean Platelet Volume 7.9; Monocytes # (A) 0.8 k/uL (0-1.0); Monocytes % (A) 13 %; Neutrophils % (A) 60 %; WBC 6.6 k/uL (3.8-10.6); WBC (Perox) 6.61
[2017-04-06 06:19] LABS: Glucose,Whole Blood 119 mg/dL (75-99)
[2017-04-06 06:22] LABS: Anion Gap 7 mmol/L; Blood Urea Nitrogen 7 mg/dL (9-20); Calcium 8.9 mg/dL (8.4-10.2); Carbon Dioxide 27 mmol/L (22-30); Chloride 100 mmol/L (98-107); Glucose 136 mg/dL (74-99); Non-African American GFR(MDRD) >60 (>60 ml/min/1.73 sqM); Phosphorus 2.8 mg/dL (2.5-4.5); Potassium 3.7 mmol/L (3.5-5.1); Sodium 134 mmol/L (137-145)
[2017-04-06] MEDS: PANTOPRAZOLE 40 MG TABLET PO SCH (06:48)
[2017-04-06] MEDS: KETOROLAC 30 MG/ML 1 ML VIAL IVP SCH (06:48)
--- NOTE | 2017-04-06 08:05 | P.PN ---
Subjective Progress Note Date: 04/06/17 Principal diagnosis: Severe symptomatic triple-vessel coronary artery disease with left main disease , non-STEMI. History of insulin-dependent diabetes mellitus with hemoglobin A1c 7.8%. Current tobacco dependence. Family history of premature coronary artery disease. POD #5 urgent off-pump coronary artery bypass grafting 3 with left internal mammary artery graft to LAD, left radial artery graft to obtuse marginal, reverse saphenous vein graft to intermediate coronary artery with endoscopic vein harvest, endoscopic radial artery harvest, epi-aortic ultrasonography, intraoperative transesophageal echocardiogram by anesthesia. Patient's currently sitting up in bed in no acute distress. He just finished breakfast. Denies pain, shortness of breath. Has ambulated in the hallway multiple times on 6 E. selective care. Left pleural chest tube was discontinued yesterday. Patient states he is ready to go home. Objective - Vital Signs Vital signs: Vital Signs Temp 97.9 F 04/06/17 04:00 Pulse 74 04/06/17 04:00 Resp 18 04/06/17 04:00 BP 136/78 04/06/17 04:00 Pulse Ox 96 04/06/17 04:00 Intake & Output 04/05/17 04/06/17 04/06/17 18:59 06:59 18:59 Intake Total 652 20 360 Balance 652 20 360 Weight 73.3 kg 70.9 kg Intake: IV 20 0.9 20 Oral 652 360 Other: Voiding Method Toilet # Voids 1 ABP, PAP, CO, CI - Last Documented Arterial Blood Pressure 113/43 Pulmonary Artery Pressure 29/21 Cardiac Output 6.6 Cardiac Index 3.5 - Constitutional General appearance: Present: cooperative, no acute distress - Respiratory Details: Lungs sounds diminished bilaterally. Respirations even, nonlabored. Currently on room air with oxygen saturation 96%. Able to achieve 2250 mL on his incentive spirometry. Effective cough. Chest x-ray reviewed, stable. - Cardiovascular Details: S1, S2 present. Regular rate and rhythm, normal some sinus rhythm on telemetry. Sternum stable. Palpable right radial, left ulnar, bilateral PT and DP pulses. No edema present. Heart hugger in place with patient demonstrating appropriate use. Antiembolism stockings, SCDs present. - Gastrointestinal Gastrointestinal Comment(s): Abdomen soft, nontender, nondistended. Active bowel sounds 4 quadrants. Tolerating diet. Positive bowel movement. - Genitourinary Genitourinary Comment(s): Patient continues to void. - Integumentary Integumentary Comment(s): Anterior chest incision well approximated and covered with dry intact dressing. Left radial harvest site well approximated with Dermabond. Left hand with good color/cap refill, no numbness or tingling. Right lower extremity EVH site well approximated Dermabond. - Neurologic Neurologic: Present: CNII-XII intact - Musculoskeletal Musculoskeletal: Present: gait normal, strength equal bilaterally - Psychiatric Psychiatric: Present: A&O x's 3, appropriate affect, intact judgment & insight - Allied health notes Allied health notes reviewed: nursing - Labs CBC & Chem 7: 04/06/17 05:43 04/06/17 05:43 Labs: Abnormal Lab Results - Last 24 Hours (Table) 04/05/17 04/05/17 04/05/17 Range/Units 11:45 16:47 20:45 RBC (4.30-5.90) m/uL Hgb (13.0-17.5) gm/dL Hct (39.0-53.0) % Sodium (137-145) mmol/L BUN (9-20) mg/dL Creatinine (0.66-1.25) mg/dL Glucose (74-99) mg/dL POC Glucose (mg/dL) 257 H 253 H 299 H (75-99) mg/dL 04/05/17 04/06/17 04/06/17 Range/Units 23:47 02:29 05:43 RBC (4.30-5.90) m/uL Hgb (13.0-17.5) gm/dL Hct (39.0-53.0) % Sodium 134 L (137-145) mmol/L BUN 7 L (9-20) mg/dL Creatinine 0.58 L (0.66-1.25) mg/dL Glucose 136 H (74-99) mg/dL POC Glucose (mg/dL) 182 H 279 H (75-99) mg/dL 04/06/17 04/06/17 Range/Units 05:43 06:16 RBC 4.10 L (4.30-5.90) m/uL Hgb 12.7 L (13.0-17.5) gm/dL Hct 38.2 L (39.0-53.0) % Sodium (137-145) mmol/L BUN (9-20) mg/dL Creatinine (0.66-1.25) mg/dL Glucose (74-99) mg/dL POC Glucose (mg/dL) 119 H (75-99) mg/dL Microbiology - Last 24 Hours (Table) 04/01/17 13:45 Anaerobic Culture - Final Penis - Imaging and Cardiology Chest x-ray: image reviewed Assessment and Plan (1) Tobacco dependence Current Visit: Yes Status: Chronic Code(s): F17.200 - NICOTINE DEPENDENCE, UNSPECIFIED, UNCOMPLICATED SNOMED Code(s): 97163461 (2) Insulin dependent diabetes mellitus Current Visit: Yes Status: Chronic Code(s): E11.9 - TYPE 2 DIABETES MELLITUS WITHOUT COMPLICATIONS; Z79.4 - 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 Continue aspirin, statin, Plavix, heparin subcu, beta nikolas. Will maximize beta nikolas therapy as tolerated. 2. Oral Cardizem changed to long-acting. Continue Cardizem for radial artery spasm prophylaxis. 3. Encourage incentive spirometry use. Encourage/reinforce smoking cessation. 4. Increase activity. Ambulate in hallway. PT, OT following. 5. GI/DVT prophylaxis. 6. Insulin/diabetic management per primary care services. Need better blood sugar control. 7. Discharge planning in progress. Anticipate patient will be discharged to home with home care later today after first shower. Time with Patient: Greater than 30
--- NOTE | 2017-04-06 08:15 | XR ---
EXAMINATION TYPE: XR chest 2V DATE OF EXAM: 04/06/2017 COMPARISON: Prior chest x-ray 04/05/2017 HISTORY: Status post chest tube removal TECHNIQUE: Frontal and lateral views of the chest are obtained. FINDINGS: There is been interval removal of left-sided chest tube. No evident pneumothorax or pleura l effusion. Subcutaneous emphysema is again noted, there are overlying cardiac leads. Patient is post median sternotomy. Cardiac mediastinal silhouette, pulmonary vascularity and maribell are within normal limits. Fourth anterior rib on the right shows some increased density, there may be superimposition o f structures. IMPRESSION: No evident complication status post chest tube removal. Increased density superimposed a t the level of anterior fourth rib may be due to some local atelectasis, follow-up PA and lateral russ st x-ray recommended, consider chest CT.
[2017-04-06] MEDS ORDERED: DILTIAZEM CD 120 MG CAP.ER.24H PO SCH (09:00)
[2017-04-06] MEDS: METOPROLOL TARTRATE 25 MG TAB PO SCH (09:29)
[2017-04-06] MEDS: ATORVASTATIN 80 MG TAB PO SCH (09:29)
[2017-04-06] MEDS: CLOPIDOGREL 75 MG TAB PO SCH (09:29)
[2017-04-06] MEDS: HEPARIN SODIUM,PORCINE 5,000 UNIT/ML 1 ML VIAL SQ SCH (09:30)
[2017-04-06] MEDS: ASPIRIN 325 MG TAB PO SCH (09:30)
[2017-04-06 09:35] VITALS: BP 130/72; PULSE 72; TEMP 97.4
[2017-04-06 12:07] LABS: Glucose,Whole Blood 48 mg/dL (75-99)
--- NOTE | 2017-04-06 12:37 | PN ---
PROGRESS NOTE Mr. Olsen is status post bypass surgery. Remains in sinus rhythm, doing well, ambulating in the hallways without symptoms. S1 and S2 heard normally. Lungs are clear. Abdomen and lower extremities exam unchanged. Vital signs are stable. Plan is to continue current medication and increase activity. Possible discharge today and he will see Dr. Colón in 2 weeks. MMODL / IJN: [id number] /
--- NOTE | 2017-04-06 12:51 | P.DS ---
Providers Date of admission: 03/30/17 12:59 Expected date of discharge: 04/06/17 Attending physician: Greg Heart Consults: 03/30/17 12:59 Consult Physician Urgent Consulting Provider: Ronald Colón Consult Reason/Comments: nstemi Do you want consulting provider notified?: Yes 03/31/17 10:00 Consult Physician Urgent Consulting Provider: Mendoza Dawkins Consult Reason/Comments: CAD Do you want consulting provider notified?: Yes 03/31/17 10:10 Consult Physician Urgent Consulting Provider: Allyssa Mcgee Consult Reason/Comments: patient needs cabg Do you want consulting provider notified?: Yes 03/31/17 10:36 Consult to Anesthesia Routine Consulting Provider: Anesthesia,Services Consult Reason/Comments: Cardiac Surgery Pre-Op 04/01/17 18:03 Consult Physician Routine Consulting Provider: Greg Heart Consult Reason/Comments: medical managment Do you want consulting provider notified?: Already Contacted Primary care physician: Joseph Jacobsen - Discharge Diagnosis(es) (1) Tobacco dependence Current Visit: Yes Status: Chronic (2) Insulin dependent diabetes mellitus Current Visit: Yes Status: Chronic (3) Family history of early CAD Current Visit: Yes Status: Chronic (4) Hypoglycemia associated with type 2 diabetes mellitus Current Visit: Yes Status: Chronic (5) NSTEMI (non-ST elevated myocardial infarction) Current Visit: Yes Status: Acute Hospital Course: FINAL DIAGNOSIS: 1. Severe symptomatic triple-vessel coronary artery disease with left main disease, non-STEMI 2. Type 1 diabetes mellitus 3. Tobacco dependence 4. Family history of coronary artery disease at an early age PRINCIPAL PROCEDURE: 1. Selective right and left coronary angiogram with right radial approach, placement of intra-aortic balloon pump 2. Urgent off-pump coronary artery bypass grafting 3 with left internal mammary artery graft to the left anterior descending artery, left radial artery graft to the obtuse marginal, reverse saphenous vein graft to the intermediate coronary artery. 3. Endoscopic vein harvest right greater saphenous vein 4. Endoscopic radial artery harvest 5. Epi-aortic ultrasonography 6. Intraoperative transesophageal echocardiogram performed by anesthesia HISTORY OF PRESENT ILLNESS: This 56-year-old gentleman who follows with Dr. Jacobsen on an outpatient basis at the [facility] presented to the emergency department with complaints of retrosternal chest pain associated with nausea, vomiting, and diaphoresis without radiation or shortness of breath. His pain did improve with nitroglycerin. EKG done in the emergency room demonstrated ST changes in the anterior lateral leads. He was admitted to [address] [place] [address] and taken for left and right heart catheterization which demonstrated left main disease with 95% stenosis, right coronary artery with 70 % stenosis, circumflex artery with 100% stenosis, proximal LAD with 50% stenosis as well as the mid LAD with 20% stenosis. Of note he had a clot in the left main per Dr. Colón. Echocardiogram was completed which demonstrated an ejection fraction of 30-35% and no significant valvular disorders. Dr. Dawkins from cardiothoracic surgery was consulted for urgent surgical revascularization. An extensive discussion was had with the patient is family, risks and benefits were explained, and consent was obtained to proceed with surgery. An intra-aortic balloon pump was placed in the vat house laborer by Dr. Colón, and the patient was kept overnight in the intensive care unit for further monitoring in maximal medical optimization pre-surgery. HOSPITAL COURSE: Patient was taken to the preoperative area on 04/01/2017, prepared in the usual fashion, and subsequently taken to the operating room where Dr. Cody performed and urgent off-pump coronary artery bypass grafting 3 with the left internal mammary artery to the left anterior descending artery, left radial artery to the obtuse marginal, reverse saphenous vein graft to the intermediate coronary artery, endoscopic vein harvest of the right greater saphenous vein, endoscopic radial artery harvest, epi-aortic ultrasonography, and an intraoperative transesophageal echocardiogram was done by anesthesia. Upon completion of surgery, the patient was transferred to the cardiovascular intensive care where he was recovered, monitored hemodynamically, and where he progressed to cardiac rehabilitation phase 1. He was extubated, intra-aortic balloon pump was discontinued on postop day 1, all lines, tubes, and drips were discontinued when appropriate, and he was transferred to [address] [place] [address] for further monitoring and rehabilitation. His oxygen was titrated down, he continued to work with physical therapy, and was ready to be discharged to home on postoperative day #5 with home care to follow. He received written and verbal instruction regarding his medications, activity restrictions, signs and symptoms requiring physician notification, and follow-up appointments. COMPLICATIONS: The patient experienced no postoperative complications. Patient Condition at Discharge: Stable Plan - Discharge Summary Discharge Rx Participant: Yes New Discharge Prescriptions: New Aspirin 325 mg PO DAILY #30 tab Atorvastatin [Lipitor] 80 mg PO DAILY #30 tab Clopidogrel [Plavix] 75 mg PO DAILY #30 tab Diltiazem Cd [Cardizem CD] 120 mg PO DAILY #30 cap.er.24h HYDROcodone/APAP 5-325MG [Sylvester 5-325] 1 - 2 each PO Q6HR PRN #120 tab PRN Reason: Moderate Pain Metoprolol Tartrate [Lopressor] 25 mg PO BID #60 tab Pantoprazole [Protonix] 40 mg PO AC-BRKFST #30 tablet.dr Trevizo-Docusate Sodium [Senokot-S] 2 each PO HS tab No Action Insulin Glargine [Lantus] 35 unit SQ DAILY Insulin Aspart [NovoLOG] See Protocol SQ AC-TID Discharge Medication List Insulin Glargine [Lantus] 35 unit SQ DAILY 02/25/16 [History] Insulin Aspart [NovoLOG] See Protocol SQ AC-TID 03/30/17 [History] Aspirin 325 mg PO DAILY #30 tab 04/06/17 [Rx] Atorvastatin [Lipitor] 80 mg PO DAILY #30 tab 04/06/17 [Rx] Clopidogrel [Plavix] 75 mg PO DAILY #30 tab 04/06/17 [Rx] Diltiazem Cd [Cardizem CD] 120 mg PO DAILY #30 cap.er.24h 04/06/17 [Rx] HYDROcodone/APAP 5-325MG [Sylvester 5-325] 1 - 2 each PO Q6HR PRN #120 tab 04/06/17 [Rx] Metoprolol Tartrate [Lopressor] 25 mg PO BID #60 tab 04/06/17 [Rx] Pantoprazole [Protonix] 40 mg PO AC-BRKFST #30 tablet. 04/06/17 [Rx] Sennosides-Docusate Sodium [Senokot-S] 2 each PO HS tab 04/06/17 [Rx] Follow up Appointment(s)/Referral(s): Susan Gama NPC [Nurse Practitioner] - 04/12/17 12:00 pm Ronald Colón MD [STAFF PHYSICIAN] - 04/13/17 8:30 am Garfield Cody MD [STAFF PHYSICIAN] - 04/29/17 2:45 pm McPhilimy,Joseph, DO [Primary Care Provider] - 04/20/17 8:00 am ([facility] with Lorena ) Allyssa Mcgee MD [STAFF PHYSICIAN] - 04/30/17 2:15 pm Ambulatory/Diagnostic Orders: Complete Blood Count w/diff [LAB.AMB] Time Frame: 3 Days, Location: Determined By Patient Comprehensive Metabolic Panel [LAB.AMB] Time Frame: 3 Days, Location: Determined By Patient Activity/Diet/Wound Care/Special Instructions: DISCHARGE INSTRUCTIONS: 1. No driving for 4 weeks, or until physician gives their ok. 2. The patient should sleep in their own bed, no medical bed needed. 3. Stairs are not an issue. If the bedroom is upstairs, it is advised that the patient go up at night and down in the morning for the first week. Go slowly, using handrail and take 1 step at a time. 4. TITA hose are to be worn for 30 days or until physician discontinues. 5. Heart hugger is to be worn 100% of the time until physician discontinues.( except when showering) 6. No lifting, pushing, or pulling more than 10 pounds for 12 weeks. The physician will advise of any restriction changes. 7. The patient is expected to continue the prescribed walking program. 8. Continue pain control per as needed orders. 9. Continue with incentive spirometry and splinting/heart hugger until otherwise directed by the physician. 10. Must shower daily using liquid antibacterial soap and a separate white washcloth for each individual incision. 11. Routine sternal incision care. No powders, lotions, ointments on incisions. 12. Please call surgeon/DERRICK ENGINEER for temp greater than 101 F or purulent drainage from incisions. 13. All prescriptions given by surgeon for 30 days. Refills need to be filled through supervisor cutting department/primary care physician. HOME HEALTH SERVICES TO PROVIDE: RN SKILLED HOME CARE SERVICES FOR POST-OP SURGICAL PATIENTS WITH THE FOLLOWING: Coronary Artery Bypass Surgery (CABG) RN TO CONTINUE EDUCATION FROM ``ROAD TO A HEALTH HEART PATIENT EDUCATION MANUAL (GIVEN TO PATIENT IN THE HOSPITAL) MEDICATION RECONCILIATION WITH EDUCATION NEEDED ON FIRST HOME VISIT EMPHASIZE IMPORTANCE OF WEARING BREAST SUPPORT/HEART HUGGER ENCOURAGE USE OF INCENTIVE SPIROMETER 10 X EVERY HOUR WHILE AWAKE ENCOURAGE UTILIZATION OF LOWER EXTREMITY COMPRESSION STOCKINGS/TITA HOSE and ELEVATE LEGS ABOVE LEVEL OF HEART WHILE AT REST. ENCOURAGE AMBULATION 3-5x/day INCREASING TOLERATES, WHILE AVOID EXTREMES IN TEMPERATURE FREQUENCY: RN TO OPEN THE PATIENT WITHIN 24 HOURS OF DISCHARGE FROM THE HOSPITAL WITH TELEHEALTH INSTALLED AT [facility], RN TO VISIT 2-3 X A WEEK FOR 4 WEEKS ESTABLISHED BY PATIENT NEEDS. LABORATORY: CBC, CMP TO BE DRAWN ON THE THIRD DAY HOME, Wednesday04/09/2017 (RAN STAT) FAX RESULTS TO [phone]. TELEHEALTH PARAMETERS: WEIGHT: NOTIFY MD OF WEIGHT GAIN OF 2 LBS IN 24 HOURS OR 5 LBS IN ONE WEEK HR: NOTIFY MD OF HR <55 BPM OR HR>100 BPM BP: NOTIFY MD IF BP <90/55 OR BP>140/100 O2 SAT: NOTIFY MD IF PO2<93% ON ROOM AIR SEND TELEHEALTH REPORT TO ACCOUNTING INTERN AND CARDIOVASCULAR SURGEON THE FIRST WEEK OF CARE AND THEN BI-WEEKLY. PLEASE ADDITIONALLY COMMUNICATE ANY ABNORMALS AND NEW FINDINGS TO THE SURGEONS OFFICE. A Red armband has been placed on the patient. It should be worn for 30 days post surgery and will be removed by the cardiac surgeons. If an ER visit is necessary, please make sure the number on the Red armband is called. Discharge Disposition: HOME WITH HOME HEALTH SERVICES
[2017-04-06 12:56] LABS: Glucose,Whole Blood 63 mg/dL (75-99)
[2017-04-06 12:56] LABS: Glucose,Whole Blood 131 mg/dL (75-99)
--- NOTE | 2017-04-06 14:49 | P.PN ---
Subjective Progress Note Date: 04/06/17 Principal diagnosis: Acute non-ST segment myocardial infarction, status post CABG This is a very pleasant 56-year-old gentleman who follows with Dr. Jacobsen as his primary care physician. He has a history of insulin-dependent diabetes mellitus, chronic and ongoing tobacco dependence. No pulmonary history. No inhalers at home. He does have a family history of coronary artery disease with his father having 5 myocardial infarction suffered first one at age 55. The patient had presented here yesterday to the emergency room with complaints of chest pain. He described this as a pressure/burning sensation in the middle of his chest without any significant radiation. He did have shortness of breath and some diaphoresis. It lasted approximately half hour prior to his arrival to the emergency room. He had a similar episode about a week ago but did not seek any attention at that time. His EKG revealed extensive ST and T-wave abnormalities in the anterolateral leads. He ruled in for an acute non-ST segment elevation myocardial infarction. Today he had undergone cardiac catheterization with Dr. Colón and was found to have heavily calcified right and left coronary systems. There was severe disease involving the proximal to mid LAD and a long tubular lesion. 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 The patient will be receiving a balloon pump insertion. Recommendations for urgent coronary artery bypass grafting have been made. We are consulted for critical care management. The patient is seen in the intensive care unit. He is awake and alert in no acute distress. He is maintaining good O2 saturations in the mid 90s on room air. Chest x-ray revealed chronic changes but no acute cardiopulmonary process. There is a nodular density in the peripheral right lower lung most likely representing a nipple shadow. He's been hemodynamically stable. He has been maintained on a heparin drip. He is also on nitroglycerin at 5 mcg/m. He has a 0.9 normal saline at 100 mL per hour. His been initiated on aspirin statins and beta blockers. No leukocytosis. Hemoglobin 14.8. Platelet count 183,000. Troponin 0.099. Reevaluated today on 04/01/2017, patient is doing well, no major issues overnight , intra-aortic pump remains in place, patient is scheduled to have myocardial revascularization around noontime today. No major issues and no major symptoms overnight. Presently the patient remains asymptomatic. He is hemodynamically stable. All his meds and labs were reviewed. X-ray was also reviewed. Reevaluated today on 04/02/2017, patient underwent myocardial revascularization yesterday, extubated around 1 AM this morning, tolerated the extubation well, presently in no form of respiratory distress. His intra-aortic balloon pump was removed patient presented initially with severe symptomatic coronary artery disease with left main disease and non-ST elevation myocardial infarction. Chest x-ray is suggestive of mild component of volume overload and atelectasis. Reevaluated today on 04/03/2017, patient presented with symptomatic triple- vessel coronary artery disease and non-ST elevation myocardial infarction, he is postoperative day #2 had urgent off-pump coronary artery bypass grafting 3 with FARRELL to LAD, left radial artery graft to obtuse marginal and reverse greater saphenous vein graft to intermediate coronary artery with endoscopic vein harvest of the right thigh greater saphenous vein. Also had endoscopic left radial artery harvest. Patient is doing well today, relatively asymptomatic, labs and chest x-ray are reassuring. Doing great with incentive spirometry. CBC showed a hemoglobin of 10. Basic metabolic profile is relatively normal. Reevaluated today on 03/2017, patient is doing well, his sodium is a bit slow, and clinically the patient seems to be dehydrated, hence I recommended placing the patient on 0.9 normal saline at 75 mL per hour for the next 24 hours and have his sodium rechecked. Patient apparently is presently on fluid restrictions, and he received 1 dose of Lasix yesterday. At any rate I think his sodium will come back up with hydration only. Patient is postoperative day #3, he had urgent off pump coronary artery bypass grafting 3. Chest x-ray is reassuring. Clinically the patient is doing well and relatively asymptomatic. No shortness of breath no cough no wheezing. On 04/05/2017 patient is doing very well on the stepdown floor. He is on room air, with O2 sat at 95%. No acute distress, no specific pulmonary complaints. He has been ambulating in the hallway, without any respiratory difficulties. His lung sounds are clear to auscultation, no wheezes, no rhonchi. Midsternal incision is clean dry and intact. He still has a left pleural chest tube with small amount of serosanguineous drainage, which is getting discontinued this afternoon. He has been afebrile. He is compliant with the incentive spirometer. Denies any pain. Chest x-ray from 04/05/2017 shows tiny right- sided pleural effusion with basilar subsegmental consolidation, no evidence of heart failure, and left lung base atelectasis. On 04/06/2017 patient is doing very well on the stepdown unit. He is on room air, in no acute distress, no specific complaints. Lung sounds are clear to auscultation, no rhonchi, no wheezes, no rales noted. His left pleural chest tube has been discontinued. His midsternal incision is clean dry and intact, chest tube insertion sites covered with dressings, no significant drainage. He denies any pain. Compliant with his incentive spirometer. He is awaiting to be discharged home today. From pulmonary standpoint he stable for discharge, follow-up with Dr. Mcgee in the office next week. Objective - Vital Signs Vital signs: Vital Signs Temp 97.4 F L 04/06/17 08:00 Pulse 72 04/06/17 08:00 Resp 18 04/06/17 08:00 BP 130/72 04/06/17 08:00 Pulse Ox 96 04/06/17 08:00 Intake & Output 04/05/17 04/06/17 04/06/17 18:59 06:59 18:59 Intake Total 652 20 360 Balance 652 20 360 Weight 73.3 kg 70.9 kg Intake: IV 20 0.9 20 Oral 652 360 Other: Voiding Method Toilet # Voids 1 ABP, PAP, CO, CI - Last Documented Arterial Blood Pressure 113/43 Pulmonary Artery Pressure 29/21 Cardiac Output 6.6 Cardiac Index 3.5 - Exam GENERAL EXAM: Alert, currently comfortable in no apparent distress. HEAD: Normocephalic. EYES: Normal reaction of pupils, equal size. NOSE: Clear with pink turbinates. THROAT: No erythema or exudates. NECK: No masses, no JVD. CHEST: No chest wall deformity. Left-sided chest tube has been discontinued. LUNGS: Equal air entry with no crackles, wheeze, rhonchi or dullness. CVS: S1 and S2 normal with no audible murmur, regular rhythm. ABDOMEN: No hepatosplenomegaly, normal bowel sounds, no guarding or rigidity. SPINE: No scoliosis or deformity SKIN: No rashes CENTRAL NERVOUS SYSTEM: No focal deficits, tone is normal in all 4 extremities. EXTREMITIES: There is no peripheral edema. No clubbing, no cyanosis. Peripheral pulses are intact. - Labs CBC & Chem 7: 04/06/17 05:43 04/06/17 05:43 Labs: Abnormal Lab Results - Last 24 Hours (Table) 04/05/17 04/05/17 04/05/17 Range/Units 16:47 20:45 23:47 RBC (4.30-5.90) m/uL Hgb (13.0-17.5) gm/dL Hct (39.0-53.0) % Sodium (137-145) mmol/L BUN (9-20) mg/dL Creatinine (0.66-1.25) mg/dL Glucose (74-99) mg/dL POC Glucose (mg/dL) 253 H 299 H 182 H (75-99) mg/dL 04/06/17 04/06/17 04/06/17 Range/Units 02:29 05:43 05:43 RBC 4.10 L (4.30-5.90) m/uL Hgb 12.7 L (13.0-17.5) gm/dL Hct 38.2 L (39.0-53.0) % Sodium 134 L (137-145) mmol/L BUN 7 L (9-20) mg/dL Creatinine 0.58 L (0.66-1.25) mg/dL Glucose 136 H (74-99) mg/dL POC Glucose (mg/dL) 279 H (75-99) mg/dL 04/06/17 04/06/17 04/06/17 Range/Units 06:16 12:02 12:22 RBC (4.30-5.90) m/uL Hgb (13.0-17.5) gm/dL Hct (39.0-53.0) % Sodium (137-145) mmol/L BUN (9-20) mg/dL Creatinine (0.66-1.25) mg/dL Glucose (74-99) mg/dL POC Glucose (mg/dL) 119 H 48 L 63 L (75-99) mg/dL 04/06/17 Range/Units 12:53 RBC (4.30-5.90) m/uL Hgb (13.0-17.5) gm/dL Hct (39.0-53.0) % Sodium (137-145) mmol/L BUN (9-20) mg/dL Creatinine (0.66-1.25) mg/dL Glucose (74-99) mg/dL POC Glucose (mg/dL) 131 H (75-99) mg/dL Microbiology - Last 24 Hours (Table) 04/01/17 13:45 Anaerobic Culture - Final Penis Assessment and Plan Plan: Plan: 1 status post CABG, postoperative day #3, patient presented with left main coronary artery disease and non-ST elevation myocardial infarction. #2 Significant coronary artery disease with heavily calcified right and left coronary systems. 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 Status post CABG #3 Insulin-dependent diabetes mellitus. #4 Chronic and ongoing tobacco dependence. #5 acute hypovolemic hyponatremia, improved. Serum sodium is 135 today. Recommendation: Continue incentive spirometry, ambulation, pulmonary toileting. Patient is doing very well. Advised to continue to abstain from smoking. Patient is being discharged today, follow-up with Dr. Mcgee in the office in one week. I performed a history & physical examination of the patient and discussed their management with my nurse practitioner, Judy Sotelo. I reviewed the nurse practitioner's note and agree with the documented findings and plan of care. Lung sounds are clear. The findings and the impression was discussed with the patient. I attest to the documentation by the nurse practitioner. Time with Patient: Less than 30
--- NOTE | 2017-04-06 17:56 | P.PN ---
Subjective Patient is post CABG clinically doing well is being discharged today, I made little changes in his Lantus dosing and all his discharge medications are reviewed and patient is medically stable to discharged. Constitutional: Denied any fatigue denied any fever. Cardio vascular: denied any chest pain, palpitations Gastrointestinal denied any nausea vomiting Pulmonary: Denied any shortness of breath cough Neurologic denied any new focal deficits Objective - Vital Signs Vital signs: Vital Signs Temp 97.4 F L 04/06/17 08:00 Pulse 72 04/06/17 08:00 Resp 18 04/06/17 08:00 BP 130/72 04/06/17 08:00 Pulse Ox 96 04/06/17 08:00 Intake & Output 04/05/17 04/06/17 04/06/17 18:59 06:59 18:59 Intake Total 652 20 360 Balance 652 20 360 Weight 73.3 kg 70.9 kg Intake: IV 20 0.9 20 Oral 652 360 Other: Voiding Method Toilet # Voids 1 ABP, PAP, CO, CI - Last Documented Arterial Blood Pressure 113/43 Pulmonary Artery Pressure 29/21 Cardiac Output 6.6 Cardiac Index 3.5 - Exam PHYSICAL EXAMINATION: GENERAL: The patient is alert and oriented x3, not in any acute distress. Well developed, well nourished. HEENT: Pupils are round and equally reacting to light. EOMI. No scleral icterus. No conjunctival pallor. Normocephalic, atraumatic. No pharyngeal erythema. No thyromegaly. CARDIOVASCULAR: S1 and S2 present. No murmurs, rubs, or gallops. PULMONARY: Chest is clear to auscultation, no wheezing or crackles. ABDOMEN: Soft, nontender, nondistended, normoactive bowel sounds. No palpable organomegaly. MUSCULOSKELETAL: No joint swelling or deformity. EXTREMITIES: No cyanosis, clubbing, or pedal edema. NEUROLOGICAL: Gross neurological examination did not reveal any focal deficits. SKIN: No rashes. - Labs CBC & Chem 7: 04/06/17 05:43 04/06/17 05:43 Labs: Abnormal Lab Results - Last 24 Hours (Table) 04/05/17 04/05/17 04/06/17 Range/Units 20:45 23:47 02:29 RBC (4.30-5.90) m/uL Hgb (13.0-17.5) gm/dL Hct (39.0-53.0) % Sodium (137-145) mmol/L BUN (9-20) mg/dL Creatinine (0.66-1.25) mg/dL Glucose (74-99) mg/dL POC Glucose (mg/dL) 299 H 182 H 279 H (75-99) mg/dL 04/06/17 04/06/17 04/06/17 Range/Units 05:43 05:43 06:16 RBC 4.10 L (4.30-5.90) m/uL Hgb 12.7 L (13.0-17.5) gm/dL Hct 38.2 L (39.0-53.0) % Sodium 134 L (137-145) mmol/L BUN 7 L (9-20) mg/dL Creatinine 0.58 L (0.66-1.25) mg/dL Glucose 136 H (74-99) mg/dL POC Glucose (mg/dL) 119 H (75-99) mg/dL 04/06/17 04/06/17 04/06/17 Range/Units 12:02 12:22 12:53 RBC (4.30-5.90) m/uL Hgb (13.0-17.5) gm/dL Hct (39.0-53.0) % Sodium (137-145) mmol/L BUN (9-20) mg/dL Creatinine (0.66-1.25) mg/dL Glucose (74-99) mg/dL POC Glucose (mg/dL) 48 L 63 L 131 H (75-99) mg/dL Assessment and Plan Plan: 1 chest pain due to NSTEMI with elevated troponin level on admission #2 severe coronary artery disease status post cardiac catheterization. was on intra-aortic balloon pump. Status post CABG on 04/01/2017 #2 diabetes type 1 Hb A1c 7.8 fairly controlled now, uncontrolled outpatient #3 every day smoker: Counseling was provided #4 family history of significant coronary artery disease
--- NOTE | 2017-04-07 13:58 | P.VSCSTY ---
Greater Saphenous Vein Mapping This is bilateral lower extremity greater saphenous vein mapping. Date of service 03/30/2017 Vein quality and ultrasound appearance preop CABG, atherosclerotic heart disease.. Vein size groin right 5.8 x 4.0 groin left 4.5 x 3.1 High thigh right 4.5 x 4.1 high thigh left 4.7 x 3.2 Mid thigh right 4.1 x 3.0 mid thigh left 3.4 x 3.5 Above-knee right 3.0 x 2.2 above- knee left 3.6 x 2.6 Below knee right 3.0 x 2.5 below-knee left 3.7 x 2.5 Mid calf right 2.7 x 2.2 mid calf left 2.4 x 1.5 Ankle right 2.5 x 2.2 ankle left 1.7 x 1.7 Impression usable bilateral greater saphenous vein. Somewhat small distally on the left..
== END 2017-04-06 16:03 | disposition home health service (06) | DRG 234 ==
LOC: EC 11:05 → 6SEL 12:59 → 6ICU 03-31 10:21 → 6SEL 04-03 15:01
PROVIDERS: ADMIT Internal Medicine; ATTEND Internal Medicine
PROC: B2151ZZ Fluoroscopy of Left Heart using Low Osmolar Contrast (ICD-10-PCS; 2017-03-31)
PROC: B2111ZZ Fluoroscopy of Multiple Coronary Arteries using Low Osmolar Contrast (ICD-10-PCS; 2017-03-31)
PROC: 4A023N7 Measurement of Cardiac Sampling and Pressure, Left Heart, Percutaneous Approach (ICD-10-PCS; 2017-03-31)
PROC: 021109W Bypass Coronary Artery, Two Arteries from Aorta with Autologous Venous Tissue, Open Approach (ICD-10-PCS; principal; 2017-04-01 07:30)
PROC: 5A02210 Assistance with Cardiac Output using Balloon Pump, Continuous (ICD-10-PCS; principal; 2017-04-01 07:30)
PROC: 06BQ4ZZ Excision of Left Saphenous Vein, Percutaneous Endoscopic Approach (ICD-10-PCS; principal; 2017-04-01 07:30)
PROC: 05B Upper Veins, Excision (ICD-10-PCS; principal; 2017-04-01 07:30)
PROC: 02100Z9 Bypass Coronary Artery, One Artery from Left Internal Mammary, Open Approach (ICD-10-PCS; principal; 2017-04-01 07:30)
PROC: B246ZZ4 Ultrasonography of Right and Left Heart, Transesophageal (ICD-10-PCS; principal; 2017-04-01 07:30)
DX: I21.4 Non-ST elevation (NSTEMI) myocardial infarction (principal); E10.649 Type 1 diabetes mellitus with hypoglycemia without coma; J98.11 Atelectasis; E78.5 Hyperlipidemia, unspecified; F17.200 Nicotine dependence, unspecified, uncomplicated; I25.110 Atherosclerotic heart disease of native coronary artery with unstable angina pectoris; K59.00 Constipation, unspecified; Z79.4 Long term (current) use of insulin; Z82.49 Family history of ischemic heart disease and other diseases of the circulatory system; Z83.3 Family history of diabetes mellitus; Z88.0 Allergy status to penicillin
CPT/HCPCS: 33967; 36415; 71010; 71020; 80048; 80053; 80061; 80074; 81001; 81003; 82330; 82550; 82553; 82805; 83036; 83735; 83880; 84100; 84443; 84484; 85025; 85027; 85347; 85379; 85520; 85610; 85730; 86850; 86891; 86900; 86901; 86920; 87070; 87075; 87086; 87205; 93005; 93306; 93454; 93880; 93970; 94002; 94150; 94640; 94760; 96365; 96366; 96376; 99291

== ENCOUNTER 2019-04-11 08:21 | Inpatient (IN) | payer OTHER ==
[2019-04-11] MEDS ORDERED: ASPIRIN 81 MG PO STA (08:37)
[2019-04-11] MEDS ORDERED: NITROGLYCERIN SL TABS 0.4 MG TAB SUBLINGUAL STA ×3 (08:37)
--- NOTE | 2019-04-11 08:42 | ED ---
General Adult HPI - General Chief complaint: Chest Pain Stated complaint: CHEST PAIN WITH Hx Time Seen by Provider: 04/11/19 08:25 Source: patient, family, RN notes reviewed Limitations: no limitations - History of Present Illness Initial comments: Patient is a pleasant 38-year-old male presenting to the emergency Department with complaints of chest discomfort. Onset of symptoms was prior to arrival while going to work. Patient has pressure or tightness in his chest without radiation. There is associated dyspnea. Patient has had mild sweating and mild nausea. Symptoms are somewhat similar to previous cardiac history. Discomfort was 8/10 however now is currently 4/10. Patient did not take any medication for this. - Related Data Home Medications Medication Instructions Recorded Confirmed Insulin Glargine [Lantus] 35 unit SQ DAILY 02/25/16 05/03/18 INSULIN ASPART (NovoLOG) [NovoLOG] See Protocol SQ AC-TID 03/30/17 05/03/18 Previous Rx's Medication Instructions Recorded Aspirin 325 mg PO DAILY #30 tab 04/06/17 Atorvastatin [Lipitor] 80 mg PO DAILY #30 tab 04/06/17 Clopidogrel [Plavix] 75 mg PO DAILY #30 tab 04/06/17 Diltiazem Cd [Cardizem CD] 120 mg PO DAILY #30 cap.er.24h 04/06/17 HYDROcodone/APAP 5-325MG [Murray 1 - 2 each PO Q6HR PRN #120 tab 04/06/17 5-325] INSULIN ASPART (NovoLOG) [NovoLOG 7 unit SQ AC-TID vial 04/06/17 (formulary)] Insulin Detemir (Levemir) [Levemir] 24 unit SQ HS syr 04/06/17 Metoprolol Tartrate [Lopressor] 25 mg PO BID #60 tab 04/06/17 Pantoprazole [Protonix] 40 mg PO AC-BRKFST #30 tablet. 04/06/17 Sennosides-Docusate Sodium 2 each PO HS tab 04/06/17 [Senokot-S] Allergies Allergy/AdvReac Type Severity Reaction Status Date / Time Penicillins Allergy Unknown Verified 04/11/19 10:03 Childhood lovastatin AdvReac muscle pain Verified 04/11/19 10:03 Review of Systems ROS Statement: Those systems with pertinent positive or pertinent negative responses have been documented in the HPI. ROS Other: All systems not noted in ROS Statement are negative. Constitutional: Denies: fever Eyes: Denies: eye pain ENT: Denies: ear pain Respiratory: Reports: as per HPI. Denies: cough Cardiovascular: Reports: as per HPI, chest pain Endocrine: Denies: fatigue Gastrointestinal: Reports: nausea. Denies: abdominal pain Genitourinary: Denies: dysuria Musculoskeletal: Denies: back pain Skin: Denies: rash Neurological: Denies: weakness Past Medical History Past Medical History: Chest Pain / Angina, Diabetes Mellitus Additional Past Medical History / Comment(s): IDDM type 1, gammaglobulinemia as . History of Any Multi-Drug Resistant Organisms: None Reported Past Surgical History: Back Surgery, Coronary Bypass/CABG, Orthopedic Surgery Additional Past Surgical History / Comment(s): L5-S1 back surgery, bilateral hand trigger finger repairs. Past Anesthesia/Blood Transfusion Reactions: No Reported Reaction Past Psychological History: No Psychological Hx Reported Smoking Status: Current every day smoker Past Alcohol Use History: Occasional Past Drug Use History: None Reported - Past Family History Father Family Medical History: Coronary Artery Disease (CAD), Myocardial Infarction ([place]) Additional Family Medical History / Comment(s): Father has had 5 MIs with the first one happening at the age of 55yrs. Mother Additional Family Medical History / Comment(s): Hypoglycemia. There is coronary artery disease on the mother's family but not in the patient's mother General Exam Limitations: no limitations General appearance: alert, in no apparent distress Head exam: Present: normocephalic Eye exam: Present: normal appearance Neck exam: Present: normal inspection Respiratory exam: Present: normal lung sounds bilaterally. Absent: chest wall tenderness Cardiovascular Exam: Present: regular rate, normal rhythm Expanded Peripheral pulses: 2+: Radial (R), Radial (L), Posterior Tibialis (R), Posterior Tibialis (L), Dorsalis Pedis (R), Dorsalis Pedis (L) GI/Abdominal exam: Present: soft. Absent: tenderness Extremities exam: Present: normal inspection. Absent: pedal edema, calf ten derness Neurological exam: Present: alert Psychiatric exam: Present: normal affect, normal mood Skin exam: Present: normal color Course Vital Signs 04/11/19 04/11/19 04/11/19 08:24 08:38 08:53 Temperature 97.5 F L 98.3 F Pulse Rate 74 65 70 Respiratory 18 16 18 Rate Blood Pressure 196/92 181/87 O2 Sat by Pulse 98 97 96 Oximetry 04/11/19 04/11/19 04/11/19 09:00 09:05 09:30 Temperature Pulse Rate 69 66 Respiratory 16 20 Rate Blood Pressure 181/87 145/81 145/81 O2 Sat by Pulse 93 L 96 Oximetry EKG Findings - EKG Comments: EKG Findings:: Atrial rhythm with a rate of 62. Unusual P axis. IN 148. QRS 92. QT 448. QTC 454. Normal axis. Q wave in lead V1 and V2. No acute ST change. Medical Decision Making - Medical Decision Making Patient reevaluated and resting comfortably in bed. Symptoms improved however not completely resolved with nitroglycerin. Patient states discomfort is tolerable. Patient family updated on results and plan. Patient presents with symptoms similar with cardiac complaint. Patient will be admitted for cardiac evaluation. Patient will be treated for probable pneumonia. Patient does not meet sepsis criteria Patient and family updated. Dr. Chávez has been paged for admission, covering for this va patient. Case was discussed in detail with Dr. Man, who will admit. - Lab Data Result diagrams: 04/11/19 08:45 04/11/19 08:45 Lab Results 04/11/19 04/11/19 04/11/19 Range/Units 08:45 08:45 08:45 WBC 6.6 (3.8-10.6) k/uL RBC 5.07 (4.30-5.90) m/uL Hgb 15.9 (13.0-17.5) gm/dL Hct 47.3 (39.0-53.0) % MCV 93.2 (80.0-100.0) fL MCH 31.4 (25.0-35.0) pg MCHC 33.7 (31.0-37.0) g/dL RDW 14.0 (11.5-15.5) % Plt Count 225 (150-450) k/uL Neutrophils % 57 % Lymphocytes % 25 % Monocytes % 9 % Eosinophils % 6 % Basophils % 1 % Neutrophils # 3.8 (1.3-7.7) k/uL Lymphocytes # 1.6 (1.0-4.8) k/uL Monocytes # 0.6 (0-1.0) k/uL Eosinophils # 0.4 (0-0.7) k/uL Basophils # 0.1 (0-0.2) k/uL PT 11.3 (9.0-12.0) sec INR 1.1 (<1.2) APTT 30.8 H (22.0-30.0) sec Sodium 135 L (137-145) mmol/L Potassium 4.6 (3.5-5.1) mmol/L Chloride 100 (98-107) mmol/L Carbon Dioxide 26 (22-30) mmol/L Anion Gap 9 mmol/L BUN 9 (9-20) mg/dL Creatinine 0.60 L (0.66-1.25) mg/dL Est GFR (CKD-EPI)AfAm >90 (>60 ml/min/1.73 sqM) Est GFR (CKD-EPI)NonAf >90 (>60 ml/min/1.73 sqM) Glucose 165 H (74-99) mg/dL Calcium 9.6 (8.4-10.2) mg/dL Magnesium 2.0 (1.6-2.3) mg/dL Total Bilirubin 0.7 (0.2-1.3) mg/dL AST 32 (17-59) U/L ALT 31 (21-72) U/L Alkaline Phosphatase 45 (38-126) U/L Troponin I (0.000-0.034) ng/mL Total Protein 8.1 (6.3-8.2) g/dL Albumin 4.6 (3.5-5.0) g/dL 04/11/19 Range/Units 08:45 WBC (3.8-10.6) k/uL RBC (4.30-5.90) m/uL Hgb (13.0-17.5) gm/dL Hct (39.0-53.0) % MCV (80.0-100.0) fL MCH (25.0-35.0) pg MCHC (31.0-37.0) g/dL RDW (11.5-15.5) % Plt Count (150-450) k/uL Neutrophils % % Lymphocytes % % Monocytes % % Eosinophils % % Basophils % % Neutrophils # (1.3-7.7) k/uL Lymphocytes # (1.0-4.8) k/uL Monocytes # (0-1.0) k/uL Eosinophils # (0-0.7) k/uL Basophils # (0-0.2) k/uL PT (9.0-12.0) sec INR (<1.2) APTT (22.0-30.0) sec Sodium (137-145) mmol/L Potassium (3.5-5.1) mmol/L Chloride (98-107) mmol/L Carbon Dioxide (22-30) mmol/L Anion Gap mmol/L BUN (9-20) mg/dL Creatinine (0.66-1.25) mg/dL Est GFR (CKD-EPI)AfAm (>60 ml/min/1.73 sqM) Est GFR (CKD-EPI)NonAf (>60 ml/min/1.73 sqM) Glucose (74-99) mg/dL Calcium (8.4-10.2) mg/dL Magnesium (1.6-2.3) mg/dL Total Bilirubin (0.2-1.3) mg/dL AST (17-59) U/L ALT (21-72) U/L Alkaline Phosphatase (38-126) U/L Troponin I 0.021 (0.000-0.034) ng/mL Total Protein (6.3-8.2) g/dL Albumin (3.5-5.0) g/dL - Radiology Data Radiology results: image reviewed (X-ray concerning for right lower lobe infiltrate) Disposition Clinical Impression: Chest pain, Pneumonia Disposition: ADMITTED IP TO THIS HOSP Is patient prescribed a controlled substance at d/c from ED?: No Referrals: [facility],Clinic [Primary Care Provider] - 1-2 days Decision Time: 10:05
[2019-04-11 09:06] LABS: Basophils # (A) 0.1 k/uL (0-0.2); Basophils % (A) 1 %; Eosinophils # (A) 0.4 k/uL (0-0.7); Eosinophils % (A) 6 %; HCT 47.3 % (39.0-53.0); HGB 15.9 gm/dL (13.0-17.5); Lymphocytes # (A) 1.6 k/uL (1.0-4.8); Lymphocytes % (A) 25 %; MCH 31.4 pg (25.0-35.0); MCHC 33.7 g/dL (31.0-37.0); MCV 93.2 fL (80.0-100.0); Mean Platelet Volume 6.3; Monocytes # (A) 0.6 k/uL (0-1.0); Monocytes % (A) 9 %; Neutrophils # (A) 3.8 k/uL (1.3-7.7); Neutrophils % (A) 57 %; Platelet Count 225 k/uL (150-450); RBC 5.07 m/uL (4.30-5.90); WBC 6.6 k/uL (3.8-10.6)
--- NOTE | 2019-04-11 09:19 | XR ---
EXAMINATION TYPE: XR chest 2V DATE OF EXAM: 04/11/2019 COMPARISON: NONE HISTORY: Chest pain TECHNIQUE: Frontal and lateral views of the chest are obtained. FINDINGS: There is a hazy right lower lung opacity. Remainder the lungs are well aerated. Mild multi level degenerative changes of the spine. Post CABG changes the chest. Cardia mucinous fluid is within normal limits. No sizable pleural effusion or pneumothorax. IMPRESSION: Hazy right midlung opacity suspicious for pneumonia. Follow-up to resolution is recommen ded to exclude underlying mass.
[2019-04-11 09:20] LABS: ALT 31 U/L (21-72); AST 32 U/L (17-59); African American GFR (CKD) >90 (>60 ml/min/1.73 sqM); Albumin 4.6 g/dL (3.5-5.0); Alkaline Phosphatase 45 U/L (38-126); Anion Gap 9 mmol/L; Blood Urea Nitrogen 9 mg/dL (9-20); Calcium 9.6 mg/dL (8.4-10.2); Carbon Dioxide 26 mmol/L (22-30); Chloride 100 mmol/L (98-107); Glucose 165 mg/dL (74-99); Non-African American GFR(CKD) >90 (>60 ml/min/1.73 sqM); Potassium 4.6 mmol/L (3.5-5.1); Sodium 135 mmol/L (137-145); Total Bilirubin 0.7 mg/dL (0.2-1.3); Total Protein 8.1 g/dL (6.3-8.2)
[2019-04-11] MEDS ORDERED: NITROGLYCERIN OINT 1 INCH/GM PACKET TOPICAL STA (09:31)
[2019-04-11 09:36] LABS: INR 1.1 (<1.2); Partial Thromboplastin Time 30.8 sec (22.0-30.0); Prothrombin Time 11.3 sec (9.0-12.0)
[2019-04-11] MEDS ORDERED: NITROGLYCERIN SL TABS 0.4 MG TAB SUBLINGUAL PRN (10:05)
[2019-04-11] MEDS ORDERED: AZITHROMYCIN 500 MG in SODIUM CHLORIDE 0.9% 250 ML IVPB STA (10:05)
[2019-04-11] MEDS ORDERED: PNEUMONIA PROTOCOL UTILIZED 1 EACH MISC PO PRN (10:05)
[2019-04-11] MEDS ORDERED: SODIUM CHLORIDE 0.9% 1,000 ML IV SCH (10:15)
[2019-04-11] MEDS ORDERED: INFLUENZA VACCINE (6 MOS+) 60 MCG/0.5 ML SYRINGE IM ONE (10:59)
[2019-04-11 11:43] LABS: Glucose,Whole Blood 101 mg/dL (75-99)
[2019-04-11] MEDS: NITROGLYCERIN OINT 1 INCH/GM PACKET TOPICAL SCH ×2 (12:26→17:58)
--- NOTE | 2019-04-11 14:27 | P.HPIM ---
History of Present Illness 58-year-old pleasant male came in with compensative chest discomfort which started today sharp in nature retrosternal nonradiating associated diaphoresis had discomfort of 8/10 and on arrival to ER it was 4/10 it lasted for a few min utes long with some nausea, shortness of breath. Patient doesn't have any wheezing on exam chest x-ray was suspicious for a mass although x-ray did not show any clear pneumonia patient doesn't have any fever doesn't have any leukocytosis clinically doesn't have any significant cough. Chest pain is nonpleuritic not associated with food. Patient had a CABG in the past stopped taking all his medications including aspirin and continues to smoke. Troponins are negative, EKG did not show any acute ST-T wave changes Review of Systems REVIEW OF SYSTEMS: CONSTITUTIONAL: No fever, no malaise, no fatigue. HEENT: No recent visual problems or hearing problems. Denied any sore throat. CARDIOVASCULAR: No orthopnea, PND, no palpitations, no syncope. PULMONARY: No shortness of breath, no cough, no hemoptysis. GASTROINTESTINAL: No diarrhea, no nausea, no vomiting, no abdominal pain. NEUROLOGICAL: No headaches, no weakness, no numbness. HEMATOLOGICAL: Denies any bleeding or petechiae. GENITOURINARY: Denies any burning micturition, frequency, or urgency. MUSCULOSKELETAL/RHEUMATOLOGICAL: Denies any joint pain, swelling, or any muscle pain. ENDOCRINE: Denies any polyuria or polydipsia. The rest of the 14-point review of systems is negative. Past Medical History Past Medical History: Chest Pain / Angina, Heart Failure, Diabetes Mellitus, GERD/Reflux, Myocardial Infarction ([place]) Additional Past Medical History / Comment(s): IDDM type 1, neuropathy bilteral feet, gammaglobulinemia as . Last Myocardial Infarction Date:: 2016 History of Any Multi-Drug Resistant Organisms: None Reported Past Surgical History: Back Surgery, Coronary Bypass/CABG, Heart Catheterization, Orthopedic Surgery Additional Past Surgical History / Comment(s): 2017 cardiac cath, 2017 CABG 3 vessel, L5-S1 back surgery, bilateral hand trigger finger repairs. Past Anesthesia/Blood Transfusion Reactions: No Reported Reaction Additional Past Anesthesia/Blood Transfusion Reaction / Comment(s): Pt received blood as an . Smoking Status: Current every day smoker - Past Family History Father Family Medical History: Coronary Artery Disease (CAD), Diabetes Mellitus, Myocardial Infarction ([place]) Additional Family Medical History / Comment(s): Father has had 5 MIs with the first one happening at the age of 55yrs. Mother Additional Family Medical History / Comment(s): Hypoglycemia. There is coronary artery disease on the mother's family but not in the patient's mother Medications and Allergies Home Medications Medication Instructions Recorded Confirmed Type Insulin Glargine [Lantus] 33 unit SQ DAILY 02/25/16 04/11/19 History INSULIN ASPART (NovoLOG) [NovoLOG See Protocol SQ AC-TID 04/11/19 04/11/19 History (formulary)] Allergies Allergy/AdvReac Type Severity Reaction Status Date / Time Penicillins Allergy Unknown Verified 04/11/19 10:03 Childhood lovastatin AdvReac muscle pain Verified 04/11/19 10:03 Physical Exam Vitals: Vital Signs Temp Pulse Pulse Resp BP BP Pulse Ox 04/11/19 12:00 53 L 18 04/11/19 11:00 98.1 F 53 L 18 157/78 97 04/11/19 10:40 148/75 04/11/19 10:34 20 04/11/19 10:30 57 L 18 148/82 95 04/11/19 10:00 56 L 17 159/85 04/11/19 09:30 66 20 145/81 96 04/11/19 09:05 145/81 04/11/19 09:00 69 16 181/87 93 L 04/11/19 08:53 98.3 F 70 18 181/87 96 04/11/19 08:38 65 16 97 04/11/19 08:24 97.5 F L 74 18 196/92 98 Intake and Output 04/10/19 04/11/19 04/11/19 22:59 06:59 14:59 Intake Total 240 Balance 240 Intake: Oral 240 Other: Voiding Method Toilet Weight 68.039 kg PHYSICAL EXAMINATION: GENERAL: The patient is alert and oriented x3, not in any acute distress. Well developed, well nourished. HEENT: Pupils are round and equally reacting to light. EOMI. No scleral icterus. No conjunctival pallor. Normocephalic, atraumatic. No pharyngeal erythema. No thyromegaly. CARDIOVASCULAR: S1 and S2 present. No murmurs, rubs, or gallops. PULMONARY: Chest is clear to auscultation, no wheezing or crackles. ABDOMEN: Soft, nontender, nondistended, normoactive bowel sounds. No palpable organomegaly. MUSCULOSKELETAL: No joint swelling or deformity. EXTREMITIES: No cyanosis, clubbing, or pedal edema. NEUROLOGICAL: Gross neurological examination did not reveal any focal deficits. SKIN: No rashes. Results CBC & Chem 7: 04/11/19 08:45 04/11/19 08:45 Labs: Abnormal Lab Results - Last 24 Hours (Table) 04/11/19 04/11/19 04/11/19 Range/Units 08:45 08:45 11:40 APTT 30.8 H (22.0-30.0) sec Sodium 135 L (137-145) mmol/L Creatinine 0.60 L (0.66-1.25) mg/dL Glucose 165 H (74-99) mg/dL POC Glucose (mg/dL) 101 H (75-99) mg/dL Thrombosis Risk Factor Assmnt - Choose All That Apply Any of the Below Risk Factors Present?: Yes Each Factor Represents 1 point: Age 41-60 years Other Risk Factors: No Other congenital or acquired thrombophilia - If yes, enter type in comment: No Thrombosis Risk Factor Assessment Total Risk Factor Score: 1 Thrombosis Risk Factor Assessment Level: Low Risk Assessment and Plan Plan: Chest pain with some typical features, cardiology evaluated the patient EKG troponins are negative recommending a stress test tomorrow. -Possible mass in the chest, since her d-dimer is negative, CAT scan without contrast will be obtained consent his significant smoking history. My suspicion is low for pneumonia antibiotics will be discontinued. -Coronary Artery disease highly noncompliance with medications extensive counseling regarding this was provided mainly by me as well as rn infusion -Nicotine abuse: Counseling was provided -Type 2 diabetes mellitus: Patient will be resumed on his home regimen titrate regimen depending on his blood sugars here
--- NOTE | 2019-04-11 14:58 | P.CRDCN ---
History of Present Illness History of present illness: HISTORY OF PRESENTING ILLNESS This is a pleasant 58-year-old male past medical history significant for coronary artery disease status post bypass grafting with FARRELL-LAD, SVG-intermediate and radial artery-OM, ischemic cardiomyopathy, hypertension, dyslipidemia, diabetes mellitus, myocardial infarction and chronic nicotine dependence. He follows in the office with love her Iggy. We have been asked to see him in consultation for chest pain. He states he woke up for work this morning with a sharp pressure sensation in the mid-sternal region associated with nausea, diaphoresis and shortness of breath. There was no radiation of the pain to the arm, back, neck or jaw. The discomfort was not exacerbated by activity or exertion. No specific aggravating or alleviating factors. The pain persisted until coming to the ED, nitro was given and did improve his symptoms but not entirely subside. He still has mild pain that is is worse with deep inspiration at times, but is not reproducible on palpitation. He saw Dr. Colón in the office in April 2018 and underwent an echo 06/2018 revealing improved LV systolic function with EF 50-55%, mild MR and normal diastolic function. He also had a stress test in May 2018 where he walked on the treadmill for over 8 minutes with some bigeminy but no angina or EKG changes suggestive of ischemia. Unfortunately about 6-months ago he stopped taking all of his medications besides insulin. Prior to that his medication regimen included aspirin 325 mg daily, Plavix 75 mg daily, lisinopril 5 mg daily, lovastatin 20 mg daily metoprolol 25 mg twice a day. Initial catheterization in 2016 revealed heavily calcified right and left coronary systems, severe disease involving the RCA, critical disease of the left main, chronic total occlusion of the mid circumflex and moderate disease involving the LAD. DIAGNOSTICS EKG reveals sinus mechanism with non-specific abnormalities, repeat EKG requested and reviewed. . Chest xray reveals a hazy right mid-lung opacity suspicious for pneumonia, cannot exclude underlying mass. Laboratory reviewed, CBC unremarkable, d-dimer 0.35, sodium 135, potassium 4.6, creatinine 0.6, troponin negative x2 and magnesium 2.0. REVIEW OF SYSTEMS At the time of my exam: CONSTITUTIONAL: Denies fever or chills. CARDIOVASCULAR: Denies chest pain, shortness of breath, orthopnea, PND or palpitations. RESPIRATORY: Denies cough. GASTROINTESTINAL: Denies abdominal pain, diarrhea, constipation, nausea or vom iting. MUSCULOSKELETAL: Denies myalgias. NEUROLOGIC: Denies numbness, tingling or weakness. ENDOCRINE: Denies fatigue, weight change, polydipsia or polyurina. GENITOURINARY: Denies burning, hematuria or urgency with micturation. HEMATOLOGIC: Denies history of anemia or bleeding. PHYSICAL EXAMINATION Blood pressure 157/78 heart rate 53 afebrile and maintaining oxygen saturaiton on room air. CONSTITUTIONAL: No apparent distress. HEENT: Head is normocephalic. Pupils are equal, round. Sclerae anicteric. Mucous membranes of the mouth are moist. No JVD. Right carotid bruit, no left bruit auscultated. CHEST EXAMINATION: Lungs are clear to auscultation. No chest wall tenderness is noted on palpation or with deep breathing. HEART EXAMINATION: Regular rate and rhythm. S1, S2 heard. No murmurs, gallops or rub. ABDOMEN: Soft, nontender. Positive bowel sounds. EXTREMITIES: 2+ peripheral pulses, no lower extremity edema and no calf tenderness. NEUROLOGIC EXAMINATION: Patient is awake, alert and oriented x3. ASSESSMENT Chest pain Coronary artery disease s/p bypass grafting Ischemic cardiomyopathy, improved after CABG Hypertension Dyslipidemia Diabetes mellitus Non-compliance Chronic nicotine dependence PLAN Continue to obtain serial cardiac enzymes to rule out an acute event. Obtain 2D echocardiogram and doppler study to assess cardiac structure and function. Initiate aspirin 81 mg daily, losartan 50 mg daily, lopressor 12.5 mg BID and atrovastatin 80 mg daily. Check b/l carotid doppler to assess bruit. Check lipid profile in the morning. Ongoing medical management of possible lung mass. Smoking cessation and medications compliance discussed at great lengths. Will continue to follow and make recommendations accordingly, will require either stress test or catheterization tomorrow. Thank you kindly for this consultation. Nurse Practitioner note has been reviewed, I agree with a documented findings and plan of care. Patient was seen and examined. Past Medical History Past Medical History: Chest Pain / Angina, Heart Failure, Diabetes Mellitus, GERD/Reflux, Myocardial Infarction ([place]) Additional Past Medical History / Comment(s): IDDM type 1, neuropathy bilteral feet, gammaglobulinemia as . Last Myocardial Infarction Date:: 2016 History of Any Multi-Drug Resistant Organisms: None Reported Past Surgical History: Back Surgery, Coronary Bypass/CABG, Heart Catheterization, Orthopedic Surgery Additional Past Surgical History / Comment(s): 2017 cardiac cath, 2017 CABG 3 vessel, L5-S1 back surgery, bilateral hand trigger finger repairs. Past Anesthesia/Blood Transfusion Reactions: No Reported Reaction Additional Past Anesthesia/Blood Transfusion Reaction / Comment(s): Pt received blood as an . Smoking Status: Current every day smoker - Past Family History Father Family Medical History: Coronary Artery Disease (CAD), Diabetes Mellitus, Myocardial Infarction ([place]) Additional Family Medical History / Comment(s): Father has had 5 MIs with the first one happening at the age of 55yrs. Mother Additional Family Medical History / Comment(s): Hypoglycemia. There is coronary artery disease on the mother's family but not in the patient's mother Medications and Allergies Home Medications Medication Instructions Recorded Confirmed Type Insulin Glargine [Lantus] 33 unit SQ DAILY 02/25/16 04/11/19 History INSULIN ASPART (NovoLOG) [NovoLOG See Protocol SQ AC-TID 04/11/19 04/11/19 History (formulary)] Allergies Allergy/AdvReac Type Severity Reaction Status Date / Time Penicillins Allergy Unknown Verified 04/11/19 10:03 Childhood lovastatin AdvReac muscle pain Verified 04/11/19 10:03 Physical Exam Vitals: Vital Signs Temp Pulse Pulse Resp BP BP Pulse Ox 04/11/19 12:00 53 L 18 04/11/19 11:00 98.1 F 53 L 18 157/78 97 04/11/19 10:40 148/75 04/11/19 10:34 20 04/11/19 10:30 57 L 18 148/82 95 04/11/19 10:00 56 L 17 159/85 04/11/19 09:30 66 20 145/81 96 04/11/19 09:05 145/81 04/11/19 09:00 69 16 181/87 93 L 04/11/19 08:53 98.3 F 70 18 181/87 96 04/11/19 08:38 65 16 97 04/11/19 08:24 97.5 F L 74 18 196/92 98 Intake and Output 04/10/19 04/11/19 04/11/19 22:59 06:59 14:59 Intake Total 240 Balance 240 Intake: Oral 240 Other: Voiding Method Toilet Weight 68.039 kg Results 04/11/19 08:45 04/11/19 08:45 Cardiac Enzymes 04/11/19 04/11/19 Range/Units 08:45 08:45 AST 32 (17-59) U/L Troponin I 0.021 (0.000-0.034) ng/mL Coagulation 04/11/19 Range/Units 08:45 PT 11.3 (9.0-12.0) sec APTT 30.8 H (22.0-30.0) sec CBC 04/11/19 Range/Units 08:45 WBC 6.6 (3.8-10.6) k/uL RBC 5.07 (4.30-5.90) m/uL Hgb 15.9 (13.0-17.5) gm/dL Hct 47.3 (39.0-53.0) % Plt Count 225 (150-450) k/uL Comprehensive Metabolic Panel 04/11/19 Range/Units 08:45 Sodium 135 L (137-145) mmol/L Potassium 4.6 (3.5-5.1) mmol/L Chloride 100 (98-107) mmol/L Carbon Dioxide 26 (22-30) mmol/L BUN 9 (9-20) mg/dL Creatinine 0.60 L (0.66-1.25) mg/dL Glucose 165 H (74-99) mg/dL Calcium 9.6 (8.4-10.2) mg/dL AST 32 (17-59) U/L ALT 31 (21-72) U/L Alkaline Phosphatase 45 (38-126) U/L Total Protein 8.1 (6.3-8.2) g/dL Albumin 4.6 (3.5-5.0) g/dL Current Medications Generic Name Dose Route Start Last Admin Trade Name Freq PRN Reason Stop Dose Admin Aspirin 81 mg 04/12/19 09:00 Aspirin PO DAILY [facility] Atorvastatin Calcium 80 mg 04/11/19 21:00 Lipitor PO HS [facility] Sodium Chloride 1,000 mls @ 100 mls/hr 04/11/19 10:15 04/11/19 10:42 Saline 0.9% IV 100 mls/hr .Q10H [facility]OSHUA Administration Insulin Aspart 0 unit 04/11/19 17:30 Novolog SQ ACHS [facility] Protocol Insulin Detemir 33 unit 04/12/19 07:00 Levemir SQ DAILY@0700 [facility] Losartan Potassium 50 mg 04/11/19 14:00 Cozaar PO DAILY [facility] Metoprolol Tartrate 12.5 mg 04/11/19 14:00 Lopressor PO BID [facility] Miscellaneous Information 1 each 04/11/19 10:05 Pneumonia Protocol Utilized PO ONCE PRN Per Protocol Nitroglycerin 0.4 mg 04/11/19 10:05 Nitrostat SUBLINGUAL Q5M PRN Chest Pain Nitroglycerin 1 inch 04/11/19 12:00 04/11/19 12:26 Nitro-Bid Oint TOPICAL Not Given Q6HR [facility] Intake and Output 04/10/19 04/11/19 04/11/19 22:59 06:59 14:59 Intake Total 240 Balance 240 Intake: Oral 240 Other: Voiding Method Toilet Weight 68.039 kg Patient Weight 04/12/19 06:59 Weight 68.039 kg 04/11/19 08:45 04/11/19 08:45
--- NOTE | 2019-04-11 16:07 | CT ---
EXAMINATION TYPE: CT chest wo con DATE OF EXAM: 04/11/2019 COMPARISON: None HISTORY: abnormal cxr CT DLP: 368.[address] of the chest was performed with lung and mediastinal window settings submitted. The la ck of contrast limits evaluation of the vascular, mediastinal and parenchymal structures including th e upper abdomen. LUNGS: The lungs are clear and free of infiltrate. No atelectasis. No pulmonary nodule or mass is de tected. No pleural effusion. No CT evidence of interstitial lung disease. MEDIASTINUM/ANDER: Thoracic aorta is of normal caliber with limited evaluation given lack of contrast . The heart is not enlarged. No evidence for mediastinal mass. No lymph nodes greater than 1cm. UPPER ABDOMEN: There Is evidence of nephrolithiasis. OTHER: No significant other abnormality. IMPRESSION: 1. No evidence for pulmonary nodule.
[2019-04-11] MEDS: METOPROLOL TARTRATE 12.5 MG TAB PO SCH ×2 (16:24→20:46)
[2019-04-11] MEDS: LOSARTAN 50 MG TAB PO SCH (16:28)
[2019-04-11 16:35] LABS: Glucose,Whole Blood 197 mg/dL (75-99)
--- NOTE | 2019-04-11 17:03 | US ---
EXAMINATION TYPE: US carotid duplex BILAT DATE OF EXAM: 04/11/2019 COMPARISON: US 2017 CLINICAL HISTORY: bruit. Chest pain, bruit EXAM MEASUREMENTS: RIGHT: Peak Systolic Velocity (PSV) cm/sec ----- Right CCA: 99.1 ----- Right ICA: 84.9 ----- Right ECA: 192.4 ICA/CCA ratio: 0.9 RIGHT: End Diastole cm/sec ----- Right CCA: 16.3 ----- Right ICA: 24.1 ----- Right ECA: 11.0 LEFT: Peak Systolic Velocity (PSV) cm/sec ----- Left CCA: 90.8 ----- Left ICA: 68.8 ----- Left ECA: 162.8 ICA/CCA ratio: 0.8 LEFT: End Diastole cm/sec ----- Left CCA: 16.0 ----- Left ICA: 21.5 ----- Left ECA: 15.0 VERTEBRALS (direction of flow): Right Vertebral: Antegrade Left Vertebral: Antegrade Rhythm: Arrhythmia Bilateral intimal thickening, moderate bilateral plaque, elevated velocities: right proximal ECA and left proximal ECA, no significant stenosis. IMPRESSION: There is antegrade flow in the vertebral arteries. The images and measurements suggest up to 50% sten osis in both internal carotid arteries. There is bilateral elevated velocities in the external caroti d arteries suggestive of 50-70% stenosis.
[2019-04-11] MEDS: INSULIN ASPART (NovoLOG) 100 UNIT/ML VIAL SQ SCH ×3 (17:06→20:35)
[2019-04-11] MEDS ORDERED: amLODIPine 2.5 MG TAB PO STA (18:54)
[2019-04-11 19:46] LABS: Glucose,Whole Blood 35 mg/dL (75-99)
[2019-04-11 19:57] LABS: Glucose,Whole Blood 53 mg/dL (75-99)
[2019-04-11 20:13] LABS: Glucose,Whole Blood 90 mg/dL (75-99)
[2019-04-11] MEDS: ATORVASTATIN 80 MG TAB PO SCH (20:46)
[2019-04-12 01:19] LABS: Cholesterol 189 mg/dL (<200); HDL Cholesterol 74 mg/dL (40-60); LDL Cholesterol,Calculated 100 mg/dL (0-99); Triglycerides 75 mg/dL (<150)
[2019-04-12 02:01] LABS: Glucose,Whole Blood 158 mg/dL (75-99)
[2019-04-12] MEDS: NITROGLYCERIN OINT 1 INCH/GM PACKET TOPICAL SCH ×4 (04:28→20:55)
[2019-04-12 06:49] LABS: Glucose,Whole Blood 122 mg/dL (75-99)
[2019-04-12] MEDS ORDERED: AZITHROMYCIN 500 MG TAB PO SCH (09:00)
[2019-04-12] MEDS ORDERED: ASPIRIN 325 MG TAB PO SCH (09:00)
--- NOTE | 2019-04-12 09:45 | P.PN ---
Subjective HISTORY OF PRESENTING ILLNESS This is a pleasant 58-year-old male past medical history significant for coronary artery disease status post bypass grafting with FARRELL-LAD, SVG- intermediate and radial artery-OM, ischemic cardiomyopathy, hypertension, dyslipidemia, diabetes mellitus, myocardial infarction and chronic nicotine dependence. He follows in the office with asked her Skaf. He is seen and examined sitting up in bed in no acute distress. He denies any further symptoms of chest pain, shortness of breath, dizziness or palpitations. He was initiated back on his cardiac medications yesterday after a 6-month period of non-complian ce. Blood pressure 145/83 jeart rate 62. Laboratory data reviewed, cardiac enzymes negative x3. LDL 100, HDL 74. Carotid doppler reveals antegrade flow in the vertebral arteries suggestive of 50% stenosis in both arteries with bilateral elevated velocities in the external carotid arteries around 50-70%. CT of the chest negative for pulmonary nodule. lungs are clear of infiltrate or pleural effusion. He is frustrated about no breakfast and anxious to get started. PHYSICAL EXAMINATION CONSTITUTIONAL: No apparent distress. HEENT: Head is normocephalic. Pupils are equal, round. Sclerae anicteric. Mucous membranes of the mouth are moist. No JVD. Right carotid bruit, no left bruit auscultated. CHEST EXAMINATION: Lungs are clear to auscultation. No chest wall tenderness is noted on palpation or with deep breathing. HEART EXAMINATION: Regular rate and rhythm. S1, S2 heard. No murmurs, gallops or rub. EXTREMITIES: 2+ peripheral pulses, no lower extremity edema and no calf tenderness. ASSESSMENT Chest pain Coronary artery disease s/p bypass grafting Ischemic cardiomyopathy, improved after CABG Hypertension Dyslipidemia Diabetes mellitus Non-compliance Chronic nicotine dependence PLAN Echo has been obtained and will be reviewed. Proceed with stress echocardiogram to assess for stress induced ischemia. Nurse Practitioner note has been reviewed, I agree with a documented findings and plan of care. Patient was seen and examined. Objective - Vital Signs Vital signs: Vital Signs Temp 97.7 F 04/12/19 07:40 Pulse 62 04/12/19 07:40 Resp 18 04/12/19 07:40 BP 145/83 04/12/19 07:40 Pulse Ox 96 04/12/19 07:40 Intake & Output 04/11/19 04/12/19 04/12/19 18:59 06:59 18:59 Intake Total 876 Balance 876 Weight 68.039 kg Intake: Oral 476 Other 400 Other: Voiding Method Toilet Toilet # Voids 1 - Labs CBC & Chem 7: 04/11/19 08:45 04/11/19 08:45 Labs: Abnormal Lab Results - Last 24 Hours (Table) 04/11/19 04/11/19 04/11/19 Range/Units 08:45 08:45 11:40 APTT 30.8 H (22.0-30.0) sec POC Glucose (mg/dL) 101 H (75-99) mg/dL LDL Cholesterol, Calc 100 H (0-99) mg/dL HDL Cholesterol 74 H (40-60) mg/dL 04/11/19 04/11/19 04/11/19 Range/Units 16:34 19:44 19:55 APTT (22.0-30.0) sec POC Glucose (mg/dL) 197 H 35 L 53 L (75-99) mg/dL LDL Cholesterol, Calc (0-99) mg/dL HDL Cholesterol (40-60) mg/dL 04/12/19 04/12/19 Range/Units 01:59 06:47 APTT (22.0-30.0) sec POC Glucose (mg/dL) 158 H 122 H (75-99) mg/dL LDL Cholesterol, Calc (0-99) mg/dL HDL Cholesterol (40-60) mg/dL
[2019-04-12] MEDS: INSULIN ASPART (NovoLOG) 100 UNIT/ML VIAL SQ SCH ×8 (10:21→20:55)
[2019-04-12 11:39] LABS: Glucose,Whole Blood 138 mg/dL (75-99)
[2019-04-12] MEDS: METOPROLOL TARTRATE 12.5 MG TAB PO SCH (11:43)
[2019-04-12] MEDS: INSULIN DETEMIR (LEVEMIR) 100 UNIT/ML SYR SQ SCH (11:43)
[2019-04-12] MEDS: ASPIRIN 81 MG PO SCH (11:44)
[2019-04-12] MEDS: LOSARTAN 50 MG TAB PO SCH (11:44)
[2019-04-12 13:52] LABS: Glucose,Whole Blood 332 mg/dL (75-99)
--- NOTE | 2019-04-12 13:53 | P.PN ---
Subjective Patient with history of CABG noncompetitive medication given with the chest pressure like sensation underwent stress test appears to have positive stress test patient probably will undergo cardiac catheterization tomorrow. CAT scan of the chest was often for possible mass is no mass evident that no pulmonary nodules. No evidence of pneumonia. Constitutional: Denied any fatigue denied any fever. Cardio vascular: denied any chest pain, palpitations Gastrointestinal denied any nausea vomiting Pulmonary: Denied any shortness of breath cough Neurologic denied any new focal deficits All inpatient medications were reviewed and appropriate changes in these medications as dictated in the interval history and assessment and plan. Objective - Vital Signs Vital signs: Vital Signs Temp 97.6 F 04/12/19 12:00 Pulse 67 04/12/19 12:00 Resp 18 04/12/19 12:00 BP 131/78 04/12/19 12:00 Pulse Ox 96 04/12/19 13:10 Intake & Output 04/11/19 04/12/19 04/12/19 18:59 06:59 18:59 Intake Total 876 Balance 876 Weight 68.039 kg 68.039 kg Intake: Oral 476 Other 400 Other: Voiding Method Toilet Toilet Toilet # Voids 1 1 - Exam PHYSICAL EXAMINATION: GENERAL: The patient is alert and oriented x3, not in any acute distress. Well developed, well nourished. HEENT: Pupils are round and equally reacting to light. EOMI. No scleral icterus. No conjunctival pallor. Normocephalic, atraumatic. No pharyngeal erythema. No thyromegaly. CARDIOVASCULAR: S1 and S2 present. No murmurs, rubs, or gallops. PULMONARY: Chest is clear to auscultation, no wheezing or crackles. ABDOMEN: Soft, nontender, nondistended, normoactive bowel sounds. No palpable organomegaly. MUSCULOSKELETAL: No joint swelling or deformity. EXTREMITIES: No cyanosis, clubbing, or pedal edema. NEUROLOGICAL: Gross neurological examination did not reveal any focal deficits. SKIN: No rashes. - Labs CBC & Chem 7: 04/11/19 08:45 04/11/19 08:45 Labs: Abnormal Lab Results - Last 24 Hours (Table) 04/11/19 04/11/19 04/11/19 Range/Units 08:45 16:34 19:44 POC Glucose (mg/dL) 197 H 35 L (75-99) mg/dL LDL Cholesterol, Calc 100 H (0-99) mg/dL HDL Cholesterol 74 H (40-60) mg/dL 04/11/19 04/12/19 04/12/19 Range/Units 19:55 01:59 06:47 POC Glucose (mg/dL) 53 L 158 H 122 H (75-99) mg/dL LDL Cholesterol, Calc (0-99) mg/dL HDL Cholesterol (40-60) mg/dL 04/12/19 Range/Units 11:38 POC Glucose (mg/dL) 138 H (75-99) mg/dL LDL Cholesterol, Calc (0-99) mg/dL HDL Cholesterol (40-60) mg/dL Microbiology - Last 24 Hours (Table) 04/11/19 10:30 Blood Culture - Preliminary Blood No Growth after 24 hours Assessment and Plan Plan: Chest pain with some typical features, patient had a stress test which is positive and patient will undergo cardiac catheterization tomorrow. -Possible mass in the chest, since her d-dimer is negative, CAT scan without contrast was obtained which did not show any pulmonary nodule My suspicion is low for pneumonia antibiotics will be discontinued. -Coronary Artery disease highly noncompliance with medications extensive counseling regarding this was provided mainly by me as well as habilitative interventionist -Nicotine abuse: Counseling was provided -Type 2 diabetes mellitus: Patient will be resumed on his home regimen titrate regimen depending on his blood sugars here
--- NOTE | 2019-04-12 14:06 | ECHOS ---
STRESS ECHOCARDIOGRAM INDICATIONS: Chest pain. MEDICATIONS: Lantus, NovoLog. BASELINE HEART RATE: 59 BASELINE BLOOD PRESSURE: 158/64 MAXIMUM HEART RATE: 160 MAXIMUM BLOOD PRESSURE: 214/76 85% MPHR: 137 100% MPHR: 161 METS: 11.7 MAXIMUM STAGE REACHED: 4 TOTAL EXERCISE TIME: 10:01 CLINICAL INFORMATION: Baseline EKG revealed normal sinus rhythm, sinus bradycardia with LVH by voltage criteria. Nonspecific ST abnormality. Patient walked on a standard Germain protocol for 10 minutes and maximal heart rate was 160 beats per minute which is well above 85% of his predicted maximal. There was a lot of artifact. Rare PVCs were noted. He did not have any clear-cut angina. During his exercise, he also had one ventricular couplet. At the peak exercise, he went into SVT at 160 beats per minute which was very self- limited, but prior to that, his peak heart rate when he was in a sinus rhythm was only 131 beats per minute. The peak heart rate was therefore less than 85% of predicted maximal and 160 heart rate that was mentioned above was during his SVT which was self- limited. By EKG criteria, this is an inconclusive stress test because of inadequate chronotropic response and also resting EKG changes. Patient did not have subjective symptoms of angina, PVCs were noted. Baseline echo images revealed fairly well-preserved wall motion and wall thickening with an area of hypokinesia involving the inferobasal portion of left ventricle suggestive of prior NE. At peak exercise, there is evidence of significant hypokinesia involving the anteroseptal and also anterolateral portion of the left ventricle involving the basal anterolateral wall. The inferobasal segment which was hypokinetic seems to persist and the same hypokinesia was noted suggesting it is a prior NE. There is evidence of ischemia in the anteroseptal and anterolateral basal portion of left ventricle which may represent progression of CAD. The observed inferobasal hypokinetic segment is probably an old NE. IMPRESSION: 1. Good exercise capacity with inconclusive stress test by EKG criteria. 2. Abnormal stress echo with evidence of ischemia in the anteroseptal anterolateral basal wall. There is evidence of old myocardial infarction in the inferobasal wall, ejection fraction was diminished with exercise. MMODL / IJN: [id number] /
[2019-04-12] MEDS ORDERED: ALPRAZolam 0.5 MG TAB PO PRN (14:10)
[2019-04-12] MEDS ORDERED: SODIUM CHLORIDE 0.9% 1,000 ML in EMPTY BAG 1 BAG IV ONE (14:10)
[2019-04-12] MEDS ORDERED: ALPRAZolam 0.25 MG TAB PO PRN (14:10)
--- NOTE | 2019-04-12 14:16 | P.PN ---
Progress Note - Text Stress test was discussed with the patient and his family at the bedside. Recommend cardiac catheterization. I have discussed the risks, benefits and alternative therapies for the above-mentioned procedure and for both sedation/analgesia as well as necessary blood product administration, if indicated, as they pertain to this patient. The patient has indicated understanding and acceptance of the risks and procedures discussed. He is agreeable to move forward with above stated procedure. Discussed with Dr. Colón who is his gift officer and this will be done tomorrow. NPO after midnight.
[2019-04-12] MEDS ORDERED: ENOXAPARIN 60 MG/0.6 ML SYRINGE SQ STA (15:02)
[2019-04-12 16:43] LABS: Glucose,Whole Blood 216 mg/dL (75-99)
[2019-04-12 18:09] LABS: Hemoglobin A1C 7.8 % (4.0-6.0)
[2019-04-12] MEDS: NICOTINE 21MG/24HR PATCH TRANSDERM SCH (20:54)
[2019-04-12] MEDS: ATORVASTATIN 80 MG TAB PO SCH (20:54)
[2019-04-12] MEDS: METOPROLOL TARTRATE 25 MG TAB PO SCH (20:55)
[2019-04-12] MEDS ORDERED: ENOXAPARIN 60 MG/0.6 ML SYRINGE SQ SCH (21:00)
[2019-04-12 21:01] LABS: Glucose,Whole Blood 73 mg/dL (75-99)
[2019-04-13] MEDS: NITROGLYCERIN OINT 1 INCH/GM PACKET TOPICAL SCH ×2 (04:13→09:00)
[2019-04-13 06:02] LABS: Glucose,Whole Blood 96 mg/dL (75-99)
[2019-04-13] MEDS: METOPROLOL TARTRATE 25 MG TAB PO SCH ×2 (06:18→20:25)
[2019-04-13] MEDS: ASPIRIN 81 MG PO SCH (06:18)
[2019-04-13] MEDS: LOSARTAN 50 MG TAB PO SCH (06:19)
[2019-04-13 06:53] LABS: African American GFR (CKD) >90 (>60 ml/min/1.73 sqM); Anion Gap 9 mmol/L; Blood Urea Nitrogen 12 mg/dL (9-20); Calcium 8.8 mg/dL (8.4-10.2); Carbon Dioxide 27 mmol/L (22-30); Chloride 101 mmol/L (98-107); Glucose 90 mg/dL (74-99); Non-African American GFR(CKD) >90 (>60 ml/min/1.73 sqM); Potassium 4.2 mmol/L (3.5-5.1); Sodium 137 mmol/L (137-145)
--- NOTE | 2019-04-13 07:23 | ECHOF ---
Referral Reason:cp, isch cm MEASUREMENTS -------- HEIGHT: 172.7 cm WEIGHT: 68.0 kg BP: IVSd: 1.3 cm (0.6 - 1.1) LVIDd: 4.5 cm (3.9 - 5.3) LVPWd: 1.6 cm (0.6 - 1.1) IVSs: 1.6 cm LVIDs: 3.5 cm LVPWs: 2.0 cm LAESV Index (A-L): 37.20 ml/m Ao Diam: 2.7 cm (2.0 - 3.7) AV Cusp: 1.6 cm (1.5 - 2.6) LA Diam: 3.0 cm (2.7 - 3.8) MV EXCURSION: 12.495 mm (> 18.000) MV EF SLOPE: 71 mm/s (70 - 150) EPSS: 1.8 cm MV E Felix: 0.98 m/s MV DecT: 267 ms MV A Felix: 1.17 m/s MV E/A Ratio: 0.84 RAP: 5.00 mmHg RVSP: 12.48 mmHg TAPSE: 25.34 mm FINDINGS -------- Sinus rhythm. This was a technically adequate study. The left ventricular size is normal. There is moderate concentric left ventricular hypertrophy. O verall left ventricular systolic function is mildly impaired with, an EF between 45 - 50 %. Normal LAP Grade 1 Diastolic Dysfunction. Basal inferior LV wall motion is hypokinetic. Basal inferosep charity LV wall motion is hypokinetic. Mid inferior LV wall motion is hypokinetic. The right ventricle is normal in size. The right ventricular systolic function is normal. LA is moderately dilated 34-39 ml/m2 The right atrial size is normal. Possible PFO The aortic valve is trileaflet and appears structurally normal. The mitral valve is normal. The mitral valve leaflets are mildly thickened. Mild mitral regurgita tion is present. The tricuspid valve appears structurally normal. Mild tricuspid regurgitation present. Right vent ricular systolic pressure is normal at < 35 mmHg. There is no pulmonic regurgitation present. The aortic root size is normal. Normal inferior vena cava with normal inspiratory collapse consistent with estimated right atrial pre ssure of 5 mmHg. There is no pericardial effusion. CONCLUSIONS -------- 1. Sinus rhythm. 2. This was a technically adequate study. 3. The left ventricular size is normal. 4. There is moderate concentric left ventricular hypertrophy. 5. Overall left ventricular systolic function is mildly impaired with, an EF between 45 - 50 %. 6. Normal LAP Grade 1 Diastolic Dysfunction. 7. Basal inferior LV wall motion is hypokinetic. 8. Basal inferoseptal LV wall motion is hypokinetic. 9. Mid inferior LV wall motion is hypokinetic. 10. The right ventricle is normal in size. 11. The right ventricular systolic function is normal. 12. LA is moderately dilated 34-39 ml/m2 13. The right atrial size is normal. 14. Possible PFO 15. The aortic valve is trileaflet and appears structurally normal. 16. The mitral valve is normal. 17. The mitral valve leaflets are mildly thickened. 18. Mild mitral regurgitation is present. 19. The tricuspid valve appears structurally normal. 20. Mild tricuspid regurgitation present. 21. Right ventricular systolic pressure is normal at < 35 mmHg. 22. There is no pulmonic regurgitation present. 23. The aortic root size is normal. 24. Normal inferior vena cava with normal inspiratory collapse consistent with estimated right atrial pressure of 5 mmHg. 25. There is no pericardial effusion. SYSTEMS ANALYST ENGINEER: Susan Gibbons RDCS
[2019-04-13] MEDS: INSULIN ASPART (NovoLOG) 100 UNIT/ML VIAL SQ SCH ×7 (07:53→20:58)
[2019-04-13] MEDS: INSULIN DETEMIR (LEVEMIR) 100 UNIT/ML SYR SQ SCH (08:59)
[2019-04-13] MEDS: NICOTINE 21MG/24HR PATCH TRANSDERM SCH (09:00)
--- NOTE | 2019-04-13 11:38 | P.PN ---
Subjective Progress Note Date: 04/13/19 Principal diagnosis: Chest pain/abnormal stress test This is a pleasant 58-year-old gentleman with history of coronary artery disease and prior coronary arteriogram is grafting who was admitted to the hospital with chest discomfort and ruled out for acute coronary event. He underwent stress test and that showed ischemia. He is scheduled to undergo a heart catheterization today. He was seen this morning, he stated that his chest pain-free at this point. The plan is to proceed with coronary angiogram later on today. Objective - Vital Signs Vital signs: Vital Signs Temp 98.5 F 04/13/19 08:00 Pulse 56 L 04/13/19 08:00 Resp 18 04/13/19 04:43 BP 168/79 04/13/19 08:00 Pulse Ox 95 04/13/19 08:00 Intake & Output 04/12/19 04/13/19 04/13/19 18:59 06:59 18:59 Intake Total 200 0 Balance 200 0 Weight 68.039 kg 69.1 kg Intake: Oral 200 0 Other: Voiding Method Toilet Toilet # Voids 1 1 - Constitutional General appearance: Present: no acute distress - Respiratory Respiratory: bilateral: CTA - Cardiovascular Heart sounds: normal: S1, S2 - Labs CBC & Chem 7: 04/11/19 08:45 04/13/19 05:52 Labs: Abnormal Lab Results - Last 24 Hours (Table) 04/11/19 04/12/19 04/12/19 Range/Units 08:45 11:38 13:50 POC Glucose (mg/dL) 138 H 332 H (75-99) mg/dL Hemoglobin A1c 7.8 H (4.0-6.0) % 04/12/19 04/12/19 Range/Units 16:42 20:53 POC Glucose (mg/dL) 216 H 73 L (75-99) mg/dL Hemoglobin A1c (4.0-6.0) % Microbiology - Last 24 Hours (Table) 04/11/19 10:30 Blood Culture - Preliminary Blood No Growth after 24 hours Assessment and Plan Assessment: Assessment #1 chest discomfort #2 abnormal stress test #3 coronary artery disease and prior revascularization Plan #1 continue the current medical regimen #2 proceed with coronary angiogram later on today
[2019-04-13 11:57] LABS: Glucose,Whole Blood 78 mg/dL (75-99)
[2019-04-13] MEDS ORDERED: LIDOCAINE 1% INJ 10MG/ML (20 ML MDV) ONE (13:09)
--- NOTE | 2019-04-13 13:13 | P.PN ---
Subjective Patient with history of CABG noncompetitive medication given with the chest pressure like sensation underwent stress test appears to have positive stress test patient probably will undergo cardiac catheterization tomorrow. CAT scan of the chest was often for possible mass is no mass evident that no pulmonary nodules. No evidence of pneumonia. 04/13/2019 Patient will undergo cardiac catheterization today Constitutional: Denied any fatigue denied any fever. Cardio vascular: denied any chest pain, palpitations Gastrointestinal denied any nausea vomiting Pulmonary: Denied any shortness of breath cough Neurologic denied any new focal deficits All inpatient medications were reviewed and appropriate changes in these medications as dictated in the interval history and assessment and plan. Objective - Vital Signs Vital signs: Vital Signs Temp 98.5 F 04/13/19 08:00 Pulse 56 L 04/13/19 08:00 Resp 18 04/13/19 04:43 BP 168/79 04/13/19 08:00 Pulse Ox 95 04/13/19 08:00 Intake & Output 04/12/19 04/13/19 04/13/19 18:59 06:59 18:59 Intake Total 200 0 Balance 200 0 Weight 68.039 kg 69.1 kg Intake: Oral 200 0 Other: Voiding Method Toilet Toilet # Voids 1 1 - Exam PHYSICAL EXAMINATION: GENERAL: The patient is alert and oriented x3, not in any acute distress. Well developed, well nourished. HEENT: Pupils are round and equally reacting to light. EOMI. No scleral icterus. No conjunctival pallor. Normocephalic, atraumatic. No pharyngeal erythema. No thyromegaly. CARDIOVASCULAR: S1 and S2 present. No murmurs, rubs, or gallops. PULMONARY: Chest is clear to auscultation, no wheezing or crackles. ABDOMEN: Soft, nontender, nondistended, normoactive bowel sounds. No palpable organomegaly. MUSCULOSKELETAL: No joint swelling or deformity. EXTREMITIES: No cyanosis, clubbing, or pedal edema. NEUROLOGICAL: Gross neurological examination did not reveal any focal deficits. SKIN: No rashes. - Labs CBC & Chem 7: 04/11/19 08:45 04/13/19 05:52 Labs: Abnormal Lab Results - Last 24 Hours (Table) 04/11/19 04/12/19 04/12/19 Range/Units 08:45 13:50 16:42 POC Glucose (mg/dL) 332 H 216 H (75-99) mg/dL Hemoglobin A1c 7.8 H (4.0-6.0) % 04/12/19 Range/Units 20:53 POC Glucose (mg/dL) 73 L (75-99) mg/dL Hemoglobin A1c (4.0-6.0) % Microbiology - Last 24 Hours (Table) 04/11/19 10:30 Blood Culture - Preliminary Blood No Growth after 48 hours Assessment and Plan Plan: Chest pain with some typical features, patient had a stress test which is positive and patient will undergo cardiac catheterization today -Possible mass in the chest, since her d-dimer is negative, CAT scan without contrast was obtained which did not show any pulmonary nodule is no evidence of pneumonia on the CAT scan -Coronary Artery disease highly noncompliance with medications -Nicotine abuse: -Type 2 diabetes mellitus: Blood sugars are well controlled continue with home regimen
[2019-04-13] MEDS ORDERED: IV FLUID CONTINUATION 700 ML IV ONE (13:38)
[2019-04-13] MEDS ORDERED: MIDAZOLAM 2 MG/2 ML VIAL IV ONE (13:38)
[2019-04-13] MEDS ORDERED: LIDOCAINE 1% INJ 10MG/ML (20 ML MDV) SQ ONE (13:41)
[2019-04-13] MEDS ORDERED: BIVALIRUDIN BOLUS 250 MG/50 ML IV ONE (13:58)
[2019-04-13] MEDS ORDERED: BIVALIRUDIN 250 MG in SODIUM CHLORIDE 0.9% 39.5 ML IV ONE (13:59)
[2019-04-13] MEDS ORDERED: CLOPIDOGREL 75 MG TAB ONE (14:01)
[2019-04-13] MEDS ORDERED: CLOPIDOGREL 75 MG TAB PO ONE (14:05)
[2019-04-13] MEDS: MIDAZOLAM 2 MG/2 ML VIAL IV ONE ×2 (14:12→14:25)
[2019-04-13] MEDS ORDERED: niCARdipine 25 MG/10 ML VIAL ONE (14:23)
[2019-04-13] MEDS ORDERED: NITROGLYCERIN 1000MCG/10ML SYRINGE INTRACORON ONE (14:31)
[2019-04-13] MEDS ORDERED: NITROGLYCERIN SL TABS 0.4 MG TAB SUBLINGUAL ONE ×4 (14:51→15:19)
[2019-04-13] MEDS ORDERED: HYDROmorphone 1 MG/ML 1 ML SYRINGE ONE (14:51)
[2019-04-13] MEDS ORDERED: ATROPINE SULFATE 0.1 MG/ML 10ML SYRINGE IV PRN (14:58)
[2019-04-13] MEDS ORDERED: MAG HYDROX/AL HYDROX/SIMETH 30 ML CUP PO PRN (14:58)
[2019-04-13] MEDS ORDERED: RX INFO: IV CONTRAST WAS GIVEN 1 EACH MISC MISCELLANE PRN (14:58)
[2019-04-13] MEDS ORDERED: fentaNYL (PF) 50 MCG/ML 2 ML AMP ONE (15:16)
[2019-04-13] MEDS: fentaNYL (PF) 50 MCG/ML 2 ML AMP IV ONE ×2 (15:19→15:21)
[2019-04-13] MEDS ORDERED: IOPAMIDOL-370 100ML BTL INJ ONE (15:19)
[2019-04-13 17:01] LABS: Glucose,Whole Blood 52 mg/dL (75-99)
[2019-04-13 17:09] LABS: Glucose,Whole Blood 54 mg/dL (75-99)
[2019-04-13 17:38] LABS: Glucose,Whole Blood 86 mg/dL (75-99)
[2019-04-13] MEDS: SODIUM CHLORIDE 0.9% 1,000 ML IV SCH ×2 (19:00→20:24)
[2019-04-13] MEDS: ATORVASTATIN 80 MG TAB PO SCH (20:25)
[2019-04-13 20:50] LABS: Glucose,Whole Blood 281 mg/dL (75-99)
--- NOTE | 2019-04-13 22:22 | CC ---
CARDIAC CATHETERIZATION REPORT DATE OF SERVICE: April 13, 2019 PERFORMING PHYSICIAN: Ronald Colón MD, R PVI. PROCEDURE PERFORMED: 1. Selective left and right coronary angiogram. 2. FARRELL to LAD angiogram. 3. SVG to ramus intermedius angiogram. 4. SVG to OM angiogram. 5. An atherectomy of the right coronary artery using the orbital atherectomy device. 6. Successful stenting of the mid right coronary artery using 2.75 x 38 mm Xience ZBIGNIEW with an excellent angiographic results. 7. Successful stenting of the proximal RCA using 3.4 x 23 mm Xience ZBIGNIEW with an excellent angiographic results as well. INDICATION: This is a very pleasant 58-year-old gentleman with history of coronary artery disease and prior coronary artery bypass grafting where he received FARRELL to LAD, SVG to ramus intermedius as well as OM, as well as hypertension and dyslipidemia, presented to the hospital with chest discomfort. He underwent a stress test and that came into be abnormal concerning for severe underlying coronary artery disease. Because of that, a heart catheterization was advised. APPROACH: Right common femoral artery. COMPLICATION: None. LEVEL OF SEDATION: Moderate with sedation length of 67 minutes. PROCEDURE DESCRIPTION: After obtaining informed consent, the patient was brought to the cardiac pathology laboratory director. The right common femoral artery was cannulated using micropuncture technique, the micropuncture wire passed easily, then I placed a 6-Bruneian sheath in the right common femoral artery. After that, I did selective left and right coronary angiogram using JL4 and JR4 catheters. After that I did SVG to ramus and OM angiogram using using LCB catheter. Subsequently I did FARRELL to LAD angiogram using the JR4 catheter. After that, I did intervene on the RCA. Please see a separate paragraph for that. I did left heart catheterization using 6-Bruneian pigtail catheter. SELECTIVE CORONARY ANGIOGRAM: 1. The left main is chronically occluded in the distal portion. 2. The RCA is extremely calcified and critically diseased in the proximal to mid portion. Distally appeared to be normal and bifurcates into PDA and PLV branches. CORONARY BYPASSES ANGIOGRAM: 1. The FARRELL to LAD is patent. 2. The SVG to ramus intermedius is patent. 3. The SVG to OM is patent. HEMODYNAMICS: The left ventricular end-diastolic pressure was about 10 mmHg without significant gradient across aortic valve. PCI OF THE RCA: Anticoagulation was initiated using Angiomax. Subsequently I did engage the RCA using JR3.5 guide. I did wire it using a run-through wire. After that I attempted doing balloon angioplasty using 2.5 x 12 mm balloon but the balloon will not open the lesion in the mid RCA and because of that, I decided to do an atherectomy of the RCA. At that point, I did wire the RCA using a long whisper wire. Subsequently I did exchange my Whisper wire into ViperWire using a Telport catheter. After that I did atherectomy of the right coronary artery using the orbital atherectomy device from [employer] where I did 2 20 seconds runs under low speed. After that, I did balloon angioplasty using 2.5 x 15 mm balloon. Then distally in the mid RCA, I deployed 2.75 x 38 mm Xience ZBIGNIEW. The stent was positioned under fluoroscopy guidance and deployed under fluoroscopy guidance. I post dilated the stent using 2.5 mm NC balloon. That was performed in the midportion of the stent. Proximally I deployed 3.0 x 23 mm another Xience ZBIGNIEW where the stent again was positioned under fluoroscopy guidance and deployed under its nominal pressure. After that I post dilated the stent using 3 mm NC balloon. Final angiogram showed excellent angiographic results and the procedure was completed without any complication. Please note that I did deploy a transvenous temporary pacemaker from the right groin before I did atherectomy of the right coronary artery. CONCLUSION: 1. Occluded left main coronary artery. 2. Patent FARRELL to LAD. 3. Patent SVG to ramus intermedius. 4. Patent SVG to OM. 5. Critical disease involving extremely calcified right coronary artery in the proximal and midportion. 6. Successful atherectomy, balloon angioplasty, and stenting of the RCA as described above. POSTPROCEDURE MANAGEMENT: 1. Dual anti-platelet therapy. 2. Risk factor modifications. 3. Follow up with the patient. MMODL / IJN: [id number] /
--- NOTE | 2019-04-13 22:49 | CC ---
CARDIAC CATHETERIZATION REPORT DATE OF SERVICE: 04/13/2019 PERFORMING PHYSICIAN: Ronald Colón MD. PROCEDURE PERFORMED: Selective right coronary angiogram. INDICATION: This is a pleasant 58-year-old gentleman who just underwent a few minutes ago successful atherectomy along with balloon angioplasty and stenting of the RCA with excellent angiographic results. By the end he started experiencing chest discomfort with EKG changes. I had concern about acute vessel closure. Because of that, I did advise proceeding with coronary angiogram. COMPLICATIONS: None. LEVEL OF SEDATION: 18 minutes. APPROACH: Right common femoral artery. PROCEDURE DESCRIPTION: The sheath was already placed from the previous procedure. I did advance a 5-Eritrean JR4 catheter under fluoroscopic guidance and I did engage the right coronary artery using JR4 catheter. SELECTIVE CORONARY ANGIOGRAM: The stents in the proximal and mid right coronary artery appeared to be patent. The distal RCA appeared to be angiographically normal and bifurcates into PDA and PLV branches; both appeared to have mild disease only. CONCLUSION: Patent stents in both the proximal and mid right coronary artery. POST-PROCEDURE MANAGEMENT: 1. Continue dual anti-platelet therapy. 2. Risk factor modifications. 3. Follow up with the patient. MMODL / IJN: [id number] /
[2019-04-14] MEDS: INSULIN ASPART (NovoLOG) 100 UNIT/ML VIAL SQ SCH ×6 (06:37→17:11)
[2019-04-14 06:38] LABS: Basophils # (A) 0.1 k/uL (0-0.2); Basophils % (A) 1 %; Eosinophils # (A) 0.2 k/uL (0-0.7); Eosinophils % (A) 3 %; HCT 46.8 % (39.0-53.0); HGB 15.4 gm/dL (13.0-17.5); Lymphocytes # (A) 0.8 k/uL (1.0-4.8); Lymphocytes % (A) 12 %; MCH 31.1 pg (25.0-35.0); MCV 94.2 fL (80.0-100.0); Monocytes # (A) 0.6 k/uL (0-1.0); Monocytes % (A) 9 %; Neutrophils # (A) 5.1 k/uL (1.3-7.7); Neutrophils % (A) 74 %; Platelet Count 185 k/uL (150-450); RBC 4.96 m/uL (4.30-5.90); RDW 13.8 % (11.5-15.5); WBC 6.9 k/uL (3.8-10.6)
[2019-04-14 06:39] LABS: Glucose,Whole Blood 188 mg/dL (75-99)
[2019-04-14] MEDS: INSULIN DETEMIR (LEVEMIR) 100 UNIT/ML SYR SQ SCH (06:44)
[2019-04-14 06:51] LABS: African American GFR (CKD) >90 (>60 ml/min/1.73 sqM); Anion Gap 5 mmol/L; Blood Urea Nitrogen 9 mg/dL (9-20); Calcium 8.7 mg/dL (8.4-10.2); Carbon Dioxide 28 mmol/L (22-30); Chloride 101 mmol/L (98-107); Glucose 183 mg/dL (74-99); Non-African American GFR(CKD) >90 (>60 ml/min/1.73 sqM); Potassium 4.4 mmol/L (3.5-5.1); Sodium 134 mmol/L (137-145)
[2019-04-14] MEDS: ASPIRIN 81 MG PO SCH (08:31)
[2019-04-14] MEDS: NICOTINE 21MG/24HR PATCH TRANSDERM SCH (08:31)
[2019-04-14] MEDS: LOSARTAN 50 MG TAB PO SCH (08:31)
[2019-04-14] MEDS: METOPROLOL TARTRATE 25 MG TAB PO SCH (08:31)
[2019-04-14] MEDS ORDERED: CLOPIDOGREL 75 MG TAB PO SCH (09:00)
--- NOTE | 2019-04-14 10:28 | P.PN ---
Subjective Progress Note Date: 04/14/19 Principal diagnosis: Chest pain/abnormal stress test This is a pleasant 68-year-old gentleman with history of coronary artery disease and prior coronary artery virus grafting who was admitted to the hospital with chest discomfort and ruled out for acute coronary event. He underwent a stress test which revealed ischemia. Subsequently heart catheterization revealed critical disease involving extremely calcified right coronary artery which was unprotected. He underwent yesterday successful atherectomy, balloon angioplasty, and stenting of the RCA. After the procedure he was complaining of chest discomfort and a heart catheterization again revealed patent stent in the RCA The patient was seen this morning. He is asymptomatic from the cardiovascular standpoint overview. He did have one episode of 5 beats of nonsustained ventricular tachycardia. Otherwise he is on the bradycardic side. He is on dual antiplatelet therapy as well as he is on beta nikolas and losartan. From the cardiac vascular standpoint overview, the patient can be discharged home Objective - Vital Signs Vital signs: Vital Signs Temp 97.7 F 04/14/19 04:00 Pulse 60 04/14/19 04:00 Resp 16 04/14/19 04:00 BP 162/79 04/14/19 04:00 Pulse Ox 95 04/14/19 04:00 Intake & Output 04/13/19 04/14/19 04/14/19 18:59 06:59 18:59 Intake Total 809.5 1080 Output Total 800 Balance 809.5 280 Weight 69.9 kg Intake: IV 539.5 Intake, IV Titration 270 600 Amount Sodium Chloride 0.9% 1, 600 000 ml @ 75 mls/hr IV . [id number] [facility] Rx#:[id number] Sodium Chloride 0.9% 1, 270 000 ml In Empty Bag 1 bag @ 1 ML/KG/HR 68.039 mls/ hr IV .[id number] ONE Rx#: [id number] Oral 0 480 Output: Urine 800 Other: Voiding Method Toilet # Voids 1 - Constitutional General appearance: Present: no acute distress - Respiratory Respiratory: bilateral: CTA - Cardiovascular Rhythm: regular Heart sounds: normal: S1, S2 - Labs CBC & Chem 7: 04/14/19 05:47 04/14/19 05:47 Labs: Abnormal Lab Results - Last 24 Hours (Table) 11/21/19 11/21/19 11/21/19 Range/Units 16:49 17:03 20:49 Lymphocytes # (1.0-4.8) k/uL Sodium (137-145) mmol/L Glucose (74-99) mg/dL POC Glucose (mg/dL) 52 L 54 L 281 H (75-99) mg/dL 04/14/19 04/14/19 04/14/19 Range/Units 05:47 05:47 06:33 Lymphocytes # 0.8 L (1.0-4.8) k/uL Sodium 134 L (137-145) mmol/L Glucose 183 H (74-99) mg/dL POC Glucose (mg/dL) 188 H (75-99) mg/dL Microbiology - Last 24 Hours (Table) 04/11/19 10:30 Blood Culture - Preliminary Blood No Growth after 48 hours Assessment and Plan Assessment: Assessment #1 chest discomfort #2 abnormal stress test #3 coronary artery disease and prior revascularization Plan #1 continue the current medical regimen #2 the patient can be discharged home
[2019-04-14 10:41] VITALS: BMI 23.4
[2019-04-14 10:59] VITALS: BP 131/94; TEMP 98.1
[2019-04-14 11:50] LABS: Glucose,Whole Blood 133 mg/dL (75-99)
--- NOTE | 2019-04-14 13:15 | P.DS ---
Providers Date of admission: 04/12/19 14:02 Attending physician: Marcel Man Consults: 04/11/19 10:05 Consult Physician Urgent Consulting Provider: Ronald Colón Consult Reason/Comments: cp Do you want consulting provider notified?: Yes 04/13/19 14:58 Consult Physician Routine Consulting Provider: [facility] Consult Reason/Comments: Post Interventional patient Do you want consulting provider notified?: Already Contacted Primary care physician: [facility] Course: Patient with history of CABG noncompetitive medication given with the chest pressure like sensation underwent stress test appears to have positive stress test patient probably will undergo cardiac catheterization tomorrow. CAT scan of the chest was often for possible mass is no mass evident that no pulmonary nodules. No evidence of pneumonia. 04/13/2019 Patient will undergo cardiac catheterization today 04/14/2019 Patient had cardiac original stenting to RCA clinically doing will be discharged today. Extensive counseling regarding compliance with medications and smoking was provided, patient had mildly depressed ejection fraction of 45-50% probably acute secondary to myocardial infarction, patient is being discharged on losartan PHYSICAL EXAMINATION: GENERAL: The patient is alert and oriented x3, not in any acute distress. Well developed, well nourished. HEENT: Pupils are round and equally reacting to light. EOMI. No scleral icterus. No conjunctival pallor. Normocephalic, atraumatic. No pharyngeal erythema. No thyromegaly. CARDIOVASCULAR: S1 and S2 present. No murmurs, rubs, or gallops. PULMONARY: Chest is clear to auscultation, no wheezing or crackles. ABDOMEN: Soft, nontender, nondistended, normoactive bowel sounds. No palpable organomegaly. MUSCULOSKELETAL: No joint swelling or deformity. EXTREMITIES: No cyanosis, clubbing, or pedal edema. NEUROLOGICAL: Gross neurological examination did not reveal any focal deficits. SKIN: No rashes. Assessment and Plan Plan: Unstable angina patient had cardiac catheterization and stenting as mentioned above -Acute systolic dysfunction without any pulmonary edema or exacerbation of heart failure, acute systolic dysfunction probably due to acute myocardial infarction -Coronary Artery disease highly noncompliance with medications -Nicotine abuse: -Type 2 diabetes mellitus: Blood sugars are well controlled continue with home regimen Plan - Discharge Summary Discharge Rx Participant: No New Discharge Prescriptions: New Aspirin 81 mg PO DAILY #30 chew Losartan [Cozaar] 100 mg PO DAILY #30 tab Atorvastatin [Lipitor] 80 mg PO HS #30 tab Metoprolol Tartrate [Lopressor] 25 mg PO BID #60 tab Nitroglycerin Sl Tabs [Nitrostat] 0.4 mg SUBLINGUAL Q5M PRN #60 tab PRN Reason: Chest Pain Clopidogrel [Plavix] 75 mg PO DAILY #30 tab Continue Insulin Glargine [Lantus] 33 unit SQ DAILY INSULIN ASPART (NovoLOG) [NovoLOG (formulary)] See Protocol SQ AC-TID Discharge Medication List Insulin Glargine [Lantus] 33 unit SQ DAILY 02/25/16 [History] INSULIN ASPART (NovoLOG) [NovoLOG (formulary)] See Protocol SQ AC-TID 04/11/19 [History] Aspirin 81 mg PO DAILY #30 chew 04/14/19 [Rx] Atorvastatin [Lipitor] 80 mg PO HS #30 tab 04/14/19 [Rx] Clopidogrel [Plavix] 75 mg PO DAILY #30 tab 04/14/19 [Rx] Losartan [Cozaar] 100 mg PO DAILY #30 tab 04/14/19 [Rx] Metoprolol Tartrate [Lopressor] 25 mg PO BID #60 tab 04/14/19 [Rx] Nitroglycerin Sl Tabs [Nitrostat] 0.4 mg SUBLINGUAL Q5M PRN #60 tab 04/14/19 [Rx] Follow up Appointment(s)/Referral(s): Ronald Colón MD [STAFF PHYSICIAN] - 04/25/19 11:30 am [facility]inic [Primary Care Provider] - 04/26/19 2:30 pm Patient Instructions/Handouts: How to Stop Smoking (DC), Heart Healthy Diet (DC), Coronary Intravascular Stent Placement (DC) Activity/Diet/Wound Care/Special Instructions: CARDIAC CATH 1. Support your puncture site by applying firm, steady pressure whenever you cough, laugh, sneeze or bear down to have a bowel movement (2-day restriction). 2. Watch for any excessive bruising, active bleeding, a firm knot forming under your skin, extreme tenderness and signs of infection (redness, swelling, fever). 3. Shower daily, do not soak puncture in a tub bath, jacuzzi, pool, minaya etc. for 1 week. This is to prevent risk of infection. 4. Drink plenty of fluids the day of and day after your procedure to flush contrast dye out of your kidneys. 5. Take all medications as directed. Never stop any new medication without your physicians OK. 6. No driving for 2 days after procedure. 7. 10- pound weight lifting restriction for 1 week. 8. Low sodium/low fat diet. 9. Activity limited until follow up appointment with your assistant therapy aide. In case of any problems, please call [facility] [place] @ [phone]. Discharge Disposition: HOME SELF-CARE Plan of Treatment: Please fax med list to [place] for mail order.
[2019-04-14 16:56] LABS: Glucose,Whole Blood 84 mg/dL (75-99)
[2019-04-14 16:59] VITALS: PULSE 62; RESP 14
--- NOTE | 2019-04-19 04:53 | CDI ---
Documentation Clarification Form Date: 04/19/2019 4:45:06 AM From: Richelle Hung Phone: If you have a question about this query, please contact Mandi Gutierrez Senior Quality Assurance Engineer at [phone] between 8am and 5pm. Admit Date: 04/12/2019 2:02:00 PM Patient Name: Bennie Olsen Visit Number: [id number] Discharge Date: 04/14/2019 5:38:00 PM ATTENTION: The Clinical Documentation Specialists (CDI) and [facility] Coding Staff appreciate your assistance in clarifying documentation. Please respond to the clarification below the line at the bottom and electronically sign. The CDI & [facility] Coding staff will review the response and follow-up if needed. Please note: Queries are made part of the Legal Health Record. If you have any questions, please contact the author of this message via ITS. Dr. Marcel Man Conflicting documentation has been found in the medical record: H and P PMH documents IDDM Type I. H and P in Assessment documents Type 2 DM. Please clarify, did patient have type I or type II DM? In your opinion, what is the most clinically appropriate diagnosis for this patient? Type I IDDM Type 2 IDDM Other explanation of clinical findings Unable to determine (no explanation for clinical findings) My opinion was already dictated in my note (discharge summary) [facility]
== END 2019-04-14 17:38 | disposition home or self-care (01) | DRG 247 ==
LOC: EC 08:21 → 1SOBS 10:05 → OBSVTOIN 04-12 14:02 → 3SCARD 04-12 17:41
PROVIDERS: ADMIT Internal Medicine; ATTEND Internal Medicine
PROC: X2C0361 Extirpation of Matter from Coronary Artery, One Artery using Orbital Atherectomy Technology, Percutaneous Approach, New Technology Group 1 (ICD-10-PCS; 2019-04-13)
PROC: 4A023N7 Measurement of Cardiac Sampling and Pressure, Left Heart, Percutaneous Approach (ICD-10-PCS; 2019-04-13)
PROC: B2131ZZ Fluoroscopy of Multiple Coronary Artery Bypass Grafts using Low Osmolar Contrast (ICD-10-PCS; 2019-04-13)
PROC: B2111ZZ Fluoroscopy of Multiple Coronary Arteries using Low Osmolar Contrast (ICD-10-PCS; 2019-04-13)
PROC: 027035Z Dilation of Coronary Artery, One Artery with Two Drug-eluting Intraluminal Devices, Percutaneous Approach (ICD-10-PCS; principal; 2019-04-13 07:30)
PROC: 02703ZZ Dilation of Coronary Artery, One Artery, Percutaneous Approach (ICD-10-PCS; 2019-04-13 07:30)
DX: I21.9 Acute myocardial infarction, unspecified (principal); I47.2 Ventricular tachycardia; I25.110 Atherosclerotic heart disease of native coronary artery with unstable angina pectoris; E78.5 Hyperlipidemia, unspecified; E11.40 Type 2 diabetes mellitus with diabetic neuropathy, unspecified; Z79.4 Long term (current) use of insulin; Z71.6 Tobacco abuse counseling; F17.210 Nicotine dependence, cigarettes, uncomplicated; I11.0 Hypertensive heart disease with heart failure; I25.2 Old myocardial infarction; I25.5 Ischemic cardiomyopathy; I50.9 Heart failure, unspecified; T45.526A Underdosing of antithrombotic drugs, initial encounter; T46.4X6A Underdosing of angiotensin-converting-enzyme inhibitors, initial encounter; T46.6X6A Underdosing of antihyperlipidemic and antiarteriosclerotic drugs, initial encounter; T44.7X6A Underdosing of beta-adrenoreceptor antagonists, initial encounter; T39.016A Underdosing of aspirin, initial encounter; Z91.128 Patient's intentional underdosing of medication regimen for other reason; Z82.49 Family history of ischemic heart disease and other diseases of the circulatory system; Z83.3 Family history of diabetes mellitus; Z91.19 Patient's noncompliance with other medical treatment and regimen; Z95.1 Presence of aortocoronary bypass graft; Z88.0 Allergy status to penicillin; Z88.8 Allergy status to other drugs, medicaments and biological substances
CPT/HCPCS: 36415; 71046; 71250; 80048; 80053; 80061; 83036; 83735; 84484; 85025; 85379; 85610; 85730; 87040; 93005; 93306; 93351; 93459; 93880; 99285; C1874

== ENCOUNTER 2019-06-12 10:07 | Emergency (ER) | payer OTHER ==
[2019-06-12 10:31] VITALS: BP 136/81; PULSE 72; RESP 18; TEMP 98
[2019-06-12] MEDS ORDERED: DIPH,PERTUS(ACELL)TETVAC-LF 0.5 ML VIAL IM ONE (10:57)
--- NOTE | 2019-06-12 11:28 | XR ---
Left hand HISTORY: Infection second carpophalangeal joint 3 views of left hand Correlation to prior exam 09/30/2012 Deformity the distal aspect of the fourth digit left hand is a stable finding. Bone mineralization, j oint spaces and alignment are maintained. Surgical clips are present along the soft tissues at the le robe of the distal radius laterally. No periostitis to suggest osteomyelitis. Arthropathy changes are present with probable geode formation within the carpal bones. Soft tissue swelling is noted. IMPRESSION: Correlate for cellulitis. No periostitis to suggest osteomyelitis.
--- NOTE | 2019-06-12 12:03 | ED ---
General Adult HPI - General Chief complaint: Skin/Abscess/Foreign Body Stated complaint: IHS-finger/knuckle laceration Time Seen by Provider: 06/12/19 10:39 Source: patient, RN notes reviewed Mode of arrival: ambulatory Limitations: no limitations - History of Present Illness Initial comments: 58-year-old male with a complicated past medical history including type 1 diabetes presents to the emergency department for chief of infection. Patient states that 2 weeks ago he cut his left dorsal second digit on a blade. States that it was healing fine until today when he noticed it was red and swollen and had increased pain. Patient states when he initially cut he did wash it out. He denies streaking redness but is concerned about spreading redness. States glucose has been controlled and he checked it on his way into the ER and it was 140. Denies difficulty bending the left second digit.Patient has no other complaints at this time including shortness of breath, chest pain, abdominal pain, nausea or vomiting, headache, or visual changes. - Related Data Home Medications Medication Instructions Recorded Confirmed Insulin Glargine [Lantus] 33 unit SQ DAILY 02/25/16 04/11/19 INSULIN ASPART (NovoLOG) [NovoLOG See Protocol SQ AC-TID 04/11/19 04/11/19 (formulary)] Previous Rx's Medication Instructions Recorded Aspirin 81 mg PO DAILY #30 chew 04/14/19 Atorvastatin [Lipitor] 80 mg PO HS #30 tab 04/14/19 Clopidogrel [Plavix] 75 mg PO DAILY #30 tab 04/14/19 Losartan [Cozaar] 100 mg PO DAILY #30 tab 04/14/19 Metoprolol Tartrate [Lopressor] 25 mg PO BID #60 tab 04/14/19 Nitroglycerin Sl Tabs [Nitrostat] 0.4 mg SUBLINGUAL Q5M PRN #60 tab 04/14/19 Cephalexin [Keflex] 500 mg PO Q6H 10 Days #40 cap 06/12/19 Allergies Allergy/AdvReac Type Severity Reaction Status Date / Time Penicillins Allergy Unknown Verified 06/12/19 10:31 Childhood lovastatin AdvReac muscle pain Verified 06/12/19 10:31 Review of Systems ROS Statement: Those systems with pertinent positive or pertinent negative responses have been documented in the HPI. ROS Other: All systems not noted in ROS Statement are negative. Past Medical History Past Medical History: Chest Pain / Angina, Heart Failure, Diabetes Mellitus, GERD/Reflux, Myocardial Infarction (HI) Additional Past Medical History / Comment(s): IDDM type 1, neuropathy bilteral feet, gammaglobulinemia as infant. Last Myocardial Infarction Date:: 2016 History of Any Multi-Drug Resistant Organisms: None Reported Past Surgical History: Back Surgery, Coronary Bypass/CABG, Heart Catheterization, Heart Catheterization With Stent, Orthopedic Surgery Additional Past Surgical History / Comment(s): 2017 cardiac cath, 2017 CABG 3 vessel, L5-S1 back surgery, bilateral hand trigger finger repairs. Past Anesthesia/Blood Transfusion Reactions: No Reported Reaction Additional Past Anesthesia/Blood Transfusion Reaction / Comment(s): Pt received blood as an infant. Past Psychological History: No Psychological Hx Reported Smoking Status: Current some day smoker Past Alcohol Use History: Occasional Past Drug Use History: None Reported - Past Family History Father Family Medical History: Coronary Artery Disease (CAD), Diabetes Mellitus, Myoca rdial Infarction (HI) Additional Family Medical History / Comment(s): Father has had 5 MIs with the first one happening at the age of 55yrs. Mother Additional Family Medical History / Comment(s): Hypoglycemia. There is coronary artery disease on the mother's family but not in the patient's mother General Exam Limitations: no limitations General appearance: alert, in no apparent distress Head exam: Present: atraumatic, normocephalic, normal inspection Eye exam: Present: normal appearance, PERRL, EOMI. Absent: scleral icterus, conjunctival injection, periorbital swelling ENT exam: Present: normal exam, mucous membranes moist Neck exam: Present: normal inspection, full ROM. Absent: tenderness, meningismus Respiratory exam: Present: normal lung sounds bilaterally. Absent: respiratory distress, wheezes, rales, rhonchi, stridor Cardiovascular Exam: Present: regular rate, normal rhythm, normal heart sounds. Absent: systolic murmur, diastolic murmur, rubs, gallop, clicks Extremities exam: Present: tenderness (Minimal generalized tenderness along the left MCP joint. However there is no specific tendon tenderness.), normal capillary refill (Capillary refill less than 2 seconds, radial pulse 2+.). Absent: full ROM (She has some limited range of motion of the left second MCP joint but does have some intact reduction. He has full extension of the left second and see be drinking and about 45 flexion.), pedal edema, joint swelling, calf tenderness, other ( I'll of surrounding erythema around the dorsal aspect of the left second digit however there is no streaking redness. This is about 3 cm x 3 cm of erythema. No evidence of abscess. No tenderness on the palmar aspect of the left second digit. No evidence for flexor tenosynovitis.) Course Vital Signs 06/12/19 10:28 Temperature 98.0 F Pulse Rate 72 Respiratory 18 Rate Blood Pressure 136/81 O2 Sat by Pulse 100 Oximetry Medical Decision Making - Medical Decision Making Erythema noted of the dorsum of the left second digit likely related to cellulitis given history of laceration in this area 2 weeks ago. I do not see any evidence for flexor tenosynovitis. He does have intact range of motion of the left second digit however this is minimally decreased due to pain. Neurovascular status intact left second digit. Patient will be treated with Keflex. He states he does have a penicillin ALLERGY however this is from when he was a child he is unsure of his reaction. Patient will follow up with primary care in 1-2 days or return here if he has any worsening symptoms. Disposition Clinical Impression: Cellulitis Disposition: HOME SELF-CARE Condition: Good Additional Instructions: Please take in a bank as directed. Please follow-up with primary care in 1-2 days. Monitor for any worsening symptoms such as spreading redness or streaking redness or increased pain. If these are occurring after 24-48 hours any to return to the emergency department. Remember to check your glucose consistently. Prescriptions: Cephalexin [Keflex] 500 mg PO Q6H 10 Days #40 cap Is patient prescribed a controlled substance at d/c from ED?: No Referrals: [facility],Clinic [Primary Care Provider] - 1-2 days Time of Disposition: 12:01
== END 2019-06-12 12:12 | disposition home or self-care (01) ==
LOC: EC 10:07
DX: L03.012 Cellulitis of left finger (principal); Z23 Encounter for immunization; E10.40 Type 1 diabetes mellitus with diabetic neuropathy, unspecified; I25.2 Old myocardial infarction; Z79.4 Long term (current) use of insulin; Z88.0 Allergy status to penicillin; Z88.8 Allergy status to other drugs, medicaments and biological substances; Z95.1 Presence of aortocoronary bypass graft; Z95.5 Presence of coronary angioplasty implant and graft
CPT/HCPCS: 90471; 90715; 99283

== ENCOUNTER 2019-09-13 20:35 | Inpatient (IN) | payer OTHER ==
[2019-09-13] MEDS ORDERED: ACETAMINOPHEN TAB 500 MG TAB PO STA (21:01)
--- NOTE | 2019-09-13 21:10 | ED ---
General Adult HPI - General Chief complaint: Altered Mental Status Stated complaint: AMS Time Seen by Provider: 09/13/19 20:35 Source: family, RN notes reviewed, old records reviewed Mode of arrival: ambulatory Limitations: altered mental status - History of Present Illness Initial comments: This is a 58-year-old male who presents emergency Department with a past medical history significant for bypass surgery multiple cardiac stents diabetes high blood pressure and the patient continues to smoke. According to the patient he started having an upset stomach on Wednesday and it continues today. Patient states he vomits between 3 and 5 times every day. Patient denies any diarrhea. Patient states pressing the belly doesn't seem to make the pain any worse chest feels upset constantly. Patient did not see him yesterday but today she noticed that he had a fever at home and he was altered mentally confused with doing some simple tasks and otherwise was not confused about. Patient was still alert and oriented 3 but doing some simple tasks he was not able to do. Patient had an occasional cough but has not been out of her house since mid M arch. Patient denies any sore throat. Patient denies any conjunctivitis. Patient's any diarrhea. - Related Data Home Medications Medication Instructions Recorded Confirmed Insulin Glargine [Lantus] 35 unit SQ DAILY 02/25/16 09/14/19 INSULIN ASPART (NovoLOG) [NovoLOG See Protocol SQ AC-TID 04/11/19 09/14/19 (formulary)] Levothyroxine Sodium [Synthroid] 50 mcg PO DAILY 09/14/19 09/14/19 Multivitamins, Thera [Multivitamin 1 tab PO DAILY 09/14/19 09/14/19 (formulary)] Previous Rx's Medication Instructions Recorded Aspirin 81 mg PO DAILY #30 chew 04/14/19 Atorvastatin [Lipitor] 80 mg PO HS #30 tab 04/14/19 Clopidogrel [Plavix] 75 mg PO DAILY #30 tab 04/14/19 Metoprolol Tartrate [Lopressor] 25 mg PO BID #60 tab 04/14/19 Nitroglycerin Sl Tabs [Nitrostat] 0.4 mg SUBLINGUAL Q5M PRN #60 tab 04/14/19 Allergies Allergy/AdvReac Type Severity Reaction Status Date / Time Penicillins Allergy Unknown Verified 09/14/19 08:23 Childhood lovastatin AdvReac muscle pain Verified 09/14/19 08:23 Review of Systems ROS Statement: Those systems with pertinent positive or pertinent negative responses have been documented in the HPI. ROS Other: All systems not noted in ROS Statement are negative. Past Medical History Past Medical History: Chest Pain / Angina, Heart Failure, Diabetes Mellitus, GERD/Reflux, Myocardial Infarction (ID) Additional Past Medical History / Comment(s): IDDM type 1, neuropathy bilteral feet, gammaglobulinemia as infant. Last Myocardial Infarction Date:: 2016 History of Any Multi-Drug Resistant Organisms: None Reported Past Surgical History: Back Surgery, Coronary Bypass/CABG, Heart Catheterization, Heart Catheterization With Stent, Orthopedic Surgery Additional Past Surgical History / Comment(s): 2017 cardiac cath, 2017 CABG 3 vessel, L5-S1 back surgery, bilateral hand trigger finger repairs. Past Anesthesia/Blood Transfusion Reactions: No Reported Reaction Additional Past Anesthesia/Blood Transfusion Reaction / Comment(s): Pt received blood as an . Past Psychological History: No Psychological Hx Reported Smoking Status: Current some day smoker Past Alcohol Use History: Occasional Past Drug Use History: None Reported - Past Family History Father Family Medical History: Coronary Artery Disease (CAD), Diabetes Mellitus, Myocardial Infarction (ID) Additional Family Medical History / Comment(s): Father has had 5 MIs with the first one happening at the age of 55yrs. Mother Additional Family Medical History / Comment(s): Hypoglycemia. There is coronary artery disease on the mother's family but not in the patient's mother General Exam - General Exam Comments Initial Comments: GENERAL: Patient is well-developed and well-nourished. Patient is nontoxic and well- hydrated and is in mild distress. ENT: Neck is soft and supple. No significant lymphadenopathy is noted. Oropharynx is clear. Moist mucous membranes. Neck has full range of motion without eliciting any pain. EYES: The sclera were anicteric and conjunctiva were pink and moist. Extraocular movements were intact and pupils were equal round and reactive to light. Eyelids were unremarkable. PULMONARY: Unlabored respirations. Good breath sounds bilaterally. No audible rales rhonc hi or wheezing was noted. CARDIOVASCULAR: There is a regular rate and rhythm without any murmurs gallops or rubs. ABDOMEN: Soft and nontender with normal bowel sounds. Unable to find any area of specific tenderness. SKIN: Skin is clear with no lesions or rashes and otherwise unremarkable. NEUROLOGIC: Patient is alert and oriented 3 cranial nerves II through XII are grossly intact motor and sensory are also intact MUSCULOSKELETAL: Normal extremities with adequate strength and full range of motion. No lower extremity swelling or edema. No calf tenderness. LYMPHATICS: No significant lymphadenopathy is noted PSYCHIATRIC: Normal psychiatric evaluation. Limitations: altered mental status Course Vital Signs 09/13/19 09/13/19 09/13/19 20:36 20:49 20:50 Temperature 100.7 F H Pulse Rate 92 122 H Respiratory 20 23 Rate Blood Pressure 121/81 154/99 154/99 O2 Sat by Pulse 98 Oximetry 09/13/19 09/13/19 09/13/19 21:00 21:10 21:20 Temperature Pulse Rate 81 81 91 Respiratory 24 31 H 13 Rate Blood Pressure 154/99 152/91 152/91 O2 Sat by Pulse Oximetry 09/13/19 09/13/19 09/13/19 21:30 21:40 21:50 Temperature Pulse Rate 73 Respiratory 26 H Rate Blood Pressure 152/91 168/83 168/83 O2 Sat by Pulse 97 Oximetry 09/13/19 09/13/19 09/13/19 22:00 22:10 22:20 Temperature Pulse Rate 74 71 75 Respiratory 20 28 H 31 H Rate Blood Pressure 168/83 139/77 139/77 O2 Sat by Pulse 99 94 L 94 L Oximetry 09/13/19 09/13/19 09/13/19 22:31 22:40 22:50 Temperature Pulse Rate 76 Respiratory 24 Rate Blood Pressure 139/77 139/77 139/77 O2 Sat by Pulse Oximetry 09/13/19 09/13/19 09/13/19 23:00 23:10 23:20 Temperature Pulse Rate 89 74 Respiratory 24 25 H 24 Rate Blood Pressure 139/77 112/71 112/71 O2 Sat by Pulse 96 93 L Oximetry 09/13/19 09/13/19 09/14/19 23:30 23:40 00:20 Temperature 98.9 F Pulse Rate 73 77 70 Respiratory 25 H 20 20 Rate Blood Pressure 112/71 133/82 148/73 O2 Sat by Pulse 89 L 95 94 L Oximetry Medical Decision Making - Medical Decision Making Care of this patient will be taken over by Dr. Gongora at 11 PM EKG shows sinus rhythm with occasional PVC at 86 beats a minute TX interval 244 dresses 90 QT interval 388 QTC is 464. Patient's EKG shows no ST segment elevation or depression. - Lab Data Result diagrams: 09/14/19 05:59 09/14/19 11:58 Lab Results 09/13/19 09/13/19 09/13/19 Range/Units 21:09 21:10 21:11 WBC 12.3 H (3.8-10.6) k/uL RBC 5.29 (4.30-5.90) m/uL Hgb 16.2 (13.0-17.5) gm/dL Hct 46.5 (39.0-53.0) % MCV 87.9 (80.0-100.0) fL MCH 30.7 (25.0-35.0) pg MCHC 34.9 (31.0-37.0) g/dL RDW 12.9 (11.5-15.5) % Plt Count 196 (150-450) k/uL Neutrophils % 74 % Lymphocytes % 13 % Monocytes % 12 % Eosinophils % 0 % Basophils % 0 % Neutrophils # 9.1 H (1.3-7.7) k/uL Lymphocytes # 1.6 (1.0-4.8) k/uL Monocytes # 1.4 H (0-1.0) k/uL Eosinophils # 0.1 (0-0.7) k/uL Basophils # 0.0 (0-0.2) k/uL PT (9.0-12.0) sec INR (<1.2) APTT (22.0-30.0) sec D-Dimer (<0.60) mg/L FEU Sodium (137-145) mmol/L Potassium (3.5-5.1) mmol/L Chloride (98-107) mmol/L Carbon Dioxide (22-30) mmol/L Anion Gap mmol/L BUN (9-20) mg/dL Creatinine (0.66-1.25) mg/dL Est GFR (CKD-EPI)AfAm (>60 ml/min/1.73 sqM) Est GFR (CKD-EPI)NonAf (>60 ml/min/1.73 sqM) Glucose (74-99) mg/dL POC Glucose (mg/dL) 256 H (75-99) mg/dL POC Glu Refrigerating Engineer Head ID Celia Rico Plasma Lactic Acid Cyril (0.7-2.0) mmol/L Calcium (8.4-10.2) mg/dL Magnesium (1.6-2.3) mg/dL Ferritin (22.0-322.0) ng/mL Total Bilirubin (0.2-1.3) mg/dL AST (17-59) U/L ALT (4-49) U/L Alkaline Phosphatase (38-126) U/L Ammonia (<30) umol/L Lactate Dehydrogenase (313-618) U/L C-Reactive Protein (<10.0) mg/L Total Protein (6.3-8.2) g/dL Albumin (3.5-5.0) g/dL Procalcitonin (0.02-0.09) ng/mL Urine Color Urine Appearance (Clear) Urine pH (5.0-8.0) Ur Specific [place] (1.001-1.035) Urine Protein (Negative) Urine Glucose (UA) (Negative) Urine Ketones (Negative) Urine Blood (Negative) Urine Nitrite (Negative) Urine Bilirubin (Negative) Urine Urobilinogen (<2.0) mg/dL Ur Leukocyte Esterase (Negative) Urine RBC (0-5) /hpf Urine WBC (0-5) /hpf Ur Squamous Epith Cells (0-4) /hpf Hyaline Casts (0-2) /lpf Coronavirus (PCR) Not Detected (Not Detectd) Influenza Type A RNA Not Detected (Not Detectd) Influenza Type B (PCR) Not Detected (Not Detectd) 09/13/19 09/13/19 09/13/19 Range/Units 21:11 21:11 21:11 WBC (3.8-10.6) k/uL RBC (4.30-5.90) m/uL Hgb (13.0-17.5) gm/dL Hct (39.0-53.0) % MCV (80.0-100.0) fL MCH (25.0-35.0) pg MCHC (31.0-37.0) g/dL RDW (11.5-15.5) % Plt Count (150-450) k/uL Neutrophils % % Lymphocytes % % Monocytes % % Eosinophils % % Basophils % % Neutrophils # (1.3-7.7) k/uL Lymphocytes # (1.0-4.8) k/uL Monocytes # (0-1.0) k/uL Eosinophils # (0-0.7) k/uL Basophils # (0-0.2) k/uL PT 12.0 (9.0-12.0) sec INR 1.2 H (<1.2) APTT 29.8 (22.0-30.0) sec D-Dimer 0.79 H (<0.60) mg/L FEU Sodium 116 L* (137-145) mmol/L Potassium 4.3 (3.5-5.1) mmol/L Chloride 78 L (98-107) mmol/L Carbon Dioxide 27 (22-30) mmol/L Anion Gap 11 mmol/L BUN 15 (9-20) mg/dL Creatinine 0.86 (0.66-1.25) mg/dL Est GFR (CKD-EPI)AfAm >90 (>60 ml/min/1.73 sqM) Est GFR (CKD-EPI)NonAf >90 (>60 ml/min/1.73 sqM) Glucose 236 H (74-99) mg/dL POC Glucose (mg/dL) (75-99) mg/dL POC Glu Refrigerating Engineer Head ID Plasma Lactic Acid Cyril 1.8 (0.7-2.0) mmol/L Calcium 8.6 (8.4-10.2) mg/dL Magnesium 1.9 (1.6-2.3) mg/dL Ferritin 363.1 H (22.0-322.0) ng/mL Total Bilirubin 1.5 H (0.2-1.3) mg/dL AST 38 (17-59) U/L ALT 21 (4-49) U/L Alkaline Phosphatase 40 (38-126) U/L Ammonia <9 (<30) umol/L Lactate Dehydrogenase 495 (313-618) U/L C-Reactive Protein <5.0 (<10.0) mg/L Total Protein 7.2 (6.3-8.2) g/dL Albumin 4.4 (3.5-5.0) g/dL Procalcitonin (0.02-0.09) ng/mL Urine Color Urine Appearance (Clear) Urine pH (5.0-8.0) Ur Specific [place] (1.001-1.035) Urine Protein (Negative) Urine Glucose (UA) (Negative) Urine Ketones (Negative) Urine Blood (Negative) Urine Nitrite (Negative) Urine Bilirubin (Negative) Urine Urobilinogen (<2.0) mg/dL Ur Leukocyte Esterase (Negative) Urine RBC (0-5) /hpf Urine WBC (0-5) /hpf Ur Squamous Epith Cells (0-4) /hpf Hyaline Casts (0-2) /lpf Coronavirus (PCR) (Not Detectd) Influenza Type A RNA (Not Detectd) Influenza Type B (PCR) (Not Detectd) 09/13/19 09/13/19 09/13/19 Range/Units 21:11 22:42 23:15 WBC (3.8-10.6) k/uL RBC (4.30-5.90) m/uL Hgb (13.0-17.5) gm/dL Hct (39.0-53.0) % MCV (80.0-100.0) fL MCH (25.0-35.0) pg MCHC (31.0-37.0) g/dL RDW (11.5-15.5) % Plt Count (150-450) k/uL Neutrophils % % Lymphocytes % % Monocytes % % Eosinophils % % Basophils % % Neutrophils # (1.3-7.7) k/uL Lymphocytes # (1.0-4.8) k/uL Monocytes # (0-1.0) k/uL Eosinophils # (0-0.7) k/uL Basophils # (0-0.2) k/uL PT (9.0-12.0) sec INR (<1.2) APTT (22.0-30.0) sec D-Dimer (<0.60) mg/L FEU Sodium (137-145) mmol/L Potassium (3.5-5.1) mmol/L Chloride (98-107) mmol/L Carbon Dioxide (22-30) mmol/L Anion Gap mmol/L BUN (9-20) mg/dL Creatinine (0.66-1.25) mg/dL Est GFR (CKD-EPI)AfAm (>60 ml/min/1.73 sqM) Est GFR (CKD-EPI)NonAf (>60 ml/min/1.73 sqM) Glucose (74-99) mg/dL POC Glucose (mg/dL) 236 H (75-99) mg/dL POC Glu Refrigerating Engineer Head ID Lucero Parsons A Plasma Lactic Acid Cyril (0.7-2.0) mmol/L Calcium (8.4-10.2) mg/dL Magnesium (1.6-2.3) mg/dL Ferritin (22.0-322.0) ng/mL Total Bilirubin (0.2-1.3) mg/dL AST (17-59) U/L ALT (4-49) U/L Alkaline Phosphatase (38-126) U/L Ammonia (<30) umol/L Lactate Dehydrogenase (313-618) U/L C-Reactive Protein (<10.0) mg/L Total Protein (6.3-8.2) g/dL Albumin (3.5-5.0) g/dL Procalcitonin 0.07 (0.02-0.09) ng/mL Urine Color Yellow Urine Appearance Clear (Clear) Urine pH 6.0 (5.0-8.0) Ur Specific [place] 1.021 (1.001-1.035) Urine Protein 1+ H (Negative) Urine Glucose (UA) 2+ H (Negative) Urine Ketones 1+ H (Negative) Urine Blood Negative (Negative) Urine Nitrite Negative (Negative) Urine Bilirubin Negative (Negative) Urine Urobilinogen <2.0 (<2.0) mg/dL Ur Leukocyte Esterase Negative (Negative) Urine RBC <1 (0-5) /hpf Urine WBC 1 (0-5) /hpf Ur Squamous Epith Cells <1 (0-4) /hpf Hyaline Casts 1 (0-2) /lpf Coronavirus (PCR) (Not Detectd) Influenza Type A RNA (Not Detectd) Influenza Type B (PCR) (Not Detectd) Disposition Clinical Impression: Altered mental status, Hyponatremia Disposition: ADMITTED IP TO THIS HOSP
[2019-09-13 21:16] LABS: Glucose,Whole Blood 256 mg/dL (75-99)
[2019-09-13] MEDS ORDERED: SODIUM CHLORIDE 0.9% 1,000 ML IV ONE (21:22)
[2019-09-13 21:27] LABS: Basophils % (A) 0 %; Eosinophils # (A) 0.1 k/uL (0-0.7); Eosinophils % (A) 0 %; HCT 46.5 % (39.0-53.0); HGB 16.2 gm/dL (13.0-17.5); Lymphocytes # (A) 1.6 k/uL (1.0-4.8); Lymphocytes % (A) 13 %; MCH 30.7 pg (25.0-35.0); MCHC 34.9 g/dL (31.0-37.0); MCV 87.9 fL (80.0-100.0); Mean Platelet Volume 8.1; Monocytes # (A) 1.4 k/uL (0-1.0); Monocytes % (A) 12 %; Neutrophils # (A) 9.1 k/uL (1.3-7.7); Neutrophils % (A) 74 %; Platelet Count 196 k/uL (150-450); RBC 5.29 m/uL (4.30-5.90); RDW 12.9 % (11.5-15.5); WBC 12.3 k/uL (3.8-10.6)
[2019-09-13 21:36] LABS: Lactic Acid, Venous 1.8 mmol/L (0.7-2.0)
[2019-09-13 21:37] LABS: ALT 21 U/L (4-49); AST 38 U/L (17-59); African American GFR (CKD) >90 (>60 ml/min/1.73 sqM); Albumin 4.4 g/dL (3.5-5.0); Alkaline Phosphatase 40 U/L (38-126); Anion Gap 11 mmol/L; Blood Urea Nitrogen 15 mg/dL (9-20); C Reactive Protein <5.0 mg/L (<10.0); Calcium 8.6 mg/dL (8.4-10.2); Carbon Dioxide 27 mmol/L (22-30); Chloride 78 mmol/L (98-107); Glucose 236 mg/dL (74-99); LDH 495 U/L (313-618); Magnesium 1.9 mg/dL (1.6-2.3); Non-African American GFR(CKD) >90 (>60 ml/min/1.73 sqM); Potassium 4.3 mmol/L (3.5-5.1); Total Bilirubin 1.5 mg/dL (0.2-1.3); Total Protein 7.2 g/dL (6.3-8.2)
[2019-09-13 21:38] LABS: INR 1.2 (<1.2)
[2019-09-13 21:39] LABS: Partial Thromboplastin Time 29.8 sec (22.0-30.0)
--- NOTE | 2019-09-13 21:39 | XR ---
EXAMINATION TYPE: XR chest 2V DATE OF EXAM: 09/13/2019 COMPARISON: 04/11/2019 HISTORY: 58-year-old male confusion, vomiting, suspected COVID-19 pneumonia. TECHNIQUE: AP and lateral views FINDINGS: Median sternotomy wires. Post-CABG clips in the mediastinum. Heart normal size. Mild atherosclerotic arch calcifications. No consolidation or pleural effusion. Bilateral nipple shadows. Some right infra hilar prominence increased from prior. IMPRESSION: 1. No acute process seen. 2. Some right infrahilar prominence. Unable to exclude underlying lymphadenopathy or subtle mass. Non emergent follow-up contrast enhanced CT chest recommended to assess this region.
[2019-09-13 21:41] LABS: D-Dimer 0.79 mg/L FEU (<0.60)
--- NOTE | 2019-09-13 21:58 | CT ---
EXAMINATION TYPE: CT brain wo con DATE OF EXAM: 09/13/2019 COMPARISON: None HISTORY: 58-year-old male vomiting, confusion, altered mental status, Patient appears confused and arias s difficulty following instructions TECHNIQUE: Examination was done in axial plane without intravenous contrast. Coronal and sagittal r econstructions performed. CT DLP: 1217.4 mGycm Automated exposure control for dose reduction was used. FINDINGS: There is no evidence of acute intracranial hemorrhage, acute ischemic changes, mass, mass-effect, or extra-axial fluid collection. There is no effacement of cerebral sulci or basal subarachnoid cister ns. There is no hydrocephalus. There is no midline shift. Anaya-white matter distinction is preserv ed. Cerumen within the left external auditory canal. Small air-fluid level within the right sphenoid sinu s. 9 mm osteoma of the right ethmoid air cells. Mastoid air cells are well pneumatized. Slight rightw kathy nasal septal deviation. IMPRESSION: No acute intracranial abnormality seen.
[2019-09-13 22:03] LABS: Sodium 116 mmol/L (137-145)
[2019-09-13 22:45] LABS: Glucose,Whole Blood 236 mg/dL (75-99)
--- NOTE | 2019-09-13 23:06 | CT ---
EXAMINATION TYPE: CT chest angio for PE DATE OF EXAM: 09/13/2019 COMPARISON: Radiograph same day and prior CT 04/11/2019 HISTORY: 58-year-old male Elevated d-dimer. Cough, fever. TECHNIQUE: Contiguous axial scanning of the chest performed with IV Contrast, patient injected with 1 00 mL of Isovue 370. Delayed images through the kidneys were obtained. Coronal/sagittal reconstructio ns performed. CT DLP: 470.7 mGycm Automated exposure control for dose reduction was used. FINDINGS: Median sternotomy wires are present post CABG clips. Heart normal size without pericardial effusion. No finding of the intraventricular septum or reflux of contrast into the hepatic veins. Mild atherosclerotic calcifications with conventional branching anatomy. Extensive breathing motion. No large central pulmonary embolus. Many of the lobar, segmental, and mor e distal arterial branches are nondiagnostic due to the extent of breathing motion artifact. 1.2 cm left tracheobronchial angle lymph node measured 9 mm, previously. Newly enlarged 2.6 cm subcarinal lymph node. 2.8 cm right infrahilar nodule/mass, not apparent on the prior noncontrast CT. Mild diffuse bronchial wall thickening. No consolidation or pleural effusion. Extensive breathing mot ion artifact limits assessment for small pulmonary nodules. Tiny hiatal hernia. Breathing motion in the visualized upper abdomen limits assessment. Bones: Normal variant sternal foramina. Moderate to advanced degenerative disc disease mid and lower thoracic spine scattered throughout. IMPRESSION: 1. ESSENTIALLY NONDIAGNOSTIC FOR PULMONARY EMBOLUS DUE TO PATIENT BREATHING THROUGH THE SCAN. NO LARG E CENTRAL PULMONARY AND WAS. MANY LOBAR, SEGMENTAL, AND MORE DISTAL BRANCHES ARE NONDIAGNOSTIC EMBOLI IN THESE LOCATIONS CANNOT BE EXCLUDED ON THE BASIS OF THIS EXAM. 2. A 2.8 CM RIGHT INFRAHILAR PULMONARY NODULE/MASS, NOT APPARENT ON THE 04/11/[address] CAGE BCARINAL AND LOWER LEFT PARATRACHEAL LYMPHADENOPATHY MEASURING UP TO 2.6 CM. NEOPLASM WITH METASTATIC MEDIASTINAL LYMPH NODES NOT EXCLUDED.
[2019-09-13 23:21] LABS: Appearance,Urine Clear (Clear); Bilirubin,Urine Negative (Negative); Blood,Urine Negative (Negative); Color,Urine Yellow; Glucose,Urine (UA) 2+ (Negative); Hyaline Casts,Urine 1 /lpf (0-2); Ketones,Urine 1+ (Negative); Leukocyte Esterase,Urine Negative (Negative); Nitrite,Urine Negative (Negative); Protein,Urine 1+ (Negative); RBC,Urine <1 /hpf (0-5); Specific Gravity,Urine 1.021 (1.001-1.035); Squamous Epithelial Cell,Urine <1 /hpf (0-4); Urobilinogen,Urine <2.0 mg/dL (<2.0); WBC,Urine 1 /hpf (0-5)
[2019-09-13] MEDS ORDERED: NALOXONE 0.4 MG/ML 1 ML VIAL IV PRN (23:52)
[2019-09-14 01:57] LABS: Ferritin 363.1 ng/mL (22.0-322.0)
[2019-09-14] MEDS: SODIUM CHLORIDE 0.9% 1,000 ML IV SCH ×4 (05:17→20:02)
[2019-09-14] MEDS: INSULIN ASPART (NovoLOG) 100 UNIT/ML VIAL SQ SCH ×4 (06:13→22:37)
[2019-09-14 06:21] LABS: Glucose,Whole Blood 239 mg/dL (75-99)
[2019-09-14 06:33] LABS: Basophils % (A) 0 %; Eosinophils % (A) 0 %; HCT 41.3 % (39.0-53.0); HGB 14.6 gm/dL (13.0-17.5); Lymphocytes # (A) 1.3 k/uL (1.0-4.8); Lymphocytes % (A) 12 %; MCH 31.4 pg (25.0-35.0); MCHC 35.4 g/dL (31.0-37.0); MCV 88.8 fL (80.0-100.0); Mean Platelet Volume 7.7; Monocytes % (A) 10 %; Neutrophils # (A) 8.1 k/uL (1.3-7.7); Neutrophils % (A) 77 %; Platelet Count 161 k/uL (150-450); RBC 4.66 m/uL (4.30-5.90); WBC 10.6 k/uL (3.8-10.6)
[2019-09-14 06:43] LABS: ALT 19 U/L (4-49); AST 32 U/L (17-59); African American GFR (CKD) >90 (>60 ml/min/1.73 sqM); Albumin 3.3 g/dL (3.5-5.0); Alkaline Phosphatase 33 U/L (38-126); Anion Gap 10 mmol/L; Blood Urea Nitrogen 12 mg/dL (9-20); Calcium 7.7 mg/dL (8.4-10.2); Carbon Dioxide 25 mmol/L (22-30); Chloride 84 mmol/L (98-107); Glucose 243 mg/dL (74-99); Non-African American GFR(CKD) >90 (>60 ml/min/1.73 sqM); Potassium 3.7 mmol/L (3.5-5.1); Total Bilirubin 1.2 mg/dL (0.2-1.3); Total Protein 5.9 g/dL (6.3-8.2)
[2019-09-14 07:00] LABS: Sodium 119 mmol/L (137-145)
[2019-09-14] MEDS: METOPROLOL TARTRATE 25 MG TAB PO SCH ×2 (10:23→22:35)
[2019-09-14] MEDS: LOSARTAN 50 MG TAB PO SCH (10:23)
--- NOTE | 2019-09-14 11:01 | P.HPIM ---
History of Present Illness This is a pleasant 58 years old male with past medical history of heart failure, type 1 diabetes mellitus, GERD, coronary artery disease status post CABG in 2017, cigarette smoker. Patient follow up at the [facility]. Presents to the emergency room with vomiting and confusion. Patient is poor historian. He looks confused so information was taken from the records and staff. Patient is sitting at the bedside, does not look in distress who,. I had to asking the question several times so he can answer me as he has low attention is pending, patient keep plain with his phone and looking at his feet. However patient can tell me this is August 2019, he knows he is in [facility] and he couldn't remember the name of the president. However patient denies specific symptoms, he denies headache, no dizziness, no w eakness in arms or legs, no numbness, no blurred vision, no slurred speech. No chest pain or abdominal pain, no dyspnea. Patient denies vomiting to me. Patient does not complain of his bowel or urine habits. However patient was noticed to have a fever of 100 this morning Patient told me he smokes but he could not tell me how long and how much. He states he drinks alcohol, maybe once a week as patient was told me, he denies illicit drugs. His blood pressure was on the high side and he was restarted on losartan and metoprolol Vitas looks stable. However on admission he had low-grade fever of 100.7, slightly tachypneic 20-24. Had mild leukocytosis of 12.3 K, came back to normal at 10.6 possibly some elements of hemoglobin delusion. He had elevated d-dimer of 0.79, sodium was 116 on admission came up to 119 this morning, potassium 3.7, creatinine 0.7. Glucose is 243, magnesium 1.9, bilirubin 1.2, liver enzymes not elevated. Lactate dehydrogenase not elevated, normal C-reactive protein, from, calcitonin 0.07. UA is not suspicious for infection. Coronary virus and influenza versus were not detected. Chest CTA: No PE with 2.8 cm right infrahilar pulmonary mass with 2.6 cm para tracheal lymphadenopathy. 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 t: Acute process by radiologist Review of Systems CONSTITUTIONAL: No fever, no malaise, no fatigue. HEENT: No recent visual problems or hearing problems. Denied any sore throat. CARDIOVASCULAR: No orthopnea, PND, no palpitations, no syncope. PULMONARY: No shortness of breath, no cough, no hemoptysis. GASTROINTESTINAL: no abdominal pain. Normoactive bowel sounds. NEUROLOGICAL: No headaches, no weakness, no numbness. HEMATOLOGICAL: Denies any bleeding or petechiae. GENITOURINARY: Denies any burning micturition, frequency, or urgency. MUSCULOSKELETAL/RHEUMATOLOGICAL: Denies any joint pain, swelling, or any muscle pain. ENDOCRINE: Denies any polyuria or polydipsia. Past Medical History Past Medical History: Chest Pain / Angina, Heart Failure, Diabetes Mellitus, GERD/Reflux, Myocardial Infarction ([place]) Additional Past Medical History / Comment(s): IDDM type 1, neuropathy bilteral feet, gammaglobulinemia as infant. Last Myocardial Infarction Date:: 2016 History of Any Multi-Drug Resistant Organisms: None Reported Past Surgical History: Back Surgery, Coronary Bypass/CABG, Heart Catheterization, Heart Catheterization With Stent, Orthopedic Surgery Additional Past Surgical History / Comment(s): 2017 cardiac cath, 2017 CABG 3 vessel, L5-S1 back surgery, bilateral hand trigger finger repairs. Past Anesthesia/Blood Transfusion Reactions: No Reported Reaction Additional Past Anesthesia/Blood Transfusion Reaction / Comment(s): Pt received blood as an . Date of Last Stent Placement:: 2016 Past Psychological History: No Psychological Hx Reported Additional Psychological History / Comment(s): Pt resides with his spouse. He is independent. Smoking Status: Current some day smoker Past Alcohol Use History: Occasional Additional Past Alcohol Use History / Comment(s): Pt started smoking in 1974 and is a ppd smoker. Past Drug Use History: None Reported - Past Family History Father Family Medical History: Coronary Artery Disease (CAD), Diabetes Mellitus, Myocardial Infarction ([place]) Additional Family Medical History / Comment(s): Father has had 5 MIs with the first one happening at the age of 55yrs. Mother Additional Family Medical History / Comment(s): Hypoglycemia. There is coronary artery disease on the mother's family but not in the patient's mother Medications and Allergies Home Medications Medication Instructions Recorded Confirmed Type Insulin Glargine [Lantus] 35 unit SQ DAILY 02/25/16 09/14/19 History INSULIN ASPART (NovoLOG) [NovoLOG See Protocol SQ AC-TID 04/11/19 09/14/19 History (formulary)] Aspirin 81 mg PO DAILY #30 chew 04/14/19 09/14/19 Rx Atorvastatin [Lipitor] 80 mg PO HS #30 tab 04/14/19 09/14/19 Rx Clopidogrel [Plavix] 75 mg PO DAILY #30 tab 04/14/19 09/14/19 Rx Metoprolol Tartrate [Lopressor] 25 mg PO BID #60 tab 04/14/19 09/14/19 Rx Nitroglycerin Sl Tabs [Nitrostat] 0.4 mg SUBLINGUAL Q5M PRN #60 tab 04/14/19 09/14/19 Rx Levothyroxine Sodium [Synthroid] 50 mcg PO DAILY 09/14/19 09/14/19 History Multivitamins, Thera [Multivitamin 1 tab PO DAILY 09/14/19 09/14/19 History (formulary)] Allergies Allergy/AdvReac Type Severity Reaction Status Date / Time Penicillins Allergy Unknown Verified 09/14/19 08:23 Childhood lovastatin AdvReac muscle pain Verified 09/14/19 08:23 Physical Exam Vitals: Vital Signs Temp Pulse Pulse Resp BP BP Pulse Ox 09/14/19 04:00 97.9 F 75 17 173/80 95 09/14/19 01:29 98.9 F 66 18 129/80 92 L 09/14/19 00:20 98.9 F 70 20 148/73 94 L 09/13/19 23:40 77 20 133/82 95 09/13/19 23:30 73 25 H 112/71 89 L 09/13/19 23:20 24 112/71 93 L 09/13/19 23:10 74 25 H 112/71 96 09/13/19 23:00 89 24 139/77 09/13/19 22:50 76 24 139/77 09/13/19 22:40 139/77 09/13/19 22:31 139/77 09/13/19 22:20 75 31 H 139/77 94 L 09/13/19 22:10 71 28 H 139/77 94 L 09/13/19 22:00 74 20 168/83 99 09/13/19 21:50 73 26 H 168/83 97 09/13/19 21:40 168/83 09/13/19 21:30 152/91 09/13/19 21:20 91 13 152/91 09/13/19 21:10 81 31 H 152/91 09/13/19 21:00 81 24 154/99 09/13/19 20:50 122 H 23 154/99 09/13/19 20:49 154/99 09/13/19 20:36 100.7 F H 92 20 121/81 98 Intake and Output 09/13/19 09/14/19 09/14/19 22:59 06:59 14:59 Intake Total 240 Balance 240 Intake: Oral 240 Other: Voiding Method Toilet # Voids 1 1 Weight 69.853 kg 69.5 kg GENERAL: The patient is alert and oriented x3, not in any acute distress. Well developed, well nourished. HEENT: Pupils are round and equally reacting to light. EOMI. No scleral icterus. No conjunctival pallor. Normocephalic, atraumatic. No pharyngeal erythema. No thyromegaly. CARDIOVASCULAR: S1 and S2 present. No murmurs, rubs, or gallops. PULMONARY: Chest is clear to auscultation, no wheezing or crackles. ABDOMEN: Soft, nontender, nondistended, normoactive bowel sounds. No palpable organomegaly. MUSCULOSKELETAL: No joint swelling or deformity. EXTREMITIES: No cyanosis, clubbing, or pedal edema. NEUROLOGICAL: Gross neurological examination did not reveal any focal deficits. SKIN: No rashes. No petechiae Results CBC & Chem 7: 09/14/19 05:59 09/14/19 05:59 Labs: Abnormal Lab Results - Last 24 Hours (Table) 09/13/19 09/13/19 09/13/19 Range/Units 21:09 21:11 21:11 WBC 12.3 H (3.8-10.6) k/uL Neutrophils # 9.1 H (1.3-7.7) k/uL Monocytes # 1.4 H (0-1.0) k/uL INR 1.2 H (<1.2) D-Dimer 0.79 H (<0.60) mg/L FEU Sodium (137-145) mmol/L Chloride (98-107) mmol/L Glucose (74-99) mg/dL POC Glucose (mg/dL) 256 H (75-99) mg/dL Calcium (8.4-10.2) mg/dL Ferritin (22.0-322.0) ng/mL Total Bilirubin (0.2-1.3) mg/dL Alkaline Phosphatase (38-126) U/L Total Protein (6.3-8.2) g/dL Albumin (3.5-5.0) g/dL Urine Protein (Negative) Urine Glucose (UA) (Negative) Urine Ketones (Negative) 09/13/19 09/13/19 09/13/19 Range/Units 21:11 22:42 23:15 WBC (3.8-10.6) k/uL Neutrophils # (1.3-7.7) k/uL Monocytes # (0-1.0) k/uL INR (<1.2) D-Dimer (<0.60) mg/L FEU Sodium 116 L* (137-145) mmol/L Chloride 78 L (98-107) mmol/L Glucose 236 H (74-99) mg/dL POC Glucose (mg/dL) 236 H (75-99) mg/dL Calcium (8.4-10.2) mg/dL Ferritin 363.1 H (22.0-322.0) ng/mL Total Bilirubin 1.5 H (0.2-1.3) mg/dL Alkaline Phosphatase (38-126) U/L Total Protein (6.3-8.2) g/dL Albumin (3.5-5.0) g/dL Urine Protein 1+ H (Negative) Urine Glucose (UA) 2+ H (Negative) Urine Ketones 1+ H (Negative) 09/14/19 09/14/19 09/14/19 Range/Units 05:59 05:59 06:12 WBC (3.8-10.6) k/uL Neutrophils # 8.1 H (1.3-7.7) k/uL Monocytes # (0-1.0) k/uL INR (<1.2) D-Dimer (<0.60) mg/L FEU Sodium 119 L* (137-145) mmol/L Chloride 84 L (98-107) mmol/L Glucose 243 H (74-99) mg/dL POC Glucose (mg/dL) 239 H (75-99) mg/dL Calcium 7.7 L (8.4-10.2) mg/dL Ferritin (22.0-322.0) ng/mL Total Bilirubin (0.2-1.3) mg/dL Alkaline Phosphatase 33 L (38-126) U/L Total Protein 5.9 L (6.3-8.2) g/dL Albumin 3.3 L (3.5-5.0) g/dL Urine Protein (Negative) Urine Glucose (UA) (Negative) Urine Ketones (Negative) Thrombosis Risk Factor Assmnt - Choose All That Apply Each Factor Represents 1 point: Age 41-60 years Each Risk Factor Represents 2 Points: Malignancy Thrombosis Risk Factor Assessment Total Risk Factor Score: 3 Thrombosis Risk Factor Assessment Level: Moderate Risk Assessment and Plan Assessment: Hyponatremia, could be due to SIADH related to his lung mass 2.8 right infrahilar lung mass associated with paratracheal lymphadenopathy Fever, patient does not look he has pneumonia, urine analysis is no suspicious of infection. Recheck stool studies. Also we'll check Doppler of the lower extremity metabolic encephalopathy secondary to above type 1 diabetes mellitus Chronic heart failure Nicotine dependence History of coronary artery disease status post CABG in 2017 Plan: this is a pleasant 58 years old male who presents with lung mass, hyponatremia suspicious for SIADH and confusion. Continue with gentle hydration. Nephrology and pulmonary consult. Follow-up sodium level closely and check Doppler of the lower extremities. Monitor the patient's vitals and for further fever. Check stool studies. Continue with losartan metoprolol and follow-up blood pressure closely. Labs and medication were reviewed.. Continue same treatment. Continue with symptomatic treatment. Resume home medication. Monitor lytes and vitals. DVT and GI prophylaxis. Further recommendations of the clinical course of the patient DVT prophylaxis: Subcutaneous heparin GI Prophylaxis: Pepcid PT/OT: Pending Prognosis is guarded
[2019-09-14 11:29] LABS: Glucose,Whole Blood 123 mg/dL (75-99)
[2019-09-14] MEDS: HEPARIN SODIUM,PORCINE 5,000 UNIT/ML 1 ML VIAL SQ SCH ×2 (11:44→20:02)
[2019-09-14] MEDS: hydrALAZINE HCL 25 MG TAB PO PRN ×2 (11:51→17:15)
--- NOTE | 2019-09-14 11:52 | US ---
EXAMINATION TYPE: US venous doppler duplex LE DATE OF EXAM: 09/14/2019 11:40 AM COMPARISON: NONE CLINICAL HISTORY: Rule out DVT. No redness. No swelling. Pain. SIDE PERFORMED: Bilateral TECHNIQUE: The lower extremity deep venous system is examined utilizing real time linear array sonog liz with graded compression, doppler sonography and color-flow sonography. VESSELS IMAGED: External Iliac Vein (EIV) Common Femoral Vein Deep Femoral Vein Greater Saphenous Vein * Femoral Vein Popliteal Vein Small Saphenous Vein * Proximal Calf Veins (* superficial vessels) Right Leg: Negative for DVT Left Leg: Negative for DVT. Limited popliteal imaging due to patient unable to keep leg positioned. Grayscale, color doppler, spectral doppler imaging performed of the deep veins of the bilateral lower extremities. There is normal flow, compressibility, vascular waveforms. IMPRESSION: Slightly suboptimal study without convincing evidence for acute DVT in either lower extr emity.
[2019-09-14 12:18] LABS: Glucose,Whole Blood 136 mg/dL (75-99)
[2019-09-14 12:24] LABS: Potassium 3.4 mmol/L (3.5-5.1)
[2019-09-14] MEDS ORDERED: Potassium Replacement Protocol 1 EACH MISC MISCELLANE PRN (14:08)
[2019-09-14] MEDS: LORazepam 2 MG/ML INJ IV PRN ×2 (14:24→21:45)
[2019-09-14] MEDS: POTASSIUM CHLORIDE ER 20 MEQ TAB.ER PO SCH ×2 (14:25→17:15)
--- NOTE | 2019-09-14 15:26 | P.CNPUL ---
History of Present Illness Consult date: 09/14/19 Reason for consult: lung mass History of present illness: This is a 58-year-old male patient, hospitalized yesterday because of an altered mental status. The patient came into the ED having altered mentation, nausea and ongoing episodes of emesis a few days duration. The patient was confused and slow in answering questions and he was having also profound weakness and difficulty with mobility and ambulation. The patient apparently has been vomiting around 2-5 times every day. Denied having any diarrhea. No abdominal pain. He was becoming progressively more altered and he was unable to do some simple tasks at home. He did have a chronic cough. No throat pain. No aspiration. Blood work in the emergency department showed that the patient's sodium level was 116 with a chloride of 78. The patient had a normal white cell count. The patient had a serum glucose of 236. Lactic acid level was at 1.8. Calcium level of 8.6. Total bilirubin was 1.5 with a ferritin level of 363. LFTs were within normal limits. Ammonia level was less than 5. LDH was 495. C-reactive protein was less than 5. Covid 19 nasal swab came back negative. Chest x-ray showed a right hilar mass and for that reason the patient was given a CT angiogram that showed no evidence of any pulmonary embolism. There was a 2.8 cm right infrahilar pulmonary mass/nodule that was not present on previous CAT scans there was also subcarinal and lower paratracheal lymphadenopathy measuring up to 2.6 cm in size and the findings were worrisome for malignant me diastinal lymphadenopathy/mass. The patient is a chronic smoker. The patient currently is on normal saline running at 75 mL an hour. Sodium level is improving and the findings on the case as the patient is having a repeat sodium level every 4 hours. Review of Systems ROS unobtainable: due to mental status Past Medical History Past Medical History: Coronary Artery Disease (CAD), Heart Failure, Diabetes Mellitus, GERD/Reflux, Myocardial Infarction ([place]) Additional Past Medical History / Comment(s): IDDM type 1, neuropathy bilteral feet, coronary artery bypass surgery in 2017, chronic smoker Last Myocardial Infarction Date:: 2017 History of Any Multi-Drug Resistant Organisms: None Reported Past Surgical History: Back Surgery, Coronary Bypass/CABG, Heart Catheterization, Heart Catheterization With Stent, Orthopedic Surgery Additional Past Surgical History / Comment(s): 2017 cardiac cath, 2017 CABG 3 vessel, L5-S1 back surgery, bilateral hand trigger finger repairs. Past Anesthesia/Blood Transfusion Reactions: No Reported Reaction Additional Past Anesthesia/Blood Transfusion Reaction / Comment(s): Pt received blood as an infant. Date of Last Stent Placement:: 2016 Past Psychological History: No Psychological Hx Reported Additional Psychological History / Comment(s): Pt resides with his spouse. He is independent. Smoking Status: Current some day smoker Past Alcohol Use History: Occasional Additional Past Alcohol Use History / Comment(s): Pt started smoking in 1974 and is a ppd smoker. Past Drug Use History: None Reported - Past Family History Father Family Medical History: Coronary Artery Disease (CAD), Diabetes Mellitus, Myocardial Infarction ([place]) Additional Family Medical History / Comment(s): Father has had 5 MIs with the first one happening at the age of 55yrs. Mother Additional Family Medical History / Comment(s): Hypoglycemia. There is coronary artery disease on the mother's family but not in the patient's mother Medications and Allergies Home Medications Medication Instructions Recorded Confirmed Type Insulin Glargine [Lantus] 35 unit SQ DAILY 02/25/16 09/14/19 History INSULIN ASPART (NovoLOG) [NovoLOG See Protocol SQ AC-TID 04/11/19 09/14/19 History (formulary)] Aspirin 81 mg PO DAILY #30 chew 04/14/19 09/14/19 Rx Atorvastatin [Lipitor] 80 mg PO HS #30 tab 04/14/19 09/14/19 Rx Clopidogrel [Plavix] 75 mg PO DAILY #30 tab 04/14/19 09/14/19 Rx Metoprolol Tartrate [Lopressor] 25 mg PO BID #60 tab 04/14/19 09/14/19 Rx Nitroglycerin Sl Tabs [Nitrostat] 0.4 mg SUBLINGUAL Q5M PRN #60 tab 04/14/19 09/14/19 Rx Levothyroxine Sodium [Synthroid] 50 mcg PO DAILY 09/14/19 09/14/19 History Multivitamins, Thera [Multivitamin 1 tab PO DAILY 09/14/19 09/14/19 History (formulary)] Allergies Allergy/AdvReac Type Severity Reaction Status Date / Time Penicillins Allergy Unknown Verified 09/14/19 08:23 Childhood lovastatin AdvReac muscle pain Verified 09/14/19 08:23 Physical Exam Vitals: Vital Signs Temp Pulse Pulse Resp BP BP Pulse Ox 09/14/19 12:00 99 F 95 16 145/80 95 09/14/19 11:40 96 190/89 09/14/19 08:00 100 F H 84 16 190/86 95 09/14/19 04:00 97.9 F 75 17 173/80 95 09/14/19 01:29 98.9 F 66 18 129/80 92 L 09/14/19 00:20 98.9 F 70 20 148/73 94 L 09/13/19 23:40 77 20 133/82 95 09/13/19 23:30 73 25 H 112/71 89 L 09/13/19 23:20 24 112/71 93 L 09/13/19 23:10 74 25 H 112/71 96 09/13/19 23:00 89 24 139/77 09/13/19 22:50 76 24 139/77 09/13/19 22:40 139/77 09/13/19 22:31 139/77 09/13/19 22:20 75 31 H 139/77 94 L 09/13/19 22:10 71 28 H 139/77 94 L 09/13/19 22:00 74 20 168/83 99 09/13/19 21:50 73 26 H 168/83 97 09/13/19 21:40 168/83 09/13/19 21:30 152/91 09/13/19 21:20 91 13 152/91 09/13/19 21:10 81 31 H 152/91 09/13/19 21:00 81 24 154/99 09/13/19 20:50 122 H 23 154/99 09/13/19 20:49 154/99 09/13/19 20:36 100.7 F H 92 20 121/81 98 Intake and Output 09/14/19 09/14/19 09/14/19 06:59 14:59 22:59 Intake Total 240 Balance 240 Intake: Oral 240 Other: Voiding Method Toilet Toilet # Voids 1 1 Weight 69.5 kg GENERAL: The patient is alert and oriented x2-3, not in any acute distress. Well developed, well nourished. The patient is very slow in answering questions. At times he gets confused. At time of my evaluation, he seems to be more alert. Very sluggish. Head exam was generally normal. There was no scleral icterus or corneal arcus. Mucous membranes were moist. Neck was supple and without jugular venous distension, thyromegaly, or carotid bruits. Carotids were easily palpable bilaterally. There was no adenopathy. HEENT: Pupils are round and equally reacting to light. EOMI. No scleral icterus. No conjunctival pallor. Normocephalic, atraumatic. No pharyngeal erythema. No thyromegaly. CARDIOVASCULAR: S1 and S2 present. No murmurs, rubs, or gallops. PULMONARY: Chest is clear to auscultation, no wheezing or crackles. ABDOMEN: Soft, nontender, nondistended, normoactive bowel sounds. No palpable organomegaly. MUSCULOSKELETAL: No joint swelling or deformity. EXTREMITIES: No cyanosis, clubbing, or pedal edema. NEUROLOGICAL: Gross neurological examination did not reveal any focal deficits. Examination of the skin revealed no evidence of significant rashes, suspicious appearing nevi or other concerning lesions. Results - Laboratory Findings CBC and BMP: 09/14/19 05:59 09/14/19 11:58 PT/INR, D-dimer PT 12.0 sec (9.0-12.0) 09/13/19 21:11 INR 1.2 (<1.2) H 09/13/19 21:11 D-Dimer 0.79 mg/L FEU (<0.60) H 09/13/19 21:11 Abnormal lab findings: Abnormal Labs 09/13/19 09/13/19 09/13/19 21:09 21:11 21:11 WBC 12.3 H Neutrophils # 9.1 H Monocytes # 1.4 H INR 1.2 H D-Dimer 0.79 H Sodium Potassium Chloride Glucose POC Glucose (mg/dL) 256 H Calcium Ferritin Total Bilirubin Alkaline Phosphatase Total Protein Albumin Urine Protein Urine Glucose (UA) Urine Ketones 09/13/19 09/13/19 09/13/19 21:11 22:42 23:15 WBC Neutrophils # Monocytes # INR D-Dimer Sodium 116 L* Potassium Chloride 78 L Glucose 236 H POC Glucose (mg/dL) 236 H Calcium Ferritin 363.1 H Total Bilirubin 1.5 H Alkaline Phosphatase Total Protein Albumin Urine Protein 1+ H Urine Glucose (UA) 2+ H Urine Ketones 1+ H 09/14/19 09/14/19 09/14/19 05:59 05:59 06:12 WBC Neutrophils # 8.1 H Monocytes # INR D-Dimer Sodium 119 L* Potassium Chloride 84 L Glucose 243 H POC Glucose (mg/dL) 239 H Calcium 7.7 L Ferritin Total Bilirubin Alkaline Phosphatase 33 L Total Protein 5.9 L Albumin 3.3 L Urine Protein Urine Glucose (UA) Urine Ketones 09/14/19 09/14/19 09/14/19 11:28 11:58 12:18 WBC Neutrophils # Monocytes # INR D-Dimer Sodium 122 L Potassium 3.4 L Chloride 85 L Glucose POC Glucose (mg/dL) 123 H 136 H Calcium Ferritin Total Bilirubin Alkaline Phosphatase Total Protein Albumin Urine Protein Urine Glucose (UA) Urine Ketones - Diagnostic Findings Chest x-ray: image reviewed CT scan - chest: image reviewed Assessment and Plan Plan: 1 right hilar mass measuring 2.8 cm in size in addition to subcarinal lymphadenopathy, suspicious for malignancy including primary bronchogenic carcinoma, possibly of a small cell type. 2 hyponatremia, consider tumor-induced SIADH 3 altered mentation secondary to above 4 diabetes mellitus type 1 5 coronary artery disease with previous bypass surgery and previous coronary intervention and stenting 6 chronic systolic heart failure with an ejection fraction of 45-50% and previous wall motion abnormalities in addition to hypertensive heart disease with concentric LVH 7 chronic smoker 8 hypertension 9 hypothyroidism maintained on Synthroid 50 g daily basis 10 hyperlipidemia Plan Continue normal saline and monitor the sodium levels The front on the case regarding hyponatremia with a possibility of having SIADH versus hypovolemic hyponatremia The patient will ultimately need bronchoscopy with transbronchial needle aspirate of the hilar lymph node in the subcarinal lymph node. This may need to be done under navigational guidance. Unable to fluid at this point in time as the patient is altered and hyponatremic and he would not be cleared by anesthesia to undergo his procedure. Would like to have improved mentation and improved sodium level with subsequent biopsies. We'll stay on standby and would proceed with a biopsy once the patient is more stable. Monitor blood sugars Coverage with insulin Heparin subcu for DVT prophylaxis We'll follow
--- NOTE | 2019-09-14 16:39 | CONS ---
CONSULTATION REASON FOR CONSULT: Hyponatremia. HISTORY OF PRESENT ILLNESS: Patient is a 58-year-old male who was admitted to the hospital with episodes of confusion. A detailed history cannot be obtained from the patient. He also had some nausea and vomiting for a few days prior to admission. The patient was noted to have a serum sodium of 116. He denies any prior history of hyponatremia. Patient is currently maintained on normal saline and his serum sodium has been slowly improving. It is up to 122 this afternoon. The patient's blood pressure has not been low. His chest CT showed evidence of hilar lymphadenopathy with a possible right infrahilar nodule/mass. PAST MEDICAL HISTORY: Significant for coronary artery disease, history of CHF, type 2 diabetes, gastroesophageal reflux disease, UT, neuropathy bilateral feet. PAST SURGICAL HISTORY: Coronary artery bypass surgery, cardiac catheterization, coronary stent placement, back surgery, surgery for bilateral trigger fingers. SOCIAL HISTORY: Positive for smoking, no history of drug abuse or alcohol abuse. MEDICATIONS: At home prior to admission included insulin, Lipitor, Plavix, metoprolol, aspirin, Synthroid, Nitrostat. ALLERGIES: Allergies include PENICILLIN, LOVASTATIN. PHYSICAL EXAMINATION: Patient is comfortable, awake, he is not in any acute distress. He is confused. Blood pressure was 190/89, heart rate 96 per minute, patient is afebrile. Examination of the heart, S1, S2. Examination of the lungs, decreased breath sounds at the bases. Abdomen is soft, nontender. Examination of the lower extremities shows no evidence of edema. 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 LABS: Show sodium of 122, potassium 3.4, chloride 85, CO2 is 27, serum creatinine this morning was 0.76 mg/dL. ASSESSMENT: 1. Hyponatremia appears to be hypovolemic and currently improving with normal saline. Given the CAT scan findings, SIADH may be consideration. However, clinically it does not fit the picture as the serum sodium would worsen with saline if it was SIADH. I will continue with the IV fluids for now and repeat a serum sodium this evening. Need to avoid rapid correction. Check TSH levels and urine osmolality. 2. Hypovolemia associated with history of recent nausea, vomiting and decreased oral intake. 3. Hilar lymph nodes with possible right pulmonary nodule/mass, being followed by Pulmonology. 4. Type 1 diabetes. 5. Coronary artery disease with history of coronary intervention, coronary artery stenting. 6. Cardiomyopathy, ejection fraction 45% to 50%. PLAN: Continue with normal saline for now, repeat sodium at 6 pm tonight and check urine osmolality and TSH levels. Thank you for this consultation. Will continue to follow the patient with you during his hospitalization. GERMAN / COLIN: [id number] /
[2019-09-14 16:49] LABS: Glucose,Whole Blood 264 mg/dL (75-99)
[2019-09-14] MEDS ORDERED: ACETAMINOPHEN TAB 325 MG TAB PO PRN (17:44)
[2019-09-14] MEDS ORDERED: FUROSEMIDE 10 MG/ML 2 ML VIAL IV ONE (19:48)
[2019-09-14] MEDS ORDERED: CLINDAMYCIN 300 MG in DEXTROSE 5% IN WATER 50 ML IVPB SCH ×2 (20:00)
[2019-09-14] MEDS: FAMOTIDINE 20 MG/2 ML VIAL IV SCH (20:02)
[2019-09-14 21:06] LABS: Glucose,Whole Blood 296 mg/dL (75-99)
[2019-09-14 23:23] LABS: African American GFR (CKD) >90 (>60 ml/min/1.73 sqM); Anion Gap 13 mmol/L; Blood Urea Nitrogen 12 mg/dL (9-20); Calcium 8.2 mg/dL (8.4-10.2); Carbon Dioxide 22 mmol/L (22-30); Chloride 87 mmol/L (98-107); Glucose 304 mg/dL (74-99); Non-African American GFR(CKD) >90 (>60 ml/min/1.73 sqM); Potassium 3.6 mmol/L (3.5-5.1); Sodium 122 mmol/L (137-145)
[2019-09-15] MEDS: CLINDAMYCIN 300 MG in DEXTROSE 5% IN WATER 50 ML IVPB SCH ×6 (02:12→18:48)
[2019-09-15] MEDS ORDERED: hydrALAZINE HCL 20 MG/ML 1 ML VIAL IVP PRN ×2 (04:54→09:14)
[2019-09-15] MEDS: ACETAMINOPHEN SUPPOSITORY 650 MG SUPP RECTAL PRN ×3 (05:05→23:48)
[2019-09-15 06:06] LABS: Glucose,Whole Blood 343 mg/dL (75-99)
[2019-09-15] MEDS: INSULIN ASPART (NovoLOG) 100 UNIT/ML VIAL SQ SCH ×4 (06:08→23:48)
[2019-09-15] MEDS ORDERED: LORazepam 2 MG/ML INJ IV PRN (08:41)
[2019-09-15 09:01] LABS: Basophils % (A) 0 %; Eosinophils # (A) 0.1 k/uL (0-0.7); Eosinophils % (A) 1 %; HCT 46.8 % (39.0-53.0); HGB 15.5 gm/dL (13.0-17.5); Lymphocytes # (A) 0.7 k/uL (1.0-4.8); Lymphocytes % (A) 5 %; MCH 31.2 pg (25.0-35.0); MCHC 33.1 g/dL (31.0-37.0); Monocytes % (A) 8 %; Neutrophils # (A) 11.5 k/uL (1.3-7.7); Neutrophils % (A) 85 %; Platelet Count 142 k/uL (150-450); RBC 4.97 m/uL (4.30-5.90); RDW 13.1 % (11.5-15.5); WBC 13.4 k/uL (3.8-10.6)
[2019-09-15 09:07] LABS: ALT 25 U/L (4-49); AST 46 U/L (17-59); African American GFR (CKD) >90 (>60 ml/min/1.73 sqM); Albumin 3.5 g/dL (3.5-5.0); Alkaline Phosphatase 36 U/L (38-126); Anion Gap 14 mmol/L; Blood Urea Nitrogen 17 mg/dL (9-20); Calcium 8.3 mg/dL (8.4-10.2); Carbon Dioxide 20 mmol/L (22-30); Chloride 91 mmol/L (98-107); Glucose 283 mg/dL (74-99); Non-African American GFR(CKD) >90 (>60 ml/min/1.73 sqM); Potassium 3.1 mmol/L (3.5-5.1); Sodium 125 mmol/L (137-145); Total Bilirubin 0.8 mg/dL (0.2-1.3); Total Protein 6.1 g/dL (6.3-8.2)
[2019-09-15 09:11] LABS: MCV 94.2 fL (80.0-100.0)
[2019-09-15] MEDS: HEPARIN SODIUM,PORCINE 5,000 UNIT/ML 1 ML VIAL SQ SCH ×2 (09:13→21:08)
[2019-09-15] MEDS: FAMOTIDINE 20 MG/2 ML VIAL IV SCH ×2 (09:15→21:08)
[2019-09-15] MEDS ORDERED: VANCOMYCIN IV PER PHARMACY 1 EACH MISC MISCELLANE PRN (09:36)
[2019-09-15] MEDS ORDERED: Potassium Replacement Protocol 1 EACH MISC MISCELLANE PRN (09:52)
[2019-09-15] MEDS: LOSARTAN 50 MG TAB PO SCH (10:10)
[2019-09-15] MEDS: METOPROLOL TARTRATE 25 MG TAB PO SCH ×2 (10:10→21:10)
[2019-09-15] MEDS: POTASSIUM CHLORIDE 10 MEQ in WATER FOR INJECTION 1 100ML.BAG IVPB SCH ×5 (10:15→23:00)
[2019-09-15] MEDS ORDERED: VANCOMYCIN 1,500 MG in SODIUM CHLORIDE 0.9% 250 ML IVPB ONE (11:00)
[2019-09-15 11:02] LABS: Lactic Acid, Venous 1.7 mmol/L (0.7-2.0)
--- NOTE | 2019-09-15 11:38 | P.PN ---
Subjective This is a pleasant 58 years old male with past medical history of heart failure, type 1 diabetes mellitus, GERD, coronary artery disease status post CABG in 2017, cigarette smoker. Patient follow up at the [facility]. Presents to the emergency room with vomiting and confusion. Patient is poor historian. He looks confused so information was taken from the records and staff. Patient is sitting at the bedside, does not look in distress who,. I had to asking the question several times so he can answer me as he has low attention is pending, patient keep plain with his phone and looking at his feet. However patient can tell me this is August 2019, he knows he is in [facility] and he couldn't remember the name of the president. However patient denies specific symptoms, he denies headache, no dizziness, no weakness in arms or legs, no numbness, no blurred vision, no slurred speech. No chest pain or abdominal pain, no dyspnea. Patient denies vomiting to me. Patient does not complain of his bowel or urine habits. However patient was noticed to have a fever of 100 this morning Patient told me he smokes but he could not tell me how long and how much. He states he drinks alcohol, maybe once a week as patient was told me, he denies illicit drugs. His blood pressure was on the high side and he was restarted on losartan and metoprolol Vitas looks stable. However on admission he had low-grade fever of 100.7, slightly tachypneic 20-24. Had mild leukocytosis of 12.3 K, came back to normal at 10.6 possibly some elements of hemoglobin delusion. He had elevated d-dimer of 0.79, sodium was 116 on admission came up to 119 this morning, potassium 3.7, creatinine 0.7. Glucose is 243, magnesium 1.9, bilirubin 1.2, liver enzymes not elevated. Lactate dehydrogenase not elevated, normal C-reactive protein, from, calcitonin 0.07. UA is not suspicious for infection. Coronary virus and influenza versus were not detected. Chest CTA: No PE with 2.8 cm right infrahilar pulmonary mass with 2.[address]. 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 t: Acute process by radiologist 09/15/2019 Patient remains confused, his more sleepy today but he got totally about 1 mg of Ativan yesterday, including last night which might contribute to his drowsiness. Today I called the was Simona and discussed the case with her and was feeling sick with some vomiting over the last week, however on Wednesday he got confused when he came to the hospital. History the patient was started spiking fever up to 102, however no obvious source of infection is noted, his pro-calcitonin and call the testis came back negative. Lactic acid is 1.7 and ammonia is negative. Patient was started emp irically on clindamycin and IV vancomycin and a consult was placed for infectious disease and neurologist , follow-up blood culture. His sodium is trending up slightly, today was 125, normal saline has been stopped. Potassium was 3.1 which is been replaced. He remains on insulin sliding scale. Also I discussed the case with pulmonary team, the plan is for lung biopsy for his mass down the road and when he is more stable Doppler of the lower extremity is negative Review of system: N/a Active Medications Generic Name Dose Route Start Last Admin Trade Name Freq PRN Reason Stop Dose Admin Acetaminophen 650 mg 09/14/19 17:44 09/14/19 17:50 Tylenol Tab PO 650 mg Q6HR PRN Administration Fever and/ or Mild Pain Acetaminophen 650 mg 09/15/19 04:39 09/15/19 05:05 Tylenol Suppository RECTAL 650 mg Q4HR PRN Administration Fever and/ or Pain Famotidine 20 mg 09/14/19 21:00 09/15/19 09:15 Pepcid IV 20 mg Q12HR JOSHUA Administration Heparin Sodium (Porcine) 5,000 unit 09/14/19 11:00 09/15/19 09:13 Heparin SQ 5,000 unit Q12HR JOSHUA Administration Hydralazine HCl 25 mg 09/14/19 11:47 09/14/19 17:15 Apresoline PO 25 mg TID PRN Administration Blood Pressure - High Hydralazine HCl 10 mg 09/15/19 09:14 Apresoline IVP Q4HR PRN Blood Pressure - High Clindamycin Phosphate 300 mg/ 52 mls @ 50 mls/hr 09/15/19 02:00 09/15/19 09:12 Dextrose/Water IVPB 50 mls/hr Q6H JOSHUA Administration Vancomycin HCl 1,500 mg/ 250 mls @ 125 mls/hr 09/15/19 11:00 Sodium Chloride IVPB 09/15/19 12:59 ONCE ONE Vancomycin HCl 1,250 mg/ 250 mls @ 125 mls/hr 09/15/19 20:00 Sodium Chloride IVPB Q8H JOSHUA Potassium Chloride 10 meq/ IV 100 mls @ 100 mls/hr 09/15/19 10:00 09/15/19 10:15 Solution IVPB 09/15/19 13:59 100 mls/hr Q1HR JOSHUA Administration Protocol Insulin Aspart 0 unit 09/14/19 07:30 09/15/19 06:08 Novolog SQ 6 unit ACHS JOSHUA Administration Protocol Lorazepam 0.25 mg 09/15/19 08:41 Ativan IV Q12HR PRN Anxiety Losartan Potassium 50 mg 09/14/19 10:15 09/15/19 10:10 Cozaar PO Not Given DAILY [facility] Metoprolol Tartrate 25 mg 09/14/19 10:15 09/15/19 10:10 Lopressor PO Not Given BID [facility] Miscellaneous Information 1 each 09/15/19 09:52 Potassium Per Protocol MISCELLANE DAILY PRN Per Protocol Protocol Naloxone HCl 0.2 mg 09/13/19 23:52 Narcan IV Q2M PRN Opioid Reversal Objective - Vital Signs Vital signs: Vital Signs Temp 98.8 F 09/15/19 08:45 Pulse 78 09/15/19 08:45 Resp 22 09/15/19 08:45 BP 110/53 09/15/19 08:45 Pulse Ox 91 L 09/15/19 08:45 Intake & Output 09/14/19 09/15/19 09/15/19 18:59 06:59 18:59 Intake Total 1100 Output Total 2000 Balance 1100 -2000 Weight 67 kg Intake: Intake, IV Titration 800 Amount Sodium Chloride 0.9% 1, 800 000 ml @ 50 mls/hr IV . Q20H [facility] Rx#:[id number] Oral 300 Output: Urine 1999 Other: Voiding Method Toilet Indwelling Catheter Indwelling Catheter # Voids 2 - Exam -GENERAL: The patient is confused since yesterday and more sleepy today HEENT: Pupils are round and equally reacting to light. EOMI. No scleral icterus. No conjunctival pallor. Normocephalic, atraumatic. No pharyngeal erythema. No thyromegaly. CARDIOVASCULAR: S1 and S2 present. No murmurs, rubs, or gallops. PULMONARY: Chest is clear to auscultation, no wheezing or crackles. ABDOMEN: Soft, nontender, nondistended, normoactive bowel sounds. No palpable organomegaly. MUSCULOSKELETAL: No joint swelling or deformity. EXTREMITIES: No cyanosis, clubbing, or pedal edema. -NEUROLOGICAL: Difficult to assess due to his mental status. Cranial nerves are grossly intact. Pupils equal and reactive to light. No asymmetry is noted in movement in both sides treated sensation could not be tested. No neck stiffness is appreciated. SKIN: No rashes. no petechiae. - Labs CBC & Chem 7: 09/15/19 08:37 09/15/19 08:37 Labs: Abnormal Lab Results - Last 24 Hours (Table) 09/14/19 09/14/19 09/14/19 Range/Units 11:28 11:58 12:18 WBC (3.8-10.6) k/uL Plt Count (150-450) k/uL Neutrophils # (1.3-7.7) k/uL Lymphocytes # (1.0-4.8) k/uL Sodium 122 L (137-145) mmol/L Potassium 3.4 L (3.5-5.1) mmol/L Chloride 85 L (98-107) mmol/L Carbon Dioxide (22-30) mmol/L Creatinine (0.66-1.25) mg/dL Glucose (74-99) mg/dL POC Glucose (mg/dL) 123 H 136 H (75-99) mg/dL Calcium (8.4-10.2) mg/dL Alkaline Phosphatase (38-126) U/L Total Protein (6.3-8.2) g/dL 09/14/19 09/14/19 09/14/19 Range/Units 16:48 18:39 21:05 WBC (3.8-10.6) k/uL Plt Count (150-450) k/uL Neutrophils # (1.3-7.7) k/uL Lymphocytes # (1.0-4.8) k/uL Sodium 119 L* (137-145) mmol/L Potassium (3.5-5.1) mmol/L Chloride (98-107) mmol/L Carbon Dioxide (22-30) mmol/L Creatinine (0.66-1.25) mg/dL Glucose (74-99) mg/dL POC Glucose (mg/dL) 264 H 296 H (75-99) mg/dL Calcium (8.4-10.2) mg/dL Alkaline Phosphatase (38-126) U/L Total Protein (6.3-8.2) g/dL 09/14/19 09/15/19 09/15/19 Range/Units 22:56 06:04 08:37 WBC (3.8-10.6) k/uL Plt Count (150-450) k/uL Neutrophils # (1.3-7.7) k/uL Lymphocytes # (1.0-4.8) k/uL Sodium 122 L 125 L (137-145) mmol/L Potassium 3.1 L (3.5-5.1) mmol/L Chloride 87 L 91 L (98-107) mmol/L Carbon Dioxide 20 L (22-30) mmol/L Creatinine 0.61 L (0.66-1.25) mg/dL Glucose 304 H 283 H (74-99) mg/dL POC Glucose (mg/dL) 343 H (75-99) mg/dL Calcium 8.2 L 8.3 L (8.4-10.2) mg/dL Alkaline Phosphatase 36 L (38-126) U/L Total Protein 6.1 L (6.3-8.2) g/dL 09/15/19 Range/Units 08:37 WBC 13.4 H (3.8-10.6) k/uL Plt Count 142 L (150-450) k/uL Neutrophils # 11.5 H (1.3-7.7) k/uL Lymphocytes # 0.7 L (1.0-4.8) k/uL Sodium (137-145) mmol/L Potassium (3.5-5.1) mmol/L Chloride (98-107) mmol/L Carbon Dioxide (22-30) mmol/L Creatinine (0.66-1.25) mg/dL Glucose (74-99) mg/dL POC Glucose (mg/dL) (75-99) mg/dL Calcium (8.4-10.2) mg/dL Alkaline Phosphatase (38-126) U/L Total Protein (6.3-8.2) g/dL Microbiology - Last 24 Hours (Table) 09/13/19 21:11 Blood Culture - Preliminary Blood No Growth after 24 hours Assessment and Plan Assessment: Hyponatremia, could be due to SIADH related to his lung mass 2.8 right infrahilar lung mass associated with paratracheal lymphadenopathy Fever, patient does not look he has pneumonia, urine analysis is no suspicious of infection. Rule out other infections, possible tumor fever metabolic encephalopathy secondary to above, rule out other causes for example metastasis to the brain versus other. Neurologist service consult is placed type 1 diabetes mellitus Chronic heart failure Nicotine dependence History of coronary artery disease status post CABG in 2017 Plan: this is a pleasant 58 years old male who presents with lung mass, hyponatremia suspicious for SIADH and confusion. Stop IV fluids. Nephrology and pulmonary consult. Follow-up sodium level closely . Continue with empiric antibiotics of vancomycin and clindamycin, consult infectious disease and neurology. Follow-up blood culture. Monitor the patient's vitals and for further fever. Check stool studies. Continue with losartan metoprolol, give hydralazine IV as needed and follow-up blood pressure closely. Labs and medication were reviewed.. Continue same treatment. Continue with symptomatic treatment. Resume home medication. Monitor lytes and vitals. DVT and GI prophylaxis. Further recommendations of the clinical course of the patient DVT prophylaxis: Subcutaneous heparin GI Prophylaxis: Pepcid Prognosis is guarded
[2019-09-15 12:16] LABS: Glucose,Whole Blood 259 mg/dL (75-99)
--- NOTE | 2019-09-15 12:53 | PN ---
PROGRESS NOTE Patient is seen for followup for hyponatremia which initially appeared to be hypovolemic and got corrected with normal saline. Serum sodium in improved from 116- 122. However, last night, serum sodium dropped to 119 and at that time normal saline was discontinued and patient received a small dose of IV Lasix. This morning his sodium has come up to 125. The fact that the sodium level did drop yesterday with saline goes along with SIADH and the urine osmolality is also noted to be on the higher side at 499. The patient will be maintained on fluid restriction, as long as his sodium continues to improve. We do not need to add the tolvaptan at this point. PHYSICAL EXAMINATION: On examination, blood pressure was 110/53, heart rate 78 per minute. Patient did have a fever of 101.2 degrees Fahrenheit yesterday. Examination shows patient is comfortable, sleeping. He has a sitter as he was combative and agitated last night. There is no edema noted in his lower extremities. Abdomen is soft, nontender. LABS: Show sodium 125, potassium 3.1, chloride 91, BUN 17, serum creatinine 0.9 mg/dL. ASSESSMENT: 1. Hyponatremia, initially hypovolemic, currently euvolemic with worsening with saline noted suggesting SIADH. Serum sodium has improved with discontinuation of saline and a small dose of IV Lasix yesterday. We will continue to monitor it for now. I will hold off on tolvaptan. He will be maintained on fluid restriction. 2. Hypokalemia secondary to decreased oral intake. We will replace. 3. Fever. Urine analysis does not appear to have significant pyuria. Chest CT scan did not show any significant infiltrates. Patient has been started on clindamycin, possibility of postobstructive pneumonia. 4. Type 1 diabetes. 5. Altered mentation secondary to hyponatremia, this should start to improve as serum sodium continues to improve. 6. Hypothyroidism, TSH was 2.3. PLAN: Continue off IV fluids. Replace potassium. Repeat sodium in 6 hours. MMODL / IJN: [id number] /
[2019-09-15 13:31] LABS: Potassium 3.8 mmol/L (3.5-5.1)
--- NOTE | 2019-09-15 14:16 | P.PN ---
Subjective Progress Note Date: 09/15/19 Principal diagnosis: Right hilar mass, subcarinal adenopathy, suspicious malignancy, hyponatremia, SIADH This is a 58-year-old male patient, hospitalized yesterday because of an altered mental status. The patient came into the ED having altered mentation, nausea and ongoing episodes of emesis a few days duration. The patient was confused and slow in answering questions and he was having also profound weakness and difficulty with mobility and ambulation. The patient apparently has been vomiting around 2-5 times every day. Denied having any diarrhea. No abdominal pain. He was becoming progressively more altered and he was unable to do some simple tasks at home. He did have a chronic cough. No throat pain. No aspiration. Blood work in the emergency department showed that the patient's sodium level was 116 with a chloride of 78. The patient had a normal white cell count. The patient had a serum glucose of 236. Lactic acid level was at 1.8. Calcium level of 8.6. Total bilirubin was 1.5 with a ferritin level of 363. LFTs were within normal limits. Ammonia level was less than 5. LDH was 495. C-reactive protein was less than 5. Covid 19 nasal swab came back negative. Chest x-ray showed a right hilar mass and for that reason the patient was given a CT angiogram that showed no evidence of any pulmonary embolism. There was a 2.8 cm right infrahilar pulmonary mass/nodule that was not present on previous CAT scans there was also subcarinal and lower paratracheal lymphadenopathy measuring up to 2.6 cm in size and the findings were worrisome for malignant mediastinal lymphadenopathy/mass. The patient is a chronic smoker. The patient currently is on normal saline running at 75 mL an hour. Sodium level is improving and the findings on the case as the patient is having a repeat sodium level every 4 hours. On 09/15/2019 patient seen in follow-up on selective care unit, and the patient was very confused, agitated, she was given a dose of Ativan, 59 sitter was placed at the bedside, he was hypertensive with a blood pressure 180/85, and spi ked a fever of 101.2F, clindamycin and vancomycin were added for possibility of pneumonia. On today's evaluation patient is very lethargic and very hard to arouse. He has slight nystagmus to the right, neurology consultation is pending. On today's labs patient's sodium is up to 125, and normal saline infusion has been discontinued, potassium is 3.1, chloride is 91, CO2 is 20, BUN 17 creatinine 0.9 ammonia level was less than 9, LFTs were fairly unremarkable, with AST and ALT at 46 and 25 respectively, and alkaline phosphatase at 36. Chronic was ruled out. Blood culture has been negative. He is on 2 L of oxygen the pulse ox between 91-96%. Today he is afebrile, white count is 13.4. Objective - Vital Signs Vital signs: Vital Signs Temp 98.8 F 09/15/19 08:45 Pulse 78 09/15/19 08:45 Resp 22 09/15/19 08:45 BP 110/53 09/15/19 08:45 Pulse Ox 91 L 09/15/19 08:45 Intake & Output 09/14/19 09/15/19 09/15/19 18:59 06:59 18:59 Intake Total 1100 Output Total 2000 Balance 1100 -2000 Weight 67 kg Intake: Intake, IV Titration 800 Amount Sodium Chloride 0.9% 1, 800 000 ml @ 50 mls/hr IV . Q20H [facility] Rx#:[id number] Oral 300 Output: Urine 2000 Other: Voiding Method Toilet Indwelling Catheter Indwelling Catheter # Voids 2 0 # Bowel Movements 0 - Exam GENERAL EXAM: Extremely lethargic, sedated, on 2 L of oxygen with a pulse ox of 91%, withdraws from pain. Possible right sided nystagmus HEAD: Normocephalic/atraumatic. EYES: Normal reaction of pupils, equal size. Conjunctiva pink, sclera white. NOSE: Clear with pink turbinates. THROAT: No erythema or exudates. NECK: No masses, no JVD, no thyroid enlargement, no adenopathy. CHEST: No chest wall deformity. Symmetrical expansion. LUNGS: Equal air entry with no crackles, wheeze, rhonchi or dullness. CVS: Regular rate and rhythm, normal S1 and S2, no gallops, no murmurs, no rubs ABDOMEN: Soft, nontender. No hepatosplenomegaly, normal bowel sounds, no guarding or rigidity. EXTREMITIES: No clubbing, no edema, no cyanosis, 2+ pulses and upper and lower extremities. MUSCULOSKELETAL: Muscle strength and tone normal. SPINE: No scoliosis or deformity SKIN: No rashes CENTRAL NERVOUS SYSTEM: Lethargic, sedated withdraws from painful stimuli - Labs CBC & Chem 7: 09/15/19 08:37 09/15/19 12:43 Labs: Abnormal Lab Results - Last 24 Hours (Table) 09/14/19 09/14/19 09/14/19 Range/Units 16:48 18:39 21:05 WBC (3.8-10.6) k/uL Plt Count (150-450) k/uL Neutrophils # (1.3-7.7) k/uL Lymphocytes # (1.0-4.8) k/uL Sodium 119 L* (137-145) mmol/L Potassium (3.5-5.1) mmol/L Chloride (98-107) mmol/L Carbon Dioxide (22-30) mmol/L Creatinine (0.66-1.25) mg/dL Glucose (74-99) mg/dL POC Glucose (mg/dL) 264 H 296 H (75-99) mg/dL Calcium (8.4-10.2) mg/dL Alkaline Phosphatase (38-126) U/L Total Protein (6.3-8.2) g/dL 09/14/19 09/15/19 09/15/19 Range/Units 22:56 06:04 08:37 WBC (3.8-10.6) k/uL Plt Count (150-450) k/uL Neutrophils # (1.3-7.7) k/uL Lymphocytes # (1.0-4.8) k/uL Sodium 122 L 125 L (137-145) mmol/L Potassium 3.1 L (3.5-5.1) mmol/L Chloride 87 L 91 L (98-107) mmol/L Carbon Dioxide 20 L (22-30) mmol/L Creatinine 0.61 L (0.66-1.25) mg/dL Glucose 304 H 283 H (74-99) mg/dL POC Glucose (mg/dL) 343 H (75-99) mg/dL Calcium 8.2 L 8.3 L (8.4-10.2) mg/dL Alkaline Phosphatase 36 L (38-126) U/L Total Protein 6.1 L (6.3-8.2) g/dL 09/15/19 09/15/1909/14/20 Range/Units 08:37 12:04 12:43 WBC 13.4 H (3.8-10.6) k/uL Plt Count 142 L (150-450) k/uL Neutrophils # 11.5 H (1.3-7.7) k/uL Lymphocytes # 0.7 L (1.0-4.8) k/uL Sodium 125 L (137-145) mmol/L Potassium (3.5-5.1) mmol/L Chloride (98-107) mmol/L Carbon Dioxide (22-30) mmol/L Creatinine (0.66-1.25) mg/dL Glucose (74-99) mg/dL POC Glucose (mg/dL) 259 H (75-99) mg/dL Calcium (8.4-10.2) mg/dL Alkaline Phosphatase (38-126) U/L Total Protein (6.3-8.2) g/dL Microbiology - Last 24 Hours (Table) 09/13/19 21:11 Blood Culture - Preliminary Blood No Growth after 24 hours Assessment and Plan Plan: Assessment: #1. right hilar mass measuring 2.8 cm in size in addition to subcarinal lymphadenopathy, suspicious for malignancy including primary bronchogenic carcinoma, possibly of a small cell type. #2. hyponatremia, consider tumor-induced SIADH, improving #3. altered mentation secondary to above, rule out possibility of seizures, rule out possibility of brain metastasis #4. diabetes mellitus type 1 #5. coronary artery disease with previous bypass surgery and previous coronary intervention and stenting #6. chronic systolic heart failure with an ejection fraction of 45-50% and previous wall motion abnormalities in addition to hypertensive heart disease with concentric LVH #7. chronic smoker #8. hypertension #9. hypothyroidism maintained on Synthroid 50 g daily basis #10. hyperlipidemia #11. Acute febrile illness, rule out infectious etiology Plan: Repeat serum sodium, continue current antibiotic coverage, will send follow-up procalcitonin. Consult neurology in regards to altered mentation, possibility of seizures, rule out possibility of brain metastasis, patient will need MRI of the brain. Continue close monitoring, maintain aspiration precautions. Follow- up chest x-ray in the morning I performed a history & physical examination of the patient and discussed their management with my nurse practitioner, Judy Sotelo. I reviewed the nurse practitioner's note and agree with the documented findings and plan of care. Lung sounds are positive for diminished breath sounds. The findings and the impression was discussed with the patient. I attest to the documentation by the nurse practitioner. Time with Patient: Less than 30
--- NOTE | 2019-09-15 15:41 | P.CONS ---
History of Present Illness - Reason for Consult Consult date: 09/15/19 Fever Requesting physician: Phan E Sheet - Chief Complaint Mental status changes x few days - History of Present Illness Patient is a 58-year-old male with a past medical history negative for diabetes hypertension coronary artery disease currently smoker presenting to the ER at [facility] on 09/13/2019 for evaluation of mental status changes and vomiting patient was coming of some obstructive stomach but no diarrhea patient was noticed to have a temperature at home and pain THAT he confused and having difficulty doing simple tasks for the same reason and the patient has been brought into the ER and was evaluated by the ER physician, on a rrival to the ER the patient has a low-grade fever 100.7 the patient's subsequent spike a fever of 102F last evening, the patient did have white count of 12.3 thousand on admission that normalized yesterday however it is up to 13.4 today UA has been negative chest x-ray reported negative CT angiogram was a nondiagnostic because of motion but denies show any consolidation did shows infrahilar pulmonary nodule patient influenza as well as hodges PCR has been negative 2 patient has been treated with vancomycin and clindamycin because of his persistent fever infectious disease was consulted for further recommendation regarding antibiotic therapy patient at time of my evaluation under the sacral has been obtunded and is unable to any history no vomiting or any diarrhea reported by the sitter at the bedside, Review of Systems Positive points has been mentioned in HPI complete review could not be obtained because of his underlying mental status Past Medical History Past Medical History: Chest Pain / Angina, Heart Failure, Diabetes Mellitus, GERD/Reflux, Myocardial Infarction (NH) Additional Past Medical History / Comment(s): IDDM type 1, neuropathy bilteral feet, gammaglobulinemia as infant. Last Myocardial Infarction Date:: 2016 History of Any Multi-Drug Resistant Organisms: None Reported Past Surgical History: Back Surgery, Coronary Bypass/CABG, Heart Catheterization, Heart Catheterization With Stent, Orthopedic Surgery Additional Past Surgical History / Comment(s): 2017 cardiac cath, 2017 CABG 3 vessel, L5-S1 back surgery, bilateral hand trigger finger repairs. Past Anesthesia/Blood Transfusion Reactions: No Reported Reaction Additional Past Anesthesia/Blood Transfusion Reaction / Comm: Pt received blood as an . Date of Last Stent Placement:: 2016 Past Psychological History: No Psychological Hx Reported Smoking Status: Current some day smoker Past Alcohol Use History: Occasional Past Drug Use History: None Reported - Past Family History Father Family Medical History: Coronary Artery Disease (CAD), Diabetes Mellitus, Myocardial Infarction (NH) Additional Family Medical History / Comment(s): Father has had 5 MIs with the first one happening at the age of 55yrs. Mother Additional Family Medical History / Comment(s): Hypoglycemia. There is coronary artery disease on the mother's family but not in the patient's mother Medications and Allergies Home Medications Medication Instructions Recorded Confirmed Type Insulin Glargine [Lantus] 35 unit SQ DAILY 02/25/16 09/14/19 History INSULIN ASPART (NovoLOG) [NovoLOG See Protocol SQ AC-TID 04/11/19 09/14/19 History (formulary)] Aspirin 81 mg PO DAILY #30 chew 04/14/19 09/14/19 Rx Atorvastatin [Lipitor] 80 mg PO HS #30 tab 04/14/19 09/14/19 Rx Clopidogrel [Plavix] 75 mg PO DAILY #30 tab 04/14/19 09/14/19 Rx Metoprolol Tartrate [Lopressor] 25 mg PO BID #60 tab 04/14/19 09/14/19 Rx Nitroglycerin Sl Tabs [Nitrostat] 0.4 mg SUBLINGUAL Q5M PRN #60 tab 04/14/19 0 09/14/19 Rx Levothyroxine Sodium [Synthroid] 50 mcg PO DAILY 09/14/19 09/14/19 History Multivitamins, Thera [Multivitamin 1 tab PO DAILY 09/14/19 09/14/19 History (formulary)] Allergies Allergy/AdvReac Type Severity Reaction Status Date / Time Penicillins Allergy Unknown Verified 09/14/19 08:23 Childhood lovastatin AdvReac muscle pain Verified 09/14/19 08:23 Physical Exam Vitals: Vital Signs Temp Pulse Resp BP BP Pulse Ox 09/15/19 11:50 98.5 F 68 18 116/56 97 09/15/19 08:45 98.8 F 78 22 110/53 91 L 09/15/19 04:00 101.2 F H 98 17 188/85 96 09/15/19 00:00 99.0 F 82 18 187/87 93 L 09/14/19 20:00 99.1 F 78 18 158/76 09/14/19 18:51 102.2 F H 09/14/19 17:12 100 F H 90 16 182/86 Intake and Output 09/15/19 09/15/19 09/15/19 06:59 14:59 22:59 Intake Total 420 Output Total 1999 600 Balance -1999 Intake: Intake, IV Titration 420 Amount Clindamycin 300 mg In 50 Dextrose 5% in Water 50 ml @ 50 mls/hr IVPB Q6H JOSHUA Rx#:[id number] Potassium Chloride 10 meq 120 In Water For Injection 1 100ml.bag @ 100 mls/hr IVPB Q1HR JOSUHA Rx#: [id number] Vancomycin 1,250 mg In 250 Sodium Chloride 0.9% 250 ml @ 125 mls/hr IVPB Q8H JOSHUA Rx#:[id number] Output: Urine 1999 600 Other: Voiding Method Indwelling Catheter Indwelling Catheter # Voids 0 # Bowel Movements 0 Weight 67 kg GENERAL DESCRIPTION: Middle-aged male lying in bed, no distress. No tachypnea or accessory muscle of respiration use. HEENT: Shows Pallor , no scleral icterus. Oral mucous membrane could not be examined NECK: Trachea central, no thyromegaly. LUNGS: Unlabored breathing. Decreased present at the base No wheeze or crackle. HEART: S1, S2, regular rate and rhythm. No loud murmur ABDOMEN: Soft, no tenderness , EXTREMITIES: No edema of feet. SKIN: No rash, no masses palpable. NEUROLOGICAL: The patient is lethargic orientation could not be determined Results CBC & Chem 7: 09/15/19 08:37 09/15/19 12:43 Labs: Abnormal Lab Results - Last 24 Hours (Table) 09/14/19 09/14/19 09/14/19 Range/Units 16:48 18:39 21:05 WBC (3.8-10.6) k/uL Plt Count (150-450) k/uL Neutrophils # (1.3-7.7) k/uL Lymphocytes # (1.0-4.8) k/uL Sodium 119 L* (137-145) mmol/L Potassium (3.5-5.1) mmol/L Chloride (98-107) mmol/L Carbon Dioxide (22-30) mmol/L Creatinine (0.66-1.25) mg/dL Glucose (74-99) mg/dL POC Glucose (mg/dL) 264 H 296 H (75-99) mg/dL Calcium (8.4-10.2) mg/dL Alkaline Phosphatase (38-126) U/L Total Protein (6.3-8.2) g/dL 09/14/19 09/15/19 09/15/19 Range/Units 22:56 06:04 08:37 WBC (3.8-10.6) k/uL Plt Count (150-450) k/uL Neutrophils # (1.3-7.7) k/uL Lymphocytes # (1.0-4.8) k/uL Sodium 122 L 125 L (137-145) mmol/L Potassium 3.1 L (3.5-5.1) mmol/L Chloride 87 L 91 L (98-107) mmol/L Carbon Dioxide 20 L (22-30) mmol/L Creatinine 0.61 L (0.66-1.25) mg/dL Glucose 304 H 283 H (74-99) mg/dL POC Glucose (mg/dL) 343 H (75-99) mg/dL Calcium 8.2 L 8.3 L (8.4-10.2) mg/dL Alkaline Phosphatase 36 L (38-126) U/L Total Protein 6.1 L (6.3-8.2) g/dL 09/15/19 09/15/19 09/15/19 Range/Units 08:37 12:04 12:43 WBC 13.4 H (3.8-10.6) k/uL Plt Count 142 L (150-450) k/uL Neutrophils # 11.5 H (1.3-7.7) k/uL Lymphocytes # 0.7 L (1.0-4.8) k/uL Sodium 125 L (137-145) mmol/L Potassium (3.5-5.1) mmol/L Chloride (98-107) mmol/L Carbon Dioxide (22-30) mmol/L Creatinine (0.66-1.25) mg/dL Glucose (74-99) mg/dL POC Glucose (mg/dL) 259 H (75-99) mg/dL Calcium (8.4-10.2) mg/dL Alkaline Phosphatase (38-126) U/L Total Protein (6.3-8.2) g/dL Microbiology - Last 24 Hours (Table) 09/13/19 21:11 Blood Culture - Preliminary Blood No Growth after 24 hours Assessment and Plan Assessment: 1- patient presented to hospital with sepsis in this patient did have a fever and elevated white count did have vomiting and mental status changes so far workup has been negative including a negative UA chest x-ray and CT has been negative for any consolidation abdominal was soft on palpation and no evidence of any cellulitis will need to rule out SPECIALTY THERAPIST infection with likely source of this fever 2-patient with antibiotic ALLERGIES that would limit the number of antibiotic safe to use Plan: 1-we will obtain consultation with anesthesia for LP CSF should be sent for cell count and differential glucose, protein, HSV DNA by PCR 2-Vancomycin pharmacy to dose target trough of 15 while watching his kidney func tion and Vanco trough closely 3-we will add Rocephin 2 g daily and acyclovir We will follow on clinical condition and cultures to further adjust medication if needed Thank you for this consultation will follow this patient with you Time with Patient: Greater than 30
--- NOTE | 2019-09-15 15:41 | P.CNNES ---
History of Present Illness Consult date: 09/15/19 Reason for Consult: Altered mental status Chief complaint: Worsening altered mental status History of Present Illness: This is a new neurology consult requested for further advice and recommendations for a 58-year-old who presented to the emergency room on the September 12 for history of 4 days of abdominal pain and associated vomiting. Review of his medical records indicates that prior to admission he was starting to have fever along with altered mental status. This was reported by his spouse who describes he simply could not do common tasks and was getting confused easily. In the emergency room he was reported to be oriented times place person but was unable to follow simple commands and tasks. He was noted to have significant hyponatremia with a sodium of 119 with hyperglycemia. He was also found to be hypertensive averaging blood pressures of 154/99. His vital signs on admission did confirm a temperature of 100.7 Pulse rate was between 92 and 122 while maintaining O2 sats at 98%. Review of vital signs in the emergency room did confirm tachypnea and intermittent hypertension. Pertinent labs include negative testing 2 for [place] virus. EKG showed occasional PVCs Chest CT showed no evidence of pulmonary embolism but a 2.8 mm right infrahilar pulmonary mass with 2.6 mm peritracheal lymphadenopathy. This was considered to be most likely a lung mass. His past medical history is significant for multiple cardiac stents performed back in April 12 05/12/2017. Insulin-dependent diabetes hypertension dyslipidemia and nicotine abuse. He has no prior history of a stroke. Over the interim he has continued to decline neurologically he is barely arousable and on a [place] Coma Scale is 6. No spontaneous eye opening or verbal response. Motor response was only 4 points with withdrawal to pain. Past Medical History Past Medical History: Chest Pain / Angina, Heart Failure, Diabetes Mellitus, GERD/Reflux, Myocardial Infarction (MD) Additional Past Medical History / Comment(s): IDDM type 1, neuropathy bilteral feet, gammaglobulinemia as infant. Last Myocardial Infarction Date:: 2016 History of Any Multi-Drug Resistant Organisms: None Reported Past Surgical History: Back Surgery, Coronary Bypass/CABG, Heart Catheterization, Heart Catheterization With Stent, Orthopedic Surgery Additional Past Surgical History / Comment(s): 2017 cardiac cath, 2017 CABG 3 vessel, L5-S1 back surgery, bilateral hand trigger finger repairs. Past Anesthesia/Blood Transfusion Reactions: No Reported Reaction Additional Past Anesthesia/Blood Transfusion Reaction / Comment(s): Pt received blood as an . Date of Last Stent Placement:: 2016 Past Psychological History: No Psychological Hx Reported Smoking Status: Current some day smoker Past Alcohol Use History: Occasional Past Drug Use History: None Reported - Past Family History Father Family Medical History: Coronary Artery Disease (CAD), Diabetes Mellitus, Myocardial Infarction (MD) Additional Family Medical History / Comment(s): Father has had 5 MIs with the first one happening at the age of 55yrs. Mother Additional Family Medical History / Comment(s): Hypoglycemia. There is coronary artery disease on the mother's family but not in the patient's mother Medications and Allergies Home Medications Medication Instructions Recorded Confirmed Type Insulin Glargine [Lantus] 35 unit SQ DAILY 02/25/16 09/14/19 History INSULIN ASPART (NovoLOG) [NovoLOG See Protocol SQ AC-TID 04/11/19 09/14/19 History (formulary)] Aspirin 81 mg PO DAILY #30 chew 04/14/19 09/14/19 Rx Atorvastatin [Lipitor] 80 mg PO HS #30 tab 04/14/19 09/14/19 Rx Clopidogrel [Plavix] 75 mg PO DAILY #30 tab 04/14/19 09/14/19 Rx Metoprolol Tartrate [Lopressor] 25 mg PO BID #60 tab 04/14/19 09/14/19 Rx Nitroglycerin Sl Tabs [Nitrostat] 0.4 mg SUBLINGUAL Q5M PRN #60 tab 04/14/19 09/14/19 Rx Levothyroxine Sodium [Synthroid] 50 mcg PO DAILY 09/14/19 09/14/19 History Multivitamins, Thera [Multivitamin 1 tab PO DAILY 09/14/19 09/14/19 History (formulary)] Allergies Allergy/AdvReac Type Severity Reaction Status Date / Time Penicillins Allergy Unknown Verified 09/14/19 08:23 Childhood lovastatin AdvReac muscle pain Verified 09/14/19 08:23 Physical Examination - Vital Signs Vital Signs: Vital Signs Temp Pulse Resp BP BP Pulse Ox 09/15/19 11:50 98.5 F 68 18 116/56 97 09/15/19 08:45 98.8 F 78 22 110/53 91 L 09/15/19 04:00 101.2 F H 98 17 188/85 96 04/24/20 00:00 99.0 F 82 18 187/87 93 L 09/14/19 20:00 99.1 F 78 18 158/76 09/14/19 18:51 102.2 F H 09/14/19 17:12 100 F H 90 16 182/86 Intake and Output 09/15/19 09/15/19 09/15/19 06:59 14:59 22:59 Output Total 1999 -1999 Output: Urine 1999 Other: Voiding Method Indwelling Catheter Indwelling Catheter # Voids 0 # Bowel Movements 0 Weight 67 kg Examination was limited due to patient's mental status. Glascow coma scale 6. Pupils: Patient had forced eye closure refusal to examine. Cranial nerve exam: Unable to assess eye movements. Face appears symmetric. Absent gag reflex. Cough is spontaneous. Motor examination patient does have some spontaneous movement in his feet with flexion-extension are primarily has withdrawal on stimulation. No evidence of any hemiparesis the upper and lower extremities. No fasciculations or tremor noted. Deep tendon reflexes are absent throughout. No ankle clonus is elicited. Sensory examination: does withdraw to painful stimulation. Gait examination deferred. Results - Laboratory Findings CBC and BMP: 09/15/19 08:37 09/15/19 12:43 Abnormal Lab Findings: Abnormal Labs 09/13/19 09/13/19 09/13/19 21:09 21:11 21:11 WBC 12.3 H Plt Count Neutrophils # 9.1 H Lymphocytes # Monocytes # 1.4 H INR 1.2 H D-Dimer 0.79 H Sodium Potassium Chloride Carbon Dioxide Creatinine Glucose POC Glucose (mg/dL) 256 H Calcium Ferritin Total Bilirubin Alkaline Phosphatase Total Protein Albumin Urine Protein Urine Glucose (UA) Urine Ketones 09/13/19 09/13/19 09/13/19 21:11 22:42 23:15 WBC Plt Count Neutrophils # Lymphocytes # Monocytes # INR D-Dimer Sodium 116 L* Potassium Chloride 78 L Carbon Dioxide Creatinine Glucose 236 H POC Glucose (mg/dL) 236 H Calcium Ferritin 363.1 H Total Bilirubin 1.5 H Alkaline Phosphatase Total Protein Albumin Urine Protein 1+ H Urine Glucose (UA) 2+ H Urine Ketones 1+ H 09/14/19 09/14/19 09/14/19 05:59 05:59 06:12 WBC Plt Count Neutrophils # 8.1 H Lymphocytes # Monocytes # INR D-Dimer Sodium 119 L* Potassium Chloride 84 L Carbon Dioxide Creatinine Glucose 243 H POC Glucose (mg/dL) 239 H Calcium 7.7 L Ferritin Total Bilirubin Alkaline Phosphatase 33 L Total Protein 5.9 L Albumin 3.3 L Urine Protein Urine Glucose (UA) Urine Ketones 09/14/19 09/14/19 09/14/19 11:28 11:58 12:18 WBC Plt Count Neutrophils # Lymphocytes # Monocytes # INR D-Dimer Sodium 122 L Potassium 3.4 L Chloride 85 L Carbon Dioxide Creatinine Glucose POC Glucose (mg/dL) 123 H 136 H Calcium Ferritin Total Bilirubin Alkaline Phosphatase Total Protein Albumin Urine Protein Urine Glucose (UA) Urine Ketones 09/14/19 09/14/19 09/14/19 16:48 18:39 21:05 WBC Plt Count Neutrophils # Lymphocytes # Monocytes # INR D-Dimer Sodium 119 L* Potassium Chloride Carbon Dioxide Creatinine Glucose POC Glucose (mg/dL) 264 H 296 H Calcium Ferritin Total Bilirubin Alkaline Phosphatase Total Protein Albumin Urine Protein Urine Glucose (UA) Urine Ketones 09/14/19 09/15/19 09/15/19 22:56 06:04 08:37 WBC Plt Count Neutrophils # Lymphocytes # Monocytes # INR D-Dimer Sodium 122 L 125 L Potassium 3.1 L Chloride 87 L 91 L Carbon Dioxide 20 L Creatinine 0.61 L Glucose 304 H 283 H POC Glucose (mg/dL) 343 H Calcium 8.2 L 8.3 L Ferritin Total Bilirubin Alkaline Phosphatase 36 L Total Protein 6.1 L Albumin Urine Protein Urine Glucose (UA) Urine Ketones 09/15/19 09/15/19 09/15/19 08:37 12:04 12:43 WBC 13.4 H Plt Count 142 L Neutrophils # 11.5 H Lymphocytes # 0.7 L Monocytes # INR D-Dimer Sodium 125 L Potassium Chloride Carbon Dioxide Creatinine Glucose POC Glucose (mg/dL) 259 H Calcium Ferritin Total Bilirubin Alkaline Phosphatase Total Protein Albumin Urine Protein Urine Glucose (UA) Urine Ketones - Diagnostic Findings EKG: report reviewed Chest x-ray: report reviewed CT scan - chest: report reviewed (MRI of the brain with and without contrast have been ordered along with an EEG to rule out subclinical seizure activity) Assessment and Plan Assessment: 58-year-old gentleman presenting with 4 days of abdominal upset and vomiting with progressive confusion admitted for further evaluation and found to have hyponatremia and a lung mass. There is high suspicion that this is a metastatic process or processes possibly primary lung cancer. The neurologic exam is cons istent with severe generalized dysfunction with a [place] Coma Scale of 6. Summary 1. 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 2. Metabolic encephalopathy worsening. 3. Insulin-dependent diabetes 4. Congestive heart failure COPD 5. Coronary artery disease status post CABG. 6. Nicotine dependence Plan: Medications: 1. Stat MRI of the brain with and without contrast to rule out possible metastatic disease from lung cancer. 2. EEG to rule out subclinical seizure activity. 3. Ammonia level to rule out hepatic encephalopathy. 4. Inflammatory markers: Ferritin, d-dimer, sedimentation rate and CRP 5. Due to patient's respirations status and decline would recommend ABG. Please notify results to hospitalist. 6. Maintain aspiration precautions and seizure precautions. One-on-one sitter needed. 7. Keep patient NPO. Start gentle hydration with normal saline 90 mL/h. 8. Agree with patient's transfer to ICU for higher level care. This patient's prognosis remains guarded. Further recommendations will be made as this case evolves. Dr. Montejo will be available by phone for follow-up at [phone] over the weekend. Thank you for this consultation.
[2019-09-15 15:56] LABS: ABG Base Excess 1.8 mmol/L; ABG HCO3 25 mmol/L (21-25); ABG PCO2 29 mmHg (35-45); ABG PH 7.53 (7.35-7.45); ABG PO2 62 mmHg (83-108); ABG TCO2 25 mmol/L (19-24); Allen Test Performed? Yes
[2019-09-15] MEDS ORDERED: ACYCLOVIR SODIUM 500 MG in SODIUM CHLORIDE 0.9% 100 ML IVPB SCH (16:00)
[2019-09-15 16:01] LABS: Folate, Serum 16.2 ng/mL
[2019-09-15 17:02] LABS: Glucose,Whole Blood 249 mg/dL (75-99)
--- NOTE | 2019-09-15 17:23 | MR ---
EXAMINATION TYPE: MR brain wo/w con DATE OF EXAM: 09/15/2019 COMPARISON: 09/13/2019 CT brain HISTORY: Acute Altered Mental Status. Patient has hx of Lung CA CONTRAST: Performed utilizing 7.5 mL intravenous Gadavist gadolinium contrast. TECHNIQUE: Multiplanar, multiecho imaging on a 3.0 Shweta magnet is performed through the brain. Stud y is performed within 24 hours of arrival to the hospital. The craniovertebral junction is normal. The pituitary is normal. Diffusion-weighted imaging is performed. On diffusion-weighted imaging there is some increased signa l along the right limbic cortex. This extends into the anterior right temporal lobe cortex. On T2 and inversion recovery weighted sequences there is increased signal within the right medial and to a les ser degree left anterior temporal lobes. Differential diagnosis could include acute ischemic changes within the right temporal lobe and limbic region. Consider infectious etiology such as herpes simplex within the differential. With the patient's history of lung cancer, metastatic disease is not entire ly excluded. However, suspicious areas of enhancement are not identified. Mesial temporal sclerosis s hould be considered. Post traumatic changes are considered less likely given the lack of additional f indings such as the inferior frontal lobes. There is periventricular white matter changes, likely on the basis of chronic white matter ischemic c hange. Ventricles and sulci are appropriate for the patient age. No effacement is identified. IMPRESSIONS: 1. Hyperintensity on diffusion-weighted imaging within the cortex of the right temporal lobe and limb ic region suspicious for ischemic change. Differential diagnosis should also include infectious etiol ogies such as herpes simplex, and other etiologies such as mesial temporal sclerosis, and although le ss likely, metastatic disease.
[2019-09-15 17:49] LABS: ALT 26 U/L (4-49); AST 45 U/L (17-59); African American GFR (CKD) >90 (>60 ml/min/1.73 sqM); Albumin 3.7 g/dL (3.5-5.0); Alkaline Phosphatase 40 U/L (38-126); Anion Gap 10 mmol/L; Blood Urea Nitrogen 16 mg/dL (9-20); C Reactive Protein 24.6 mg/L (<10.0); Calcium 8.4 mg/dL (8.4-10.2); Carbon Dioxide 27 mmol/L (22-30); Chloride 89 mmol/L (98-107); Glucose 233 mg/dL (74-99); Non-African American GFR(CKD) >90 (>60 ml/min/1.73 sqM); Potassium 3.4 mmol/L (3.5-5.1); Sodium 126 mmol/L (137-145); Total Bilirubin 0.9 mg/dL (0.2-1.3); Total Protein 6.2 g/dL (6.3-8.2)
[2019-09-15] MEDS: ACYCLOVIR SODIUM 700 MG in SODIUM CHLORIDE 0.9% 100 ML IVPB SCH ×2 (17:59→23:40)
[2019-09-15 19:15] LABS: Magnesium 2.1 mg/dL (1.6-2.3)
[2019-09-15] MEDS: VANCOMYCIN 1,250 MG in SODIUM CHLORIDE 0.9% 250 ML IVPB SCH (21:03)
[2019-09-15 23:19] LABS: Ferritin 456.5 ng/mL (22.0-322.0)
[2019-09-16 00:04] LABS: Glucose,Whole Blood 230 mg/dL (75-99)
[2019-09-16] MEDS: POTASSIUM CHLORIDE 10 MEQ in WATER FOR INJECTION 1 100ML.BAG IVPB SCH (01:02)
[2019-09-16] MEDS: VANCOMYCIN 1,250 MG in SODIUM CHLORIDE 0.9% 250 ML IVPB SCH ×3 (04:27→20:59)
[2019-09-16 05:02] LABS: Basophils % (A) 0 %; Eosinophils # (A) 0.1 k/uL (0-0.7); Eosinophils % (A) 1 %; HCT 45.8 % (39.0-53.0); HGB 15.7 gm/dL (13.0-17.5); Lymphocytes # (A) 1.2 k/uL (1.0-4.8); Lymphocytes % (A) 11 %; MCH 32.2 pg (25.0-35.0); MCHC 34.2 g/dL (31.0-37.0); MCV 94.2 fL (80.0-100.0); Mean Platelet Volume 7.6; Monocytes % (A) 9 %; Neutrophils # (A) 8.5 k/uL (1.3-7.7); Neutrophils % (A) 76 %; Platelet Count 161 k/uL (150-450); RBC 4.86 m/uL (4.30-5.90); RDW 13.4 % (11.5-15.5); WBC 11.2 k/uL (3.8-10.6)
[2019-09-16 05:11] LABS: ALT 29 U/L (4-49); AST 51 U/L (17-59); African American GFR (CKD) >90 (>60 ml/min/1.73 sqM); Albumin 3.7 g/dL (3.5-5.0); Alkaline Phosphatase 38 U/L (38-126); Anion Gap 9 mmol/L; Blood Urea Nitrogen 16 mg/dL (9-20); Calcium 8.5 mg/dL (8.4-10.2); Carbon Dioxide 26 mmol/L (22-30); Chloride 94 mmol/L (98-107); Glucose 164 mg/dL (74-99); Non-African American GFR(CKD) >90 (>60 ml/min/1.73 sqM); Potassium 3.7 mmol/L (3.5-5.1); Sodium 129 mmol/L (137-145); Total Bilirubin 0.6 mg/dL (0.2-1.3); Total Protein 6.5 g/dL (6.3-8.2)
[2019-09-16 05:56] LABS: Glucose,Whole Blood 272 mg/dL (75-99)
[2019-09-16] MEDS: INSULIN ASPART (NovoLOG) 100 UNIT/ML VIAL SQ SCH ×4 (06:02→18:22)
--- NOTE | 2019-09-16 06:41 | XR ---
EXAMINATION TYPE: XR chest 1V portable DATE OF EXAM: 09/16/2019 HISTORY: fever. REFERENCE: Previous study dated 09/13/2019. FINDINGS: There has been a midline sternotomy. There is worsening infrahilar airspace disease. The left lung remains clear. Pleural space are clear. The heart is not enlarged. IMPRESSION: WORSENING RIGHT-SIDED OPACITY, SUSPICIOUS FOR PNEUMONIA.
[2019-09-16] MEDS: ACETAMINOPHEN SUPPOSITORY 650 MG SUPP RECTAL PRN ×2 (07:17→17:46)
[2019-09-16] MEDS: FAMOTIDINE 20 MG/2 ML VIAL IV SCH ×2 (09:53→21:05)
[2019-09-16] MEDS: ACYCLOVIR SODIUM 700 MG in SODIUM CHLORIDE 0.9% 100 ML IVPB SCH ×2 (09:53→15:50)
[2019-09-16] MEDS: LOSARTAN 50 MG TAB PO SCH (09:54)
[2019-09-16] MEDS: HEPARIN SODIUM,PORCINE 5,000 UNIT/ML 1 ML VIAL SQ SCH ×2 (09:54→21:05)
[2019-09-16] MEDS: METOPROLOL TARTRATE 25 MG TAB PO SCH ×2 (09:54→21:05)
[2019-09-16 10:26] LABS: Glucose,CSF 113 mg/dL (40-70); Total Protein,CSF 269 mg/dL (12-60)
[2019-09-16 11:11] LABS: Glucose,Whole Blood 134 mg/dL (75-99)
[2019-09-16 11:39] LABS: Appearance,CSF Clear; CSF Tube Number 4
[2019-09-16 12:00] LABS: Red Blood Cell,CSF 0 u/L (0-10)
[2019-09-16 12:01] LABS: CSF Tube Number 1
[2019-09-16 12:02] LABS: Appearance,CSF Clear; Red Blood Cell,CSF 1030 u/L (0-10)
[2019-09-16 12:08] LABS: Diff, Total Cells Cnt, CSF 100; Mononuclear WBC,CSF 100 %
[2019-09-16 12:15] LABS: Diff, Total Cells Cnt, CSF 100; Mononuclear WBC,CSF 99 %; Polynuclear WBC,CSF 1 %
[2019-09-16 12:16] LABS: Red Blood Cell, CSF Crenated 0 %; Red Blood Cell, CSF Fresh 100 %
[2019-09-16 12:17] LABS: Nucleated Cells, CSF 13 u/L (0-5)
[2019-09-16 12:18] LABS: Nucleated Cells, CSF 100 u/L (0-5)
--- NOTE | 2019-09-16 12:43 | PN ---
PROGRESS NOTE Patient is seen for followup for hyponatremia, mostly associated with SIADH. Serum sodium continues to improve. The patient is currently off of IV fluids. However, remains febrile and mentation has not improved as well. Patient was therefore transferred to the ICU. There was suspicion for possible meningitis/encephalitis and an LP will be performed today. The patient has been started on empiric antibiotics. UA does not show any significant pyuria. PHYSICAL EXAMINATION: On examination today, patient is resting comfortably. He is sleeping but arousable. Blood pressure this morning 157/79, heart rate 79 per minute, he is afebrile. Examination shows no evidence of edema to bilateral lower extremities. Abdomen is soft, nontender. The patient appears to be euvolemic. LABS: Show sodium 129, potassium 3.7, chloride 94, BUN 16, serum creatinine 0.72. ASSESSMENT: 1. Hyponatremia secondary to SIADH, currently off IV fluids, continuing to improve. 2. Fever and mental status changes, scheduled for an LP today. Started on acyclovir and also maintained on empiric antibiotics in the form of ceftriaxone. 3. Hypertension, maintained on Cozaar which we can continue. 4. Hilar adenopathy and possible right lung mass. Suspicion for underlying malignancy. PLAN: Will continue to minimize IV fluids. We do not need q.6 hours lytes. We can recheck the sodium tomorrow morning. MMODL / IJN: [id number] /
--- NOTE | 2019-09-16 12:54 | P.PN ---
Subjective Progress Note Date: 09/16/19 This is a 58-year-old male patient, hospitalized yesterday because of an altered mental status. The patient came into the ED having altered mentation, nausea and ongoing episodes of emesis a few days duration. The patient was confused and slow in answering questions and he was having also profound weakness and difficulty with mobility and ambulation. The patient apparently has been vomiting around 2-5 times every day. Denied having any diarrhea. No abdominal pain. He was becoming progressively more altered and he was unable to do some simple tasks at home. He did have a chronic cough. No throat pain. No aspiration. Blood work in the emergency department showed that the patient's sodium level was 116 with a chloride of 78. The patient had a normal white cell count. The patient had a serum glucose of 236. Lactic acid level was at 1.8. Calcium level of 8.6. Total bilirubin was 1.5 with a ferritin level of 363. LFTs were within normal limits. Ammonia level was less than 5. LDH was 495. C-reactive protein was less than 5. Covid 19 nasal swab came back negative. Chest x-ray showed a right hilar mass and for that reason the patient was given a CT angiogram that showed no evidence of any pulmonary embolism. There was a 2.8 cm right infrahilar pulmonary mass/nodule that was not present on previous CAT scans there was also subcarinal and lower paratracheal lymphadenopathy measuring up to 2.6 cm in size and the findings were worrisome for malignant mediastinal lymphadenopathy/mass. The patient is a chronic smoker. The patient currently is on normal saline running at 75 mL an hour. Sodium level is improving and the findings on the case as the patient is having a repeat sodium level every 4 hours. On 09/15/2019 patient seen in follow-up on selective care unit, and the patient was very confused, agitated, she was given a dose of Ativan, 60 sitter was placed at the bedside, he was hypertensive with a blood pressure 180/85, and spiked a fever of 101.2F, clindamycin and vancomycin were added for possibility of pneumonia. On today's evaluation patient is very lethargic and very hard to arouse. He has slight nystagmus to the right, neurology consultation is pending. On today's labs patient's sodium is up to 125, and normal saline infusion has been discontinued, potassium is 3.1, chloride is 91, CO2 is 20, BUN 17 creatinine 0.9 ammonia level was less than 9, LFTs were fairly unremarkable, with AST and ALT at 46 and 25 respectively, and alkaline phosphatase at 36. Chronic was ruled out. Blood culture has been negative. He is on 2 L of oxygen the pulse ox between 91-96%. Today he is afebrile, white count is 13.4. On 09/16/2019, the patient got transferred to the intensive care unit yesterday and the patient is being seen in follow-up today. The patient's sodium level continues to improve and his sodium level is currently up to 129. The MRI of the brain showed hyperintensity on diffusion-weighted imaging within the cortex of the right temporal lobe and lingular region suspicious for ischemia. Other possibilities included HSV infection of the brain, temporal sclerosis, metastatic disease. Lumbar puncture was also requested by neurology as the patient continued to have fever and one of the other possibilities that was entertained was viral encephalitis and the patient was already started on acyclovir. The current antibiotic coverage including Rocephin and vancomycin in conjunction with this activity. The pro-calcitonin level was low at 0.28. Overall neurologic function is of remained unchanged compared to yesterday. The patient seems to be appropriate however is very much lethargic and sleepy and drowsy. No neck stiffness. No focal neurological deficits. No nausea or vomiting or emesis for now. He is having episodic temperature with a T-max of 11.5 rectally. The blood cultures been negative thus far. I noted the patient was off Plavix for about 5 days. For that reason, I proceeded with a lumbar puncture in the intensive care unit. This was not the bedside. The chest x-ray from today shows a right lower lobe opacity, considered the possibility of an underlying pneumonia which could be essentially of an aspiration type.. As mentioned earlier, the patient has a right hilar mass on the same chest x-ray. Objective - Vital Signs Vital signs: Vital Signs Temp 101.5 F H 09/16/19 07:15 Pulse 79 09/16/19 07:00 Resp 22 09/16/19 07:00 BP 157/79 09/16/19 07:00 Pulse Ox 94 L 09/16/19 07:00 Intake & Output 09/15/19 09/16/19 09/16/19 18:59 06:59 18:59 Intake Total 620 120 10 Output Total 645 510 35 Balance -25 -390 -25 Weight 65.2 kg Intake: IV 120 10 Normal saline 120 10 Intake, IV Titration 620 Amount Acyclovir Sodium 700 mg 100 In Sodium Chloride 0.9% 100 ml @ 100 mls/hr IVPB Q8HR [facility] Rx#:[id number] Clindamycin 300 mg In 50 Dextrose 5% in Water 50 ml @ 50 mls/hr IVPB Q6H [facility] Rx#:[id number] Potassium Chloride 10 meq 120 In Water For Injection 1 100ml.bag @ 100 mls/hr IVPB Q1HR [facility] Rx#: [id number] Vancomycin 1,250 mg In 250 Sodium Chloride 0.9% 250 ml @ 125 mls/hr IVPB Q8H [facility] Rx#:[id number] cefTRIAXone 2 gm In 100 Sodium Chloride 0.9% 50 ml @ 100 mls/hr IVPB Q12H [facility] Rx#:[id number] Output: Urine 645 510 35 Other: Voiding Method Indwelling Catheter Indwelling Catheter Indwelling Catheter # Voids 0 # Bowel Movements 0 - Exam GENERAL EXAM: Extremely lethargic, sedated, on 2 L of oxygen with a pulse ox of 91%, withdraws from pain. HEAD: Normocephalic/atraumatic. EYES: Normal reaction of pupils, equal size. Conjunctiva pink, sclera white. NOSE: Clear with pink turbinates. THROAT: No erythema or exudates. NECK: No masses, no JVD, no thyroid enlargement, no adenopathy. CHEST: No chest wall deformity. Symmetrical expansion. LUNGS: Equal air entry with no crackles, wheeze, rhonchi or dullness. CVS: Regular rate and rhythm, normal S1 and S2, no gallops, no murmurs, no rubs ABDOMEN: Soft, nontender. No hepatosplenomegaly, normal bowel sounds, no guarding or rigidity. EXTREMITIES: No clubbing, no edema, no cyanosis, 2+ pulses and upper and lower extremities. MUSCULOSKELETAL: Muscle strength and tone normal. SPINE: No scoliosis or deformity SKIN: No rashes CENTRAL NERVOUS SYSTEM: Lethargic, sedated withdraws from painful stimuli, answers questions appropriately. He is very much lethargic and drowsy and sleepy. No neck stiffness. No focal neurological deficits. He is moving all 4 extremities without limitation. - Labs CBC & Chem 7: 09/16/19 04:44 09/16/19 04:44 Labs: Abnormal Lab Results - Last 24 Hours (Table) 09/15/19 09/15/19 09/15/19 Range/Units 08:37 12:43 15:52 WBC (3.8-10.6) k/uL Neutrophils # (1.3-7.7) k/uL ABG pH 7.53 H (7.35-7.45) ABG pCO2 29 L (35-45) mmHg ABG pO2 62 L (83-108) mmHg ABG Total CO2 25 H (19-24) mmol/L Sodium 125 L (137-145) mmol/L Potassium (3.5-5.1) mmol/L Chloride (98-107) mmol/L Glucose (74-99) mg/dL POC Glucose (mg/dL) (75-99) mg/dL Ferritin (22.0-322.0) ng/mL C-Reactive Protein (<10.0) mg/L Total Protein (6.3-8.2) g/dL Vitamin B12 1192.0 H (200.0-944.0) pg/mL Procalcitonin (0.02-0.09) ng/mL CSF RBC (0-10) u/L CSF Tot Nucleated Cells (0-5) u/L CSF Glucose (40-70) mg/dL CSF Total Protein (12-60) mg/dL 09/15/19 09/15/19 09/15/19 Range/Units 16:52 17:07 17:07 WBC (3.8-10.6) k/uL Neutrophils # (1.3-7.7) k/uL ABG pH (7.35-7.45) ABG pCO2 (35-45) mmHg ABG pO2 (83-108) mmHg ABG Total CO2 (19-24) mmol/L Sodium 126 L (137-145) mmol/L Potassium 3.4 L (3.5-5.1) mmol/L Chloride 89 L (98-107) mmol/L Glucose 233 H (74-99) mg/dL POC Glucose (mg/dL) 249 H (75-99) mg/dL Ferritin 456.5 H (22.0-322.0) ng/mL C-Reactive Protein 24.6 H (<10.0) mg/L Total Protein 6.2 L (6.3-8.2) g/dL Vitamin B12 (200.0-944.0) pg/mL Procalcitonin 0.33 H (0.02-0.09) ng/mL CSF RBC (0-10) u/L CSF Tot Nucleated Cells (0-5) u/L CSF Glucose (40-70) mg/dL CSF Total Protein (12-60) mg/dL 09/15/19 09/16/19 09/16/19 Range/Units 23:44 04:44 04:44 WBC 11.2 H (3.8-10.6) k/uL Neutrophils # 8.5 H (1.3-7.7) k/uL ABG pH (7.35-7.45) ABG pCO2 (35-45) mmHg ABG pO2 (83-108) mmHg ABG Total CO2 (19-24) mmol/L Sodium (137-145) mmol/L Potassium (3.5-5.1) mmol/L Chloride (98-107) mmol/L Glucose (74-99) mg/dL POC Glucose (mg/dL) 230 H (75-99) mg/dL Ferritin (22.0-322.0) ng/mL C-Reactive Protein (<10.0) mg/L Total Protein (6.3-8.2) g/dL Vitamin B12 (200.0-944.0) pg/mL Procalcitonin 0.28 H (0.02-0.09) ng/mL CSF RBC (0-10) u/L CSF Tot Nucleated Cells (0-5) u/L CSF Glucose (40-70) mg/dL CSF Total Protein (12-60) mg/dL 09/16/19 09/16/19 09/16/19 Range/Units 04:44 05:54 09:00 WBC (3.8-10.6) k/uL Neutrophils # (1.3-7.7) k/uL ABG pH (7.35-7.45) ABG pCO2 (35-45) mmHg ABG pO2 (83-108) mmHg ABG Total CO2 (19-24) mmol/L Sodium 129 L (137-145) mmol/L Potassium (3.5-5.1) mmol/L Chloride 94 L (98-107) mmol/L Glucose 164 H (74-99) mg/dL POC Glucose (mg/dL) 272 H (75-99) mg/dL Ferritin (22.0-322.0) ng/mL C-Reactive Protein (<10.0) mg/L Total Protein (6.3-8.2) g/dL Vitamin B12 (200.0-944.0) pg/mL Procalcitonin (0.02-0.09) ng/mL CSF RBC 1030 H (0-10) u/L CSF Tot Nucleated Cells 13 H* (0-5) u/L CSF Glucose 113 H (40-70) mg/dL CSF Total Protein 269 H (12-60) mg/dL 09/16/19 09/16/19 Range/Units 10:16 11:09 WBC (3.8-10.6) k/uL Neutrophils # (1.3-7.7) k/uL ABG pH (7.35-7.45) ABG pCO2 (35-45) mmHg ABG pO2 (83-108) mmHg ABG Total CO2 (19-24) mmol/L Sodium (137-145) mmol/L Potassium (3.5-5.1) mmol/L Chloride (98-107) mmol/L Glucose (74-99) mg/dL POC Glucose (mg/dL) 134 H (75-99) mg/dL Ferritin (22.0-322.0) ng/mL C-Reactive Protein (<10.0) mg/L Total Protein (6.3-8.2) g/dL Vitamin B12 (200.0-944.0) pg/mL Procalcitonin (0.02-0.09) ng/mL CSF RBC (0-10) u/L CSF Tot Nucleated Cells 100 H* (0-5) u/L CSF Glucose (40-70) mg/dL CSF Total Protein (12-60) mg/dL Microbiology - Last 24 Hours (Table) 09/13/19 21:11 Blood Culture - Preliminary Blood No Growth after 48 hours 09/14/19 18:39 Blood Culture - Preliminary Blood No Growth after 24 hours Assessment and Plan Plan: 1 right hilar mass measuring 2.8 cm in size in addition to subcarinal lymphadenopathy, suspicious for malignancy including primary bronchogenic carcinoma, possibly of a small cell type. 2 hyponatremia, consider tumor-induced SIADH 3 altered mentation in addition to episodes of fever and abnormal MRI as stated above. The patient was having decline in his neurologic function and yesterday became more lethargic and barely arousable and his GCS scale was down to 6. He had no spontaneous eye openings and verbal response. Motor response was present. Based on that, the patient got transferred to the intensive care unit and neurological status has been obtained. 49 still being considered for viral encephalitis. [employer] metastases cannot be completely ruled out. The patient has underlying lung mass and findings are suspicious for malignancy. 4 diabetes mellitus type 1 5 coronary artery disease with previous bypass surgery and previous coronary intervention and stenting 6 chronic systolic heart failure with an ejection fraction of 45-50% and previous wall motion abnormalities in addition to hypertensive heart disease with concentric LVH 7 chronic smoker 8 hypertension 9 hypothyroidism maintained on Synthroid 50 g daily basis 10 hyperlipidemia Plan Continue monitoring his sodium level which is up to 129. Consider underlying SIADH MRI of the brain was noted Lumbar puncture will be done today in the intensive care unit Will continue the same antibiotic coverage which included a combination of Rocephin and vancomycin and acyclovir pending lumbar puncture Neurology consultation Keep the patient nothing by mouth for now We'll continue to follow and keep the patient ICU based on the above-mentioned comorbidities. Bronchoscopy once his condition is stabilized and this will be needed regarding the possibility of underlying lung cancer.
--- NOTE | 2019-09-16 12:56 | P.PCN ---
Date of Procedure: 09/16/19 Preoperative Diagnosis: Altered mental status Postoperative Diagnosis: Altered mental status Procedure(s) Performed: Lumbar puncture Anesthesia: local Surgeon: Ede Gomez Estimated Blood Loss (ml): 0 Pathology: other Condition: critical Disposition: ICU Operative Findings: PROCEDURE SUMMARY: A time-out was performed. My hands were washed immediately prior to the procedure. I wore a surgical cap, mask with protective eyewear, sterile gown and sterile gloves throughout the procedure. The patient was placed in the right lateral position with help from the nursing staff. The area was cleansed and draped in usual sterile fashion using betadine scrub. Anesthesia was achieved with 1% lidocaine. A 20-gauge 3.5-inch spinal needle was placed in the 4-5 lumbar interspace. On the 1 attempt, clear colored cerebral spinal fluid was obtained. The opening pressure was not measured. CSF was collected into 4 tubes. These were sent for the usual tests, including 1 tube to be held for further analysis if needed. A sterile bandaid was placed over the puncture site. The patient had no immediate complications and tolerated the procedure well. Estimated blood loss was 0.
[2019-09-16] MEDS: levETIRAcetam IV 500 MG in SODIUM CHLORIDE 0.9% 100 ML IVPB SCH (14:20)
--- NOTE | 2019-09-16 15:19 | EEG ---
ELECTROENCEPHALOGRAM REPORT DATE OF SERVICE: 09/16/2019 This is a 58-year-old gentleman who came to the emergency room for increasing abdominal pain and vomiting. His symptoms reportedly occurred 4 days prior to admission. On hospital day 3, he began to have increasing altered mental status, unable to perform simple commands. He was noted to have hyponatremia on admission with hyperglycemia. His chest CT showed evidence of possible lung metastasis, a right infrahilar pulmonary mass measuring 2.8 x 2.6 mm. It was associated with peritracheal lymphadenopathy. The patient was empirically started on acyclovir for concern for possible herpes encephalitis. This EEG is performed to rule out possible electrographic seizure activity/nonconvulsive status. TECHNICAL REPORT: This is an inpatient EEG performed on the [employer] EEG monitor with electrodes placed according to the International 10-20 system and a single EKG channel. Simultaneous video EEG monitoring was performed. This EEG was reviewed in both longitudinal bipolar, common average referential and transverse montages. Photic stimulation was performed. The recording begins with a very suppressed background. Rhythmic and semi rhythmic activity is noted over the right central parietal head region. Intermittent muscle and movement artifact contaminate the tracing. The background is severely suppressed. Unable to determine any clear wakefulness or sleep stages. In the referential montage, repetitive moderate amplitude sharp and slow wave discharges are noted over 2 seconds. Intermittently, the patient is noted to be coughing during the study which is associated with motion and movement artifact. The EKG also appears to be irregular. The patient begins to have a buildup of semirhythmic slow wave activity occurring over the right central parietal head region suspicious for electrographic seizure activity lasting 8 seconds. This is without any clinical correlation. At 11:40:26 there is a buildup again of rhythmic high amplitude waveform activity over the right central parietal head region extending into the midline vertex followed by motion movement artifact. IMPRESSION: This is an abnormal EEG due to suppressed background and evidence of epileptiform activity emanating from the right central parietal head region. Several episodes did involve apparently electrographic seizure activity emanating from this area lasting for 10 seconds. Several episodes were associated with a 2 second electrodecremental response. IMPRESSION: Abnormal EEG with electrographic seizure activity from the right parietal central head region and midline vertex. No clear awake state. A verbal report of this study was provided to the nurse on-call. Recommendations for loading with levetiracetam IV was given. A followup EEG should occur within the next 24 hours and/or if clinically indicated a more prolonged overnight study. MMODL / IJN: [id number] / MTDD
--- NOTE | 2019-09-16 17:10 | PN ---
PROGRESS NOTE DATE OF SERVICE: 09/16/2019 REASON FOR FOLLOWUP: Fever, possible encephalitis. INTERVAL HISTORY: The patient has been running a fever with a fever of 101 degrees Fahrenheit. The patient is hemodynamically stable. He was slightly more awake, alert, and was try to communicate but hard to understand him at this point. No vomiting or diarrhea reported. PHYSICAL EXAMINATION: Blood pressure 136/85 with a pulse of 77, temperature 101.3. He is 92% on 2 L nasal cannula. General description is a middle-aged male lying in bed in no distress. Respiratory system: Unlabored breathing, decreased breath sounds at bases. No wheeze. Heart S1, S2. Regular rate and rhythm. Abdomen, soft, no tenderness. No guarding. No rigidity. EXTREMITIES: No edema of the feet. LABS: Hemoglobin is 15.2, white count 11.2, BUN of 16, creatinine 0.72. The patient did have a CSF exam which did show a of 113, protein is up to 269 with white count of 99, mostly . MRI of the brain has been suggestive of right temporal lesion. 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 The patient is on acyclovir 10 mg/kg to continue. We will monitor clinical course closely and continue supportive care. MMJULIÁNL / JOCELYNEN: [id number] /
[2019-09-16 18:02] LABS: Glucose,Whole Blood 183 mg/dL (75-99)
[2019-09-16] MEDS ORDERED: VANCOMYCIN TROUGH DUE 1 EACH MISC MISCELLANE ONE (19:00)
[2019-09-16 19:27] LABS: Magnesium 2.1 mg/dL (1.6-2.3); Potassium 3.6 mmol/L (3.5-5.1)
--- NOTE | 2019-09-16 21:56 | P.PN ---
Subjective This is a pleasant 58 years old male with past medical history of heart failure, type 1 diabetes mellitus, GERD, coronary artery disease status post CABG in 2017, cigarette smoker. Patient follow up at the [facility]. Presents to the emergency room with vomiting and confusion. Patient is poor historian. He looks confused so information was taken from the records and staff. Patient is sitting at the bedside, does not look in distress who,. I had to asking the question several times so he can answer me as he has low attention is pending, patient keep plain with his phone and looking at his feet. However patient can tell me this is August 2019, he knows he is in [facility] and he couldn't remember the name of the president. However patient denies specific symptoms, he denies headache, no dizziness, no weakness in arms or legs, no numbness, no blurred vision, no slurred speech. No chest pain or abdominal pain, no dyspnea. Patient denies vomiting to me. Patient does not complain of his bowel or urine habits. However patient was noticed to have a fever of 100 this morning Patient told me he smokes but he could not tell me how long and how much. He states he drinks alcohol, maybe once a week as patient was told me, he denies illicit drugs. His blood pressure was on the high side and he was restarted on losartan and metoprolol Vitas looks stable. However on admission he had low-grade fever of 100.7, slightly tachypneic 20-24. Had mild leukocytosis of 12.3 K, came back to normal at 10.6 possibly some elements of hemoglobin delusion. He had elevated d-dimer of 0.79, sodium was 116 on admission came up to 119 this morning, potassium 3.7, creatinine 0.7. Glucose is 243, magnesium 1.9, bilirubin 1.2, liver enzymes not elevated. Lactate dehydrogenase not elevated, normal C-reactive protein, from, calcitonin 0.07. UA is not suspicious for infection. Coronary virus and influenza versus were not detected. Chest CTA: No PE with 2.8 cm right infrahilar pulmonary mass with 2.[address]. 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 t: Acute process by radiologist 09/15/2019 Patient remains confused, his more sleepy today but he got totally about 1 mg of Ativan yesterday, including last night which might contribute to his drowsiness. Today I called the was Simona and discussed the case with her and was feeling sick with some vomiting over the last week, however on Wednesday he got confused when he came to the hospital. History the patient was started spiking fever up to 102, however no obvious source of infection is noted, his pro-calcitonin and call the testis came back negative. Lactic acid is 1.7 and ammonia is negative. Patient was started emp irically on clindamycin and IV vancomycin and a consult was placed for infectious disease and neurologist , follow-up blood culture. His sodium is trending up slightly, today was 125, normal saline has been stopped. Potassium was 3.1 which is been replaced. He remains on insulin sliding scale. Also I discussed the case with pulmonary team, the plan is for lung biopsy for his mass down the road and when he is more stable Doppler of the lower extremity is negative 09/16/2019 Patient seen and examined today in the ICU. Patient is sleepy but easily arousable. He is more oriented than couple days ago, when I saw him at that time he was oriented to place only, however today he is oriented to place, time and person as he knows he is in [facility], this is 2019 and he knew the name of the president Johnathan. He denies headache. Himself did not complain from numbness and weakness . No twitching or seizure-like activity. No chest pain or dyspnea. No abdominal pain. Nausea vomiting stopped. No change in urine or bowel habits as per patient. I discussed the case with pulmonary /critical care team, is status post lumbar puncture done today which looked clear and the tests are still pending I think his worsening mental status yesterday was due to Ativan he got on the top of severe hyponatremia. Less likely due to seizure, less likely encephalitis, versus metabolic encephalopathy and sepsis (multifactorial) however it is improving today He is still Running fever today. His leukocytosis is improving to 11.2k, his sodium is improving gradually to 129 compared to 126 yesterday. Rest of of CBC, BMP and electrolytes are normal. Sugar slightly elevated, but generally better controlled , he needed 4 units and this morning and 3units yesterday. Keep monitoring his sugar. 2 sets of blood culture are negative so far. Chest x-ray this morning showing worsening right-sided opacity suspicious for pneumonia Brain MRI from yesterday showing hyperintensity in the right temporal lobe and limbic regions suspicious for ischemia, conditions in differential diagnosis includes infectious etiology such as herpes simplex, mesial temporal sclerosis and metastatic disease Patient is a known for lung mass suspicious for cancer with some lymphadenopathy since admission, pending lung biopsy to be performed sometime later on. Patient is already on broad-spectrum antibiotics including vancomycin, ceftriaxone and acyclovir Several consultants on the case including pulmonary/critical , infectious and neurology later on in the afternoon , i checked on the patient again and he was still in his improved condition , awake and aware to the surrounding and less sleepy i discussed the case with his ms ivone wiseman [phone] and updated her with the case , his improvement, labs , LP done for CSF and results pending , and results of MRI and medications, and all her questions were answered to her satisfaction , and she agrees with plan of care Review of systems HEENT: No recent visual problems or hearing problems. Denied any sore throat. CARDIOVASCULAR: No orthopnea, PND, no palpitations, no syncope. PULMONARY: No shortness of breath, no cough, no hemoptysis. GASTROINTESTINAL: No diarrhea, no nausea, no vomiting, no abdominal pain. Normoactive bowel sounds. GENITOURINARY: Denies any burning micturition, frequency, or urgency. MUSCULOSKELETAL/RHEUMATOLOGICAL: Denies any joint pain, swelling, or any muscle pain. Active Medications Generic Name Dose Route Start Last Admin Trade Name Zaneq PRN Reason Stop Dose Admin Acetaminophen 650 mg 09/14/19 17:44 09/14/19 17:50 Tylenol Tab PO 650 mg Q6HR PRN Administration Fever and/ or Mild Pain Acetaminophen 650 mg 09/15/19 04:39 09/16/19 07:17 Tylenol Suppository RECTAL 650 mg Q4HR PRN Administration Fever and/ or Pain Famotidine 20 mg 09/14/19 21:00 09/16/19 09:53 Pepcid IV 20 mg Q12HR JOSHUA Administration Heparin Sodium (Porcine) 5,000 unit 09/14/19 11:00 09/16/19 09:54 Heparin SQ 5,000 unit Q12HR JOSHUA Administration Hydralazine HCl 25 mg 09/14/19 11:47 09/14/19 17:15 Apresoline PO 25 mg TID PRN Administration Blood Pressure - High Hydralazine HCl 10 mg 09/15/19 09:14 Apresoline IVP Q4HR PRN Blood Pressure - High Vancomycin HCl 1,250 mg/ 250 mls @ 125 mls/hr 09/15/19 20:00 09/16/19 04:27 Sodium Chloride IVPB 125 mls/hr Q8H JOSHUA Administration Acyclovir Sodium 700 mg/ 114 mls @ 100 mls/hr 09/15/19 16:00 09/16/19 09:53 Sodium Chloride IVPB 100 mls/hr Q8HR JOSHUA Administration Ceftriaxone Sodium 2 gm/ 50 mls @ 100 mls/hr 09/16/19 06:00 09/16/19 06:04 Sodium Chloride IVPB 100 mls/hr Q12H JOSHUA Administration Insulin Aspart 0 unit 09/16/19 00:00 09/16/19 06:02 Novolog SQ 4 unit Q6H JOSHUA Administration Protocol Lorazepam 0.25 mg 09/15/19 08:41 Ativan IV Q12HR PRN Anxiety Losartan Potassium 50 mg 09/14/19 10:15 09/16/19 09:54 Cozaar PO 50 mg DAILY JOSHUA Administration Metoprolol Tartrate 25 mg 09/14/19 10:15 09/16/19 09:54 Lopressor PO 25 mg BID JOSHUA Administration Miscellaneous Information 1 each 09/15/19 09:52 Potassium Per Protocol MISCELLANE DAILY PRN Per Protocol Protocol Miscellaneous Information 0 each 09/16/19 19:00 Vancomycin Trough Due MISCELLANE 09/16/19 19:01 DIRECTED ONE Naloxone HCl 0.2 mg 09/13/19 23:52 Narcan IV Q2M PRN Opioid Reversal Objective - Vital Signs Vital signs: Vital Signs Temp 101.5 F H 09/16/19 07:15 Pulse 79 09/16/19 07:00 Resp 22 09/16/19 07:00 BP 157/79 09/16/19 07:00 Pulse Ox 94 L 09/16/19 07:00 Intake & Output 09/15/19 09/16/19 09/16/19 18:59 06:59 18:59 Intake Total 620 120 10 Output Total 645 510 35 Balance -25 -390 -25 Weight 65.2 kg Intake: IV 120 10 Normal saline 120 10 Intake, IV Titration 620 Amount Acyclovir Sodium 700 mg 100 In Sodium Chloride 0.9% 100 ml @ 100 mls/hr IVPB Q8HR JOSHUA Rx#:[id number] Clindamycin 300 mg In 50 Dextrose 5% in Water 50 ml @ 50 mls/hr IVPB Q6H JOSHUA Rx#:[id number] Potassium Chloride 10 meq 120 In Water For Injection 1 100ml.bag @ 100 mls/hr IVPB Q1HR JOSHUA Rx#: [id number] Vancomycin 1,250 mg In 250 Sodium Chloride 0.9% 250 ml @ 125 mls/hr IVPB Q8H JOSHUA Rx#:[id number] cefTRIAXone 2 gm In 100 Sodium Chloride 0.9% 50 ml @ 100 mls/hr IVPB Q12H JOSHUA Rx#:[id number] Output: Urine 645 510 35 Other: Voiding Method Indwelling Catheter Indwelling Catheter # Voids 0 # Bowel Movements 0 - Exam -GENERAL: The patient is more awake and alert [address] and person, he follows commands. Answers questions repeatedly, go back to sleep but easily to arouse HEENT: Pupils are round and equally reacting to light. EOMI. No scleral icterus. No conjunctival pallor. Normocephalic, atraumatic. No pharyngeal erythema. No thyromegaly. CARDIOVASCULAR: S1 and S2 present. No murmurs, rubs, or gallops. PULMONARY: Chest is clear to auscultation, no wheezing or crackles. ABDOMEN: Soft, nontender, nondistended, normoactive bowel sounds. No palpable organomegaly. MUSCULOSKELETAL: No joint swelling or deformity. EXTREMITIES: No cyanosis, clubbing, or pedal edema. -NEUROLOGICAL: Difficult to assess due to his mental status. Cranial nerves are grossly intact. Pupils equal and reactive to light. No asymmetry is noted in movement in both sides treated, no decreased sensation, still no trisha stiffness, motor symmetrical and equally strong tone bilaterally SKIN: No rashes. no petechiae. - Labs CBC & Chem 7: 09/16/19 04:44 09/16/19 18:29 Labs: Abnormal Lab Results - Last 24 Hours (Table) 09/15/19 09/15/19 09/15/19 Range/Units 08:37 12:04 12:43 WBC (3.8-10.6) k/uL Neutrophils # (1.3-7.7) k/uL ABG pH (7.35-7.45) ABG pCO2 (35-45) mmHg ABG pO2 (83-108) mmHg ABG Total CO2 (19-24) mmol/L Sodium 125 L (137-145) mmol/L Potassium (3.5-5.1) mmol/L Chloride (98-107) mmol/L Glucose (74-99) mg/dL POC Glucose (mg/dL) 259 H (75-99) mg/dL Ferritin (22.0-322.0) ng/mL C-Reactive Protein (<10.0) mg/L Total Protein (6.3-8.2) g/dL Vitamin B12 1192.0 H (200.0-944.0) pg/mL Procalcitonin (0.02-0.09) ng/mL 09/15/19 09/15/19 09/15/19 Range/Units 15:52 16:52 17:07 WBC (3.8-10.6) k/uL Neutrophils # (1.3-7.7) k/uL ABG pH 7.53 H (7.35-7.45) ABG pCO2 29 L (35-45) mmHg ABG pO2 62 L (83-108) mmHg ABG Total CO2 25 H (19-24) mmol/L Sodium (137-145) mmol/L Potassium (3.5-5.1) mmol/L Chloride (98-107) mmol/L Glucose (74-99) mg/dL POC Glucose (mg/dL) 249 H (75-99) mg/dL Ferritin (22.0-322.0) ng/mL C-Reactive Protein (<10.0) mg/L Total Protein (6.3-8.2) g/dL Vitamin B12 (200.0-944.0) pg/mL Procalcitonin 0.33 H (0.02-0.09) ng/mL 09/15/19 09/15/19 09/16/19 Range/Units 17:07 23:44 04:44 WBC 11.2 H (3.8-10.6) k/uL Neutrophils # 8.5 H (1.3-7.7) k/uL ABG pH (7.35-7.45) ABG pCO2 (35-45) mmHg ABG pO2 (83-108) mmHg ABG Total CO2 (19-24) mmol/L Sodium 126 L (137-145) mmol/L Potassium 3.4 L (3.5-5.1) mmol/L Chloride 89 L (98-107) mmol/L Glucose 233 H (74-99) mg/dL POC Glucose (mg/dL) 230 H (75-99) mg/dL Ferritin 456.5 H (22.0-322.0) ng/mL C-Reactive Protein 24.6 H (<10.0) mg/L Total Protein 6.2 L (6.3-8.2) g/dL Vitamin B12 (200.0-944.0) pg/mL Procalcitonin (0.02-0.09) ng/mL 09/16/19 09/16/19 Range/Units 04:44 05:54 WBC (3.8-10.6) k/uL Neutrophils # (1.3-7.7) k/uL ABG pH (7.35-7.45) ABG pCO2 (35-45) mmHg ABG pO2 (83-108) mmHg ABG Total CO2 (19-24) mmol/L Sodium 129 L (137-145) mmol/L Potassium (3.5-5.1) mmol/L Chloride 94 L (98-107) mmol/L Glucose 164 H (74-99) mg/dL POC Glucose (mg/dL) 272 H (75-99) mg/dL Ferritin (22.0-322.0) ng/mL C-Reactive Protein (<10.0) mg/L Total Protein (6.3-8.2) g/dL Vitamin B12 (200.0-944.0) pg/mL Procalcitonin (0.02-0.09) ng/mL Microbiology - Last 24 Hours (Table) 09/13/19 21:11 Blood Culture - Preliminary Blood No Growth after 48 hours 09/14/19 18:39 Blood Culture - Preliminary Blood No Growth after 24 hours Assessment and Plan Assessment: -Hypo-natremia, could be due to SIADH related to his lung mass -2.8 right infrahilar lung mass associated with paratracheal lymphadenopathy -Fever, could be due to pneumonia, possible tumor fever, pneumonia, possible encephalitis -Worsening right-sided pneumonia -metabolic encephalopathy secondary to above, also Brain MRI from showing hyperintensity in the right temporal lobe and limbic regions suspicious for ischemia, conditions in differential diagnosis includes infectious etiology such as herpes simplex, mesial temporal sclerosis and metastatic disease. Rule out seizure. -Hypertension -type 1 diabetes mellitus -Chronic heart failure -Nicotine dependence -History of coronary artery disease status post CABG in 2017 Plan: this is a pleasant 58 years old male who presents with lung mass, hyponatremia suspicious for SIADH and confusion, and pneumonia. Keep him off IV fluids. Nephrology and pulmonary consult. Follow-up sodium level closely . Continue with empiric antibiotics as per infectious disease and neurology. Follow-up blood culture. Follow-up lumbar puncture results. EEG per Neurology.follow up procalcitonin Monitor the patient's vitals and for further fever. Check stool studies. Continue with losartan metoprolol, give hydralazine IV as needed and follow-up blood pressure closely. Labs and medication were reviewed.. Continue same treatment. Continue with symptomatic treatment. Resume home medication. Monitor lytes and vitals. DVT and GI prophylaxis. Further recommendations of the clinical course of the patient DVT prophylaxis: Subcutaneous heparin GI Prophylaxis: Pepcid Prognosis remains guarded
[2019-09-16 23:58] LABS: Glucose,Whole Blood 241 mg/dL (75-99)
[2019-09-17] MEDS: INSULIN ASPART (NovoLOG) 100 UNIT/ML VIAL SQ SCH ×5 (00:10→18:29)
[2019-09-17] MEDS: levETIRAcetam IV 500 MG in SODIUM CHLORIDE 0.9% 100 ML IVPB SCH ×2 (00:42→09:53)
[2019-09-17] MEDS: ACYCLOVIR SODIUM 700 MG in SODIUM CHLORIDE 0.9% 100 ML IVPB SCH ×4 (00:43→23:45)
[2019-09-17] MEDS: VANCOMYCIN 1,250 MG in SODIUM CHLORIDE 0.9% 250 ML IVPB SCH ×2 (04:43→14:12)
[2019-09-17 05:38] LABS: Basophils % (A) 0 %; Eosinophils # (A) 0.1 k/uL (0-0.7); Eosinophils % (A) 1 %; HCT 44.2 % (39.0-53.0); HGB 15.2 gm/dL (13.0-17.5); Lymphocytes # (A) 1.1 k/uL (1.0-4.8); Lymphocytes % (A) 11 %; MCH 31.1 pg (25.0-35.0); MCHC 34.3 g/dL (31.0-37.0); MCV 90.7 fL (80.0-100.0); Mean Platelet Volume 7.6; Monocytes # (A) 0.9 k/uL (0-1.0); Monocytes % (A) 9 %; Neutrophils # (A) 7.7 k/uL (1.3-7.7); Neutrophils % (A) 76 %; Platelet Count 146 k/uL (150-450); RBC 4.87 m/uL (4.30-5.90); RDW 13.6 % (11.5-15.5); WBC 10.1 k/uL (3.8-10.6)
[2019-09-17 05:54] LABS: ALT 32 U/L (4-49); AST 58 U/L (17-59); African American GFR (CKD) >90 (>60 ml/min/1.73 sqM); Albumin 3.5 g/dL (3.5-5.0); Alkaline Phosphatase 39 U/L (38-126); Anion Gap 12 mmol/L; Blood Urea Nitrogen 15 mg/dL (9-20); Calcium 8.5 mg/dL (8.4-10.2); Carbon Dioxide 20 mmol/L (22-30); Chloride 102 mmol/L (98-107); Glucose 169 mg/dL (74-99); Non-African American GFR(CKD) >90 (>60 ml/min/1.73 sqM); Potassium 3.9 mmol/L (3.5-5.1); Sodium 134 mmol/L (137-145); Total Bilirubin 0.6 mg/dL (0.2-1.3); Total Protein 6.3 g/dL (6.3-8.2)
[2019-09-17 07:01] LABS: Glucose,Whole Blood 229 mg/dL (75-99)
[2019-09-17] MEDS: HEPARIN SODIUM,PORCINE 5,000 UNIT/ML 1 ML VIAL SQ SCH ×2 (09:52→20:49)
[2019-09-17] MEDS: FAMOTIDINE 20 MG/2 ML VIAL IV SCH ×2 (09:52→20:49)
[2019-09-17] MEDS: METOPROLOL TARTRATE 25 MG TAB PO SCH ×2 (09:54→21:46)
[2019-09-17] MEDS: LOSARTAN 50 MG TAB PO SCH (09:54)
[2019-09-17] MEDS ORDERED: LORazepam 2 MG/ML INJ ONE (11:16)
--- NOTE | 2019-09-17 11:28 | PN ---
PROGRESS NOTE The patient is seen for followup for hyponatremia which is mainly associated with SIADH. Patient was hypovolemic initially and the hyponatremia had improved to some degree with IV saline on initial admission. Currently patient has no IV fluids. However, he developed fever and worsening mentation and was therefore transferred to the ICU. 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 There is consideration for encephalitis and is currently being treated with IV acyclovir. Serum sodium has improved to 134 today. PHYSICAL EXAMINATION: On examination, patient is resting comfortably. He is sleeping. This morning blood pressure was 126/57, heart rate 73 per minute he is afebrile. The patient is euvolemic, with no evidence of edema bilateral lower extremities. Abdomen is soft, nontender. LAB: Show sodium 134, potassium 3.9, chloride 102, CO2 is 20, BUN 15, creatinine 0.76. ASSESSMENT: 1. Hyponatremia secondary to Syndrome of inappropriate antidiuretic hormone, currently not on any IV fluids. Serum sodium continues to improve. The patient was initially hypovolemic and has responded to saline on initial admission. 2. Hilar adenopathy and right lung mass highly suggestive for malignancy. 3. Fever with mental status changes with abnormal LP and abnormal MRI findings with suspicion for encephalitis maintained on Acyclovir being followed by ID. PLAN: Continue to hold off on IV fluids for now. MMODL / IJN: [id number] /
[2019-09-17] MEDS ORDERED: PHENYTOIN SODIUM INJ 1,000 MG in SODIUM CHLORIDE 0.9% 100 ML IVPB STA (12:11)
--- NOTE | 2019-09-17 12:57 | P.PN ---
Subjective Progress Note Date: 09/17/19 This is a 58-year-old male patient, hospitalized yesterday because of an altered mental status. The patient came into the ED having altered mentation, nausea and ongoing episodes of emesis a few days duration. The patient was confused and slow in answering questions and he was having also profound weakness and difficulty with mobility and ambulation. The patient apparently has been vomiting around 2-5 times every day. Denied having any diarrhea. No abdominal pain. He was becoming progressively more altered and he was unable to do some simple tasks at home. He did have a chronic cough. No throat pain. No aspiration. Blood work in the emergency department showed that the patient's sodium level was 116 with a chloride of 78. The patient had a normal white cell count. The patient had a serum glucose of 236. Lactic acid level was at 1.8. Calcium level of 8.6. Total bilirubin was 1.5 with a ferritin level of 363. LFTs were within normal limits. Ammonia level was less than 5. LDH was 495. C-reactive protein was less than 5. Covid 19 nasal swab came back negative. Chest x-ray showed a right hilar mass and for that reason the patient was given a CT angiogram that showed no evidence of any pulmonary embolism. There was a 2.8 cm right infrahilar pulmonary mass/nodule that was not present on previous CAT scans there was also subcarinal and lower paratracheal lymphadenopathy measuring up to 2.6 cm in size and the findings were worrisome for malignant mediastinal lymphadenopathy/mass. The patient is a chronic smoker. The patient currently is on normal saline running at 75 mL an hour. Sodium level is improving and the findings on the case as the patient is having a repeat sodium level every 4 hours. On 09/15/2019 patient seen in follow-up on selective care unit, and the patient was very confused, agitated, she was given a dose of Ativan, 60 sitter was placed at the bedside, he was hypertensive with a blood pressure 180/85, and spiked a fever of 101.2F, clindamycin and vancomycin were added for possibility of pneumonia. On today's evaluation patient is very lethargic and very hard to arouse. He has slight nystagmus to the right, neurology consultation is pending. On today's labs patient's sodium is up to 125, and normal saline infusion has been discontinued, potassium is 3.1, chloride is 91, CO2 is 20, BUN 17 creatinine 0.9 ammonia level was less than 9, LFTs were fairly unremarkable, with AST and ALT at 46 and 25 respectively, and alkaline phosphatase at 36. Chronic was ruled out. Blood culture has been negative. He is on 2 L of oxygen the pulse ox between 91-96%. Today he is afebrile, white count is 13.4. On 09/16/2019, the patient got transferred to the intensive care unit yesterday and the patient is being seen in follow-up today. The patient's sodium level continues to improve and his sodium level is currently up to 129. The MRI of the brain showed hyperintensity on diffusion-weighted imaging within the cortex of the right temporal lobe and lingular region suspicious for ischemia. Other possibilities included HSV infection of the brain, temporal sclerosis, metastatic disease. Lumbar puncture was also requested by neurology as the patient continued to have fever and one of the other possibilities that was entertained was viral encephalitis and the patient was already started on acyclovir. The current antibiotic coverage including Rocephin and vancomycin in conjunction with this activity. The pro-calcitonin level was low at 0.28. Overall neurologic function is of remained unchanged compared to yesterday. The patient seems to be appropriate however is very much lethargic and sleepy and drowsy. No neck stiffness. No focal neurological deficits. No nausea or vomiting or emesis for now. He is having episodic temperature with a T-max of 101.5 rectally. The blood cultures been negative thus far. I noted the patient was off Plavix for about 5 days. For that reason, I proceeded with a lumbar puncture in the intensive care unit. This was not the bedside. The chest x-ray from today shows a right lower lobe opacity, considered the possibility of an underlying pneumonia which could be essentially of an aspiration type.. As mentioned earlier, the patient has a right hilar mass on the same chest x-ray. On 09/17/2019, the patient continues to have altered mentation. As mentioned earlier, the patient a chest to the intensive care unit yesterday. The patient was seen by neurology. I also performed a lumbar puncture on this patient. LP was abnormal. There was elevated protein and mononuclear cellular counts. The fluid cytology and the fluid PCR for HSV still pending for now. The patient is still having altered mentation and the patient is also having episodes of fever with a T-max of 101.3. The patient was covered with a combination of vancomycin, Rocephin, and he was also started on acyclovir yesterday. . MRI of the brain was abnormal and it showed hyperintensity on diffusion-weighted imaging within the cortex of the right temporal and limbic region suspicious for ischemic change. Other possibilities include HSV, and even possibility of metastases. EEG of the brain was done yesterday and it was consistent with seizures as the patient was found to have an abnormal EEG with abnormal activity in the right parietal central had region and midline vertex. Based on that, the patient was started on Keppra.however, His condition remained unchanged. The patient continued to have altered mentation. He had altered sensorium throughout the day today. I was able to arouse this patient on few incidences where he would wake up and he would communicate with me briefly. Nevertheless he was hard to arouse and he would go back into altered mentation condition following that. As such I suspected ongoing seizure and it repeated EEG and I communicated with the neurologist, Dr. Orellana , and based on his reading of the EEG, there is evidence of status epilepticus. I'll gliding given the patient 2 mg of a IV Ativan and I loaded him with Dilantin. I also discussed the case with the neurologist and we decided to repeat the EEG and monitor the progress and consider even intubation placing this patient on a Ativan drip or a propofol drip to flatten out his EEG and suppressant seizure activity if the patient does not respond to Dilantin in combination with Keppra. For now, there is a suspicion that the patient has a metastatic lesion which is causing ongoing seizure activity. As mentioned, the patient is still febrile and is running a low grade fever and he continues to be on broad-spectrum antibiotics including Rocephin and vancomycin and Diflucan. He remains on 2 L of oxygen by nasal cannula with a pulse ox of 97%. He is hemodynamically stable. No signs of any respiratory distress for now. No visible seizure activity is noted. Renal function is stable with a creatinine of 0.7. No significant leukocytosis. Objective - Vital Signs Vital signs: Vital Signs Temp 98.2 F 09/17/19 08:00 Pulse 73 09/17/19 12:00 Resp 62 H 09/17/19 12:00 BP 119/58 09/17/19 12:00 Pulse Ox 97 09/17/19 12:00 Intake & Output 09/16/19 09/17/19 09/17/19 18:59 06:59 18:59 Intake Total 860 120 60 Output Total 580 585 270 Balance 037 -895 -210 Weight 69.6 kg Intake: IV 80 120 60 Normal saline 80 120 60 Intake, IV Titration 750 Amount Acyclovir Sodium 700 mg 100 In Sodium Chloride 0.9% 100 ml @ 100 mls/hr IVPB Q8HR [facility] Rx#:[id number] Vancomycin 1,250 mg In 250 Sodium Chloride 0.9% 250 ml @ 125 mls/hr IVPB Q8H [facility] Rx#:[id number] levETIRAcetam IV 500 mg 400 In Sodium Chloride 0.9% 100 ml @ 400 mls/hr IVPB Q12HR [facility] Rx#:[id number] Oral 30 Output: Urine 580 585 270 Other: Voiding Method Indwelling Catheter Indwelling Catheter - Exam GENERAL EXAM: Extremely lethargic, sedated and he continues to be confused and having altered mentation. He is on, on 2 L of oxygen with a pulse ox of 91%, withdraws from pain. HEAD: Normocephalic/atraumatic. EYES: Normal reaction of pupils, equal size. Conjunctiva pink, sclera white. NOSE: Clear with pink turbinates. THROAT: No erythema or exudates. NECK: No masses, no JVD, no thyroid enlargement, no adenopathy. CHEST: No chest wall deformity. Symmetrical expansion. LUNGS: Equal air entry with no crackles, wheeze, rhonchi or dullness. CVS: Regular rate and rhythm, normal S1 and S2, no gallops, no murmurs, no rubs ABDOMEN: Soft, nontender. No hepatosplenomegaly, normal bowel sounds, no guarding or rigidity. EXTREMITIES: No clubbing, no edema, no cyanosis, 2+ pulses and upper and lower extremities. MUSCULOSKELETAL: Muscle strength and tone normal. SPINE: No scoliosis or deformity SKIN: No rashes CENTRAL NERVOUS SYSTEM: Lethargic, sedated withdraws from painful stimuli, answers questions appropriately. This was noted on brief occasions where the patient would wake up and communicating and following that he would become unresponsive. He is very much lethargic and drowsy and sleepy. No neck stiffn ess. No focal neurological deficits. He is moving all 4 extremities without limitation. When aroused, the patient is able to move all extremities without any limitation. Pupils are equal and reactive to light. No nystagmus. No clonus. No Babinski. - Labs CBC & Chem 7: 09/17/19 05:05 09/17/19 05:05 Labs: Abnormal Lab Results - Last 24 Hours (Table) 09/16/19 09/16/19 09/17/19 Range/Units 18:00 23:57 05:05 Plt Count (150-450) k/uL Sodium 134 L (137-145) mmol/L Carbon Dioxide 20 L (22-30) mmol/L Glucose 169 H (74-99) mg/dL POC Glucose (mg/dL) 183 H 241 H (75-99) mg/dL 09/17/19 09/17/19 Range/Units 05:05 06:58 Plt Count 146 L (150-450) k/uL Sodium (137-145) mmol/L Carbon Dioxide (22-30) mmol/L Glucose (74-99) mg/dL POC Glucose (mg/dL) 229 H (75-99) mg/dL Microbiology - Last 24 Hours (Table) 09/16/19 09:00 CSF Gram Stain - Preliminary Cerebral Spinal Fluid CSF Culture - Preliminary 09/13/19 21:11 Blood Culture - Preliminary Blood No Growth after 72 hours 09/14/19 18:39 Blood Culture - Preliminary Blood No Growth after 48 hours 09/16/19 09:00 Acid Fast Bacilli Culture - Preliminary Cerebral Spinal Fluid 09/16/19 09:00 Fungal Culture - Preliminary Cerebral Spinal Fluid Assessment and Plan Plan: 1 right hilar mass measuring 2.8 cm in size in addition to subcarinal lymphadenopathy, suspicious for malignancy including primary bronchogenic carcinoma, possibly of a small cell type. 2 hyponatremia, consider tumor-induced SIADH , improved and the patient's sodium is normalized is up to 134 3 status epilepticus with secondary altered mentation and altered sensorium with the patient does not regain full consciousness in between these seizure episodes. Please refer to the MRI of the brain and the EEG that was done yest erday and today. I discussed the case with neurology. The patient or the on Keppra and Dilantin was added. He was also given Ativan. He is having low- grade fever. Lumbar puncture is abnormal. There is elevation in the protein and cell count which is essentially mononuclear. Awaiting fluid cytology and PCR for HSV. Meanwhile, the patient remains on both of them antibiotics including a combination of vancomycin and Rocephin and acyclovir. 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 ADMISSIONS DEAN metastases cannot be completely ruled out. The patient has underlying lung mass and findings are suspicious for malignancy. 4 diabetes mellitus type 1, currently in a sinus care coverage and the patient is nothing by mouth 5 coronary artery disease with previous bypass surgery and previous coronary intervention and stenting 6 chronic systolic heart failure with an ejection fraction of 45-50% and previous wall motion abnormalities in addition to hypertensive heart disease with concentric LVH 7 chronic smoker 8 hypertension 9 hypothyroidism maintained on Synthroid 50 g daily basis 10 hyperlipidemia Plan The sodium level is normalized Lumbar puncture was done MRI of the brain was done EEG indicating status epilepticus and the patient was given Keppra and he will be loaded with Dilantin. He was also given a 2 mg IV push Ativan. A repeat EEG will be done. If ongoing seizure activity, the patient will be intubated and placed on a protocol infusion. Will continue the same antibiotic coverage which included a combination of Rocephin and vancomycin and acyclovir pending lumbar puncture Neurology consultation and I'm communicating with Dr. Orellana Keep the patient nothing by mouth for now We'll continue to follow and keep the patient ICU based on the above-mentioned comorbidities. Bronchoscopy once his condition is stabilized and this will be needed regarding the possibility of underlying lung cancer. Condition is critical. We'll continue to follow make further decisions on his care with a possibility of transferring this patient to [facility] for continuous EEG monitoring regarding his status epilepticus. This is a critically care evaluation that was done and more than 30 minutes. Time with Patient: Greater than 30
--- NOTE | 2019-09-17 14:04 | P.PN ---
Subjective This is a pleasant 58 years old male with past medical history of heart failure, type 1 diabetes mellitus, GERD, coronary artery disease status post CABG in 2017, cigarette smoker. Patient follow up at the [facility]. Presents to the emergency room with vomiting and confusion. Patient is poor historian. He looks confused so information was taken from the records and staff. Patient is sitting at the bedside, does not look in distress who,. I had to asking the question several times so he can answer me as he has low attention is pending, patient keep plain with his phone and looking at his feet. However patient can tell me this is August 2019, he knows he is in [facility] and he couldn't remember the name of the president. However patient denies specific symptoms, he denies headache, no dizziness, no weakness in arms or legs, no numbness, no blurred vision, no slurred speech. No chest pain or abdominal pain, no dyspnea. Patient denies vomiting to me. Patient does not complain of his bowel or urine habits. However patient was noticed to have a fever of 100 this morning Patient told me he smokes but he could not tell me how long and how much. He states he drinks alcohol, maybe once a week as patient was told me, he denies illicit drugs. His blood pressure was on the high side and he was restarted on losartan and metoprolol Vitas looks stable. However on admission he had low-grade fever of 100.7, slightly tachypneic 20-24. Had mild leukocytosis of 12.3 K, came back to normal at 10.6 possibly some elements of hemoglobin delusion. He had elevated d-dimer of 0.79, sodium was 116 on admission came up to 119 this morning, potassium 3.7, creatinine 0.7. Glucose is 243, magnesium 1.9, bilirubin 1.2, liver enzymes not elevated. Lactate dehydrogenase not elevated, normal C-reactive protein, from, calcitonin 0.07. UA is not suspicious for infection. Coronary virus and influenza versus were not detected. Chest CTA: No PE with 2.8 cm right infrahilar pulmonary mass with 2.[address] of the brain: No acute processes loan specialist Assessmen patient was started on normal saline at 140 mL per hour and he received 1 L of normal saline. t: Acute process by radiologist 09/15/2019 Patient remains confused, his more sleepy today but he got totally about 1 mg of Ativan yesterday, including last night which might contribute to his drowsiness. Today I called the was Simona and discussed the case with her and was feeling sick with some vomiting over the last week, however on Wednesday he got confused when he came to the hospital. History the patient was started spiking fever up to 102, however no obvious source of infection is noted, his pro-calcitonin and call the testis came back negative. Lactic acid is 1.7 and ammonia is negative. Patient was started emp irically on clindamycin and IV vancomycin and a consult was placed for infectious disease and neurologist , follow-up blood culture. His sodium is trending up slightly, today was 125, normal saline has been stopped. Potassium was 3.1 which is been replaced. He remains on insulin sliding scale. Also I discussed the case with pulmonary team, the plan is for lung biopsy for his mass down the road and when he is more stable Doppler of the lower extremity is negative 09/16/2019 Patient seen and examined today in the ICU. Patient is sleepy but easily arousable. He is more oriented than couple days ago, when I saw him at that time he was oriented to place only, however today he is oriented to place, time and person as he knows he is in [facility], this is 2019 and he knew the name of the president Johnathan. He denies headache. Himself did not complain from numbness and weakness . No twitching or seizure-like activity. No chest pain or dyspnea. No abdominal pain. Nausea vomiting stopped. No change in urine or bowel habits as per patient. I discussed the case with pulmonary /critical care team, is status post lumbar puncture done today which looked clear and the tests are still pending I think his worsening mental status yesterday was due to Ativan he got on the top of severe hyponatremia. Less likely due to seizure, less likely encephalitis, versus metabolic encephalopathy and sepsis (multifactorial) however it is improving today He is still Running fever today. His leukocytosis is improving to 11.2k, his sodium is improving gradually to 129 compared to 126 yesterday. Rest of of CBC, BMP and electrolytes are normal. Sugar slightly elevated, but generally better controlled , he needed 4 units and this morning and 3units yesterday. Keep monitoring his sugar. 2 sets of blood culture are negative so far. Chest x-ray this morning showing worsening right-sided opacity suspicious for pneumonia Brain MRI from yesterday showing hyperintensity in the right temporal lobe and limbic regions suspicious for ischemia, conditions in differential diagnosis includes infectious etiology such as herpes simplex, mesial temporal sclerosis and metastatic disease Patient is a known for lung mass suspicious for cancer with some lymphadenopathy since admission, pending lung biopsy to be performed sometime later on. Patient is already on broad-spectrum antibiotics including vancomycin, ceftriaxone and acyclovir Several consultants on the case including pulmonary/critical , infectious and neurology later on in the afternoon , i checked on the patient again and he was still in his improved condition , awake and aware to the surrounding and less sleepy i discussed the case with his ms ivone wiseman [phone] and updated her with the case , his improvement, labs , LP done for CSF and results pending , and results of MRI and medications, and all her questions were answered to her satisfaction , and she agrees with plan of care 09/17/2019 Today patient is seen and examined to the ICU. Patient has been seen by neurologist, and he was started on Keppra by Neurologist. Patient suspected to have more seizure versus status epilepticus and neurologist has been contacted Dr. Orellana by critical care team. Patient was provided with Ativan 2 mg and Dilantin. Patient may need to be intubated and placed on Ativan or propofol drip and transferred to a higher level of care, possibly to [facility] [place], however repeat EEG is pending before that to see if combination of Keppra and Dilantin helped to suppress his seizure activity. Currently patient lying in bed, not arousable, could be related to his medication of antiseizure Ativan and others or his seizure activity on the top of other medical problems including possible lung cancer and possible metastasis to the brain or infection Vital showing heart rate 73, treated rate 19, blood pressure 119/58 Saturation of oxygen is 97% on 2 L oxygen via nasal cannula. Temperature 100.0 today WBCs 10.1 K, hemoglobin 15.2, platelets 146. Sodium 134. Creatinine 0.7. Sugar slightly elevated at 229. Has been covered with insulin. Patient is followed by several consultants including pulmonary/critical care, nephrology, infectious disease and neurology I called his Ms wiseman [phone] and updated her with the case, including his seizure activity and possible transfer to higher level of care and she agrees. All her questions were answered to her satisfaction Review of systems: N/a Active Medications Generic Name Dose Route Start Last Admin Trade Name Freq PRN Reason Stop Dose Admin Acetaminophen 650 mg 09/14/19 17:44 09/14/19 17:50 Tylenol Tab PO 650 mg Q6HR PRN Administration Fever and/ or Mild Pain Acetaminophen 650 mg 09/15/19 04:39 09/16/19 17:46 Tylenol Suppository RECTAL 650 mg Q4HR PRN Administration Fever and/ or Pain Famotidine 20 mg 09/14/19 21:00 09/17/19 09:52 Pepcid IV 20 mg Q12HR JOSHUA Administration Heparin Sodium (Porcine) 5,000 unit 09/14/19 11:00 09/17/19 09:52 Heparin SQ 5,000 unit Q12HR JOSHUA Administration Hydralazine HCl 25 mg 09/14/19 11:47 09/14/19 17:15 Apresoline PO 25 mg TID PRN Administration Blood Pressure - High Hydralazine HCl 10 mg 09/15/19 09:14 Apresoline IVP Q4HR PRN Blood Pressure - High Vancomycin HCl 1,250 mg/ 250 mls @ 125 mls/hr 09/15/19 20:00 09/17/19 04:43 Sodium Chloride IVPB 125 mls/hr Q8H JOSHUA Administration Acyclovir Sodium 700 mg/ 114 mls @ 100 mls/hr 09/15/19 16:00 09/17/19 09:53 Sodium Chloride IVPB 100 mls/hr Q8HR JOSHUA Administration Ceftriaxone Sodium 2 gm/ 50 mls @ 100 mls/hr 09/16/19 06:00 09/17/19 06:25 Sodium Chloride IVPB 100 mls/hr Q12H JOSHUA Administration Levetiracetam 500 mg/ Sodium 105 mls @ 400 mls/hr 09/16/19 14:00 09/17/19 09:53 Chloride IVPB 400 mls/hr Q12HR JOSHUA Administration Insulin Aspart 0 unit 09/16/19 00:00 09/17/19 07:02 Novolog SQ 3 unit Q6H JOSHUA Administration Protocol Lorazepam 0.25 mg 09/15/19 08:41 Ativan IV Q12HR PRN Anxiety Losartan Potassium 50 mg 09/14/19 10:15 09/17/19 09:54 Cozaar PO Not Given DAILY [facility] Metoprolol Tartrate 25 mg 09/14/19 10:15 09/17/19 09:54 Lopressor PO Not Given BID [facility] Miscellaneous Information 1 each 09/15/19 09:52 Potassium Per Protocol MISCELLANE DAILY PRN Per Protocol Protocol Miscellaneous Information 0 each 09/18/19 11:00 Vancomycin Trough Due MISCELLANE 09/18/19 11:01 DIRECTED ONE Naloxone HCl 0.2 mg 09/13/19 23:52 Narcan IV Q2M PRN Opioid Reversal Phenytoin Sodium 100 mg 09/17/19 20:00 Dilantin IVP Q8H [facility] Objective - Vital Signs Vital signs: Vital Signs Temp 98.2 F 09/17/19 08:00 Pulse 73 09/17/19 12:00 Resp 62 H 09/17/19 12:00 BP 119/58 09/17/19 12:00 Pulse Ox 97 09/17/19 12:00 Intake & Output 09/16/19 09/17/19 09/17/19 18:59 06:59 18:59 Intake Total 860 120 60 Output Total 580 585 270 Balance 280 -465 -210 Weight 69.6 kg Intake: IV 80 120 60 Normal saline 80 120 60 Intake, IV Titration 750 Amount Acyclovir Sodium 700 mg 100 In Sodium Chloride 0.9% 100 ml @ 100 mls/hr IVPB Q8HR [facility] Rx#:[id number] Vancomycin 1,250 mg In 250 Sodium Chloride 0.9% 250 ml @ 125 mls/hr IVPB Q8H [facility] Rx#:[id number] levETIRAcetam IV 500 mg 400 In Sodium Chloride 0.9% 100 ml @ 400 mls/hr IVPB Q12HR [facility] Rx#:[id number] Oral 30 Output: Urine 580 585 270 Other: Voiding Method Indwelling Catheter Indwelling Catheter - Exam -GENERAL: The patient is not arousable HEENT: Pupils are round and equally reacting to light. EOMI. No scleral icterus. No conjunctival pallor. Normocephalic, atraumatic. No pharyngeal erythema. No thyromegaly. CARDIOVASCULAR: S1 and S2 present. No murmurs, rubs, or gallops. PULMONARY: Chest is clear to auscultation, no wheezing or crackles. ABDOMEN: Soft, nontender, nondistended, normoactive bowel sounds. No palpable organomegaly. MUSCULOSKELETAL: No joint swelling or deformity. EXTREMITIES: No cyanosis, clubbing, or pedal edema. -NEUROLOGICAL: Difficult to assess due to his mental status. Pupils equal and reactive to light. No asymmetry is noted in movement in both sides SKIN: No rashes. no petechiae. - Labs CBC & Chem 7: 09/17/19 05:05 09/17/19 05:05 Labs: Abnormal Lab Results - Last 24 Hours (Table) 09/16/19 09/16/19 09/17/19 Range/Units 18:00 23:57 05:05 Plt Count (150-450) k/uL Sodium 134 L (137-145) mmol/L Carbon Dioxide 20 L (22-30) mmol/L Glucose 169 H (74-99) mg/dL POC Glucose (mg/dL) 183 H 241 H (75-99) mg/dL 09/17/19 09/17/19 Range/Units 05:05 06:58 Plt Count 146 L (150-450) k/uL Sodium (137-145) mmol/L Carbon Dioxide (22-30) mmol/L Glucose (74-99) mg/dL POC Glucose (mg/dL) 229 H (75-99) mg/dL Microbiology - Last 24 Hours (Table) 09/16/19 09:00 CSF Gram Stain - Preliminary Cerebral Spinal Fluid CSF Culture - Preliminary 09/13/19 21:11 Blood Culture - Preliminary Blood No Growth after 72 hours 09/14/19 18:39 Blood Culture - Preliminary Blood No Growth after 48 hours 09/16/19 09:00 Acid Fast Bacilli Culture - Preliminary Cerebral Spinal Fluid 09/16/19 09:00 Fungal Culture - Preliminary Cerebral Spinal Fluid Assessment and Plan Assessment: -Altered mental status could be due to encephalitis, infectious versus metastatic disease to the brain, versus seizure activity, on the top of other metabolic abnormalities -Seizure versus status epilepticus -Hypo-natremia, could be due to SIADH related to his lung mass. Improved -2.8 right infrahilar lung mass associated with paratracheal lymphadenopathy -Fever, could be due to pneumonia, possible tumor fever, pneumonia, possible encephalitis -Worsening right-sided pneumonia -metabolic encephalopathy secondary to above, also Brain MRI from showing hyperintensity in the right temporal lobe and limbic regions suspicious for ischemia, conditions in differential diagnosis includes infectious etiology such as herpes simplex, mesial temporal sclerosis and metastatic disease. -Hypertension -type 1 diabetes mellitus -Chronic heart failure -Nicotine dependence -History of coronary artery disease status post CABG in 2017 Plan: this is a pleasant 58 years old male who presents with lung mass, hyponatremia suspicious for SIADH and confusion and fever, with encephalitis and pneumonia. Keep him off IV fluids. Nephrology and pulmonary consult. Continue with antiseizure medication, repeat EEG. Possible transfer to our level of care. Continue with empiric antibiotics as per infectious disease and neurology Currently on vancomycin, Rocephin and acyclovir. Follow-up blood culture. Follow-up lumbar puncture results. Patient will need bronchoscopy later on to check for his lung mass suspicious for malignancy Monitor the patient's vitals and for further fever. Check stool studies. Continue with losartan metoprolol, give hydralazine IV as needed and follow-up blood pressure closely. Labs and medication were reviewed.. Continue same treatment. Continue with symptomatic treatment. Resume home medication. Monitor lytes and vitals. DVT and GI prophylaxis. Further recommendations of the clinical course of the patient DVT prophylaxis: Subcutaneous heparin GI Prophylaxis: Pepcid Prognosis remains guarded
[2019-09-17 14:11] LABS: Glucose,Whole Blood 253 mg/dL (75-99)
[2019-09-17] MEDS ORDERED: MIDAZOLAM 2 MG/2 ML VIAL IV STA (14:30)
[2019-09-17] MEDS: MIDAZOLAM HCL 50 MG in SODIUM CHLORIDE 0.9% 40 ML IV SCH (15:15)
--- NOTE | 2019-09-17 15:49 | XR ---
EXAMINATION TYPE: XR chest 1V portable DATE OF EXAM: 09/17/2019 COMPARISON: 09/16/2019 INDICATION: Post intubation difficulty breathing TECHNIQUE: Single frontal view of the chest is obtained. FINDINGS: The heart size is normal. The pulmonary vasculature is normal. The lungs are clear. Endotracheal tube tip is 7.2 cm above the juany. Nasogastric tube tip is just within the left upper quadrant of the abdomen. This could be advanced 3 to 4 cm. IMPRESSION: 1. No acute pulmonary process. 2. Endotracheal tube tip 7.2 cm above the juany. 3. Nasogastric tube tip within the left upper quadrant of the abdomen, this could be advanced 3 to 4 cm for better positioning.
[2019-09-17 15:51] LABS: ABG Base Excess -9.6 mmol/L; ABG HCO3 17 mmol/L (21-25); ABG Oxygen Saturation 99.8 % (94-97); ABG PCO2 35 mmHg (35-45); ABG PO2 216 mmHg (83-108); ABG TCO2 18 mmol/L (19-24); Allen Test Performed? Yes
[2019-09-17] MEDS ORDERED: PHENYTOIN SODIUM INJ 100 MG in SODIUM CHLORIDE 0.9% 100 ML IVPB SCH (16:00)
[2019-09-17] MEDS ORDERED: levETIRAcetam IV 1,000 MG in SALINE 1 100ML.BAG IVPB STA (16:16)
[2019-09-17] MEDS ORDERED: SODIUM CHLORIDE 0.9% 2,000 ML IV ONE (16:35)
[2019-09-17] MEDS: NOREPINEPHRINE 8 MG in SODIUM CHLORIDE 0.9% 250 ML IV SCH (17:35)
[2019-09-17] MEDS ORDERED: SODIUM CHLORIDE 0.9% 1,000 ML IV ONE (18:03)
[2019-09-17 18:28] LABS: Glucose,Whole Blood 255 mg/dL (75-99)
[2019-09-17] MEDS ORDERED: INSULIN REGULAR BOLUS (FROM DRIP BAG) IV PRN (18:28)
[2019-09-17] MEDS ORDERED: INSULIN REGULAR 100 UNIT in SODIUM CHLORIDE 0.9% 100 ML IV SCH (18:30)
[2019-09-17] MEDS: PROPOFOL 1,000 MG in EMPTY BAG 1 BAG IV SCH ×2 (18:44→23:52)
--- NOTE | 2019-09-17 18:55 | EEG ---
ELECTROENCEPHALOGRAM REPORT PROCEDURE DATE: 09/17/2019 ELECTROENCEPHALOGRAM (EEG) REPORT: TECHNIQUE: A routine 18 channel EEG was performed with video using the 10/20 international electrode placement system. HISTORY: Patient admitted with altered mental status, hyponatremia, possible lung mass. OTHER MEDICAL HISTORY: Includes heart failure, diabetes. CURRENT MEDICATIONS: Ativan, Keppra. STUDY DURATION: 29 minutes. FINDINGS: BACKGROUND: A background asymmetry was noted. Frequencies were better defined, albeit still slow over the left posterior quadrants compared to the right. This is likely related to the location of ictal and interictal activity as will be mentioned below. Frequencies over the left posterior quadrants consisted of poorly modulated 3-5 hertz waveforms. Those over the right posterior quadrants were seen in the 2-4 hertz range with intervening periods of suppression as will be mentioned below. ACTIVATION: Hyperventilation: Not performed. Photic stimulation: No driving seen. Sleep: Drowsy. ABNORMALITIES: 1. Frequent grouped poly sharp and polyspike discharges were seen over the right temporal and posterior regions. Phase reversals were seen on bipolar montage at P4, T6, T4. Maximal amplitude was seen at P4, T6 and T4. 2. These grouped sharp waves and spikes mention in #1 above at times occurred in bursts up to 8 seconds. These can be considered ictal fragments or part of the ictal interictal continuum. 3. Diffuse slow wave activity was seen, right hemispheric greater than left. Frequencies of the left hemisphere were in the 3-5 hertz range, whereas those of the right hemisphere were in the 2-5 hertz range. 4. During the course of this recording, numerous seizures were recorded. 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 Only some events are listed for ease of reporting purposes. In summary, these seizures, ictal events consisted of a rhythmic buildup of the grouped poly spikes and sharps initially with higher frequency in the 5-6 hertz range, again, localized over the right posterior temporal and occipital regions with frequency slowing then to 2 hertz and then to 1 hertz in the lateral part. The findings resembled PLEDS, periodic lateralized epileptiform discharges, noting that these were not simple PLEDS, sharp and slow waves, they consisted of poly sharp as well as polyspike and slow waves. Given the waxing and waning nature of these grouped discharges, at times periodic, at times not with intervening slowing and suppression, this pattern can also be considered consistent with a PLEDS plus type pattern. Examples of specific seizures include 10:53:23 in which the poly sharp and polyspike bursts become more rhythmic with higher frequency/more continuous and then frequencies slow back to 1 hertz at 10:53:59. The event ends at 10:54:58 with polyspike bursts over the right posterior quadrants with suppression. Another seizure occurs at 10:55:01. This begins with 5-6 hertz higher frequency grouped poly spikes and poly sharps over the right posterior temporal and occipital regions. These become rhythmic and continuous with the ictal activity peaking at 10:55:28. This consisted of 2 hertz grouped poly spikes and sharps, noting again that these were periodic but not single discharges. Frequencies slow at 10:56:04 with the event ending at 10:56:22. At the end of this event similar to event #1, polyspike and poly sharp discharges were seen with intervening periods of suppression lasting up to 3 seconds An example of an ictal fragment lasting 6 seconds occurred at 10:57:07 which consist of rhythmic poly sharps and poly spikes, again, over the right posterior temporal and occipital regions. Frequencies in this fragment were higher in the 5-6 hertz range similar to the beginning of the ictal events/seizures mentioned above. Another ictal fragment, lasting 8 seconds occurs at 10:59:10. An example of another seizure occurs at 10:57:34 with a rhythmic buildup of poly spikes and poly sharps with a frequency of 5-6 hertz over the right posterior temporal and occipital regions. Frequencies slow at 10:57:52 to 1.5 Hz poly sharp and polyspike discharges. Frequencies further slow to 0.5-1 hertz at 10:58:10. The event ends at 10:58:46 with intervening periods of suppression over the right hemisphere. Examples of other seizures include 10;59:52 ending at 11:00:19, 11:03:27 to 11:04:03, another event begins at 11:05:42 ending at 11:06:27, 11:11:14 to 11:11:32, 11:13:38 to 11:14:32. IMPRESSION: Markedly abnormal EEG. 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 The seizures recorded consisted of a rhythmic buildup beyond the abnormal baseline. The abnormal baseline in this case can be considered to be semi periodic to periodic discharges over the right temporal and occipital regions, high amplitude, poly sharps and spikes. When these became more continuous they can be considered ictal fragments. At times they occurred in a periodic nature with intervening slow waves which could be considered a PLEDS plus type pattern. I n the actual seizures the beginning was as described above with the PLEDS type pattern, that is the periodic poly sharps and poly spikes evolving to higher frequency 5-6 hertz rhythmic sharps and spikes of high amplitude over the right posterior temporal and occipital regions, followed by poly sharps and poly spikes that occurred at a periodic frequency of approximately 2 hertz followed then by a slower frequency to 0.5-1 hertz followed by intervening suppression over that region. As mentioned, right hemispheric greater than left hemispheric slow wave activity was seen. CONCLUSION: These findings indicate the presence of an active epileptiform focus involving the right posterior temporal and occipital regions. Involvement of the right midtemporal region is also not excluded given the location of the phase reversals. These findings can be seen with the presence of a structural abnormality of epileptiform origin involving the corresponding region. These findings also indicate severe diffuse cerebral dysfunction with greater involvement of the right hemisphere. These findings were called to the nurse taking care of the patient as well as the intensive care physician taking care of the patient at 12:21 pm on 09/17/2019. [id number] / IJN: [id number] /
[2019-09-17] MEDS: SODIUM CHLORIDE 0.9% 1,000 ML IV SCH (19:00)
[2019-09-17 19:24] LABS: Glucose,Whole Blood 323 mg/dL (75-99)
[2019-09-17 20:13] LABS: Glucose,Whole Blood 245 mg/dL (75-99)
[2019-09-17] MEDS: CEFEPIME 2 GM in SODIUM CHLORIDE 0.9% 100 ML IVPB SCH (20:41)
[2019-09-17] MEDS: CHLORHEXIDINE GLUCONATE 15 ML CUP MUCOUS MEM SCH (20:42)
[2019-09-17] MEDS: PHENYTOIN SODIUM INJ 50 MG/ML 2 ML VIAL IVP SCH (20:50)
[2019-09-17 21:21] LABS: Glucose,Whole Blood 250 mg/dL (75-99)
--- NOTE | 2019-09-17 21:36 | P.PCN ---
Date of Procedure: 09/17/19 Preoperative Diagnosis: status epilepticus Postoperative Diagnosis: status epilepticus Procedure(s) Performed: intubation, central line insertion, arterial line insertio Anesthesia: local Surgeon: Ede Gomez Estimated Blood Loss (ml): 0 Pathology: none sent Condition: critical Disposition: ICU Operative Findings: Intubation I utilized the Glidoscope to intubate this patient. The procedure was done while the patient sedated on Versed. Using a Glidoscope and a size 8.0 endotracheal tube with stylet, the patient was intubated on the 1 attempt. The stylet was removed and cuff balloon was inflated. Appropriate endotracheal tube position was confirmed by direct visualization of vocal cord passage, fogging of the tube, CO2 colometric indicator and symmetric breath sounds. The tube was secured at 22 cm at the lips. Post intubation chest x-ray showed that the tube was dequately positioned in the trachea Indication: Hemodynamic monitoring/Intravenous access. A time-out was completed verifying correct patient, procedure, site, positioning, and implant(s) or special equipment if applicable. The patient was placed in a dependent position appropriate for central line placement based on the vein to be cannulated. The patient right groin was prepped and draped in sterile fashion. 1% Lidocaine was used to anesthetize the surrounding skin area. A triple lumen 9F Cordis catheter was introduced into the right common femoral vein using Seldinger technique. The catheter was threaded smoothly over the guide wire and appropriate blood return was obtained. Each lumen of the catheter was evacuated of air and flushed with sterile saline. The catheter was then sutured in place to the skin and a sterile dressing applied. Perfusion to the extremity distal to the point of catheter insertion was checked and found to be adequate. The patient tolerated the procedure well and there were no complications. Indication: Hemodynamic monitoring. A time-out was completed verifying correct patient, procedure, site, positioning, and implant(s) or special equipment if applicable. Allens test was performed to ensure adequate perfusion. The patients right groin was prepped and draped in sterile fashion. 1% Lidocaine was used to anesthetize the area. An 18G Arrow arterial line was introduced into the femoral artery. The catheter was threaded over the guide wire and the needle was removed with appropriate pulsatile blood return. Blood loss was minimal. The catheter was then sutured in place to the skin and a sterile dressing applied. Perfusion to the extremity distal to the point of catheter insertion was checked and found to be adequate. The patient tolerated the procedure well and there were no complications.
[2019-09-17 22:02] LABS: Basophils % (A) 0 %; Eosinophils # (A) 0.2 k/uL (0-0.7); Eosinophils % (A) 1 %; HCT 42.9 % (39.0-53.0); HGB 13.7 gm/dL (13.0-17.5); Lymphocytes # (A) 0.8 k/uL (1.0-4.8); Lymphocytes % (A) 4 %; MCH 30.4 pg (25.0-35.0); MCV 94.9 fL (80.0-100.0); Mean Platelet Volume 7.5; Monocytes # (A) 1.2 k/uL (0-1.0); Monocytes % (A) 6 %; Neutrophils # (A) 16.7 k/uL (1.3-7.7); Neutrophils % (A) 87 %; Platelet Count 218 k/uL (150-450); RBC 4.52 m/uL (4.30-5.90); RDW 13.8 % (11.5-15.5); WBC 19.2 k/uL (3.8-10.6)
[2019-09-17 22:13] LABS: C Reactive Protein 15.9 mg/L (<10.0)
[2019-09-17 22:22] LABS: Glucose,Whole Blood 216 mg/dL (75-99)
[2019-09-17 23:29] LABS: Glucose,Whole Blood 215 mg/dL (75-99)
--- NOTE | 2019-09-18 00:21 | PN ---
PROGRESS NOTE DATE OF SERVICE: 09/17/2019 REASON FOR FOLLOWUP: 1. Encephalitis possible herpes. 2. fever. INTERVAL HISTORY: The patient overall fever pattern improved this morning with T-max of 100.4. The patient is getting intubated as the EEG was showing evidence of status epilepticus to protect his airway. No significant purulent secretion that aspirated at the time of intubation per the nursing staff. The patient is currently on a low-dose pressor support. FiO2 is currently 40%. No diarrhea has been reported. PHYSICAL EXAMINATION: Blood pressure 93/48 with a pulse of 72, temperature 97.3. He is 98% on 40% FiO2. General description is a middle-aged male intubated on the vent. RESPIRATORY SYSTEM: Unlabored breathing, decreased breath sounds in the base. No wheeze. HEART: S1, S2. Regular rate and rhythm. ABDOMEN: Soft, no tenderness. LABS: Hemoglobin is 15.2 with white count 10.1, BUN of 15, creatinine 0.76. DIAGNOSTIC IMPRESSION AND PLAN: 1. Patient admitted to the hospital with fever and mental status changes with concern for possible encephalitis in this patient who did show abnormality on the temporal lobe with high protein and white count on the CSF, concern for encephalitis. HSV DNA by PCR is currently pending. Patient to continue with acyclovir. 2. The patient with possible aspiration pneumonitis. Antibiotic adjusted to cefepime and Flagyl and will monitor clinical course closely. GERMAN / COLIN: [id number] /
[2019-09-18 00:29] LABS: Glucose,Whole Blood 199 mg/dL (75-99)
[2019-09-18] MEDS: levETIRAcetam IV 1,000 MG in SALINE 1 100ML.BAG IVPB SCH ×2 (00:48→10:59)
[2019-09-18] MEDS: MIDAZOLAM HCL 50 MG in SODIUM CHLORIDE 0.9% 40 ML IV SCH ×2 (00:49→10:45)
[2019-09-18 01:06] LABS: Glucose,Whole Blood 196 mg/dL (75-99)
[2019-09-18] MEDS: metroNIDAZOLE-NS PMX 500 MG in SALINE 1 100ML.BAG IVPB SCH ×2 (01:09→08:20)
[2019-09-18] MEDS: NOREPINEPHRINE 8 MG in SODIUM CHLORIDE 0.9% 250 ML IV SCH (01:15)
[2019-09-18 02:25] LABS: Glucose,Whole Blood 156 mg/dL (75-99)
[2019-09-18 03:06] VITALS: RESP 18
[2019-09-18] MEDS: PHENYTOIN SODIUM INJ 50 MG/ML 2 ML VIAL IVP SCH ×2 (03:09→11:00)
[2019-09-18] MEDS: PROPOFOL 1,000 MG in EMPTY BAG 1 BAG IV SCH ×3 (03:18→10:50)
[2019-09-18 03:40] LABS: Glucose,Whole Blood 125 mg/dL (75-99)
[2019-09-18 04:04] LABS: Glucose,Whole Blood 119 mg/dL (75-99)
[2019-09-18 04:37] LABS: Basophils # (A) 0.1 k/uL (0-0.2); Basophils % (A) 0 %; Eosinophils # (A) 0.1 k/uL (0-0.7); Eosinophils % (A) 1 %; HCT 40.6 % (39.0-53.0); HGB 13.4 gm/dL (13.0-17.5); Lymphocytes # (A) 1.4 k/uL (1.0-4.8); Lymphocytes % (A) 10 %; MCH 30.8 pg (25.0-35.0); MCHC 32.9 g/dL (31.0-37.0); MCV 93.5 fL (80.0-100.0); Mean Platelet Volume 7.9; Monocytes # (A) 1.2 k/uL (0-1.0); Monocytes % (A) 9 %; Neutrophils # (A) 10.6 k/uL (1.3-7.7); Neutrophils % (A) 79 %; Platelet Count 205 k/uL (150-450); RBC 4.34 m/uL (4.30-5.90); RDW 13.7 % (11.5-15.5); WBC 13.6 k/uL (3.8-10.6)
[2019-09-18 04:45] LABS: ALT 25 U/L (4-49); AST 35 U/L (17-59); African American GFR (CKD) >90 (>60 ml/min/1.73 sqM); Albumin 2.9 g/dL (3.5-5.0); Alkaline Phosphatase 35 U/L (38-126); Anion Gap 7 mmol/L; Blood Urea Nitrogen 16 mg/dL (9-20); Calcium 8.1 mg/dL (8.4-10.2); Carbon Dioxide 21 mmol/L (22-30); Chloride 111 mmol/L (98-107); Glucose 110 mg/dL (74-99); Magnesium 2.2 mg/dL (1.6-2.3); Non-African American GFR(CKD) >90 (>60 ml/min/1.73 sqM); Phosphorus 2.2 mg/dL (2.5-4.5); Potassium 3.2 mmol/L (3.5-5.1); Sodium 139 mmol/L (137-145); Total Bilirubin 0.3 mg/dL (0.2-1.3); Total Protein 5.5 g/dL (6.3-8.2)
[2019-09-18] MEDS ORDERED: Potassium Replacement Protocol 1 EACH MISC MISCELLANE PRN (04:59)
[2019-09-18] MEDS ORDERED: POTASSIUM CHLORIDE 20 MEQ in WATER FOR INJECTION 1 100ML.BAG IVPB SCH (05:00)
[2019-09-18] MEDS ORDERED: Phosphorus Replacement Protoco 1 EACH MISC MISCELLANE PRN ×2 (05:02→05:05)
[2019-09-18] MEDS ORDERED: SODIUM PHOSPHATE 10 MMOL in SODIUM CHLORIDE 0.9% 100 ML IVPB ONE (05:02)
[2019-09-18] MEDS ORDERED: POTASSIUM CHLORIDE 20 MEQ in WATER FOR INJECTION 1 100ML.BAG IVPB STA (05:10)
[2019-09-18 05:23] LABS: Glucose,Whole Blood 122 mg/dL (75-99)
[2019-09-18] MEDS ORDERED: POTASSIUM PHOSPHATE 10 MMOL in SODIUM CHLORIDE 0.9% 100 ML IV ONE (05:30)
[2019-09-18 05:39] LABS: ABG Base Excess -4.1 mmol/L; ABG HCO3 20 mmol/L (21-25); ABG Oxygen Saturation 99.9 % (94-97); ABG PCO2 32 mmHg (35-45); ABG PH 7.41 (7.35-7.45); ABG PO2 178 mmHg (83-108); ABG TCO2 21 mmol/L (19-24); Allen Test Performed? Yes
[2019-09-18 06:08] LABS: Glucose,Whole Blood 125 mg/dL (75-99)
[2019-09-18] MEDS: SODIUM CHLORIDE 0.9% 1,000 ML IV SCH (07:11)
--- NOTE | 2019-09-18 08:08 | XR ---
EXAMINATION TYPE: XR chest 1V portable DATE OF EXAM: 09/18/2019 COMPARISON: 09/17/2019 HISTORY: Tube placement. Ventilatory dependent respiratory failure. TECHNIQUE: Single frontal view of the chest is obtained. FINDINGS: Numerous lines overlie the right lung apex rendering examination of this region suboptimal . There appears to be a skinfold overlies the right with apex. Endotracheal tube has been advanced no w terminating 6.4 cm from the juany rather than 7.2 on the prior. Enteric tube has its fenestrated p ortion just below the gastroesophageal junction, appropriately placed. No skin changes the chest are seen. COPD is questioned with peripheral lucency of the lungs. No new focal consolidation, pleural ef fusion or pulmonary vascular congestion. IMPRESSION: Slight advancement of the endotracheal tube, appropriately placed. Enteric tube appear s atisfactory. No new focal consolidation.
[2019-09-18 08:09] LABS: Glucose,Whole Blood 153 mg/dL (75-99)
[2019-09-18] MEDS: METOPROLOL TARTRATE 25 MG TAB PO SCH (08:13)
[2019-09-18] MEDS: LOSARTAN 50 MG TAB PO SCH (08:13)
[2019-09-18] MEDS: HEPARIN SODIUM,PORCINE 5,000 UNIT/ML 1 ML VIAL SQ SCH (08:19)
[2019-09-18] MEDS: FAMOTIDINE 20 MG/2 ML VIAL IV SCH (08:19)
[2019-09-18] MEDS: CHLORHEXIDINE GLUCONATE 15 ML CUP MUCOUS MEM SCH (08:19)
[2019-09-18] MEDS: ACYCLOVIR SODIUM 700 MG in SODIUM CHLORIDE 0.9% 100 ML IVPB SCH (08:20)
[2019-09-18] MEDS: CEFEPIME 2 GM in SODIUM CHLORIDE 0.9% 100 ML IVPB SCH (08:20)
--- NOTE | 2019-09-18 09:22 | P.PN ---
Subjective Patient is seen in follow-up for hyponatremia. Sodium level 139 today. Currently intubated. He is on low-dose Levophed. Receiving IV fluids as well. Vital signs are stable. General: The patient appeared well nourished and normally developed. Intubated. HEENT: Head exam is unremarkable. Neck is without jugular venous distension. LUNGS: Breath sounds decreased. HEART: Rate and Rhythm are regular. First and second heart sounds normal. No mur murs, rubs or gallops. ABDOMEN: No distention noted. EXTREMITITES: No edema. Objective - Vital Signs Vital signs: Vital Signs Temp 97.5 F L 09/18/19 08:00 Pulse 62 09/18/19 09:00 Resp 18 09/18/19 09:00 BP 118/63 09/18/19 09:00 Pulse Ox 100 09/18/19 09:00 Intake & Output 09/17/19 09/18/19 09/18/19 18:59 06:59 18:59 Intake Total 3917.806 3272.606 45.594 Output Total 505 930 98 Balance 3412.806 2342.606 -52.406 Weight 68.8 kg Intake: IV 3870 1195 20 0.9 NACL bolus 3000 1000 Normal saline 120 195 20 acyclovir 200 dilantin 100 keppra 200 vancomycin 250 Intake, IV Titration 47.806 2077.606 25.594 Amount Acyclovir Sodium 700 mg 100 In Sodium Chloride 0.9% 100 ml @ 100 mls/hr IVPB Q8HR [facility] Rx#:[id number] Cefepime 2 gm In Sodium 100 Chloride 0.9% 100 ml @ 200 mls/hr IVPB Q12HR [facility] Rx#:[id number] Insulin Regular 100 unit 49.205 0 In Sodium Chloride 0.9% 100 ml @ Per Protocol IV .Q0M [facility] Rx#:[id number] Midazolam HCl 50 mg In 8.75 Sodium Chloride 0.9% 40 ml @ 5 MG/HR 5 mls/hr IV .Q10H [facility] Rx#:[id number] Norepinephrine 8 mg In 39.056 309.199 Sodium Chloride 0.9% 250 ml @ 0.05 MCG/KG/MIN 6. 734 mls/hr IV .Q24H [facility] Rx#:[id number] Potassium Phosphate 10 100 mmol In Sodium Chloride 0 .9% 100 ml @ 50 mls/hr IV ONCE ONE Rx#:[id number] Propofol 1,000 mg In 319.202 25.594 Empty Bag 1 bag @ Titrate IV .Q0M [facility] Rx#: [id number] Sodium Chloride 0.9% 1, 900 000 ml @ 75 mls/hr IV . [id number] [facility] Rx#:[id number] levETIRAcetam IV 1,000 mg 100 In Saline 1 100ml.bag @ 400 mls/hr IVPB 0000,1200 [facility] Rx#:[id number] metroNIDAZOLE-NS PMX 500 100 mg In Saline 1 100ml.bag @ 100 mls/hr IVPB Q8HR [facility] Rx#:[id number] Oral 0 Output: Urine 505 930 98 Other: Voiding Method Indwelling Catheter Indwelling Catheter Indwelling Catheter # Bowel Movements 0 0 ABP, PAP, CO, CI - Last Documented Arterial Blood Pressure 98/67 - Labs CBC & Chem 7: 09/18/19 03:52 09/18/19 03:52 Labs: Abnormal Lab Results - Last 24 Hours (Table) 09/17/19 09/17/19 09/17/19 Range/Units 14:09 15:48 18:26 WBC (3.8-10.6) k/uL Neutrophils # (1.3-7.7) k/uL Lymphocytes # (1.0-4.8) k/uL Monocytes # (0-1.0) k/uL D-Dimer (<0.60) mg/L FEU ABG pH 7.30 L (7.35-7.45) ABG pCO2 (35-45) mmHg ABG pO2 216 H (83-108) mmHg ABG HCO3 17 L (21-25) mmol/L ABG Total CO2 18 L (19-24) mmol/L ABG O2 Saturation 99.8 H (94-97) % Potassium (3.5-5.1) mmol/L Chloride (98-107) mmol/L Carbon Dioxide (22-30) mmol/L Creatinine (0.66-1.25) mg/dL Glucose (74-99) mg/dL POC Glucose (mg/dL) 253 H 255 H (75-99) mg/dL Calcium (8.4-10.2) mg/dL Phosphorus (2.5-4.5) mg/dL Alkaline Phosphatase (38-126) U/L Creatine Kinase (55-170) U/L C-Reactive Protein (<10.0) mg/L Total Protein (6.3-8.2) g/dL Albumin (3.5-5.0) g/dL 09/17/19 09/17/19 09/17/19 Range/Units 19:22 20:12 21:20 WBC (3.8-10.6) k/uL Neutrophils # (1.3-7.7) k/uL Lymphocytes # (1.0-4.8) k/uL Monocytes # (0-1.0) k/uL D-Dimer (<0.60) mg/L FEU ABG pH (7.35-7.45) ABG pCO2 (35-45) mmHg ABG pO2 (83-108) mmHg ABG HCO3 (21-25) mmol/L ABG Total CO2 (19-24) mmol/L ABG O2 Saturation (94-97) % Potassium (3.5-5.1) mmol/L Chloride (98-107) mmol/L Carbon Dioxide (22-30) mmol/L Creatinine (0.66-1.25) mg/dL Glucose (74-99) mg/dL POC Glucose (mg/dL) 323 H 245 H 250 H (75-99) mg/dL Calcium (8.4-10.2) mg/dL Phosphorus (2.5-4.5) mg/dL Alkaline Phosphatase (38-126) U/L Creatine Kinase (55-170) U/L C-Reactive Protein (<10.0) mg/L Total Protein (6.3-8.2) g/dL Albumin (3.5-5.0) g/dL 09/17/19 09/17/19 09/17/19 Range/Units 21:45 21:45 21:45 WBC 19.2 H (3.8-10.6) k/uL Neutrophils # 16.7 H (1.3-7.7) k/uL Lymphocytes # 0.8 L (1.0-4.8) k/uL Monocytes # 1.2 H (0-1.0) k/uL D-Dimer 1.27 H (<0.60) mg/L FEU ABG pH (7.35-7.45) ABG pCO2 (35-45) mmHg ABG pO2 (83-108) mmHg ABG HCO3 (21-25) mmol/L ABG Total CO2 (19-24) mmol/L ABG O2 Saturation (94-97) % Potassium (3.5-5.1) mmol/L Chloride (98-107) mmol/L Carbon Dioxide (22-30) mmol/L Creatinine (0.66-1.25) mg/dL Glucose (74-99) mg/dL POC Glucose (mg/dL) (75-99) mg/dL Calcium (8.4-10.2) mg/dL Phosphorus (2.5-4.5) mg/dL Alkaline Phosphatase (38-126) U/L Creatine Kinase 656 H (55-170) U/L C-Reactive Protein 15.9 H (<10.0) mg/L Total Protein (6.3-8.2) g/dL Albumin (3.5-5.0) g/dL 09/17/19 09/17/19 09/18/19 Range/Units 22:18 23:27 00:28 WBC (3.8-10.6) k/uL Neutrophils # (1.3-7.7) k/uL Lymphocytes # (1.0-4.8) k/uL Monocytes # (0-1.0) k/uL D-Dimer (<0.60) mg/L FEU ABG pH (7.35-7.45) ABG pCO2 (35-45) mmHg ABG pO2 (83-108) mmHg ABG HCO3 (21-25) mmol/L ABG Total CO2 (19-24) mmol/L ABG O2 Saturation (94-97) % Potassium (3.5-5.1) mmol/L Chloride (98-107) mmol/L Carbon Dioxide (22-30) mmol/L Creatinine (0.66-1.25) mg/dL Glucose (74-99) mg/dL POC Glucose (mg/dL) 216 H 215 H 199 H (75-99) mg/dL Calcium (8.4-10.2) mg/dL Phosphorus (2.5-4.5) mg/dL Alkaline Phosphatase (38-126) U/L Creatine Kinase (55-170) U/L C-Reactive Protein (<10.0) mg/L Total Protein (6.3-8.2) g/dL Albumin (3.5-5.0) g/dL 09/18/19 09/18/19 09/18/19 Range/Units 01:04 02:24 03:34 WBC (3.8-10.6) k/uL Neutrophils # (1.3-7.7) k/uL Lymphocytes # (1.0-4.8) k/uL Monocytes # (0-1.0) k/uL D-Dimer (<0.60) mg/L FEU ABG pH (7.35-7.45) ABG pCO2 (35-45) mmHg ABG pO2 (83-108) mmHg ABG HCO3 (21-25) mmol/L ABG Total CO2 (19-24) mmol/L ABG O2 Saturation (94-97) % Potassium (3.5-5.1) mmol/L Chloride (98-107) mmol/L Carbon Dioxide (22-30) mmol/L Creatinine (0.66-1.25) mg/dL Glucose (74-99) mg/dL POC Glucose (mg/dL) 196 H 156 H 125 H (75-99) mg/dL Calcium (8.4-10.2) mg/dL Phosphorus (2.5-4.5) mg/dL Alkaline Phosphatase (38-126) U/L Creatine Kinase (55-170) U/L C-Reactive Protein (<10.0) mg/L Total Protein (6.3-8.2) g/dL Albumin (3.5-5.0) g/dL 09/18/19 09/18/19 09/18/19 Range/Units 03:52 03:52 04:03 WBC 13.6 H (3.8-10.6) k/uL Neutrophils # 10.6 H (1.3-7.7) k/uL Lymphocytes # (1.0-4.8) k/uL Monocytes # 1.2 H (0-1.0) k/uL D-Dimer (<0.60) mg/L FEU ABG pH (7.35-7.45) ABG pCO2 (35-45) mmHg ABG pO2 (83-108) mmHg ABG HCO3 (21-25) mmol/L ABG Total CO2 (19-24) mmol/L ABG O2 Saturation (94-97) % Potassium 3.2 L (3.5-5.1) mmol/L Chloride 111 H (98-107) mmol/L Carbon Dioxide 21 L (22-30) mmol/L Creatinine 0.63 L (0.66-1.25) mg/dL Glucose 110 H (74-99) mg/dL POC Glucose (mg/dL) 119 H (75-99) mg/dL Calcium 8.1 L (8.4-10.2) mg/dL Phosphorus 2.2 L (2.5-4.5) mg/dL Alkaline Phosphatase 35 L (38-126) U/L Creatine Kinase (55-170) U/L C-Reactive Protein (<10.0) mg/L Total Protein 5.5 L (6.3-8.2) g/dL Albumin 2.9 L (3.5-5.0) g/dL 09/18/19 09/18/19 09/18/19 Range/Units 05:22 05:35 06:07 WBC (3.8-10.6) k/uL Neutrophils # (1.3-7.7) k/uL Lymphocytes # (1.0-4.8) k/uL Monocytes # (0-1.0) k/uL D-Dimer (<0.60) mg/L FEU ABG pH (7.35-7.45) ABG pCO2 32 L (35-45) mmHg ABG pO2 178 H (83-108) mmHg ABG HCO3 20 L (21-25) mmol/L ABG Total CO2 (19-24) mmol/L ABG O2 Saturation 99.9 H (94-97) % Potassium (3.5-5.1) mmol/L Chloride (98-107) mmol/L Carbon Dioxide (22-30) mmol/L Creatinine (0.66-1.25) mg/dL Glucose (74-99) mg/dL POC Glucose (mg/dL) 122 H 125 H (75-99) mg/dL Calcium (8.4-10.2) mg/dL Phosphorus (2.5-4.5) mg/dL Alkaline Phosphatase (38-126) U/L Creatine Kinase (55-170) U/L C-Reactive Protein (<10.0) mg/L Total Protein (6.3-8.2) g/dL Albumin (3.5-5.0) g/dL 09/18/19 Range/Units 08:08 WBC (3.8-10.6) k/uL Neutrophils # (1.3-7.7) k/uL Lymphocytes # (1.0-4.8) k/uL Monocytes # (0-1.0) k/uL D-Dimer (<0.60) mg/L FEU ABG pH (7.35-7.45) ABG pCO2 (35-45) mmHg ABG pO2 (83-108) mmHg ABG HCO3 (21-25) mmol/L ABG Total CO2 (19-24) mmol/L ABG O2 Saturation (94-97) % Potassium (3.5-5.1) mmol/L Chloride (98-107) mmol/L Carbon Dioxide (22-30) mmol/L Creatinine (0.66-1.25) mg/dL Glucose (74-99) mg/dL POC Glucose (mg/dL) 153 H (75-99) mg/dL Calcium (8.4-10.2) mg/dL Phosphorus (2.5-4.5) mg/dL Alkaline Phosphatase (38-126) U/L Creatine Kinase (55-170) U/L C-Reactive Protein (<10.0) mg/L Total Protein (6.3-8.2) g/dL Albumin (3.5-5.0) g/dL Microbiology - Last 24 Hours (Table) 09/13/19 21:11 Blood Culture - Preliminary Blood No Growth after 96 hours 09/14/19 18:39 Blood Culture - Preliminary Blood No Growth after 72 hours 09/16/19 09:00 Acid Fast Bacilli Smear - Final Cerebral Spinal Fluid Acid Fast Bacilli Culture - Preliminary 09/16/19 09:00 CSF Gram Stain - Preliminary Cerebral Spinal Fluid CSF Culture - Preliminary Assessment and Plan Plan: Assessment: 1. Hyponatremia secondary to SIADH. Improved. 2. Hypokalemia from poor oral intake and saline diuresis. Magnesium normal. 3. Hypophosphatemia from poor oral intake. 4. Status epilepticus maintained on Keppra. Status post lumbar puncture. Concern for encephalitis. 5. Right hilar mass with lymphadenopathy. Concern for malignancy. 6. Chronic systolic heart failure with ejection fraction of 45-50%. Plan: Potassium and phosphorus being replaced. Maintain normal saline. Transfer for further neurological care being considered.
[2019-09-18 09:56] LABS: Glucose,Whole Blood 177 mg/dL (75-99)
--- NOTE | 2019-09-18 10:00 | ECHOF ---
Referral Reason:LV function MEASUREMENTS -------- HEIGHT: 172.7 cm WEIGHT: 68.5 kg BP: 106/62 RVIDd: 3.0 cm (< 3.3) IVSd: 1.2 cm (0.6 - 1.1) LVIDd: 4.4 cm (3.9 - 5.3) LVPWd: 1.3 cm (0.6 - 1.1) IVSs: 1.3 cm LVIDs: 3.6 cm LVPWs: 1.5 cm LA Diam: 2.9 cm (2.7 - 3.8) LAESV Index (A-L): 11.52 ml/m Ao Diam: 3.2 cm (2.0 - 3.7) AV Cusp: 2.2 cm (1.5 - 2.6) MV EXCURSION: 19.132 mm (> 18.000) MV EF SLOPE: 72 mm/s (70 - 150) EPSS: 1.2 cm MV E Felix: 0.70 m/s MV DecT: 275 ms MV A Felix: 0.57 m/s MV E/A Ratio: 1.23 FINDINGS -------- Sinus rhythm. This was a technically adequate study. The left ventricular size is normal. There is mild concentric left ventricular hypertrophy. Overa ll left ventricular systolic function is low-normal with, an EF between 50 - 55 %. The right ventricle is normal in size. Normal LA size by volume 22+/-6 ml/m2. The right atrium is normal in size. Interatrial and interventricular septum intact. The aortic valve is trileaflet and appears structurally normal. The mitral valve leaflets are mildly thickened. Mild mitral annular calcification present. There is trace to mild mitral regurgitation. The tricuspid valve appears structurally normal. There is no pulmonic regurgitation present. The aortic root size is normal. The inferior vena cava is dilated with no significant inspiratory collapse which is consistent estima gopi right atrial pressure of >20 mmHg. There is no pericardial effusion. CONCLUSIONS -------- 1. Sinus rhythm. 2. This was a technically adequate study. 3. The left ventricular size is normal. 4. There is mild concentric left ventricular hypertrophy. 5. Overall left ventricular systolic function is low-normal with, an EF between 50 - 55 %. 6. The right ventricle is normal in size. 7. Normal LA size by volume 22+/-6 ml/m2. 8. The right atrium is normal in size. 9. Interatrial and interventricular septum intact. 10. The aortic valve is trileaflet and appears structurally normal. 11. The mitral valve leaflets are mildly thickened. 12. Mild mitral annular calcification present. 13. There is trace to mild mitral regurgitation. 14. The tricuspid valve appears structurally normal. 15. There is no pulmonic regurgitation present. 16. The aortic root size is normal. 17. The inferior vena cava is dilated with no significant inspiratory collapse which is consistent es timated right atrial pressure of >20 mmHg. 18. There is no pericardial effusion. [employer] BUSINESS ADMINISTRATOR: Yenni Giles RDCS
--- NOTE | 2019-09-18 10:44 | EEG ---
ELECTROENCEPHALOGRAM REPORT DATE OF SERVICE: 09/17/2019. HISTORY: This is an inpatient EEG performed in the intensive care unit on a 58-year-old gentleman who was admitted for increasing altered mental status, who went into acute respiratory failure requiring intubation. The patient was found on his CT angio of the chest to have a lung mass in the right upper lobe. MRI of the brain with and without contrast showed evidence of enhancement on diffusion-weighted imaging over the right temporal parietal lobe. The patient is currently on Keppra as well as acyclovir. Lumbar puncture test revealed an increased number of white cells. TECHNICAL REPORT: This is an inpatient EEG performed on the [employer] EEG monitor with electrodes placed according to the International 10-20 system. A single EKG channel. Simultaneous video EEG monitoring was performed. This EEG was reviewed in both longitudinal bipolar, common average referential and transverse montages. Photic stimulation was performed. Hyperventilation was not performed due to the patient's condition. The recording begins with the patient in electrographic seizure activity emanating primarily from the midsagittal region over the entire right hemisphere. This involves right frontal parietal, frontal temporal and temporal occipital head region. The activity consists of high-amplitude, polyspike discharge activity. The left hemisphere is suppressed without evidence of any electrographic seizure activity. The background over the left hemisphere consists of mixed theta frequencies with excessive muscle artifact noted anteriorly and centrally. Periods of electrographic seizures range from 6 seconds, lasting up to minutes often followed by electrode decremental response of 3 - 4 seconds. Intermittently, the patient is noted clinically to be moving his legs. This is associated with motion and movement artifact. No clear tonic clonic seizure activity is observed in the video. The EKG lead came off during the study, making it difficult to interpret. Even while the patient was having movement, there was repetitive firing with electrographic seizure activity from the right hemisphere. When reviewed in ipsilateral common average referential montage, one can clear appreciate the epileptogenic focus emanating from the right, frontal, central parietal and occipital head region. Please note that photic stimulation was not performed as initially stated, this is due to the patient being an electric convulsive status. IMPRESSION: This is a abnormal EEG consistent with electrographic status lateralize to the right hemisphere. This correlates to the MRI finding on diffusion-weighted imaging of increased signal in this area. A verbal report of this was given to the nurse in charge and the patient was immediately started on anticonvulsant medication. RECOMMENDATIONS: This patient requires long-term monitoring and should be considered to be placed in burst suppression mode as his workup with Infectious Disease is underway. This patient's prognosis remains guarded. Serial EEGs will be started and if possible, long-term monitoring. GERMAN / COLIN: [id number] / MTDD
[2019-09-18] MEDS ORDERED: levETIRAcetam IV 500 MG in SALINE 1 100ML.BAG IVPB SCH (10:59)
[2019-09-18] MEDS ORDERED: VANCOMYCIN TROUGH DUE 1 EACH MISC MISCELLANE ONE (11:00)
--- NOTE | 2019-09-18 11:20 | EEG ---
ELECTROENCEPHALOGRAM REPORT HISTORY: This is a 1 hour inpatient EEG performed in the ICU. on a 58-year-old gentleman who was admitted on 09/12 for increasing altered mental status followed by acute respiratory failure. Patient has been found to have a mass of unknown etiology involving the right upper lobe along with an abnormal MRI showing increased signal on diffusion- weighted imaging over the right hemisphere. 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 The spinal tap is significant for inflammatory markers and elevated number of white cells. Patient has now been intubated and is on Keppra, phenytoin, and propofol IV. Prior to propofol, patient did get Versed. TECHNICAL REPORT: This is an inpatient EEG performed on the [email or web address] EEG monitor with electrodes placed according to the International 10-20 system. A single EKG channel was on as well as video EEG monitoring. This EEG was reviewed in both longitudinal bipolar, common average referential and transverse montages. Photic stimulation nor hyperventilation were performed due to the patient's condition. The recording begins with burst of generalized high-amplitude spike and polyspike and slow-wave discharges lateralize to the right hemisphere, lasting between 1-6 seconds followed by 1 followed by 1-5 seconds worth of electrode decremental suppression. There is intermittent slowing noted over the left hemisphere. No epileptiform activity is clearly delineated there on that side. Frequent technical difficulties occurred with the EKG channel. Throughout this study, the patient continues to have electrographic sz activity lasting 3-6 seconds followed by 1-6 seconds of suppression. This can not be classified as burst-supression mode. The video EEG correlation did show at times prior to propofol some movement in the legs. Once propofol was administered. The patient remained with minimal movement. This EEG is consistent with electroconvulsive status. Serial EEGs are recommended. A continuous EEG monitor; however, is strongly recommended due to this patient requiring to be placed under burst suppression mode. The lateralized epileptiform activity from the right hemisphere is consistent with the abnormalities noted on diffusion-weighted imaging and suggest possibly an underlying structural mass lesion due to its lateralization to one hemisphere. MMJULIÁNL / IJN: [id number] / MTDD
[2019-09-18] MEDS ORDERED: levETIRAcetam IV 500 MG in SODIUM CHLORIDE 0.9% 100 ML IVPB STA (11:51)
[2019-09-18 11:54] LABS: Ferritin 674.3 ng/mL (22.0-322.0)
[2019-09-18 12:13] LABS: Glucose,Whole Blood 172 mg/dL (75-99)
[2019-09-18 12:25] LABS: Hemoglobin A1C 7.7 % (4.0-6.0)
[2019-09-18 12:28] VITALS: TEMP 97.2
[2019-09-18 12:40] VITALS: BMI 23.1
[2019-09-18 13:09] LABS: HSV I IgG Interp NEGATIVE (NEGATIVE); HSV II IgG Interp POSITIVE (NEGATIVE)
--- NOTE | 2019-09-18 13:12 | P.PN ---
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 EEG monitoring was performed on both Wednesday and Wednesday. Intermittent review of EEG was performed overnight on Wednesday with video imaging sent to maintain review remotely. The patient continues to have persistent electrographic seizure activity over the right hemisphere. Gag reflex is absent. Spontaneous cough still is intact. No evidence or report of any clinical seizure activity. Objective - Vital Signs Vital signs: Vital Signs Temp 97.2 F L 09/18/19 12:00 Pulse 66 09/18/19 12:15 Resp 18 09/18/19 12:15 BP 104/61 09/18/19 12:15 Pulse Ox 93 L 09/18/19 12:15 Intake & Output 09/17/19 09/18/19 09/18/19 18:59 06:59 18:59 Intake Total 3917.806 3272.606 185.222 Output Total 505 930 258 Balance 3412.806 2342.606 -72.778 Weight 68.8 kg 68.8 kg Intake: IV 3870 1195 60 0.9 NACL bolus 3000 1000 Normal saline 120 195 60 acyclovir 200 dilantin 100 keppra 200 vancomycin 250 Intake, IV Titration 47.806 2077.606 125.222 Amount Acyclovir Sodium 700 mg 100 In Sodium Chloride 0.9% 100 ml @ 100 mls/hr IVPB Q8HR [facility] Rx#:[id number] Cefepime 2 gm In Sodium 100 Chloride 0.9% 100 ml @ 200 mls/hr IVPB Q12HR [facility] Rx#:[id number] Insulin Regular 100 unit 49.205 8.812 In Sodium Chloride 0.9% 100 ml @ Per Protocol IV .Q0M [facility] Rx#:[id number] Midazolam HCl 50 mg In 8.75 Sodium Chloride 0.9% 40 ml @ 5 MG/HR 5 mls/hr IV .Q10H [facility] Rx#:[id number] Norepinephrine 8 mg In 39.056 309.199 Sodium Chloride 0.9% 250 ml @ 0.05 MCG/KG/MIN 6. 734 mls/hr IV .Q24H [facility] Rx#:[id number] Potassium Phosphate 10 100 mmol In Sodium Chloride 0 .9% 100 ml @ 50 mls/hr IV ONCE ONE Rx#:[id number] Propofol 1,000 mg In 319.202 116.410 Empty Bag 1 bag @ Titrate IV .Q0M [facility]#: [id number] Sodium Chloride 0.9% 1, 900 000 ml @ 75 mls/hr IV . [id number] [facility] Rx#:[id number] levETIRAcetam IV 1,000 mg 100 In Saline 1 100ml.bag @ 400 mls/hr IVPB 0000,1200 [facility] Rx#:[id number] metroNIDAZOLE-NS PMX 500 100 mg In Saline 1 100ml.bag @ 100 mls/hr IVPB Q8HR [facility] Rx#:[id number] Oral 0 Output: Urine 505 930 258 Other: Voiding Method Indwelling Catheter Indwelling Catheter Indwelling Catheter # Bowel Movements 0 0 ABP, PAP, CO, CI - Last Documented Arterial Blood Pressure 105/56 - Exam Patient examined chart reviewed 1. 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 This morning 27 minute EEG shows slight worsening of electroconvulsive seizures over the right hemisphere now between 5 up to 8 seconds maximum. Suppression mode is now obtained lasting up to 5-6 seconds. Burst suppression however is not achieved even with current anticonvulsant medications on board. Exam: Pupils: 1 mm minimally reactive to light but symmetric. 2. Gag reflex is absent. 3. No rash bruising or petechia noted. 4. No swelling noted in the legs or significant edema in the hands. - Labs CBC & Chem 7: 09/18/19 03:52 09/18/19 03:52 Labs: Abnormal Lab Results - Last 24 Hours (Table) 09/16/19 09/17/19 09/17/19 Range/Units 09:00 05:05 14:09 WBC (3.8-10.6) k/uL Neutrophils # (1.3-7.7) k/uL Lymphocytes # (1.0-4.8) k/uL Monocytes # (0-1.0) k/uL D-Dimer (<0.60) mg/L FEU ABG pH (7.35-7.45) ABG pCO2 (35-45) mmHg ABG pO2 (83-108) mmHg ABG HCO3 (21-25) mmol/L ABG Total CO2 (19-24) mmol/L ABG O2 Saturation (94-97) % Potassium (3.5-5.1) mmol/L Chloride (98-107) mmol/L Carbon Dioxide (22-30) mmol/L Creatinine (0.66-1.25) mg/dL Glucose (74-99) mg/dL POC Glucose (mg/dL) 253 H (75-99) mg/dL Hemoglobin A1c (4.0-6.0) % Calcium (8.4-10.2) mg/dL Phosphorus (2.5-4.5) mg/dL Ferritin (22.0-322.0) ng/mL Alkaline Phosphatase (38-126) U/L Creatine Kinase (55-170) U/L C-Reactive Protein (<10.0) mg/L Total Protein (6.3-8.2) g/dL Albumin (3.5-5.0) g/dL Procalcitonin 0.23 H (0.02-0.09) ng/mL HSV I DNA PCR DETECTED H (Not detected) 09/17/19 09/17/19 09/17/19 Range/Units 15:48 18:26 19:22 WBC (3.8-10.6) k/uL Neutrophils # (1.3-7.7) k/uL Lymphocytes # (1.0-4.8) k/uL Monocytes # (0-1.0) k/uL D-Dimer (<0.60) mg/L FEU ABG pH 7.30 L (7.35-7.45) ABG pCO2 (35-45) mmHg ABG pO2 216 H (83-108) mmHg ABG HCO3 17 L (21-25) mmol/L ABG Total CO2 18 L (19-24) mmol/L ABG O2 Saturation 99.8 H (94-97) % Potassium (3.5-5.1) mmol/L Chloride (98-107) mmol/L Carbon Dioxide (22-30) mmol/L Creatinine (0.66-1.25) mg/dL Glucose (74-99) mg/dL POC Glucose (mg/dL) 255 H 323 H (75-99) mg/dL Hemoglobin A1c (4.0-6.0) % Calcium (8.4-10.2) mg/dL Phosphorus (2.5-4.5) mg/dL Ferritin (22.0-322.0) ng/mL Alkaline Phosphatase (38-126) U/L Creatine Kinase (55-170) U/L C-Reactive Protein (<10.0) mg/L Total Protein (6.3-8.2) g/dL Albumin (3.5-5.0) g/dL Procalcitonin (0.02-0.09) ng/mL HSV I DNA PCR (Not detected) 09/17/19 09/17/19 09/17/19 Range/Units 20:12 21:20 21:45 WBC 19.2 H (3.8-10.6) k/uL Neutrophils # 16.7 H (1.3-7.7) k/uL Lymphocytes # 0.8 L (1.0-4.8) k/uL Monocytes # 1.2 H (0-1.0) k/uL D-Dimer (<0.60) mg/L FEU ABG pH (7.35-7.45) ABG pCO2 (35-45) mmHg ABG pO2 (83-108) mmHg ABG HCO3 (21-25) mmol/L ABG Total CO2 (19-24) mmol/L ABG O2 Saturation (94-97) % Potassium (3.5-5.1) mmol/L Chloride (98-107) mmol/L Carbon Dioxide (22-30) mmol/L Creatinine (0.66-1.25) mg/dL Glucose (74-99) mg/dL POC Glucose (mg/dL) 245 H 250 H (75-99) mg/dL Hemoglobin A1c (4.0-6.0) % Calcium (8.4-10.2) mg/dL Phosphorus (2.5-4.5) mg/dL Ferritin (22.0-322.0) ng/mL Alkaline Phosphatase (38-126) U/L Creatine Kinase (55-170) U/L C-Reactive Protein (<10.0) mg/L Total Protein (6.3-8.2) g/dL Albumin (3.5-5.0) g/dL Procalcitonin (0.02-0.09) ng/mL HSV I DNA PCR (Not detected) 04/26/20 04/26/20 04/26/20 Range/Units 21:45 21:45 22:18 WBC (3.8-10.6) k/uL Neutrophils # (1.3-7.7) k/uL Lymphocytes # (1.0-4.8) k/uL Monocytes # (0-1.0) k/uL D-Dimer 1.27 H (<0.60) mg/L FEU ABG pH (7.35-7.45) ABG pCO2 (35-45) mmHg ABG pO2 (83-108) mmHg ABG HCO3 (21-25) mmol/L ABG Total CO2 (19-24) mmol/L ABG O2 Saturation (94-97) % Potassium (3.5-5.1) mmol/L Chloride (98-107) mmol/L Carbon Dioxide (22-30) mmol/L Creatinine (0.66-1.25) mg/dL Glucose (74-99) mg/dL POC Glucose (mg/dL) 216 H (75-99) mg/dL Hemoglobin A1c (4.0-6.0) % Calcium (8.4-10.2) mg/dL Phosphorus (2.5-4.5) mg/dL Ferritin 674.3 H (22.0-322.0) ng/mL Alkaline Phosphatase (38-126) U/L Creatine Kinase 656 H (55-170) U/L C-Reactive Protein 15.9 H (<10.0) mg/L Total Protein (6.3-8.2) g/dL Albumin (3.5-5.0) g/dL Procalcitonin (0.02-0.09) ng/mL HSV I DNA PCR (Not detected) 09/17/19 09/18/19 09/18/19 Range/Units 23:27 00:28 01:04 WBC (3.8-10.6) k/uL Neutrophils # (1.3-7.7) k/uL Lymphocytes # (1.0-4.8) k/uL Monocytes # (0-1.0) k/uL D-Dimer (<0.60) mg/L FEU ABG pH (7.35-7.45) ABG pCO2 (35-45) mmHg ABG pO2 (83-108) mmHg ABG HCO3 (21-25) mmol/L ABG Total CO2 (19-24) mmol/L ABG O2 Saturation (94-97) % Potassium (3.5-5.1) mmol/L Chloride (98-107) mmol/L Carbon Dioxide (22-30) mmol/L Creatinine (0.66-1.25) mg/dL Glucose (74-99) mg/dL POC Glucose (mg/dL) 215 H 199 H 196 H (75-99) mg/dL Hemoglobin A1c (4.0-6.0) % Calcium (8.4-10.2) mg/dL Phosphorus (2.5-4.5) mg/dL Ferritin (22.0-322.0) ng/mL Alkaline Phosphatase (38-126) U/L Creatine Kinase (55-170) U/L C-Reactive Protein (<10.0) mg/L Total Protein (6.3-8.2) g/dL Albumin (3.5-5.0) g/dL Procalcitonin (0.02-0.09) ng/mL HSV I DNA PCR (Not detected) 09/18/19 09/18/19 09/18/19 Range/Units 02:24 03:34 03:52 WBC (3.8-10.6) k/uL Neutrophils # (1.3-7.7) k/uL Lymphocytes # (1.0-4.8) k/uL Monocytes # (0-1.0) k/uL D-Dimer (<0.60) mg/L FEU ABG pH (7.35-7.45) ABG pCO2 (35-45) mmHg ABG pO2 (83-108) mmHg ABG HCO3 (21-25) mmol/L ABG Total CO2 (19-24) mmol/L ABG O2 Saturation (94-97) % Potassium (3.5-5.1) mmol/L Chloride (98-107) mmol/L Carbon Dioxide (22-30) mmol/L Creatinine (0.66-1.25) mg/dL Glucose (74-99) mg/dL POC Glucose (mg/dL) 156 H 125 H (75-99) mg/dL Hemoglobin A1c 7.7 H (4.0-6.0) % Calcium (8.4-10.2) mg/dL Phosphorus (2.5-4.5) mg/dL Ferritin (22.0-322.0) ng/mL Alkaline Phosphatase (38-126) U/L Creatine Kinase (55-170) U/L C-Reactive Protein (<10.0) mg/L Total Protein (6.3-8.2) g/dL Albumin (3.5-5.0) g/dL Procalcitonin (0.02-0.09) ng/mL HSV I DNA PCR (Not detected) 09/18/19 09/18/19 09/18/19 Range/Units 03:52 03:52 04:03 WBC 13.6 H (3.8-10.6) k/uL Neutrophils # 10.6 H (1.3-7.7) k/uL Lymphocytes # (1.0-4.8) k/uL Monocytes # 1.2 H (0-1.0) k/uL D-Dimer (<0.60) mg/L FEU ABG pH (7.35-7.45) ABG pCO2 (35-45) mmHg ABG pO2 (83-108) mmHg ABG HCO3 (21-25) mmol/L ABG Total CO2 (19-24) mmol/L ABG O2 Saturation (94-97) % Potassium 3.2 L (3.5-5.1) mmol/L Chloride 111 H (98-107) mmol/L Carbon Dioxide 21 L (22-30) mmol/L Creatinine 0.63 L (0.66-1.25) mg/dL Glucose 110 H (74-99) mg/dL POC Glucose (mg/dL) 119 H (75-99) mg/dL Hemoglobin A1c (4.0-6.0) % Calcium 8.1 L (8.4-10.2) mg/dL Phosphorus 2.2 L (2.5-4.5) mg/dL Ferritin (22.0-322.0) ng/mL Alkaline Phosphatase 35 L (38-126) U/L Creatine Kinase (55-170) U/L C-Reactive Protein (<10.0) mg/L Total Protein 5.5 L (6.3-8.2) g/dL Albumin 2.9 L (3.5-5.0) g/dL Procalcitonin (0.02-0.09) ng/mL HSV I DNA PCR (Not detected) 09/18/19 09/18/19 09/18/19 Range/Units 05:22 05:35 06:07 WBC (3.8-10.6) k/uL Neutrophils # (1.3-7.7) k/uL Lymphocytes # (1.0-4.8) k/uL Monocytes # (0-1.0) k/uL D-Dimer (<0.60) mg/L FEU ABG pH (7.35-7.45) ABG pCO2 32 L (35-45) mmHg ABG pO2 178 H (83-108) mmHg ABG HCO3 20 L (21-25) mmol/L ABG Total CO2 (19-24) mmol/L ABG O2 Saturation 99.9 H (94-97) % Potassium (3.5-5.1) mmol/L Chloride (98-107) mmol/L Carbon Dioxide (22-30) mmol/L Creatinine (0.66-1.25) mg/dL Glucose (74-99) mg/dL POC Glucose (mg/dL) 122 H 125 H (75-99) mg/dL Hemoglobin A1c (4.0-6.0) % Calcium (8.4-10.2) mg/dL Phosphorus (2.5-4.5) mg/dL Ferritin (22.0-322.0) ng/mL Alkaline Phosphatase (38-126) U/L Creatine Kinase (55-170) U/L C-Reactive Protein (<10.0) mg/L Total Protein (6.3-8.2) g/dL Albumin (3.5-5.0) g/dL Procalcitonin (0.02-0.09) ng/mL HSV I DNA PCR (Not detected) 09/18/19 09/18/19 09/18/19 Range/Units 08:08 09:55 12:12 WBC (3.8-10.6) k/uL Neutrophils # (1.3-7.7) k/uL Lymphocytes # (1.0-4.8) k/uL Monocytes # (0-1.0) k/uL D-Dimer (<0.60) mg/L FEU ABG pH (7.35-7.45) ABG pCO2 (35-45) mmHg ABG pO2 (83-108) mmHg ABG HCO3 (21-25) mmol/L ABG Total CO2 (19-24) mmol/L ABG O2 Saturation (94-97) % Potassium (3.5-5.1) mmol/L Chloride (98-107) mmol/L Carbon Dioxide (22-30) mmol/L Creatinine (0.66-1.25) mg/dL Glucose (74-99) mg/dL POC Glucose (mg/dL) 153 H 177 H 172 H (75-99) mg/dL Hemoglobin A1c (4.0-6.0) % Calcium (8.4-10.2) mg/dL Phosphorus (2.5-4.5) mg/dL Ferritin (22.0-322.0) ng/mL Alkaline Phosphatase (38-126) U/L Creatine Kinase (55-170) U/L C-Reactive Protein (<10.0) mg/L Total Protein (6.3-8.2) g/dL Albumin (3.5-5.0) g/dL Procalcitonin (0.02-0.09) ng/mL HSV I DNA PCR (Not detected) Microbiology - Last 24 Hours (Table) 09/16/19 09:00 CSF Gram Stain - Preliminary Cerebral Spinal Fluid CSF Culture - Preliminary 09/13/19 21:11 Blood Culture - Preliminary Blood No Growth after 96 hours 09/14/19 18:39 Blood Culture - Preliminary Blood No Growth after 72 hours 09/16/19 09:00 Acid Fast Bacilli Smear - Final Cerebral Spinal Fluid Acid Fast Bacilli Culture - Preliminary Assessment and Plan Assessment: Assessment: This is a 58-year-old gentleman smoker who came in and was admitted for abrupt altered mental status. The patient was able to follow some commands initially, but had difficulty with expression and following more complicated commands. On hospital day 2 he deteriorated clinically and went into acute respiratory failure. 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 Cerebral spinal fluid tap was performed the following day in the ICU. The PCR now has come back positive for HSV 1. Patient has been on acyclovir beginning the second hospital day. The patient was found to be in electrographic status out of the right hemisphere after transfer to ICU. He was started on Keppra IV this had to be further increased along with the patient placed on propofol and phenytoin for management. Patient has had now 3 EEGs since his admission and this most recent EEG despite propofol, maximum Keppra and phenytoin, still continues to have persistent electrographic seizure activity emanating from the right central temporal parietal lobe. Compared to the EEG yesterday, this EEG is slightly worse in that the duration of time for the electrographic seizure activity is now up to 6-7 seconds. We are achieving suppression but we are not achieving the burst electrographically. I'm recommending a stat computed tomography scan of the head without now contrast to rule out any possible increased cerebral edema. Due to this facility not having capability of long-term monitoring this patient has been recommended to transfer to higher level care. Based on his current presentation electrographically he may require further sedation into pentobarbital coma. I discussed this with the locks inspector and a sister facility and they're willing to accept transfer. Summary: 1. 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 Lung mass on the right lung per CT angiogram of the chest 3. Refractive electrographic status out of the right cerebral hemisphere 4. Abnormal neuroimaging. Diffusion-weighted imaging showing increased signal intensity involving the right parietal temporal lobe. Plan 1. Stat computed tomography scan of the head noncontrast 2. Increase propofol to maximum allowable dosage for his age weight and clearance. 3. Maximize Keppra now to 1500 mg every 12, total dosage per day 3000 mg per day. Give now an additional 500 mg Keppra IV dose on top of his 1000 mg scheduled dose today. At 12 midnight he will be switched over to the 1500 mg every 12. 4. Proceed with plan for transfer. 5. We'll plan to discuss transfer with his within the next hour. 6. Accepting team will have access to all CSF studies pending. Please note that cytology was also ordered due to concern for the right lung mass and possib le metastatic brain lesion. Thank you for this consult this patient's prognosis remains very guarded. Further recommendations will be made as this case evolves.
--- NOTE | 2019-09-18 13:21 | P.PN ---
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 This is a 58-year-old male patient, hospitalized yesterday because of an altered mental status. The patient came into the ED having altered mentation, nausea and ongoing episodes of emesis a few days duration. The patient was confused and slow in answering questions and he was having also profound weakness and difficulty with mobility and ambulation. The patient apparently has been vomiting around 2-5 times every day. Denied having any diarrhea. No abdominal pain. He was becoming progressively more altered and he was unable to do some simple tasks at home. He did have a chronic cough. No throat pain. No aspiration. Blood work in the emergency department showed that the patient's sodium level was 116 with a chloride of 78. The patient had a normal white cell count. The patient had a serum glucose of 236. Lactic acid level was at 1.8. Calcium level of 8.6. Total bilirubin was 1.5 with a ferritin level of 363. LFTs were within normal limits. Ammonia level was less than 5. LDH was 495. C-reactive protein was less than 5. Covid 19 nasal swab came back negative. Chest x-ray showed a right hilar mass and for that reason the patient was given a CT angiogram that showed no evidence of any pulmonary embolism. There was a 2.8 cm right infrahilar pulmonary mass/nodule that was not present on previous CAT scans there was also subcarinal and lower paratracheal lymphadenopathy measuring up to 2.6 cm in size and the findings were worrisome for malignant mediastinal lymphadenopathy/mass. The patient is a chronic smoker. The patient currently is on normal saline running at 75 mL an hour. Sodium level is improving and the findings on the case as the patient is having a repeat sodium level every 4 hours. On 09/15/2019 patient seen in follow-up on selective care unit, and the patient was very confused, agitated, she was given a dose of Ativan, 60 sitter was placed at the bedside, he was hypertensive with a blood pressure 180/85, and s piked a fever of 101.2F, clindamycin and vancomycin were added for possibility of pneumonia. On today's evaluation patient is very lethargic and very hard to arouse. He has slight nystagmus to the right, neurology consultation is pending. On today's labs patient's sodium is up to 125, and normal saline infusion has been discontinued, potassium is 3.1, chloride is 91, CO2 is 20, BUN 17 creatinine 0.9 ammonia level was less than 9, LFTs were fairly unremarkable, with AST and ALT at 46 and 25 respectively, and alkaline phosphatase at 36. Chronic was ruled out. Blood culture has been negative. He is on 2 L of oxygen the pulse ox between 91-96%. Today he is afebrile, white count is 13.4. On 09/16/2019, the patient got transferred to the intensive care unit yesterday and the patient is being seen in follow-up today. The patient's sodium level continues to improve and his sodium level is currently up to 129. The MRI of the brain showed hyperintensity on diffusion-weighted imaging within the cortex of the right temporal lobe and lingular region suspicious for ischemia. Other possibilities included HSV infection of the brain, temporal sclerosis, metastatic disease. Lumbar puncture was also requested by neurology as the patient continued to have fever and one of the other possibilities that was entertained was viral encephalitis and the patient was already started on acycl ovir. The current antibiotic coverage including Rocephin and vancomycin in conjunction with this activity. The pro-calcitonin level was low at 0.28. Overall neurologic function is of remained unchanged compared to yesterday. The patient seems to be appropriate however is very much lethargic and sleepy and drowsy. No neck stiffness. No focal neurological deficits. No nausea or vomiting or emesis for now. He is having episodic temperature with a T-max of 101.5 rectally. The blood cultures been negative thus far. I noted the patient was off Plavix for about 5 days. For that reason, I proceeded with a lumbar puncture in the intensive care unit. This was not the bedside. The chest x-ray from today shows a right lower lobe opacity, considered the possibility of an underlying pneumonia which could be essentially of an aspiration type.. As mentioned earlier, the patient has a right hilar mass on the same chest x-ray. On 09/17/2019, the patient continues to have altered mentation. As mentioned earlier, the patient a chest to the intensive care unit yesterday. The patient was seen by neurology. I also performed a lumbar puncture on this patient. LP was abnormal. There was elevated protein and mononuclear cellular counts. The fluid cytology and the fluid PCR for HSV still pending for now. The patient is still having altered mentation and the patient is also having episodes of fever with a T-max of 101.3. The patient was covered with a combination of vancomycin, Rocephin, and he was also started on acyclovir yesterday. . MRI of the brain was abnormal and it showed hyperintensity on diffusion-weighted imaging within the cortex of the right temporal and limbic region suspicious for ischemic change. Other possibilities include HSV, and even possibility of met astases. EEG of the brain was done yesterday and it was consistent with seizures as the patient was found to have an abnormal EEG with abnormal activity in the right parietal central had region and midline vertex. Based on that, the patient was started on Keppra.however, His condition remained unchanged. The patient continued to have altered mentation. He had altered sensorium throughout the day today. I was able to arouse this patient on few incidences where he would wake up and he would communicate with me briefly. Nevertheless he was hard to arouse and he would go back into altered mentation condition following that. As such I suspected ongoing seizure and it repeated EEG and I communicated with the neurologist, Dr. Orellana , and based on his reading of the EEG, there is evidence of status epilepticus. I'll gliding given the patient 2 mg of a IV Ativan and I loaded him with Dilantin. I also discussed the case with the neurologist and we decided to repeat the EEG and monitor the progress and consider even intubation placing this patient on a Ativan drip or a propofol drip to flatten out his EEG and suppressant seizure activity if the patient does not respond to Dilantin in combination with Keppra. For now, there is a suspicion that the patient has a metastatic lesion which is causing ongoing seizure activity. As mentioned, the patient is still febrile and is running a low grade fever and he continues to be on broad-spectrum antibiotics including Rocephin and vancomycin and Diflucan. He remains on 2 L of oxygen by nasal cannula with a pulse ox of 97%. He is hemodynamically stable. No signs of any respiratory distress for now. No visible seizure activity is noted. Renal function is stable with a creatinine of 0.7. No significant leukocytosis. Patient was reevaluated today on 09/18/19. Patient was intubated yesterday. Apparently he had status epilepticus, and he required intubation and mechanical ventilation. Patient is on assist control rate of 18 tidal volume is 500 FiO2 is 40% PEEP is 5. ABG today showed a pO2 of 172 pCO2 of 32 and pH of 7.41, hence I cut down his FiO2 to 35%. Patient is on propofol at 60 mcg/kg/m, he is also on norepinephrine at 0.03 mcg/kg/m. And IV fluid at 75 mL per hour. Again the main reason the patient was intubated was because of status epilepticus. His spinal fluid was reviewed, and is quite suspicious since the protein is extremely high in the fluid, patient is now on acyclovir, cefepime, and Flagyl. Patient is sedated, and plans are in progress to possibly consider transferring the patient to [facility] because of his ongoing status epilepticus and abnormal EEG activity. We did increase the propofol today to 75 mcg/kg/m. Labs today showed relatively normal CBC. WBC count is a bit elevated at 13.6. Sodium is 139, potassium is 3.2, renal profile is normal. Spinal fluid showed elevated protein of 269 glucose was 113 and WBC count is 100, mostly mononuclears. MRI of the brain was reviewed. It showed hyperintensity on diffusion-weighted imaging, and this is in the area over the right temporal lobe and limbic region suspicious for ischemic change could also be infectious which is I believe is the most likely explanation. Herpes simplex would be a major concern. And could also be metastatic in nature. Objective - Vital Signs Vital signs: Vital Signs Temp 97.2 F L 09/18/19 12:00 Pulse 66 09/18/19 12:15 Resp 18 09/18/19 12:15 BP 104/61 09/18/19 12:15 Pulse Ox 93 L 09/18/19 12:15 Intake & Output 09/17/19 09/18/19 09/18/19 18:59 06:59 18:59 Intake Total 3917.806 3272.606 185.222 Output Total 505 930 258 Balance 3412.806 2342.606 -72.778 Weight 68.8 kg 68.8 kg Intake: IV 3870 1195 60 0.9 NACL bolus 3000 1000 Normal saline 120 195 60 acyclovir 200 dilantin 100 keppra 200 vancomycin 250 Intake, IV Titration 47.806 2077.606 125.222 Amount Acyclovir Sodium 700 mg 100 In Sodium Chloride 0.9% 100 ml @ 100 mls/hr IVPB Q8HR [facility] Rx#:[id number] Cefepime 2 gm In Sodium 100 Chloride 0.9% 100 ml @ 200 mls/hr IVPB Q12HR [facility] Rx#:[id number] Insulin Regular 100 unit 49.205 8.812 In Sodium Chloride 0.9% 100 ml @ Per Protocol IV .Q0M [facility] Rx#:[id number] Midazolam HCl 50 mg In 8.75 Sodium Chloride 0.9% 40 ml @ 5 MG/HR 5 mls/hr IV .Q10H [facility] Rx#:[id number] Norepinephrine 8 mg In 39.056 309.199 Sodium Chloride 0.9% 250 ml @ 0.05 MCG/KG/MIN 6. 734 mls/hr IV .Q24H [facility] Rx#:[id number] Potassium Phosphate 10 100 mmol In Sodium Chloride 0 .9% 100 ml @ 50 mls/hr IV ONCE ONE Rx#:[id number] Propofol 1,000 mg In 319.202 116.410 Empty Bag 1 bag @ Titrate IV .Q0M [facility] Rx#: [id number] Sodium Chloride 0.9% 1, 900 000 ml @ 75 mls/hr IV . [id number] [facility] Rx#:[id number] levETIRAcetam IV 1,000 mg 100 In Saline 1 100ml.bag @ 400 mls/hr IVPB 0000,1200 [facility] Rx#:[id number] metroNIDAZOLE-NS PMX 500 100 mg In Saline 1 100ml.bag @ 100 mls/hr IVPB Q8HR [facility] Rx#:[id number] Oral 0 Output: Urine 505 930 258 Other: Voiding Method Indwelling Catheter Indwelling Catheter Indwelling Catheter # Bowel Movements 0 0 ABP, PAP, CO, CI - Last Documented Arterial Blood Pressure 105/56 - Exam GENERAL EXAM: Revealed 58-year-old white male intubated, mechanically ventilated, sedated, on propofol. Head: Atraumatic, normocephalic. HEENT: PERRLA, EOMI, neck disc, endotracheal tube and orogastric tube are intact, moist mucous membranes. CHEST: No chest wall deformity. Symmetrical expansion. LUNGS: Equal air entry with no crackles, wheeze, rhonchi or dullness. CVS: Regular rate and rhythm, normal S1 and S2, no gallops, no murmurs, no rubs ABDOMEN: Soft, nontender. No hepatosplenomegaly, normal bowel sounds, no guarding or rigidity. EXTREMITIES: No clubbing, no edema, no cyanosis, 2+ pulses and upper and lower extremities. MUSCULOSKELETAL: No muscle atrophy, could not be assessed otherwise. SPINE: No scoliosis or deformity SKIN: No rashes CENTRAL NERVOUS SYSTEM: Patient is sedated, on propofol, on mechanical ventilation, could not be assessed. Psychiatric: Could not be assessed. Patient is sedated and on propofol at 75 mcg/kg/m.. - Labs CBC & Chem 7: 09/18/19 03:52 09/18/19 03:52 Labs: Abnormal Lab Results - Last 24 Hours (Table) 09/15/19 09/16/19 09/17/19 Range/Units 17:07 09:00 05:05 WBC (3.8-10.6) k/uL Neutrophils # (1.3-7.7) k/uL Lymphocytes # (1.0-4.8) k/uL Monocytes # (0-1.0) k/uL D-Dimer (<0.60) mg/L FEU ABG pH (7.35-7.45) ABG pCO2 (35-45) mmHg ABG pO2 (83-108) mmHg ABG HCO3 (21-25) mmol/L ABG Total CO2 (19-24) mmol/L ABG O2 Saturation (94-97) % Potassium (3.5-5.1) mmol/L Chloride (98-107) mmol/L Carbon Dioxide (22-30) mmol/L Creatinine (0.66-1.25) mg/dL Glucose (74-99) mg/dL POC Glucose (mg/dL) (75-99) mg/dL Hemoglobin A1c (4.0-6.0) % Calcium (8.4-10.2) mg/dL Phosphorus (2.5-4.5) mg/dL Ferritin (22.0-322.0) ng/mL Alkaline Phosphatase (38-126) U/L Creatine Kinase (55-170) U/L C-Reactive Protein (<10.0) mg/L Total Protein (6.3-8.2) g/dL Albumin (3.5-5.0) g/dL Procalcitonin 0.23 H (0.02-0.09) ng/mL HSV II IgG Interpret POSITIVE H (NEGATIVE) HSV I DNA PCR DETECTED H (Not detected) 09/17/19 09/17/19 09/17/19 Range/Units 14:09 15:48 18:26 WBC (3.8-10.6) k/uL Neutrophils # (1.3-7.7) k/uL Lymphocytes # (1.0-4.8) k/uL Monocytes # (0-1.0) k/uL D-Dimer (<0.60) mg/L FEU ABG pH 7.30 L (7.35-7.45) ABG pCO2 (35-45) mmHg ABG pO2 216 H (83-108) mmHg ABG HCO3 17 L (21-25) mmol/L ABG Total CO2 18 L (19-24) mmol/L ABG O2 Saturation 99.8 H (94-97) % Potassium (3.5-5.1) mmol/L Chloride (98-107) mmol/L Carbon Dioxide (22-30) mmol/L Creatinine (0.66-1.25) mg/dL Glucose (74-99) mg/dL POC Glucose (mg/dL) 253 H 255 H (75-99) mg/dL Hemoglobin A1c (4.0-6.0) % Calcium (8.4-10.2) mg/dL Phosphorus (2.5-4.5) mg/dL Ferritin (22.0-322.0) ng/mL Alkaline Phosphatase (38-126) U/L Creatine Kinase (55-170) U/L C-Reactive Protein (<10.0) mg/L Total Protein (6.3-8.2) g/dL Albumin (3.5-5.0) g/dL Procalcitonin (0.02-0.09) ng/mL HSV II IgG Interpret (NEGATIVE) HSV I DNA PCR (Not detected) 09/17/19 09/17/19 09/17/19 Range/Units 19:22 20:12 21:20 WBC (3.8-10.6) k/uL Neutrophils # (1.3-7.7) k/uL Lymphocytes # (1.0-4.8) k/uL Monocytes # (0-1.0) k/uL D-Dimer (<0.60) mg/L FEU ABG pH (7.35-7.45) ABG pCO2 (35-45) mmHg ABG pO2 (83-108) mmHg ABG HCO3 (21-25) mmol/L ABG Total CO2 (19-24) mmol/L ABG O2 Saturation (94-97) % Potassium (3.5-5.1) mmol/L Chloride (98-107) mmol/L Carbon Dioxide (22-30) mmol/L Creatinine (0.66-1.25) mg/dL Glucose (74-99) mg/dL POC Glucose (mg/dL) 323 H 245 H 250 H (75-99) mg/dL Hemoglobin A1c (4.0-6.0) % Calcium (8.4-10.2) mg/dL Phosphorus (2.5-4.5) mg/dL Ferritin (22.0-322.0) ng/mL Alkaline Phosphatase (38-126) U/L Creatine Kinase (55-170) U/L C-Reactive Protein (<10.0) mg/L Total Protein (6.3-8.2) g/dL Albumin (3.5-5.0) g/dL Procalcitonin (0.02-0.09) ng/mL HSV II IgG Interpret (NEGATIVE) HSV I DNA PCR (Not detected) 09/17/19 09/17/19 09/17/19 Range/Units 21:45 21:45 21:45 WBC 19.2 H (3.8-10.6) k/uL Neutrophils # 16.7 H (1.3-7.7) k/uL Lymphocytes # 0.8 L (1.0-4.8) k/uL Monocytes # 1.2 H (0-1.0) k/uL D-Dimer 1.27 H (<0.60) mg/L FEU ABG pH (7.35-7.45) ABG pCO2 (35-45) mmHg ABG pO2 (83-108) mmHg ABG HCO3 (21-25) mmol/L ABG Total CO2 (19-24) mmol/L ABG O2 Saturation (94-97) % Potassium (3.5-5.1) mmol/L Chloride (98-107) mmol/L Carbon Dioxide (22-30) mmol/L Creatinine (0.66-1.25) mg/dL Glucose (74-99) mg/dL POC Glucose (mg/dL) (75-99) mg/dL Hemoglobin A1c (4.0-6.0) % Calcium (8.4-10.2) mg/dL Phosphorus (2.5-4.5) mg/dL Ferritin 674.3 H (22.0-322.0) ng/mL Alkaline Phosphatase (38-126) U/L Creatine Kinase 656 H (55-170) U/L C-Reactive Protein 15.9 H (<10.0) mg/L Total Protein (6.3-8.2) g/dL Albumin (3.5-5.0) g/dL Procalcitonin (0.02-0.09) ng/mL HSV II IgG Interpret (NEGATIVE) HSV I DNA PCR (Not detected) 09/17/19 09/17/19 09/18/19 Range/Units 22:18 23:27 00:28 WBC (3.8-10.6) k/uL Neutrophils # (1.3-7.7) k/uL Lymphocytes # (1.0-4.8) k/uL Monocytes # (0-1.0) k/uL D-Dimer (<0.60) mg/L FEU ABG pH (7.35-7.45) ABG pCO2 (35-45) mmHg ABG pO2 (83-108) mmHg ABG HCO3 (21-25) mmol/L ABG Total CO2 (19-24) mmol/L ABG O2 Saturation (94-97) % Potassium (3.5-5.1) mmol/L Chloride (98-107) mmol/L Carbon Dioxide (22-30) mmol/L Creatinine (0.66-1.25) mg/dL Glucose (74-99) mg/dL POC Glucose (mg/dL) 216 H 215 H 199 H (75-99) mg/dL Hemoglobin A1c (4.0-6.0) % Calcium (8.4-10.2) mg/dL Phosphorus (2.5-4.5) mg/dL Ferritin (22.0-322.0) ng/mL Alkaline Phosphatase (38-126) U/L Creatine Kinase (55-170) U/L C-Reactive Protein (<10.0) mg/L Total Protein (6.3-8.2) g/dL Albumin (3.5-5.0) g/dL Procalcitonin (0.02-0.09) ng/mL HSV II IgG Interpret (NEGATIVE) HSV I DNA PCR (Not detected) 09/18/19 09/18/19 09/18/19 Range/Units 01:04 02:24 03:34 WBC (3.8-10.6) k/uL Neutrophils # (1.3-7.7) k/uL Lymphocytes # (1.0-4.8) k/uL Monocytes # (0-1.0) k/uL D-Dimer (<0.60) mg/L FEU ABG pH (7.35-7.45) ABG pCO2 (35-45) mmHg ABG pO2 (83-108) mmHg ABG HCO3 (21-25) mmol/L ABG Total CO2 (19-24) mmol/L ABG O2 Saturation (94-97) % Potassium (3.5-5.1) mmol/L Chloride (98-107) mmol/L Carbon Dioxide (22-30) mmol/L Creatinine (0.66-1.25) mg/dL Glucose (74-99) mg/dL POC Glucose (mg/dL) 196 H 156 H 125 H (75-99) mg/dL Hemoglobin A1c (4.0-6.0) % Calcium (8.4-10.2) mg/dL Phosphorus (2.5-4.5) mg/dL Ferritin (22.0-322.0) ng/mL Alkaline Phosphatase (38-126) U/L Creatine Kinase (55-170) U/L C-Reactive Protein (<10.0) mg/L Total Protein (6.3-8.2) g/dL Albumin (3.5-5.0) g/dL Procalcitonin (0.02-0.09) ng/mL HSV II IgG Interpret (NEGATIVE) HSV I DNA PCR (Not detected) 09/18/19 09/18/19 09/18/19 Range/Units 03:52 03:52 03:52 WBC 13.6 H (3.8-10.6) k/uL Neutrophils # 10.6 H (1.3-7.7) k/uL Lymphocytes # (1.0-4.8) k/uL Monocytes # 1.2 H (0-1.0) k/uL D-Dimer (<0.60) mg/L FEU ABG pH (7.35-7.45) ABG pCO2 (35-45) mmHg ABG pO2 (83-108) mmHg ABG HCO3 (21-25) mmol/L ABG Total CO2 (19-24) mmol/L ABG O2 Saturation (94-97) % Potassium 3.2 L (3.5-5.1) mmol/L Chloride 111 H (98-107) mmol/L Carbon Dioxide 21 L (22-30) mmol/L Creatinine 0.63 L (0.66-1.25) mg/dL Glucose 110 H (74-99) mg/dL POC Glucose (mg/dL) (75-99) mg/dL Hemoglobin A1c 7.7 H (4.0-6.0) % Calcium 8.1 L (8.4-10.2) mg/dL Phosphorus 2.2 L (2.5-4.5) mg/dL Ferritin (22.0-322.0) ng/mL Alkaline Phosphatase 35 L (38-126) U/L Creatine Kinase (55-170) U/L C-Reactive Protein (<10.0) mg/L Total Protein 5.5 L (6.3-8.2) g/dL Albumin 2.9 L (3.5-5.0) g/dL Procalcitonin (0.02-0.09) ng/mL HSV II IgG Interpret (NEGATIVE) HSV I DNA PCR (Not detected) 09/18/19 09/18/19 09/18/19 Range/Units 04:03 05:22 05:35 WBC (3.8-10.6) k/uL Neutrophils # (1.3-7.7) k/uL Lymphocytes # (1.0-4.8) k/uL Monocytes # (0-1.0) k/uL D-Dimer (<0.60) mg/L FEU ABG pH (7.35-7.45) ABG pCO2 32 L (35-45) mmHg ABG pO2 178 H (83-108) mmHg ABG HCO3 20 L (21-25) mmol/L ABG Total CO2 (19-24) mmol/L ABG O2 Saturation 99.9 H (94-97) % Potassium (3.5-5.1) mmol/L Chloride (98-107) mmol/L Carbon Dioxide (22-30) mmol/L Creatinine (0.66-1.25) mg/dL Glucose (74-99) mg/dL POC Glucose (mg/dL) 119 H 122 H (75-99) mg/dL Hemoglobin A1c (4.0-6.0) % Calcium (8.4-10.2) mg/dL Phosphorus (2.5-4.5) mg/dL Ferritin (22.0-322.0) ng/mL Alkaline Phosphatase (38-126) U/L Creatine Kinase (55-170) U/L C-Reactive Protein (<10.0) mg/L Total Protein (6.3-8.2) g/dL Albumin (3.5-5.0) g/dL Procalcitonin (0.02-0.09) ng/mL HSV II IgG Interpret (NEGATIVE) HSV I DNA PCR (Not detected) 09/18/19 09/18/19 09/18/19 Range/Units 06:07 08:08 09:55 WBC (3.8-10.6) k/uL Neutrophils # (1.3-7.7) k/uL Lymphocytes # (1.0-4.8) k/uL Monocytes # (0-1.0) k/uL D-Dimer (<0.60) mg/L FEU ABG pH (7.35-7.45) ABG pCO2 (35-45) mmHg ABG pO2 (83-108) mmHg ABG HCO3 (21-25) mmol/L ABG Total CO2 (19-24) mmol/L ABG O2 Saturation (94-97) % Potassium (3.5-5.1) mmol/L Chloride (98-107) mmol/L Carbon Dioxide (22-30) mmol/L Creatinine (0.66-1.25) mg/dL Glucose (74-99) mg/dL POC Glucose (mg/dL) 125 H 153 H 177 H (75-99) mg/dL Hemoglobin A1c (4.0-6.0) % Calcium (8.4-10.2) mg/dL Phosphorus (2.5-4.5) mg/dL Ferritin (22.0-322.0) ng/mL Alkaline Phosphatase (38-126) U/L Creatine Kinase (55-170) U/L C-Reactive Protein (<10.0) mg/L Total Protein (6.3-8.2) g/dL Albumin (3.5-5.0) g/dL Procalcitonin (0.02-0.09) ng/mL HSV II IgG Interpret (NEGATIVE) HSV I DNA PCR (Not detected) 09/18/19 Range/Units 12:12 WBC (3.8-10.6) k/uL Neutrophils # (1.3-7.7) k/uL Lymphocytes # (1.0-4.8) k/uL Monocytes # (0-1.0) k/uL D-Dimer (<0.60) mg/L FEU ABG pH (7.35-7.45) ABG pCO2 (35-45) mmHg ABG pO2 (83-108) mmHg ABG HCO3 (21-25) mmol/L ABG Total CO2 (19-24) mmol/L ABG O2 Saturation (94-97) % Potassium (3.5-5.1) mmol/L Chloride (98-107) mmol/L Carbon Dioxide (22-30) mmol/L Creatinine (0.66-1.25) mg/dL Glucose (74-99) mg/dL POC Glucose (mg/dL) 172 H (75-99) mg/dL Hemoglobin A1c (4.0-6.0) % Calcium (8.4-10.2) mg/dL Phosphorus (2.5-4.5) mg/dL Ferritin (22.0-322.0) ng/mL Alkaline Phosphatase (38-126) U/L Creatine Kinase (55-170) U/L C-Reactive Protein (<10.0) mg/L Total Protein (6.3-8.2) g/dL Albumin (3.5-5.0) g/dL Procalcitonin (0.02-0.09) ng/mL HSV II IgG Interpret (NEGATIVE) HSV I DNA PCR (Not detected) Microbiology - Last 24 Hours (Table) 09/16/19 09:00 CSF Gram Stain - Preliminary Cerebral Spinal Fluid CSF Culture - Preliminary 09/13/19 21:11 Blood Culture - Preliminary Blood No Growth after 96 hours 09/14/19 18:39 Blood Culture - Preliminary Blood No Growth after 72 hours 09/16/19 09:00 Acid Fast Bacilli Smear - Final Cerebral Spinal Fluid Acid Fast Bacilli Culture - Preliminary Assessment and Plan Assessment: Impression: Acute hypoxic respiratory failure secondary to status epilepticus. Requiring intubation and mechanical ventilation since 09/17/19. Status epilepticus, with abnormal spinal fluid and abnormal MRI. That is being addressed by neurology on the case. And patient may be transferred today to [facility]. In the meantime continue treatment plan as recommended by neurology on the case. Acute presentation of SIADH with hyponatremia, and abnormal hilar mass and subcarinal adenopathy most likely secondary to small cell lung cancer. Possibility of metastatic disease to the brain is not entirely ruled out. Coronary artery disease with previous CABG. Chronic systolic congestive heart failure with ejection fraction of 45-50%. Hypothyroidism, on replacement therapy Benign essential hypertension. Dyslipidemia. Diabetes mellitus type 1. Recommendation: Continue present ventilatory support. Continue antiseizure treatment. Patient is on Keppra and Dilantin and on propofol. Consider transferring the patient to [facility]. Continue to monitor electrolytes. Continue antibiotics as ordered. Continue acyclovir. At this point, the patient is not a candidate for any bronchoscopic evaluation but that is to be determined in the future. Patient remains critically ill, and critical care time is 35 minutes. We'll continue to follow in the ICU. Prognosis is extremely poor and guarded. Time with Patient: Greater than 30
[2019-09-18 14:11] VITALS: BP 112/64; PULSE 65
--- NOTE | 2019-09-18 14:17 | CT ---
EXAMINATION TYPE: CT brain wo con DATE OF EXAM: 09/18/2019 COMPARISON: 09/13/2019 HISTORY: 58-year-old male clinically worsening, CSF + HSV 1, refractive nonconvulsive status TECHNIQUE: Examination was done in axial plane without intravenous contrast. Coronal and sagittal r econstructions performed. CT DLP: 1188.4 mGycm Automated exposure control for dose reduction was used. FINDINGS: Mild central cerebral atrophy, unchanged. There seems to be some cortical and subcortical hypodensity involving the anterior left temporal lobe , medial right temporal lobe, right insular lobe There is secondary slight mass effect on the right minimally narrowing the right lateral ventricle as compared to the recent prior. No midline shift at this time. No evidence for acute intracranial hemorrhage. ET and OG tubes are present. Incidentally, the OG tube is looped once within the oropharynx. Moderate mucosal thickening ethmoid air cells and sphenoid sinuses. Some layering fluid in the right sphenoid sinus. Mastoid air cells well pneumatized. Cerumen within the left external auditory canal. 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 IMPRESSION: 1. Pattern of cortical and subcortical hypodensity involving the medial right temporal lobe, anterior left temporal lobe, and right insular lobe, unchanged pattern as compared to 09/15/2019. Findings sug gest acute infarcts including HSV as the cause given the distribution. 2. Minimal asymmetric mass effect on the right lateral ventricle, increased as compared to 09/13/2019 but relatively similar to 09/15/2019. No isidro midline shift or acute intracranial hemorrhage.
[2019-09-18 14:18] LABS: Glucose,Whole Blood 128 mg/dL (75-99)
[2019-09-18 15:09] LABS: African American GFR (CKD) >90 (>60 ml/min/1.73 sqM); Anion Gap 8 mmol/L; Blood Urea Nitrogen 15 mg/dL (9-20); Calcium 7.9 mg/dL (8.4-10.2); Carbon Dioxide 18 mmol/L (22-30); Chloride 113 mmol/L (98-107); Glucose 177 mg/dL (74-99); Non-African American GFR(CKD) >90 (>60 ml/min/1.73 sqM); Potassium 3.6 mmol/L (3.5-5.1); Sodium 139 mmol/L (137-145)
--- NOTE | 2019-09-18 17:19 | DS ---
DISCHARGE SUMMARY DATE OF SERVICE: 09/18/2019 FINAL DIAGNOSES: 1. 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 2. Seizure disorder with status epilepticus. 3. Hyponatremia, possibly secondary to SIADH. 4. A 2.8 cm right infrarenal lung mass with paratracheal lymphadenopathy, possible lung malignancy. 5. Fever, possibly postobstructive pneumonia. 6. Worsening right-sided pneumonia, possibly gram-negative. 7. Metabolic encephalopathy, change in mental status, multifactorial. 8. Right temporal lesions on the MRI scan. 9. History of herpes simplex. 10.Hypertension. 11.Diabetes mellitus type 2. 12.Congestive heart failure. 13.History of nicotine dependence. 14.History of coronary artery disease, coronary artery bypass grafting. DISCHARGE DISPOSITION: The patient will be discharged in a stable condition with guarded prognosis to [facility] per Neurology recommendations. Total time taken 35 minutes. HISTORY OF PRESENT ILLNESS: This is a 58-year-old gentleman with a past medical history of multiple medical problems was admitted with change in mental status and multiple other medical issues as mentioned earlier. The possibility of malignancy is considered. Lumbar puncture history of increased elevated protein and HSV positive such as simplex encephalitis. MRI scan also showed findings suggestive of encephalitis. The patient had multiple other medical issues as listed above. Patient was evaluated by Neurology and Critical Care and multiple other consultants and per Neurology recommendations, the patient was transferred to [facility] for further evaluation and treatment. The patient was treated with IV Keppra, also. Please refer to the multiple progress notes, consultation notes for further information. Prognosis remained extremely guarded throughout the hospital stay. MMODL / IJN: [id number] / MTDVivi
--- NOTE | 2019-09-18 18:11 | PN ---
PROGRESS NOTE DATE OF SERVICE: 09/18/2019 REASON FOR FOLLOWUP: Herpes encephalitis and possible aspiration pneumonitis. INTERVAL HISTORY: The patient is currently afebrile. The patient is hemodynamically stable. FiO2 is currently at 35%, saturating about 100%. Patient currently has no significant purulent secretions in the ET or any diarrhea reported. PHYSICAL EXAMINATION: Blood pressure 112/60 with a pulse of 85, temperature 98. He is 100% on 35% FiO2. General description is a middle-aged male lying in bed in no distress. RESPIRATORY SYSTEM: Unlabored breathing. Clear to auscultation anteriorly. HEART: S1, S2. Regular rate and rhythm. ABDOMEN: Soft. No tenderness. LABS: BUN of 15, creatinine 0.61. HSV DNA by PCR came back positive. DIAGNOSTIC IMPRESSION AND PLAN: 1. Patient with a fever and mental status changes likely secondary to herpes encephalitis. The patient is already on acyclovir continue to finish his course of therapy. 2. Concern for possible aspiration pneumonitis, currently covered with cefepime and Flagyl, and will monitor his clinical course closely. MMODL / IJN: [id number] /
[2019-09-19] MEDS ORDERED: levETIRAcetam IV 1,500 MG in SALINE 1 100ML.BAG IVPB SCH
--- NOTE | 2019-09-19 10:49 | EEG ---
ELECTROENCEPHALOGRAM REPORT HISTORY: This is a repeated inpatient EEG performed for a 58-year-old gentleman who is admitted on 09/10 for acute altered mental status followed by acute respiratory failure. The patient was found to have an abnormal CT angio of the chest showing a suspicious mass lesion in the right lung field. The MRI was abnormal for increased signal and defuted weighted imaging over the right hemisphere. This patient over the last 24 hours decompensated and went into electric convulsive status with seizures emanating from the right hemisphere. He is currently now on sedation with propofol at 60 mcg/minute, levetiracetam 2000 mg IV q.12, phenytoin IV 100 mg q. 8. The recording begins at 7:21:13 am and ends at 7:47:21 am. The EEG has now progressively worsened showing continuous electrographic seizures from the right hemisphere, now lasting between 2-7 seconds duration followed by suppression/electro decremental response ranging from 4-5 seconds. This continues throughout the EEG. There is also now noted to be paroxysmal fast activity associated with electric convulsive seizures beginning in the right hemisphere, primarily lateralized over the midline vertex and right frontal central head region. No clinical events were occurring. The EKG did not show any evidence of abnormalities. IMPRESSION: There is clinical worsening of this EEG with more prolonged periods by several seconds of electroconvulsive seizures occurring from the right hemisphere. The suppression still remains similar to prior EEG yesterday at 4-5 seconds periods of suppression. RECOMMENDATIONS: This patient's propofol can be adjusted to max. Would recommend this patient be transferred to a higher level of care where he can undergo continuous monitoring. This patient may require further management with pentobarbital to put this patient in an acceptable burst suppression mode. Further neuro imaging studies are recommended along with further management of infectious and potentially oncological processes. MMODL / IJN: [id number] / MTDD
--- NOTE | 2019-09-20 10:56 | CDI ---
Documentation Clarification Form Date: 09/20/19 From: Elizabeth Magallanes CCS Phone: If you have a question about this query, please contact Mandi Gutierrez, [employer] at [phone] between 8am and 5pm. Admit Date: 09/13/19 Discharge Date:09/18/19 Patient Name: Konrad Olsen Visit Number: [id number] ATTENTION: The Clinical Documentation Specialists (CDI) and [facility] Coding Staff appreciate your assistance in clarifying documentation. Please respond to the clarification below the line at the bottom and electronically sign. The CDI & [facility] Coding staff will review the response and follow-up if needed. Please note: Queries are made part of the Legal Health Record. If you have any questions, please contact the author of this message via ITS. Dear Dr. Chávez, The diagnosis sepsis was documented in the record, but is not noted in subsequent documentation. 09/14 Consult-Dr. Jonas: 1- patient presented to hospital with sepsis in this patient did have a fever and elevated white count PN 09/15-Dr Sheet: Less likely due to seizure, less likely encephalit is, versus metabolic encephalopathy and sepsis (multifactorial) however it is improving today PN 09/16- Dr. Sheet: Less likely due to seizure, less likely encephalit is, versus metabolic encephalopathy and sepsis (multifactorial) however it is improving today WBC: 12.3, 10.6, 13.4 Lactic Acid: 1.8, 1.7, 1.2 Vitals: BP 148/73, Temp 98.9, RR 20, [place] 70, O2 Sat 94 History/Risk Factors: Encephalitis, PNA, COPD, Lung CA, DM, Tobacco Clinical Indicators: Fever, Encephalopathy, PVC Treatment: Maxipime 2 gm IVPB, Rocephin 2gm IVPB, Clindamycin 300 gm IVPB, Vancomycin 1,250 mg IVPB Consult: Pritesh Please clarify if the sepsis was Present/active this admission Treated and resolved this admission Ruled out Other, please specify Clinically unable to determine Ruled out JAZMIN
== END 2019-09-18 14:30 | disposition short-term general hospital (02) | DRG 97 ==
LOC: EC 20:35 → 3SCARD 23:55 → 2SICU 09-15 16:48
PROVIDERS: ADMIT Hospitalist; ATTEND Hospitalist
PROC: 009U3ZX Drainage of Spinal Canal, Percutaneous Approach, Diagnostic (ICD-10-PCS; principal; 2019-09-16)
PROC: 0BH17EZ Insertion of Endotracheal Airway into Trachea, Via Natural or Artificial Opening (ICD-10-PCS; 2019-09-17)
PROC: 5A1945Z Respiratory Ventilation, 24-96 Consecutive Hours (ICD-10-PCS; 2019-09-17)
PROC: 04HY32Z Insertion of Monitoring Device into Lower Artery, Percutaneous Approach (ICD-10-PCS; 2019-09-17)
PROC: 4A133B1 Monitoring of Arterial Pressure, Peripheral, Percutaneous Approach (ICD-10-PCS; 2019-09-17)
PROC: 4A133J1 Monitoring of Arterial Pulse, Peripheral, Percutaneous Approach (ICD-10-PCS; 2019-09-17)
PROC: 0D9770Z Drainage of Stomach, Pylorus with Drainage Device, Via Natural or Artificial Opening (ICD-10-PCS; 2019-09-17)
PROC: 02HV33Z Insertion of Infusion Device into Superior Vena Cava, Percutaneous Approach (ICD-10-PCS; 2019-09-17)
DX: B00.4 Herpesviral encephalitis (principal); G93.41 Metabolic encephalopathy; R40.2114 Coma scale, eyes open, never, 24 hours or more after hospital admission; R40.2224 Coma scale, best verbal response, incomprehensible words, 24 hours or more after hospital admission; J96.01 Acute respiratory failure with hypoxia; J15.6 Pneumonia due to other Gram-negative bacteria; E22.2 Syndrome of inappropriate secretion of antidiuretic hormone; I50.22 Chronic systolic (congestive) heart failure; C77.1 Secondary and unspecified malignant neoplasm of intrathoracic lymph nodes; C34.01 Malignant neoplasm of right main bronchus; I42.9 Cardiomyopathy, unspecified; C79.31 Secondary malignant neoplasm of brain; J44.0 Chronic obstructive pulmonary disease with (acute) lower respiratory infection; Z20.828 Contact with and (suspected) exposure to other viral communicable diseases; G40.901 Epilepsy, unspecified, not intractable, with status epilepticus; E10.42 Type 1 diabetes mellitus with diabetic polyneuropathy; I11.0 Hypertensive heart disease with heart failure; E10.65 Type 1 diabetes mellitus with hyperglycemia; Z79.4 Long term (current) use of insulin; R40.2434 Glasgow coma scale score 3-8, 24 hours or more after hospital admission; K21.9 Gastro-esophageal reflux disease without esophagitis; R40.2142 Coma scale, eyes open, spontaneous, at arrival to emergency department; R40.2252 Coma scale, best verbal response, oriented, at arrival to emergency department; R40.2362 Coma scale, best motor response, obeys commands, at arrival to emergency department; E03.9 Hypothyroidism, unspecified; F17.210 Nicotine dependence, cigarettes, uncomplicated; E78.5 Hyperlipidemia, unspecified; E86.1 Hypovolemia; R40.2354 Coma scale, best motor response, localizes pain, 24 hours or more after hospital admission; E87.6 Hypokalemia; E83.39 Other disorders of phosphorus metabolism; F41.9 Anxiety disorder, unspecified; I25.10 Atherosclerotic heart disease of native coronary artery without angina pectoris; I49.3 Ventricular premature depolarization; I25.2 Old myocardial infarction; Z71.3 Dietary counseling and surveillance; Z79.890 Hormone replacement therapy; Z79.82 Long term (current) use of aspirin; Z79.899 Other long term (current) drug therapy; Z79.02 Long term (current) use of antithrombotics/antiplatelets; Z95.1 Presence of aortocoronary bypass graft; Z95.5 Presence of coronary angioplasty implant and graft; Z98.890 Other specified postprocedural states; Z88.0 Allergy status to penicillin; Z88.8 Allergy status to other drugs, medicaments and biological substances; Z83.3 Family history of diabetes mellitus; Z82.49 Family history of ischemic heart disease and other diseases of the circulatory system
CPT/HCPCS: 36415; 36600; 70450; 70553; 71045; 71046; 71275; 80048; 80051; 80053; 80185; 80186; 80202; 81001; 82042; 82140; 82550; 82607; 82728; 82746; 82805; 82945; 83036; 83605; 83615; 83735; 83935; 84100; 84132; 84145; 84157; 84295; 84443; 85025; 85379; 85610; 85652; 85730; 86140; 86695; 86696; 87040; 87070; 87102; 87116; 87205; 87206; 87502; 87529; 87581; 87635; 88108; 89050; 93005; 93306; 93970; 94002; 94003; 95812; 95816; 95819; 96360; 99285